=== PATIENT | female | born 1995 | race Two or more races ===

== ENCOUNTER 2022-09-06 13:04 | Outpatient (AMB) | payer OTHER, SELFPAY ==
[2022-09-06 13:06] VITALS: BP 118/60; PULSE 83; O2SAT 99; BMI 29.0
--- NOTE | 2022-09-06 13:06 | A.OFFVIS_ITS ---
Intake Vital Signs 09/06/22 13:06 Height 5 ft 6 in Weight 179 lb 8 oz BMI 29.0 BP 118/60 Blood Pressure Location Rt brachial Position Sitting Pulse 83 Pulse Source Pulse Oximeter Pulse Oximetry (%) 99 Oxygen Delivery Method Room Air Intake Visit Reasons: NPV-Headaches Intake Note: Pt presents as a NPV for headaches. Pt states she has been dealing with headaches for a long time and she used to take sumatriptan but at some point it stopped working. Pt also stated she has tried amitriptyline and some others that didnt work. Pt started seeing double vision and lights. Pt states her head is still hurthing everyday and sometimes its so bad she has to go to ER. 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 Pt has been having headaches since her teenage years. The headaches became everyday about 2 yrs ago around the time her sumatriptan became less effective. Then last year she began ahving new symptoms with her migraine- seeing spot and double vision (occurring with and without headache). Headache questionnaire: Age/time of onset? Adolescence Preceding causes? None Headache characteristics? Can be either right or left sided or bilateral. Throbbing hard pain Pain intensity? Mild-mod 5-6/10, severe 101/10 Prodrome symptoms? None Aura? Sees dots, worsening horizontal diplopia w/ with seeing the image as shaky- when the headache is more severe Associated symptoms? photophobia, phonophobia, nausea (also has GI s/s), external spinning, brain fog/forgetfulness, fatigue, Focal weakness, Parethesias, Autonomic s/s? numbness in the top of the head Postdrome? n/a Triggers? Light or sound exposure. Positional, valsalva, exertional, sexual activity triggers? If she bends over a lot- the headache will worsen. Menstrual triggers? None Time of day? Towards the evening the headaches worsen. Duration? Constant Frequency? Constant How does headache impact your life? 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 She has a supportive family. Current acute medication use/interventions: Nothing Previous acute medication use: Sumatriptan 100mg- stopped working. Current preventative medication use: None Previous preventative medication use: Amitriptyline- took for 6-7 months w/o effect. Non-pharmacological interventions: Heat to her neck- stopped helping. Ice packs, resting in a dark room helps some. 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 She was tx'd w/ Prednisone, Doxycycline, Acyclovir. Other history of headache disorder? None History of musculoskeletal disorders or injury? No injuries, but has been doing PT for neck and shoulder stiffness/tightness. History of concussion/head injury? None History of mood disorder? Anxiety- could be better controlled, especially when she does not feel well. She had post- depression- after her 3 yo's delivery. History of sleep disorder? Does not sleep well- difficulty staying asleep. She believes that she snores. Has been having some difficulty swallowing- recent neck CT showed enlarged tonsils- per PCP referral- a referral was made to ENT- but pt was unaware of this. History of respiratory disease? Asthma History of CV disease? None History of coagulopathy? None History of endocrine or metabolic disease? Hypothyroidism. Was told she is pre- diabetic. History of seizure? None Other? Has h/o KARISSA- had iron infusions. Has some RLS when falling asleep. GI? Has celiac dz- dx'd at age 11, but was not avoiding gluten until a few months ago when she underwent f/u EGD- which confirmed celiac dz. Prone to loose stools. Family planning? None- on mini-pill Family history of migraine or other headache disorder? Her sister [facility] Medical History (Updated 09/06/22 @ 14:35 by ISIDORO Juan) Asthma Celiac disease Enlarged tonsils GERD (gastroesophageal reflux disease) Heart murmur History of depression HLD (hyperlipidemia) Hypothyroidism KARISSA (iron deficiency anemia) Surgical History H/O eye surgery Family History (Updated 09/06/22 @ 13:26 by Janina Bernardo CMA) Maternal Grandmother Diabetes Hypertension Paternal Grandfather Hypertension Father Rheumatoid arthritis Diabetes Fibromyalgia Migraines Anxiety Lupus Mother Fibromyalgia Migraines Hypertension Hypercholesteremia Social History (Updated 09/06/22 @ 13:15 by Janina Bernardo CMA) Alcohol intake: never Patient Tobacco Use Status: Never used Tobacco Review of Systems Const Details: See scanned ROS form. Reports headache(s) ENT Reports headache(s) Neuro Reports headache(s) Physical Exam Vital Signs: Last Vital Signs Pulse 83 09/06/22 13:06 BP 118/60 09/06/22 13:06 Pulse Ox 99 09/06/22 13:06 Oxygen Delivery Method Room Air 09/06/22 13:06 BMI result Body Mass Index 29.0 Const Orientation/consciousness: patient oriented x3 HEENT Other: Mild palpable diffuse scalp and jose TMJ region tenderness. Mallampati stage III. Head: Yes normocephalic Eyes Pupils: Equal, round and reactive pupils present EOM: EOMs intact bilaterally Resp Effort & Inspection: normal respiratory effort and able to speak in complete sentences Back/Spine/Pelvis Other: Bilateral posterior cervical tightness- mild. Cervical ROM: full Neuro Other: Photophobia General: patient oriented x3 Cranial nerves: Yes CN's II-XII intact bilaterally (w/ exception of very mild left lower facial assymetry), Yes Equal, round and reactive pupils present and Yes Nystagmus not present Cognition (Neuro): normal cognition Gait exam (Neuro): Normal gait present Motor exam (neuro): 5/5 motor strength present throughout Deep tendon reflexes (DTR's): Right triceps reflex intensity grade: 2+, Left triceps reflex intensity grade: 2+, Rt Biceps (C5, C6): 2+, Left biceps reflex intensity grade: 2+, Right brachioradialis reflex intensity grade: 2+, Left brachioradialis reflex intensity grade: 2+, Right patellar reflex intensity grade: 2+ and Left patellar reflex intensity grade: 2+ Coordination: [id number] test normal, tandem gait normal and Romberg test negative Pupils: Normal pupillary reactivity/response: bilateral Psych Appearance: grossly normal Mental Status: mental status grossly normal Speech and movement: Normal speech and movement present Affect: normal affect Attitude: cooperative Thought process: Normal thought process present Assessment & Plan Assessment & Plan (1) Chronic migraine without aura: Code(s): G43.709 - Chronic migraine without aura, not intractable, without status migrainosus (2) Diplopia: Code(s): H53.2 - Diplopia (3) Snoring: Code(s): R06.83 - Snoring (4) Sleep difficulties: Code(s): G47.9 - Sleep disorder, unspecified (5) Excessive daytime sleepiness: Code(s): G47.19 - Other hypersomnia (6) Restless leg syndrome: Code(s): G25.81 - Restless legs syndrome Plan Will request brain MRI report and notes from [facility]. Pt advised to undergo HST to assess for sleep apnea. ENT consult as ordered by Dr Solares. Pt has an appt w/ her eye doctor to eval diplopia. Monitor RLS clinically for now. Continue PT For overall headache management: Discussed importance of good self-care, including but not limited to maintaining a healthy diet, adequate fluid intake, adequate sleep, and engaging in regular physical activity. For headache triggers: Track headaches, especially after any treatment regimen changes. Migraine [employer] is one of many headache tracking apps. Light sensitivity tips: Patient may try blue light filtering glasses, green glasses, green light therapy.. Avoid wearing sunglasses inside. For acute headache treatment: Discussed importance of taking acute medications at the first sign of headache, however stressed importance of avoiding acute medication overuse (especially with combined headache medications). Trial Rizatriptan 10mg tab, 1/2 - 1 tab (5-10mg) at onset of headache, may repeat in 2 hours. Max of 2 tabs (200mg) per 24 hours. May adjunct with OTC Tylenol 650mg q 4 hours, Ibuprofen (liquigel) 600mg q 6 hours, or Naproxen (liquigel) 440mg q 12 hrs prn. Reviewed potential adverse effects of triptans, including but not limited to nausea, fatigue, chest tightness/tingling (usually passes within a few minutes), medication overuse headaches. Previous acute migraine medication trials: Sumatriptan- lost efficacy. Acute migraine medication contraindications: none at this time For headache prevention medication: Discussed that preventative medications should be taken routinely as prescribed for best effect, it may take several weeks for full effect to take effect. Start Riboflavin 400mg qam Start Magnesium 400mg qhs Retry Amitriptyline 12.5mg qhs, then 25mg qhs. Previous migraine prevention medication trials: Amitriptyline 10mg- ineffective after 6 months. Migraine prevention medication contraindications: BBs d/t asthma dx. Information also given on non-pharmacological interventions, such as migraien cooling caps and Cefaly or Nerivio neuromodulation devices. Pt to follow-up in 3 months or sooner prn. Orders: Orders RT home sleep study Today G47.19 - Other hypersomnia, G47.9 - Sleep disorder, unspecified, J35.1 - Hypertrophy of tonsils, R06.83 - Snoring Medications: New rizatriptan max 2 tabs per day or 4 tabs per week 5 - 10 mg (0.5 - 1 x 10 mg) PO Q2H PRN 12 tabs 3RF migraine headache 21 days magnesium oxide may hold for loose stools 400 mg PO BEDTIME 30 tabs 6RF 30 days riboflavin (vitamin B2) 400 mg PO DAILY 30 tabs 6RF 30 days amitriptyline 1/2 tab qhs x's 1 week, then 1 tab qhs orally bedtime; 30 tabs 3RF 30 days Coding Level of Care Code New Pt Level 4 (76554) Diagnoses Chronic migraine without aura G43.709 Diplopia H53.2 Snoring R06.83 Sleep difficulties G47.9 Excessive daytime sleepiness G47.19 Restless leg syndrome G25.81
== END 2022-09-06 14:16 | disposition home or self-care (01) ==
PROVIDERS: Visit Provider Nurse Practitioner Family
DX: G43.709 Chronic migraine without aura, not intractable, without status migrainosus (principal); H53.2 Diplopia; R06.83 Snoring; G47.9 Sleep disorder, unspecified; G47.19 Other hypersomnia; G25.81 Restless legs syndrome
CPT/HCPCS: 99204

== ENCOUNTER → 2022-09-06 13:04 | Outpatient (BNVA) | payer OTHER, SELFPAY | PROVIDERS: Visit Provider Nurse Practitioner Family | DX: G43.709 Chronic migraine without aura, not intractable, without status migrainosus (principal); H53.2 Diplopia; R06.83 Snoring; G47.19 Other hypersomnia; G25.81 Restless legs syndrome | CPT/HCPCS: 99202 ==

== ENCOUNTER → 2022-10-12 13:56 | Outpatient (REF) | payer OTHER, SELFPAY | LOC: HO.SL 13:56 | PROVIDERS: PCP Internal Medicine; Visit Provider Nurse Practitioner Family | DX: R06.83 Snoring (principal); G47.9 Sleep disorder, unspecified; G47.19 Other hypersomnia; J35.1 Hypertrophy of tonsils | CPT/HCPCS: 95806 ==

== ENCOUNTER → 2022-10-12 14:05 | Outpatient (BNV) | payer OTHER, SELFPAY | PROVIDERS: PCP Internal Medicine; Visit Provider Internal Medicine | DX: R06.83 Snoring (principal) | CPT/HCPCS: 95806 ==

== ENCOUNTER 2022-12-15 14:25 | Outpatient (AMB) | payer OTHER, SELFPAY ==
--- NOTE | 2022-12-15 14:25 | MHC.OFFVIS ---
Intake Vital Signs 12/15/22 14:26 Height 5 ft 6 in Weight 189 lb 8 oz BMI 30.6 BP 108/72 Blood Pressure Location Rt brachial Position Sitting Pulse 88 Pulse Source Pulse Oximeter Pulse Oximetry (%) 99 Oxygen Delivery Method Room Air Intake Visit Reasons: Headaches-LVM Intake Note: Patient presents for headaches. patient states Im still getting a lot of headaches. Allergies gluten [GLUTEN] Allergy (Unknown, Unverified 12/15/22 14:28) DIARRHEA lactose Allergy (Unknown, Verified 12/15/22 14:28) Unknown metoclopramide [From REGLAN] Allergy (Unknown, Unverified 12/15/22 14:28) UNKNOWN Medication List - Last Reconciled 12/16/22 by ISIDORO Juan amitriptyline 1/2 tab qhs x's 1 week, then 1 tab qhs orally bedtime; 30 days [ control pill PO] erenumab-aooe (Aimovig Autoinjector) 140 mg subcut ONCE 30 days gabapentin 100 mg PO DAILY levothyroxine 125 mcg PO DAILY magnesium oxide 400 mg PO BEDTIME 30 days riboflavin (vitamin B2) 400 mg PO DAILY 30 days rizatriptan 5 - 10 mg (0.5 - 1 x 10 mg) PO Q2H PRN 21 days ubrogepant (Ubrelvy) 100 mg PO ONCE PRN HPI HPI Comments History of Present Illness Details 27-yr-old female presents for f/u visit. Pt denies any significant interval medical changes. Pt continues to have migraine at least 4 times per week. Ubrelvy was ineffective. Thus, pt tried a Nurtec sample, which helped better. Amitriptyline has not been helping. We did put in an order for Aimovig, however pt did not start it yet- was nervous to do it herself. HST- AHI 0/hr, O2 joanne 93%. PFSH Medical History (Updated 09/06/22 @ 14:35 by ISIDORO Juan) Enlarged tonsils HLD (hyperlipidemia) Hypothyroidism History of depression KARISSA (iron deficiency anemia) Asthma Heart murmur GERD (gastroesophageal reflux disease) Celiac disease Surgical History H/O eye surgery Family History (Updated 09/06/22 @ 13:27 by Janina Bernardo CMA) Maternal Grandmother Diabetes Hypertension Paternal Grandfather Hypertension Father Rheumatoid arthritis Diabetes Fibromyalgia Migraines Anxiety Lupus Mother Fibromyalgia Migraines Hypertension Hypercholesteremia Social History (Updated 09/06/22 @ 13:15 by Janina Bernardo CMA) Alcohol intake: never Patient Tobacco Use Status: Never used Tobacco Review of Systems Const All systems reviewed & are unremarkable except as noted in HPI and below Physical Exam Vital Signs: Last Vital Signs Pulse 88 12/15/22 14:26 BP 108/72 12/15/22 14:26 Pulse Ox 99 12/15/22 14:26 Oxygen Delivery Method Room Air 12/15/22 14:26 BMI result Body Mass Index 30.6 Const General: cooperative and no acute distress Orientation/consciousness: patient oriented x3 HEENT Head: Yes normocephalic Resp Effort & Inspection: normal respiratory effort and able to speak in complete sentences Neuro General: patient oriented x3, gait normal and CN's II-XI intact bilaterally Cognition (Neuro): normal cognition Motor exam (neuro): 5/5 motor strength present throughout Psych Appearance: grossly normal Mental Status: mental status grossly normal Speech and movement: Normal speech and movement present Affect: normal affect Attitude: cooperative Thought process: Normal thought process present Thought content: Normal thought content present Insight: Good insight present (Psych) Judgement: Good judgement present (Psych) Assessment & Plan Assessment & Plan (1) Chronic migraine without aura: Code(s): G43.709 - Chronic migraine without aura, not intractable, without status migrainosus (2) Sleep difficulties: Code(s): G47.9 - Sleep disorder, unspecified (3) Restless leg syndrome: Code(s): G25.81 - Restless legs syndrome Plan For overall headache management: Continue to optimize good self-care, including but not limited to maintaining a healthy diet, adequate fluid intake, adequate sleep, and engaging in regular physical activity. Track headaches. Monitor RLS ? For acute headache treatment: Rizatriptan 10mg tab prn. Will initiate order for Nurtec ODT 75mg qd prn, as pt had good effect from sample use. Previous acute migraine medication trials: Sumatriptan- lost efficacy. Rizatriptan- not fully effective. Acute migraine medication contraindications: none at this time ? For headache prevention medication: Riboflavin 400mg qam Magnesium 400mg qhs Amitriptyline 25mg qhs Start Aimovig today- pt scheduled for injection training later today Previous migraine prevention medication trials: Amitriptyline 25mg- ineffective after 3 months. Migraine prevention medication contraindications: BBs d/t asthma dx. ? Addendum: When pt arrived for Aimovig injection training, pt shared that she was now having constiptaion requiring daily tx w/ Miralax. Thus, Aimovig was not administered. Aimovig 140mg/ml autoinjector sample (lot # [id number], exp date 02/20/23)- was wasted as the dose was allowed to come to room air and cannot be refrigerated. Thus, pt advised to start Emgality 240mg loading dose x's 1, then 120mg sc q month. ? Pt to follow-up in 3 months or sooner prn. Medications: New rimegepant (Nurtec ODT) MDD 1 tab per day 75 mg PO ONCE PRN 16 tabs 6RF migraine headache 30 days galcanezumab-gnlm (Emgality Pen) 120 mg subcut ONCE 1 mL 6RF 30 days Refilled rizatriptan max 2 tabs per day or 4 tabs per week 5 - 10 mg (0.5 - 1 x 10 mg) PO Q2H PRN 12 tabs 3RF migraine headache 21 days Discontinued ubrogepant (Ubrelvy) Discontinued Reason: Doctor's Order 100 mg PO ONCE PRN 10 tabs 0RF Migraine erenumab-aooe (Aimovig Autoinjector) Discontinued Reason: Doctor's Order 140 mg subcut ONCE 30 days 1 mL 6RF Coding Level of Care Code Est Pt Level 4 (42477) Diagnoses Chronic migraine without aura G43.709 Sleep difficulties G47.9 Restless leg syndrome G25.81
[2022-12-15 14:26] VITALS: BP 108/72; PULSE 88; O2SAT 99; BMI 30.6
== END 2022-12-15 14:56 | disposition home or self-care (01) ==
PROVIDERS: PCP Internal Medicine; Visit Provider Nurse Practitioner Family
DX: G43.709 Chronic migraine without aura, not intractable, without status migrainosus (principal); G47.9 Sleep disorder, unspecified; G25.81 Restless legs syndrome
CPT/HCPCS: 99214

== ENCOUNTER → 2022-12-15 14:25 | Outpatient (BNVA) | payer OTHER, SELFPAY | PROVIDERS: PCP Internal Medicine; Visit Provider Nurse Practitioner Family | DX: G43.709 Chronic migraine without aura, not intractable, without status migrainosus (principal); G47.9 Sleep disorder, unspecified; G25.81 Restless legs syndrome | CPT/HCPCS: 99212 ==

== ENCOUNTER → 2023-01-04 11:31 | Outpatient (BNVA) | payer OTHER, SELFPAY | PROVIDERS: PCP Internal Medicine; Visit Provider Nurse Practitioner Family ==

== ENCOUNTER 2023-02-01 08:38 | Outpatient (AMB) | payer OTHER, SELFPAY ==
[2023-02-01 08:40] VITALS: BP 110/84; BMI 30.8
--- NOTE | 2023-02-01 08:40 | MHC.OFFVIS ---
Intake Vital Signs 02/01/23 08:40 Height 5 ft 6 in Weight 191 lb BMI 30.8 BP 110/84 Blood Pressure Location Rt brachial Position Sitting Intake Visit Reasons: follow up migraine-Confirmed Intake Note: Patient presents for migraines. Allergies galcanezumab-gnlm [From Emgality Pen] Allergy (Severe, Verified 02/01/23 08:41) Anaphylaxis gluten [GLUTEN] Allergy (Unknown, Unverified 02/01/23 08:41) DIARRHEA lactose Allergy (Unknown, Verified 02/01/23 08:41) Unknown metoclopramide [From REGLAN] Allergy (Unknown, Unverified 02/01/23 08:41) UNKNOWN Medication List - Last Reconciled 02/01/23 by ISIDORO Juan amitriptyline 1/2 tab qhs x's 1 week, then 1 tab qhs orally bedtime; 30 days [ control pill PO] gabapentin 100 mg PO DAILY levothyroxine 125 mcg PO DAILY magnesium oxide 400 mg PO BEDTIME 30 days riboflavin (vitamin B2) 400 mg PO DAILY 30 days rimegepant (Nurtec ODT) 75 mg PO ONCE PRN 30 days HPI HPI Comments History of Present Illness Details 27-yr-old female presents for f/u visit. Pt did have the Emgality loading dose injection, however within 15 minutes she developed throat irritation, throat closure, difficulty breathing. She went to [facility] and was treated for anaphylaxis. She was discharged home w/ an epi-pen, but has not needed to use it. She is continuing to have almost daily migraine. She is hesitant to try another CGRP MaB injection at this time. She also reports worsening burning/numbers/tingling/pins & needles neck pain, upper back, and shoulder pain. The BUE, left worse than right, numbness and tingling radiates from her neck through her fingers. This is triggered by laying on her back. Laying on her left side, triggers LUE numbness/tingling. When this pain is worse- her jaw and eyes seem more swollen; has more difficulty using her hands. She did see rheumatology- [facility]- but work-up was normal and they advised her to discuss this w/ us. [facility] Medical History (Updated 02/01/23 @ 09:16 by ISIDORO Juan) Enlarged tonsils HLD (hyperlipidemia) Hypothyroidism History of depression KARISSA (iron deficiency anemia) Asthma Heart murmur GERD (gastroesophageal reflux disease) Celiac disease Surgical History H/O eye surgery Family History Maternal Grandmother Diabetes Hypertension Paternal Grandfather Hypertension Father Rheumatoid arthritis Diabetes Fibromyalgia Migraines Anxiety Lupus Mother Fibromyalgia Migraines Hypertension Hypercholesteremia Social History Alcohol intake: never Patient Tobacco Use Status: Never used Tobacco Review of Systems Const All systems reviewed & are unremarkable except as noted in HPI and below Physical Exam Vital Signs: Last Vital Signs BP 110/84 02/01/23 08:40 BMI result Body Mass Index 30.8 Const General: cooperative and no acute distress Orientation/consciousness: patient oriented x3 HEENT Head: Yes normocephalic Resp Effort & Inspection: normal respiratory effort and able to speak in complete sentences Neuro Other: Mild foreward head posture Bilateral posterior cervical tightness Spurling test- elicits midline posterior cervical pain LUE- positive medial compression test; negative Tinnel and Phalen RUE- negative Tinnel, Phalen, medial compression test BUE mild decreased hand grasp Otherwise MS 5/5 General: patient oriented x3, gait normal and CN's II-XI intact bilaterally Cognition (Neuro): normal cognition Motor exam (neuro): 5/5 motor strength present throughout Psych Appearance: grossly normal Mental Status: mental status grossly normal Speech and movement: Normal speech and movement present Affect: normal affect Attitude: cooperative Thought process: Normal thought process present Thought content: Normal thought content present Insight: Good insight present (Psych) Judgement: Good judgement present (Psych) Assessment & Plan Assessment & Plan (1) Chronic migraine without aura: Code(s): G43.709 - Chronic migraine without aura, not intractable, without status migrainosus (2) Cervicalgia: Code(s): M54.2 - Cervicalgia (3) Paresthesia of upper and lower extremities of both sides: Comment: BUE (worse on left) neck to fingertips- numbness, tingling, exacerbated by laying down or laying on left side Code(s): R20.2 - Paresthesia of skin Plan For overall headache management: Continue to optimize good self-care, including but not limited to maintaining a healthy diet, adequate fluid intake, adequate sleep, and engaging in regular physical activity. Track headaches. Monitor RLS ? For acute headache treatment: Rizatriptan 10mg tab prn. Nurtec ODT 75mg qd prn, as pt had good effect from sample use. Previous acute migraine medication trials: Sumatriptan- lost efficacy. Rizatriptan- not fully effective. Acute migraine medication contraindications: none at this time ? For headache prevention medication: Riboflavin 400mg qam Magnesium 400mg qhs Amitriptyline 25mg qhs Emgality has been added to allergy list Start Qulipta 30mg qhs- monitor for worsening constiptaion. Continue Miralax. Previous migraine prevention medication trials: Amitriptyline 25mg- ineffective after 3 months. Emgality- anaphylaxis. Aimovog d/t constipation Migraine prevention medication contraindications: BBs d/t asthma dx. ? For cervicalgia and BUE numbness/paresthesias: Will request labs from the [facility] XR c-spine 4 views w/ flex/ext BUE EMG/NCS. ? Pt to follow-up in 3 months or sooner prn. Orders: Orders XR cervical spine 4V Today M54.2 - Cervicalgia, R20.2 - Paresthesia of skin NE electromyogram (EMG) Today M54.2 - Cervicalgia, R20.2 - Paresthesia of skin XR cervical spine w flex/ext Today M54.2 - Cervicalgia, R20.2 - Paresthesia of skin Medications: New atogepant (Qulipta) 30 mg PO DAILY 30 days 30 tabs 6RF Coding Level of Care Code Est Pt Level 4 (77255) Diagnoses Chronic migraine without aura G43.709 Cervicalgia M54.2 Paresthesia of upper and lower extremities of both sides R20.2
== END 2023-02-01 09:22 | disposition home or self-care (01) ==
PROVIDERS: PCP Internal Medicine; Visit Provider Nurse Practitioner Family
DX: G43.709 Chronic migraine without aura, not intractable, without status migrainosus (principal); M54.2 Cervicalgia; R20.2 Paresthesia of skin
CPT/HCPCS: 99214

== ENCOUNTER → 2023-02-01 08:38 | Outpatient (BNVA) | payer OTHER, SELFPAY | PROVIDERS: PCP Internal Medicine; Visit Provider Nurse Practitioner Family | DX: G43.709 Chronic migraine without aura, not intractable, without status migrainosus (principal); M54.2 Cervicalgia; R20.2 Paresthesia of skin | CPT/HCPCS: 99212 ==

== ENCOUNTER 2023-02-22 09:48 | Outpatient (REF) | payer OTHER, SELFPAY | END 2023-02-22 09:49 | disposition home or self-care (01) | LOC: HO.XRAY 09:48 | PROVIDERS: PCP Internal Medicine; Visit Provider Nurse Practitioner Family | DX: M54.2 Cervicalgia (principal); R20.2 Paresthesia of skin | CPT/HCPCS: 72052 ==

== ENCOUNTER 2023-04-22 08:58 | Outpatient (REF) | payer OTHER, SELFPAY ==
--- NOTE | ~2023-04-22 | MR_ITS ---
EXAMINATION: MR BRAIN WITHOUT AND WITH CONTRAST CLINICAL INFORMATION: Headache. Assess for intracranial hypertension. COMPARISON: There are no prior studies available for comparison. TECHNIQUE: Multiplanar, multisequence MRI of the brain was obtained before and after the intravenous administration of 9 mL Gadavist. FINDINGS: No diffusion abnormalities are identified to suggest an acute or subacute infarct. No mass effect or midline shift is seen. The ventricles and sulci normal in size. Brain parenchymal signal is unremarkable. No extra-axial fluid collections are seen. The brainstem appears normal. On postcontrast imaging, there is no abnormal parenchymal or leptomeningeal enhancement. No pathologic magnetic susceptibility artifact is identified on the gradient refocused acquisition. The cerebellar tonsils have normal contour and position, and the craniocervical junction appears normal. Marrow signal and midline structures are normal. The major intracranial flow-voids at the level of the [place] of [place] are preserved. The dural venous sinus flow-voids are maintained. The mastoid air cells and paranasal sinuses are well-aerated. MR/MR head/brain wo/w con IMPRESSION: There are no acute bleeds or infarcts. There are no masses or areas of abnormal enhancement.
--- NOTE | 2023-04-22 09:00 | EMG_ITS ---
Chief complaint: History of headache and neck pain. Complain of numbness in her hands. Seems to be worse on 5th digits. Reason for referral: Evaluate for ulnar neuropathy versus Carpal Tunnel Syndrome Referred by: Allison Weaver NP Procedure done: Bilateral upper extremities NCS/EMG Precautions and/or limitations: None The limb temperature was monitored continuously and remained between 32-36 degrees C during the performance of the NCS. Nerve Conduction Studies Anti Sensory Summary Table ?Stim Site NR Onset (ms) Norm Onset (ms) Peak (ms) Norm Peak (ms) O-P Amp (?V) Norm O-P Amp Site1 Site2 Delta-0 (ms) Dist (cm) Kenneth (m/s) Norm Kenneth (m/s) Left Median Anti Sensory (2nd Digit) Wrist ? 2.4 3.2 <3.6 73.6 >10 Wrist 2nd Digit 2.4 14.0 58 Right Median Anti Sensory (2nd Digit) Wrist ? 2.1 3.2 <3.6 63.9 >10 Wrist 2nd Digit 2.1 14.0 67 Right Radial Anti Sensory (Thumb) Forearm ? 1.4 1.9 <3.1 60.8 Forearm Thumb 1.4 0.0 Left Ulnar Anti Sensory (5th Digit) Wrist ? 2.6 3.2 <3.7 65.6 >15.0 Wrist 5th Digit 2.6 14.0 54 Right Ulnar Anti Sensory (5th Digit) Wrist ? 2.4 3.0 <3.7 67.7 >15.0 Wrist 5th Digit 2.4 14.0 58 Motor Summary Table ?Stim Site NR Onset (ms) Norm Onset (ms) O-P Amp (mV) Norm O-P Amp iAmp (mV) Amp (1st) (%) Site1 Site2 Delta-0 (ms) Dist (cm) Kenneth (m/s) Norm Kenneth (m/s) Left Median Motor (Abd Poll Brev) Wrist ? 3.4 <3.9 8.5 >4.5 10.9 100.0 Elbow Wrist 3.6 22.0 61 >45 Elbow ? 7.0 7.6 10.3 89.4 Right Median Motor (Abd Poll Brev) Wrist ? 3.2 <3.9 12.6 >4.5 14.5 100.0 Elbow Wrist 3.6 21.5 60 >45 Elbow ? 6.8 12.3 14.3 97.6 Left Ulnar Motor (Abd Dig Minimi) Wrist ? 2.9 <3.0 9.3 >5 11.8 100.0 B Elbow Wrist 2.9 19.0 66 >45 B Elbow ? 5.8 9.9 13.0 106.5 A Elbow B Elbow 1.4 10.0 71 >45 A Elbow ? 7.2 9.8 12.9 105.4 Right Ulnar Motor (Abd Dig Minimi) Wrist ? 3.0 <3.0 10.1 >5 11.9 100.0 B Elbow Wrist 2.9 18.0 62 >45 B Elbow ? 5.9 10.1 11.8 100.0 A Elbow B Elbow 1.3 10.0 77 >45 A Elbow ? 7.2 10.1 11.8 100.0 EMG ?Side Muscle Nerve Root Ins Act Fibs Psw Amp Dur Poly Recrt Int Pat Comment Right 1stDorInt Ulnar C8-T1 Nml Nml Nml Nml Nml 0 Nml Complete Right FlexCarRad Median C6-7 Nml Nml Nml Nml Nml 0 Nml Complete Right Biceps Musculocut C5-6 Nml Nml Nml Nml Nml 0 Nml Complete Right Triceps Radial C6-7-8 Nml Nml Nml Nml Nml 0 Nml Complete Right Deltoid Axillary C5-6 Nml Nml Nml Nml Nml 0 Nml Complete Left 1stDorInt Ulnar C8-T1 Nml Nml Nml Nml Nml 0 Nml Complete Left FlexCarRad Median C6-7 Nml Nml Nml Nml Nml 0 Nml Complete Left Biceps Musculocut C5-6 Nml Nml Nml Nml Nml 0 Nml Complete Left Triceps Radial C6-7-8 Nml Nml Nml Nml Nml 0 Nml Complete Left Deltoid Axillary C5-6 Nml Nml Nml Nml Nml 0 Nml Complete Paraspinal EMG ?Side Muscle Nerve Root Ins Act Fibs Psw Comment Right Cervical Upper Rami Nml Nml Nml Right Cervical Mid Rami Nml Nml Nml Right Cervical Lower Rami Nml Nml Nml Left Cervical Upper Rami Nml Nml Nml Left Cervical Mid Rami Nml Nml Nml Left Cervical Lower Rami Nml Nml Nml FINDINGS: All motor and sensory nerves tested showed normal latencies, amplitudes and conduction velocities. Concentric needle EMG was performed in selected muscles of the bilateral upper extremities and cervical paraspinals. Study did not reveal signs of electric abnormalities as shown in the table below. IMPRESSION: 1. This is a normal study. 2. There is no electrodiagnostic evidence for median neuropathy, ulnar neuropathy, brachial plexopathy, or cervical radiculopathy. Thank you for your kind referral. Lelia Poole MD, MULUGETA Board Certified, [place] [employer] and [employer] (ABPMR) Board Certified, [place] [employer] Electro[employer] (ABEM) CODIN [id number] x 2 MTDD
[2023-04-22] MEDS: gadobutroL 10 ML VIAL IVPUSH (11:30)
== END 2023-04-22 08:59 | disposition home or self-care (01) ==
LOC: HO.NEURO 08:58
PROVIDERS: PCP Internal Medicine; Visit Provider Nurse Practitioner Family
DX: M54.2 Cervicalgia (principal); R20.2 Paresthesia of skin; R51.0 Headache with orthostatic component, not elsewhere classified; H91.90 Unspecified hearing loss, unspecified ear; H93.A9 Pulsatile tinnitus, unspecified ear; H53.8 Other visual disturbances; H53.2 Diplopia
CPT/HCPCS: 70553; 95886; 95911

== ENCOUNTER → 2023-04-22 09:00 | Outpatient (BNV) | payer OTHER, SELFPAY | PROVIDERS: PCP Internal Medicine; Visit Provider Physical Medicine & Rehabilitation | DX: M79.641 Pain in right hand (principal); M79.642 Pain in left hand; R20.0 Anesthesia of skin | CPT/HCPCS: 95886; 95911 ==

== ENCOUNTER 2023-05-05 09:27 | Outpatient (AMB) | payer OTHER, SELFPAY ==
[2023-05-05 09:31] VITALS: BP 118/70; PULSE 88; O2SAT 100; BMI 32.6
--- NOTE | 2023-05-05 09:31 | MHC.OFFVIS ---
Intake Vital Signs 05/05/23 09:31 Height 5 ft 6 in Weight 202 lb 2 oz BMI 32.6 BP 118/70 Blood Pressure Location Rt brachial Position Sitting Pulse 88 Pulse Source Pulse Oximeter Pulse Oximetry (%) 100 Oxygen Delivery Method Room Air Intake Visit Reasons: 3 mo f/u - Migraine-Conf Intake Note: Patient presents for 3 month follow up migraines.Patient still getting migraines but not as much as beforee. Allergies galcanezumab-gnlm [From Emgality Pen] Allergy (Severe, Verified 05/05/23 09:41) Anaphylaxis gluten [GLUTEN] Allergy (Unknown, Unverified 05/05/23 09:41) DIARRHEA lactose Allergy (Unknown, Verified 05/05/23 09:41) Unknown metoclopramide [From REGLAN] Allergy (Unknown, Unverified 05/05/23 09:41) UNKNOWN Medication List - Last Reconciled 05/05/23 by ISIDORO Juan alprazolam 0.25 mg orally 1 tab 30 minutes prior to MRI, june repeat x's 1; 1 day amitriptyline 1/2 tab qhs x's 1 week, then 1 tab qhs orally bedtime; 30 days atogepant (Qulipta) 30 mg PO DAILY 30 days [ control pill PO] fwpcmnwuji-jxhmtullclzko-tfaz 50-325-40 mg 1 - 2 tabs PO Q4H PRN 7 days gabapentin 100 mg PO DAILY levothyroxine 125 mcg PO DAILY magnesium oxide 400 mg PO BEDTIME 30 days riboflavin (vitamin B2) 400 mg PO DAILY 30 days rimegepant (Nurtec ODT) 75 mg PO ONCE PRN 30 days HPI HPI Comments History of Present Illness Details 28-yr-old female presents for f/u visit. Pt had called the office 04/18/23, with reports that starting qulipta had helped some, but the headaches were no longer bilateral however now was a more severe unilateral CARRERA- throbbing, feels temporal pulse and around the ears, and hearing felt muffled- worse when the HAs were worse but persisting between the HAs, some watery eyes. She also had some vision vision changes, intermittent diplopia, 20-30lb wt gain in the last few months. CARRERA was worse when laying down and bending over. Had had ears checked- and was told it was clear. Denied runny nose. And pt was advised to undergo urgent brain MRI, LP, eye exam. 04/22/23- brain MRI was normal. Eye exam, Mar 2023- no indications of optic nerve dysfunction. Vertical diplopia- is seeing Dr Youssef- will be fitted for prisms. 04/22/23, [facility] EMG/NCS- normal. Pt reports she was also recently diagnosed w/ bilateral TMJ dysfunction. She has R > L jaw pain and tightness, this started about a year ago but just recently worsened. It can hurt to chew. Her jaw can become stuck. Chewing tougher food can make her jaw more painful even into the next day. She has not yet tried a mouth guard yet- her dentist offered her one but it was $600. Her PCP recently gave her Baclofen 20mg bid and Prednisone 40mg qd x's 5 days- this helped 2% . She has been having a daily migraine in the last 2 weeks, prior to this she was having a migraine every 2-3 days. She is taking the Qulipta 30mg qhs- she is noticing increased constipation. She stopped amitriptyline 25mg qhs a month ago d/t causing am tiredness. The Nurtec helps but the next day she still has a headache. She stopped Rizatriptan- was not helpful and did not tolerate. She feels the migraine and the TMJ pain is preventing her from sleeping, which is exacerbating her headache and jaw pain. Her restless leg symptoms have increased lately, more so when laying down. Compliant w/ iron and vit C. She has never tried restless leg creams or weighted blanket- not sure she likes heavy things on her. [facility] Medical History (Updated 05/05/23 @ 10:33 by ISIDORO Juan) Enlarged tonsils HLD (hyperlipidemia) Hypothyroidism History of depression KARISSA (iron deficiency anemia) Asthma Heart murmur GERD (gastroesophageal reflux disease) Celiac disease Surgical History H/O eye surgery Family History Maternal Grandmother Diabetes Hypertension Paternal Grandfather Hypertension Father Rheumatoid arthritis Diabetes Fibromyalgia Migraines Anxiety Lupus Mother Fibromyalgia Migraines Hypertension Hypercholesteremia Social History Alcohol intake: never Patient Tobacco Use Status: Never used Tobacco Physical Exam Vital Signs: Last Vital Signs Pulse 88 05/05/23 09:31 BP 118/70 05/05/23 09:31 Pulse Ox 100 05/05/23 09:31 Oxygen Delivery Method Room Air 05/05/23 09:31 BMI result Body Mass Index 32.6 Const General: cooperative and no acute distress Orientation/consciousness: patient oriented x3 HEENT Other: Bilateral temporal mandibular joint crepitus, tightness, tenderness. Limited oral opening. Lower front teeth wearing. Resp Effort & Inspection: normal respiratory effort and able to speak in complete sentences Neuro General: patient oriented x3 Cranial nerves: Yes CN's II-XII intact bilaterally Cognition (Neuro): normal cognition Psych Appearance: grossly normal Mental Status: mental status grossly normal Speech and movement: Normal speech and movement present Affect: normal affect Attitude: cooperative Assessment & Plan Assessment & Plan (1) Chronic migraine without aura: Code(s): G43.709 - Chronic migraine without aura, not intractable, without status migrainosus (2) TMJ (temporomandibular joint disorder): Code(s): M26.609 - Unspecified temporomandibular joint disorder, unspecified side (3) Restless leg syndrome: Code(s): G25.81 - Restless legs syndrome (4) Bruxism: Code(s): F45.8 - Other somatoform disorders (5) Pulsatile tinnitus: Code(s): H93.A9 - Pulsatile tinnitus, unspecified ear (6) Blurry vision: Code(s): H53.8 - Other visual disturbances Plan For new positional CARRERA w/ tinnitus: Reviewed brain MRI w/wo- normal Reviewed recent eye exam report- no evidence of optic neuritis or pappilledema. LP w/ routine CSF studies as scheduled. Consider retrial of Topiramate if elevated OP. For bruxism and TMJ dysfunction: Continue Baclofen 20mg bid- ordered by PCP. Try an OTC mouthguard. PT eval & tx. For overall headache management: Track headaches. For acute headache treatment: Trial Zolmitriptan 5mg prn. Nurtec ODT 75mg qd prn. May take w/ Naproxen 500mg bid prn. Previous acute migraine medication trials: Sumatriptan- lost efficacy. Rizatriptan- not fully effective. Acute migraine medication contraindications: none at this time ? For chronic migraine headache prevention medication: Riboflavin 400mg qam Magnesium 400mg qhs Stop Amitriptyline 25mg qhs- not tolerated. Start Botox 155 units IM q 12 weeks- will initiate prior auth. In the meantime, trial Nortriptyline 10-30mg qhs- in hopes this is better tolerated than amitriptyline. Once pt starts Botox, stop Qulipta 30mg qhs- as dose cannot be increased as it is already worsening constipation. Continue Miralax. Previous migraine prevention medication trials: Amitriptyline 25mg- ineffective after 3 months and caused am grogginess. Emgality- anaphylaxis. Aimovog d/t constipation. Migraine prevention medication contraindications: BBs d/t asthma dx. ? For cervicalgia and BUE numbness/paresthesias: Will request labs from the [facility] XR c-spine 4 views w/ flex/ext- Mild spondylosis in the lower cervical spine. BUE EMG/NCS- normal Monitor. For RLS: Try OTC RLS creams. ? Pt to follow-up in 3-4 months or sooner prn. Orders: Orders PT Evaluation and Treatment Today F45.8 - Other somatoform disorders, M26.609 - Unspecified temporomandibular joint disorder, unspecified side Medications: New naproxen (Naprosyn) 500 mg PO BID 30 days PRN 60 tabs 6RF pain zolmitriptan (Zomig) take 1 tab at onset of headache; if no relief, may repeat 1 tab after at least 2 hrs; max = 2 tabs/24 hrs orally PRN; 30 days 12 tabs 3RF migraine headache nortriptyline 10 - 30 mg (1 - 3 x 10 mg) PO BEDTIME 30 days 90 caps 2RF onabotulinumtoxinA (Botox) inject 155 units IM across forehead, scalp, and neck 200 units IM ONCE 12 weeks 1 ea 3RF G43.709 - Chronic migraine without aura, not intractable, without status migrainosus Coding Level of Care Code Est Pt Level 4 (27253) Diagnoses Chronic migraine without aura G43.709 TMJ (temporomandibular joint disorder) M26.609 Restless leg syndrome G25.81 Bruxism F45.8 Pulsatile tinnitus H93.A9 Blurry vision H53.8
== END 2023-05-05 10:37 | disposition home or self-care (01) ==
PROVIDERS: PCP Internal Medicine; Visit Provider Nurse Practitioner Family
DX: G43.709 Chronic migraine without aura, not intractable, without status migrainosus (principal); M26.609 Unspecified temporomandibular joint disorder, unspecified side; G25.81 Restless legs syndrome; F45.8 Other somatoform disorders; H93.A9 Pulsatile tinnitus, unspecified ear; H53.8 Other visual disturbances
CPT/HCPCS: 99214

== ENCOUNTER → 2023-05-05 09:27 | Outpatient (BNVA) | payer OTHER, SELFPAY | PROVIDERS: PCP Internal Medicine; Visit Provider Nurse Practitioner Family | DX: G43.709 Chronic migraine without aura, not intractable, without status migrainosus (principal); M26.609 Unspecified temporomandibular joint disorder, unspecified side; G25.81 Restless legs syndrome; H93.A9 Pulsatile tinnitus, unspecified ear; H53.8 Other visual disturbances; Z79.899 Other long term (current) drug therapy | CPT/HCPCS: 99212 ==

== ENCOUNTER 2023-07-06 08:53 | Outpatient (AMB) | payer OTHER, SELFPAY ==
--- NOTE | 2023-07-06 08:58 | A.OFFVIS_ITS ---
Vital Signs 07/06/23 08:59 Height 5 ft 6 in Weight 200 lb BMI 32.3 BP 118/74 Blood Pressure Location Rt brachial Position Sitting Pulse 74 Pulse Source Pulse Oximeter Pulse Oximetry (%) 99 Oxygen Delivery Method Room Air Intake Visit Reasons: 4 mo f/u Headaches-CONF Intake Note: Patient presents for 4 month follow up headaches.Patient still getting headaches daily. Allergies galcanezumab-gnlm [From Emgality Pen] Allergy (Severe, Verified 07/06/23 09:01) Anaphylaxis gluten [GLUTEN] Allergy (Unknown, Unverified 07/06/23 09:01) DIARRHEA lactose Allergy (Unknown, Verified 07/06/23 09:01) Unknown metoclopramide [From REGLAN] Allergy (Unknown, Unverified 07/06/23 09:01) UNKNOWN Medication List - Last Reconciled 07/06/23 by ISIDORO Juan alprazolam 0.25 mg orally 1 tab 30 minutes prior to MRI, may repeat x's 1; 1 day amitriptyline 1/2 tab qhs x's 1 week, then 1 tab qhs orally bedtime; 30 days atogepant (Qulipta) 30 mg PO DAILY 30 days [ control pill PO] hlpoluyqwv-fqhfeosekrxhe-yvsq 50-325-40 mg 1 - 2 tabs PO Q4H PRN 7 days gabapentin 100 mg PO DAILY lactulose 20 grams (30 mL) PO DAILY PRN 30 days levothyroxine 125 mcg PO DAILY magnesium oxide 400 mg PO BEDTIME 30 days naproxen (Naprosyn) 500 mg PO BID PRN 30 days nortriptyline 10 - 30 mg (1 - 3 x 10 mg) PO BEDTIME 30 days onabotulinumtoxinA (Botox) 200 units IM ONCE 12 weeks riboflavin (vitamin B2) 400 mg PO DAILY 30 days rimegepant (Nurtec ODT) 75 mg PO ONCE PRN 30 days zolmitriptan (Zomig) take 1 tab at onset of headache; if no relief, may repeat 1 tab after at least 2 hrs; max = 2 tabs/24 hrs orally PRN; 30 days HPI Comments Details: 28-yr-old female presents for f/u visit. Pt's LP order was cancelled as pt was . Pt is no longer . Pt continue sto have a daily migraine headache. No longer having any positional component to her headaches. We restarted her on Qulipta as we were waiting for the botox PA. Started the qulipta 30mg qd about a week ago- the headaches are less intense but still occurring daily. She is more constipated even w/ taking miralax and sennna qd. Nurtec helps, but cannot take daily. She notes her neck has been very tight and this seems to be r/t right ear pain and tinnitus. The more active she is, the the next day she will have increased pain and stiffness. She is taking baclofen 20mg bid and was just given meloxicam. Has not started to use a mouth guard. Has started to take the Gabapentin 600mg bid more regularly- was She has had her eval and will be starting PT for bruxism/TMJ dysfunction and dry needling. Baseline headache characteristics: Aura: Sees dots, worsening horizontal diplopia w/ with seeing the image as shaky- when the headache is more severe Mild-mod 5-6/10, severe 10/10, Throbbing hard pain- Can be either right or left sided or bilateral a/w photophobia, phonophobia, nausea (also has GI s/s), external spinning, brain fog/forgetfulness, fatigue, numbness in the top of the head [facility] Medical History (Updated 07/06/23 @ 10:12 by ISIDORO Juan) Enlarged tonsils HLD (hyperlipidemia) Hypothyroidism History of depression KARISSA (iron deficiency anemia) Asthma Heart murmur GERD (gastroesophageal reflux disease) Celiac disease Surgical History H/O eye surgery Family History Maternal Grandmother Diabetes Hypertension Paternal Grandfather Hypertension Father Rheumatoid arthritis Diabetes Fibromyalgia Migraines Anxiety Lupus Mother Fibromyalgia Migraines Hypertension Hypercholesteremia Social History Alcohol intake: never Patient Tobacco Use Status: Never used Tobacco Physical Exam Vital Signs: Last Vital Signs Pulse 74 07/06/23 08:59 BP 118/74 07/06/23 08:59 Pulse Ox 99 07/06/23 08:59 Oxygen Delivery Method Room Air 07/06/23 08:59 BMI result Body Mass Index 32.3 Const General: cooperative and no acute distress Orientation/consciousness: patient oriented x3 Resp Effort & Inspection: normal respiratory effort and able to speak in complete sentences Neuro Other: Bilateral jaw tightness, more so on right bilateral posterior cervical tightness. General: patient oriented x3 Cranial nerves: Yes CN's II-XII intact bilaterally Cognition (Neuro): normal cognition Psych Appearance: grossly normal Mental Status: mental status grossly normal Speech and movement: Normal speech and movement present Affect: normal affect Attitude: cooperative Assessment & Plan Assessment & Plan (1) Chronic migraine without aura: Code(s): G43.709 - Chronic migraine without aura, not intractable, without status migrainosus Category: Medical (2) Migraine with aura: Code(s): G43.109 - Migraine with aura, not intractable, without status migrainosus Category: Medical (3) Bruxism: Code(s): F45.8 - Other somatoform disorders Category: Medical (4) TMJ (temporomandibular joint disorder): Code(s): M26.609 - Unspecified temporomandibular joint disorder, unspecified side Category: Medical Plan ? For bruxism and TMJ dysfunction: Continue Baclofen 20mg bid- ordered by PCP. Continue Gabapentin 600mg bid Try Meloxicam- by PCP Again try an OTC mouthguard. Continue PT- dry needling ? For overall headache management: Track headaches. ? For acute headache treatment: Zolmitriptan 5mg prn. Nurtec ODT 75mg qd prn. May take w/ Naproxen 500mg bid prn. Previous acute migraine medication trials: Sumatriptan- lost efficacy. Rizatriptan- not fully effective. Acute migraine medication contraindications: none at this time ? For chronic migraine headache prevention medication: Riboflavin 400mg qam Magnesium 400mg qhs Will re-order Botox 155 units IM q 12 weeks- will initiate prior auth. Once botox started, stop Qulipta 30mg qd- as this is not fully effective and is causing constipation. Will send order for prn Lactulose. Continue Miralax and senna qd. Continue Nortriptyline 10-30mg qhs- in hopes this is better tolerated than amitriptyline. Once pt starts Botox, stop Qulipta 30mg qhs- as dose cannot be increased as it is already worsening constipation. Continue Miralax. Previous migraine prevention medication trials: Amitriptyline 25mg- ineffective after 3 months and caused am grogginess. Emgality- anaphylaxis.. Migraine prevention medication contraindications: BBs d/t asthma dx. Aimovog d/t constipation ? For cervicalgia and BUE numbness/paresthesias: Will request labs from the [facility] XR c-spine 4 views w/ flex/ext- Mild spondylosis in the lower cervical spine. BUE EMG/NCS- normal Monitor. ? For RLS: Try OTC RLS creams. ? Pt to follow-up in 6 months or sooner prn. Medications: New lactulose 20 grams (30 mL) PO DAILY 30 days PRN 1,200 mL 1RF constipation Coding Level of Care Code Est Pt Level 4 (17834) Diagnoses Chronic migraine without aura G43.709 Migraine with aura G43.109 Bruxism F45.8 TMJ (temporomandibular joint disorder) M26.609
[2023-07-06 08:59] VITALS: BP 118/74; PULSE 74; O2SAT 99; BMI 32.3
== END 2023-07-06 10:05 | disposition home or self-care (01) ==
PROVIDERS: PCP Internal Medicine; Visit Provider Nurse Practitioner Family
DX: G43.709 Chronic migraine without aura, not intractable, without status migrainosus (principal); G43.109 Migraine with aura, not intractable, without status migrainosus; F45.8 Other somatoform disorders; M26.609 Unspecified temporomandibular joint disorder, unspecified side
CPT/HCPCS: 99214

== ENCOUNTER → 2023-07-06 08:53 | Outpatient (BNVA) | payer OTHER, SELFPAY | PROVIDERS: PCP Internal Medicine; Visit Provider Nurse Practitioner Family | DX: G43.709 Chronic migraine without aura, not intractable, without status migrainosus (principal); G43.109 Migraine with aura, not intractable, without status migrainosus; F45.8 Other somatoform disorders; M26.601 Right temporomandibular joint disorder, unspecified | CPT/HCPCS: 99212 ==

== ENCOUNTER 2023-07-27 10:53 | Outpatient (AMB) | payer OTHER, SELFPAY ==
--- NOTE | 2023-07-27 11:19 | A.OFFVIS_ITS ---
Vital Signs 07/27/23 11:20 Height 5 ft 6 in Weight 200 lb BMI 32.3 BP 122/60 Blood Pressure Location Rt brachial Position Sitting Respiration 16 Pulse 83 Pulse Source Pulse Oximeter Pulse Oximetry (%) 98 Oxygen Delivery Method Room Air Intake Visit Reasons: Botox- Confirmed Intake Note: Pt presents to the office for Botox injections. Noise Abatement Engineer Required: No Allergies galcanezumab-gnlm [From Emgality Pen] Allergy (Severe, Verified 07/27/23 11:19) Anaphylaxis gluten [GLUTEN] Allergy (Unknown, Unverified 07/27/23 11:19) DIARRHEA lactose Allergy (Unknown, Verified 07/27/23 11:19) Unknown metoclopramide [From REGLAN] Allergy (Unknown, Unverified 07/27/23 11:19) UNKNOWN Medication List - Last Reconciled 07/27/23 by Mckenna Garcia MD alprazolam 0.25 mg orally 1 tab 30 minutes prior to MRI, may repeat x's 1; 1 day amitriptyline 1/2 tab qhs x's 1 week, then 1 tab qhs orally bedtime; 30 days atogepant (Qulipta) 30 mg PO DAILY 30 days [ control pill PO] vjowifldmu-logwvvumsfksl-sywb 50-325-40 mg 1 - 2 tabs PO Q4H PRN 7 days gabapentin 100 mg PO DAILY lactulose 20 grams (30 mL) PO DAILY PRN 30 days levothyroxine 125 mcg PO DAILY magnesium oxide 400 mg PO BEDTIME 30 days metoprolol tartrate 25 mg PO DAILY naproxen (Naprosyn) 500 mg PO BID PRN 30 days nortriptyline 10 - 30 mg (1 - 3 x 10 mg) PO BEDTIME 30 days onabotulinumtoxinA (Botox) 200 units IM ONCE 12 weeks riboflavin (vitamin B2) 400 mg PO DAILY 30 days rimegepant (Nurtec ODT) 75 mg PO ONCE PRN 30 days zolmitriptan (Zomig) take 1 tab at onset of headache; if no relief, may repeat 1 tab after at least 2 hrs; max = 2 tabs/24 hrs orally PRN; 30 days HPI Comments Details: ? 28y/o female comes for treatment of migraines with botox. ??? Most frequent reported adverse reactions following injection of botox for chronic migraine include neck pain (9%), headache(5%), eyelid ptosis(4%), m igraine(4%), muscular weakness(4%), musculuskeletal stiffness(4%), bronchitis(3%), injection site pain (3%), musculoskeletal pain(3%), myalgia(3%), facial paresis(2%), HTN(2%) and muscle spasms(2%) were discussed in detail. ??? Botulinum toxin typeA 200units Lot no [id number] expiration July 2025 was diluted with 4 cc of normal saline . ??? Muscles injected- ??? Frontalis 4 sites ??? Procerus 1 site xxx ??? Territory Sales Manager Medical- 2 sites ??? Temporalis- 8 sites ??? Occipitalis- 6 sites ??? Cervical paraspinals- 4 sites ??? Trapezius- 6 sites- 10 units each ??? 5 units each in 31 site ??? Total use- 185units ??? Discarded-15units [facility] Medical History Enlarged tonsils HLD (hyperlipidemia) Hypothyroidism History of depression KARISSA (iron deficiency anemia) Asthma Heart murmur GERD (gastroesophageal reflux disease) Celiac disease Surgical History H/O eye surgery Family History Maternal Grandmother Diabetes Hypertension Paternal Grandfather Hypertension Father Rheumatoid arthritis Diabetes Fibromyalgia Migraines Anxiety Lupus Mother Fibromyalgia Migraines Hypertension Hypercholesteremia Social History Alcohol intake: never Patient Tobacco Use Status: Never used Tobacco Physical Exam Vital Signs: Last Vital Signs Pulse 83 07/27/23 11:20 Resp 16 07/27/23 11:20 BP 122/60 07/27/23 11:20 Pulse Ox 98 07/27/23 11:20 Oxygen Delivery Method Room Air 07/27/23 11:20 BMI result Body Mass Index 32.3 Const General: cooperative and no acute distress Orientation/consciousness: patient oriented x3 Resp Effort & Inspection: normal respiratory effort and able to speak in complete sentences Neuro Other: Bilateral jaw tightness, more so on right bilateral posterior cervical tightness. General: patient oriented x3 Cranial nerves: Yes CN's II-XII intact bilaterally Cognition (Neuro): normal cognition Psych Appearance: grossly normal Mental Status: mental status grossly normal Speech and movement: Normal speech and movement present Affect: normal affect Attitude: cooperative Office Procedures Botulinum toxin Injection 28281 - Migraine Procedure code (CPT) selection complete Office Meds onabotulinumtoxinA 200 unit solution for injection Performing Provider: Mckenna Garcia MD Performing Location: [facility] [place] [facility] Administered by: Mckenna Garcia MD on 07/27/23 12:59 Dose Route Admin Location Dispensed Lot Number Expiration Date [facility] Saw Offbearer 185 unit subcut 200 units [id number] 07/22/25 8457-9395-21 ALLERGAN/BOTOX Comments: see hpi Assessment & Plan Assessment & Plan (1) Chronic migraine without aura: Code(s): G43.709 - Chronic migraine without aura, not intractable, without status migrainosus Category: Medical (2) Migraine with aura: Code(s): G43.109 - Migraine with aura, not intractable, without status migrainosus Category: Medical (3) Bruxism: Code(s): F45.8 - Other somatoform disorders Category: Medical (4) TMJ (temporomandibular joint disorder): Code(s): M26.609 - Unspecified temporomandibular joint disorder, unspecified side Category: Medical Plan Patient tolerated the procedure well she will call with any side effects Orders: Orders AMB Botulinum toxin Injection Today G43.709 - Chronic migraine without aura, not intractable, without status migrainosus Medications: New onabotulinumtoxinA 200 units subcut ONCE 1 ea 0RF migraine G43.709 - Chronic migraine without aura, not intractable, without status migrainosus Coding Level of Care Code Est Pt Level 1 (98115) Diagnoses Chronic migraine without aura G43.709 Migraine with aura G43.109 Bruxism F45.8 TMJ (temporomandibular joint disorder) M26.609 CPT Codes Botox Injection - Botox 3: 48539 - Migraine ([id number])
[2023-07-27 11:20] VITALS: BP 122/60; PULSE 83; RESP 16; O2SAT 98; BMI 32.3
== END 2023-07-27 11:44 | disposition home or self-care (01) ==
PROVIDERS: PCP Internal Medicine; Visit Provider Psychiatry & Neurology Neurology
DX: G43.E09 Chronic migraine with aura, not intractable, without status migrainosus (principal)
CPT/HCPCS: 64615

== ENCOUNTER → 2023-07-27 10:53 | Outpatient (BNVA) | payer OTHER, SELFPAY | PROVIDERS: PCP Internal Medicine; Visit Provider Psychiatry & Neurology Neurology | DX: G43.E09 Chronic migraine with aura, not intractable, without status migrainosus (principal); F45.8 Other somatoform disorders; M26.609 Unspecified temporomandibular joint disorder, unspecified side | CPT/HCPCS: 64615; 99211; J0585 ==

== ENCOUNTER 2023-09-12 10:28 | Outpatient (AMB) | payer OTHER, SELFPAY ==
[2023-09-12 10:36] VITALS: BP 114/78; BMI 32.3
--- NOTE | 2023-09-12 10:36 | MHC.OFFVIS ---
Vital Signs 09/12/23 10:36 Height 5 ft 6 in Weight 200 lb BMI 32.3 BP 114/78 Blood Pressure Location Rt brachial Position Sitting Intake Visit Reasons: follow up Migraine-LVM Intake Note: Patient presents for follow up migraines.Patient has been getting migraine here and there, this week has been very strong. Allergies galcanezumab-gnlm [From Emgality Pen] Allergy (Severe, Verified 09/12/23 10:39) Anaphylaxis gluten [GLUTEN] Allergy (Unknown, Unverified 09/12/23 10:39) DIARRHEA lactose Allergy (Unknown, Verified 09/12/23 10:39) Unknown metoclopramide [From REGLAN] Allergy (Unknown, Unverified 09/12/23 10:39) UNKNOWN HPI Comments Details: 28-yr-old female presents for f/u visit. Pt denies any significant interval medical changes. Pt reports she had been increasing her physical activity, stretching, exercises with PT and at home. This is causing her to have increased body pains and thus is not as sleeping as well. She thinks this has increased her headaches in the past week. She has started Botox- for chronic migraine and TMJ dysfunction/bruxism. She states was overall tolerated well, just could not move her corrogater muscle. She feels Botox was helpful- was having less migraines. Also was having less jaw pain- was able to eat steak for the 1st time in a long time. She tried to hold the Qulipta after starting the Botox, however the migraine headaches increased so she resumed the Qulipta. She is tolerating the Nortriptyline 10mg better than the Amitriptyline. Using Nurtec or Zolmitriptan prn- which helps. Has not been using Naproxen as her PCP has given her meloxicam for inflammation. She states her towel rolling machine operator advised her to increase her salt intake- as she has s/s suggestive of POTs. Baseline headache characteristics: Aura: Sees dots, worsening horizontal diplopia w/ with seeing the image as shaky- when the headache is more severe Mild-mod 5-6/10, severe 10/10, Throbbing hard pain- Can be either right or left sided or bilateral a/w photophobia, phonophobia, nausea (also has GI s/s), external spinning, brain fog/forgetfulness, fatigue, numbness in the top of the head PFSH Medical History Enlarged tonsils HLD (hyperlipidemia) Hypothyroidism History of depression KARISSA (iron deficiency anemia) Asthma Heart murmur GERD (gastroesophageal reflux disease) Celiac disease Surgical History H/O eye surgery Family History Maternal Grandmother Diabetes Hypertension Paternal Grandfather Hypertension Father Rheumatoid arthritis Diabetes Fibromyalgia Migraines Anxiety Lupus Mother Fibromyalgia Migraines Hypertension Hypercholesteremia Social History Alcohol intake: never Patient Tobacco Use Status: Never used Tobacco Physical Exam Vital Signs: Last Vital Signs BP 114/78 09/12/23 10:36 BMI result Body Mass Index 32.3 Const General: cooperative and no acute distress Orientation/consciousness: patient oriented x3 Resp Effort & Inspection: normal respiratory effort and able to speak in complete sentences Neuro General: patient oriented x3 Cranial nerves: Yes CN's II-XII intact bilaterally Cognition (Neuro): normal cognition Psych Appearance: grossly normal Mental Status: mental status grossly normal Speech and movement: Normal speech and movement present Affect: normal affect Attitude: cooperative Assessment & Plan Assessment & Plan (1) Chronic migraine without aura: Code(s): G43.709 - Chronic migraine without aura, not intractable, without status migrainosus Category: Medical (2) TMJ (temporomandibular joint disorder): Code(s): M26.609 - Unspecified temporomandibular joint disorder, unspecified side Category: Medical (3) Bruxism: Code(s): F45.8 - Other somatoform disorders Category: Medical (4) Migraine with aura: Code(s): G43.109 - Migraine with aura, not intractable, without status migrainosus Category: Medical Plan For bruxism and TMJ dysfunction: Continue Baclofen 20mg bid- ordered by PCP. Continue Gabapentin 600mg bid Continue Meloxicam prn- by PCP Again try an OTC mouth guard. Continue PT exercises. Continue exercise- add stretching, warm up, cool down. For POTs s/s- Concur w/ increasing fluids and salt. Discussed nutrition tips to improve CHO intake as pt has gluten allergy.- fruits/vegetables/gluten-free grains. ? For overall headache management: Track headaches. ? For acute headache treatment: Zolmitriptan 5mg prn. Nurtec ODT 75mg qd prn. Hold Naproxen 500mg bid prn while on Meloxicam. Previous acute migraine medication trials: Sumatriptan- lost efficacy. Rizatriptan- not fully effective. Acute migraine medication contraindications: none at this time ? For chronic migraine headache prevention medication: Riboflavin 400mg qam Magnesium 400mg qhs Continue Botox 155 units IM q 12 weeks, as pt is already starting to see some clinical effect from use. Continue Qulipta 30mg qd- monitor constipation. Consider re-trying to wean off again after pt has next Botox tx. But dose cannot be increased further as it is already worsening constipation. Continue prn Lactulose. Continue Miralax and senna qd. Increase Nortriptyline from 10 to 20-30mg qhs- in hopes this improves sleep. Previous migraine prevention medication trials: Amitriptyline 25mg- ineffective after 3 months and caused am grogginess. Emgality- anaphylaxis. Migraine prevention medication contraindications: BBs d/t asthma dx. Aimovig d/t constipation ? For cervicalgia and BUE numbness/paresthesias: XR c-spine 4 views w/ flex/ext- Mild spondylosis in the lower cervical spine. BUE EMG/NCS- normal Monitor. ? For RLS: OTC RLS creams. Pt advised to update us if no improvement in the next 3-4 weeks. Pt to follow-up in 6 months or sooner prn. Coding Level of Care Code Est Pt Level 4 (73786) Diagnoses Chronic migraine without aura G43.709 TMJ (temporomandibular joint disorder) M26.609 Bruxism F45.8 Migraine with aura G43.109
== END 2023-09-12 11:23 | disposition home or self-care (01) ==
PROVIDERS: PCP Internal Medicine; Referring Provider Internal Medicine; Visit Provider Nurse Practitioner Family
DX: G43.709 Chronic migraine without aura, not intractable, without status migrainosus (principal); M26.609 Unspecified temporomandibular joint disorder, unspecified side; F45.8 Other somatoform disorders; G43.109 Migraine with aura, not intractable, without status migrainosus
CPT/HCPCS: 99214

== ENCOUNTER → 2023-09-12 10:28 | Outpatient (BNVA) | payer OTHER, SELFPAY | PROVIDERS: PCP Internal Medicine; Visit Provider Nurse Practitioner Family | DX: G43.709 Chronic migraine without aura, not intractable, without status migrainosus (principal); G43.109 Migraine with aura, not intractable, without status migrainosus; M26.609 Unspecified temporomandibular joint disorder, unspecified side; F45.8 Other somatoform disorders | CPT/HCPCS: 99212 ==

== ENCOUNTER 2023-11-23 09:58 | Outpatient (AMB) | payer OTHER, SELFPAY ==
--- NOTE | 2023-11-23 10:03 | MHC.OFFVIS ---
Vital Signs 11/23/23 10:05 Height 5 ft 6 in Weight 201 lb BMI 32.4 BP 122/68 Blood Pressure Location Rt brachial Position Sitting Respiration 16 Pulse 81 Pulse Source Pulse Oximeter Pulse Oximetry (%) 99 Oxygen Delivery Method Room Air Intake Visit Reasons: Botox Intake Note: Pt presents to the office for Botox injections for migraines. Lifestyle Coordinator Required: No Allergies galcanezumab-gnlm [From Emgality Pen] Allergy (Severe, Verified 11/23/23 10:04) Anaphylaxis gluten [GLUTEN] Allergy (Unknown, Verified 11/23/23 10:04) DIARRHEA lactose Allergy (Unknown, Verified 11/23/23 10:04) Unknown metoclopramide [From REGLAN] Allergy (Unknown, Verified 11/23/23 10:04) UNKNOWN Medication List - Last Reconciled 11/23/23 by Mckenna Garcia MD alprazolam 0.25 mg orally 1 tab 30 minutes prior to MRI, may repeat x's 1; 1 day amitriptyline 1/2 tab qhs x's 1 week, then 1 tab qhs orally bedtime; 30 days atogepant (Qulipta) 30 mg PO DAILY 30 days [ control pill PO] qtylptryvs-zrviolxgtwnpu-mdop 50-325-40 mg 1 - 2 tabs PO Q4H PRN 7 days gabapentin 100 mg PO DAILY lactulose 20 grams (30 mL) PO DAILY PRN 90 days levothyroxine 125 mcg PO DAILY magnesium oxide 400 mg PO BEDTIME 30 days naproxen (Naprosyn) 500 mg PO BID PRN 30 days nortriptyline 10 - 30 mg (1 - 3 x 10 mg) PO BEDTIME 30 days onabotulinumtoxinA (Botox) 200 units IM ONCE 12 weeks riboflavin (vitamin B2) 400 mg PO DAILY 30 days rimegepant (Nurtec ODT) 75 mg PO ONCE PRN 30 days zolmitriptan (Zomig) take 1 tab at onset of headache; if no relief, may repeat 1 tab after at least 2 hrs; max = 2 tabs/24 hrs orally PRN; 30 days HPI Comments Details: ? 28y/o female comes for treatment of migraines with botox. ??? Most frequent reported adverse reactions following injection of botox for chronic migraine include neck pain (9%), headache(5%), eyelid ptosis(4%), migraine(4%), muscular weakness(4%), musculuskeletal stiffness(4%), bronchitis(3%), injection site pain (3%), musculoskeletal pain(3%), myalgia(3%), facial paresis(2%), HTN(2%) and muscle spasms(2%) were discussed in detail. ??? Botulinum toxin typeA 200units Lot no [id number] expiration Jan 2026 was diluted with 4 cc of normal saline . ??? Muscles injected- ??? Frontalis 4 sites ??? Procerus 1 site xxx ??? Plumbing Contractor- 2 sites ??? Temporalis- 8 sites ??? Occipitalis- 6 sites ??? Cervical paraspinals- 4 sites ??? Trapezius- 6 sites- 10 units each ??? 5 units each in 31 site ??? Total use- 185units ??? Discarded-15units [facility] Medical History Enlarged tonsils HLD (hyperlipidemia) Hypothyroidism History of depression KARISSA (iron deficiency anemia) Asthma Heart murmur GERD (gastroesophageal reflux disease) Celiac disease Surgical History H/O eye surgery Family History Maternal Grandmother Diabetes Hypertension Paternal Grandfather Hypertension Father Rheumatoid arthritis Diabetes Fibromyalgia Migraines Anxiety Lupus Mother Fibromyalgia Migraines Hypertension Hypercholesteremia Social History Alcohol intake: never Patient Tobacco Use Status: Never used Tobacco Physical Exam Vital Signs: Last Vital Signs Pulse 81 11/23/23 10:05 Resp 16 11/23/23 10:05 BP 122/68 11/23/23 10:05 Pulse Ox 99 11/23/23 10:05 Oxygen Delivery Method Room Air 11/23/23 10:05 BMI result Body Mass Index 32.4 Const General: cooperative and no acute distress Orientation/consciousness: patient oriented x3 Resp Effort & Inspection: normal respiratory effort and able to speak in complete sentences Neuro Other: Bilateral jaw tightness, more so on right bilateral posterior cervical tightness. General: patient oriented x3 Cranial nerves: Yes CN's II-XII intact bilaterally Cognition (Neuro): normal cognition Psych Appearance: grossly normal Mental Status: mental status grossly normal Speech and movement: Normal speech and movement present Affect: normal affect Attitude: cooperative Office Procedures Botulinum toxin Injection 71044 - Migraine Procedure code (CPT) selection complete Office Meds onabotulinumtoxinA 200 unit solution for injection Performing Provider: Mckenna Garcia MD Performing Location: [facility] [place] [facility] Administered by: Mckenna Garcia MD on 11/23/23 10:29 Dose Route Admin Location Dispensed Lot Number Expiration Date [facility] Prick [employer]itcher 185 unit subcut 200 units [id number] 01/21/26 8010-9718-34 ALLERGAN/BOTOX Comments: see HPI Assessment & Plan Assessment & Plan (1) Chronic migraine without aura: Code(s): G43.709 - Chronic migraine without aura, not intractable, without status migrainosus Category: Medical Qualifiers: Intractability: intractable (2) Bruxism: Code(s): F45.8 - Other somatoform disorders Category: Medical (3) TMJ (temporomandibular joint disorder): Code(s): M26.609 - Unspecified temporomandibular joint disorder, unspecified side Category: Medical Plan Patient tolerated the procedure well she will call with any side effects Orders: Orders AMB Botulinum toxin Injection Today G43.709 - Chronic migraine without aura, not intractable, without status migrainosus Medications: New onabotulinumtoxinA 200 units subcut ONCE 1 ea 0RF Migraines G43.709 - Chronic migraine without aura, not intractable, without status migrainosus Coding Level of Care Code Est Pt Level 1 (69365) Diagnoses Chronic migraine without aura G43.709 Intractability: intractable Bruxism F45.8 TMJ (temporomandibular joint disorder) M26.609 CPT Codes Botox Injection - Botox 3: 60984 - Migraine ([id number])
[2023-11-23 10:05] VITALS: BP 122/68; PULSE 81; RESP 16; O2SAT 99; BMI 32.4
== END 2023-11-23 10:24 | disposition home or self-care (01) ==
PROVIDERS: PCP Internal Medicine; Visit Provider Psychiatry & Neurology Neurology
DX: G43.709 Chronic migraine without aura, not intractable, without status migrainosus (principal)
CPT/HCPCS: 64615

== ENCOUNTER → 2023-11-23 09:58 | Outpatient (BNVA) | payer OTHER, SELFPAY | PROVIDERS: PCP Internal Medicine; Visit Provider Psychiatry & Neurology Neurology | DX: G43.709 Chronic migraine without aura, not intractable, without status migrainosus (principal); M26.609 Unspecified temporomandibular joint disorder, unspecified side; F45.8 Other somatoform disorders | CPT/HCPCS: 64615; 99211; J0585 ==

== ENCOUNTER 2023-12-27 12:42 | Outpatient (AMB) | payer OTHER, SELFPAY ==
--- NOTE | 2023-12-27 12:47 | A.OFFVIS_ITS ---
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 Accompanied by: Self / Same As Patient Allergies [id number] [From Emgality Pen] Allergy (Severe, Verified 12/27/23 12:55) Anaphylaxis gluten [GLUTEN] Allergy (Unknown, Verified 12/27/23 12:55) DIARRHEA lactose Allergy (Unknown, Verified 12/27/23 12:55) Unknown metoclopramide [From REGLAN] Allergy (Unknown, Verified 12/27/23 12:55) UNKNOWN Medication List - Last Reconciled 12/27/23 by ISIDORO Juan atogepant (Qulipta) 30 mg PO DAILY 30 days gabapentin 600 mg PO BID lactulose 20 grams (30 mL) PO DAILY PRN 90 days levothyroxine 100 mcg PO DAILY magnesium oxide 400 mg PO BEDTIME 30 days nortriptyline 10 - 30 mg (1 - 3 x 10 mg) PO BEDTIME 30 days onabotulinumtoxinA (Botox) 200 units IM ONCE 12 weeks riboflavin (vitamin B2) 400 mg PO DAILY 30 days rimegepant (Nurtec ODT) 75 mg PO ONCE PRN 30 days zolmitriptan (Zomig) take 1 tab at onset of headache; if no relief, may repeat 1 tab after at least 2 hrs; max = 2 tabs/24 hrs orally PRN; 30 days HPI Comments Details: 28-yr-old female presents for urgent f/u visit for new right sided headache. Pt reports on Dec 21, she developed a abrupt onset of a constant right temporal, just anterior to the ear and druze thumping pain, which is aw/ some photophobia, soem phonophobia, right neck tightness. The pain has gradually worsened. Overall this does not feel like a typical migraine. However, she had this headache type once before, and it responded to prednisone. Avoiding NSAIDs in general d/t gastritis. Currently on omeprazole 20mg qd. Today, her right upper eyelid seems a bit swollen. Denies inner ear pain, fever. Tried Nurtec but this did not help. Ice and migraine ice cap helps some. She things this may have been triggered by doing yard work and raking on Dec 17 and . Baseline migraine headache characteristics: Aura: Sees dots, worsening horizontal diplopia w/ with seeing the image as shaky- when the headache is more severe Mild-mod 5-6/10, severe 10/10, Throbbing hard pain- Can be either right or left sided or bilateral a/w photophobia, phonophobia, nausea (also has GI s/s), external spinning, brain fog/forgetfulness, fatigue, numbness in the top of the head [facility] Medical History Enlarged tonsils HLD (hyperlipidemia) Hypothyroidism History of depression KARISSA (iron deficiency anemia) Asthma Heart murmur GERD (gastroesophageal reflux disease) Celiac disease Surgical History H/O eye surgery Family History Maternal Grandmother Diabetes Hypertension Paternal Grandfather Hypertension Father Rheumatoid arthritis Diabetes Fibromyalgia Migraines Anxiety Lupus Mother Fibromyalgia Migraines Hypertension Hypercholesteremia Social History Alcohol intake: never Patient Tobacco Use Status: Never used Tobacco Physical Exam Vital Signs: Last Vital Signs Pulse 90 12/27/23 12:52 BP 130/80 12/27/23 12:52 Pulse Ox 98 12/27/23 12:52 Oxygen Delivery Method Room Air 12/27/23 12:52 BMI result Body Mass Index 31.1 Const General: cooperative and no acute distress Orientation/consciousness: patient oriented x3 HEENT Ears: external ears normal, TM normal on the right, TM normal on the left and no periauricular adenopathy Eyes Pupils: Equal, round and reactive pupils present Resp Effort & Inspection: normal respiratory effort and able to speak in complete sentences Neuro Other: Mild diffuse tenderness across right temporal region and with right ear pull back Mild lower facial asymmetry- baseline Bilateral jaw tightness, more so on right bilateral posterior cervical tightness, more so on left Bilateral upper thoracic paraspinal tightness, more so on right General: patient oriented x3 and deep tendon reflexes 2+ bilaterally Cranial nerves: Yes Facial sensation intact/muscles of mastication intact, Yes Equal, round and reactive pupils present, Yes Bilaterally intact EOM present, Yes Normal facial strength present, Yes Symmetric palate elevation present, Yes Ability to bilaterally rotate head present and Yes Ability to bilaterally el evate shoulders present Cognition (Neuro): normal cognition Motor exam (neuro): 5/5 motor strength present throughout Psych Appearance: grossly normal Mental Status: mental status grossly normal Speech and movement: Normal speech and movement present Affect: normal affect Attitude: cooperative Assessment & Plan Assessment & Plan (1) Right-sided headache: Code(s): R51.9 - Headache, unspecified Category: Medical (2) TMJ (temporomandibular joint disorder): Code(s): M26.609 - Unspecified temporomandibular joint disorder, unspecified side Category: Medical (3) Chronic migraine without aura: Code(s): G43.709 - Chronic migraine without aura, not intractable, without status migrainosus Category: Medical Qualifiers: Intractability: intractable (4) Bruxism: Code(s): F45.8 - Other somatoform disorders Category: Medical (5) Migraine with aura: Code(s): G43.109 - Migraine with aura, not intractable, without status migrainosus Category: Medical Plan For new onset right sided headache, likely secondary to right upper thoracic/cervical spasm: Start Prednisone taper. Take w/ food. Continue PPI as ordered. PT eval & tx. For bruxism and TMJ dysfunction: Continue Baclofen 20mg bid prn. Continue Gabapentin 600mg bid OTC mouth guard. Continue PT exercises. Continue exercise- add stretching, warm up, cool down. For POTs s/s- Increased fluids and salt. Continue gluten free diet d/t gluten allergy.- fruits/vegetables/gluten-free grains. ? For overall headache management: Track headaches. ? For acute headache treatment: Zolmitriptan 5mg prn. Nurtec ODT 75mg qd prn. Hold Naproxen 500mg bid prn- h/o gastritis. Previous acute migraine medication trials: Sumatriptan- lost efficacy. Rizatriptan- not fully effective. Acute migraine medication contraindications: none at this time ? For chronic migraine headache prevention medication: Riboflavin 400mg qam Magnesium 400mg qhs Continue Botox 155 units IM q 12 weeks, as pt is already starting to see some clinical effect from use. Continue Qulipta 30mg qd- monitor constipation. Consider re-trying to wean off again after pt has next Botox tx. But dose cannot be increased further as it is already worsening constipation. Continue prn Lactulose. Continue Miralax and senna qd. Continue Nortriptyline from 10 to 20-30mg qhs- in hopes this improves sleep. Previous migraine prevention medication trials: Amitriptyline 25mg- ineffective after 3 months and caused am grogginess. Emgality- anaphylaxis. Migraine prevention medication contraindications: BBs d/t asthma dx. Aimovig d/t constipation ? For RLS: OTC RLS creams. Pt advised to update us if no improvement in the next 2-3 weeks. Pt to follow-up in 2-3 months or sooner prn. Orders: Orders PT Evaluation and Treatment Today M26.609 - Unspecified temporomandibular joint disorder, unspecified side, M54.2 - Cervicalgia, R51.9 - Headache, unspecified Medications: New prednisone 6 tabs x's 2 days, 5 tabs x's 2 days, 4 tabs x's 2 days, 3 tabs x's 2 days, 2 tabs x's 2 days, 1 tab x's 1 days, then stop. orally daily; 21 days 42 tabs 0RF Coding Level of Care Code Est Pt Level 4 (29678) Diagnoses Right-sided headache R51.9 TMJ (temporomandibular joint disorder) M26.609 Chronic migraine without aura G43.709 Intractability: intractable Bruxism F45.8 Migraine with aura G43.109
[2023-12-27 12:52] VITALS: BP 130/80; PULSE 90; O2SAT 98; BMI 31.1
== END 2023-12-27 13:50 | disposition home or self-care (01) ==
LOC: HO.HSMS 12:43
PROVIDERS: PCP Internal Medicine; Visit Provider Nurse Practitioner Family
DX: R51.9 Headache, unspecified (principal); M26.609 Unspecified temporomandibular joint disorder, unspecified side; G43.709 Chronic migraine without aura, not intractable, without status migrainosus; F45.8 Other somatoform disorders; G43.109 Migraine with aura, not intractable, without status migrainosus
CPT/HCPCS: 99214

== ENCOUNTER → 2023-12-27 12:42 | Outpatient (BNVA) | payer OTHER, SELFPAY | PROVIDERS: PCP Internal Medicine; Visit Provider Nurse Practitioner Family | DX: G43.709 Chronic migraine without aura, not intractable, without status migrainosus (principal); F45.8 Other somatoform disorders; M26.601 Right temporomandibular joint disorder, unspecified | CPT/HCPCS: 99212 ==

== ENCOUNTER 2024-01-04 09:06 | Emergency (ER) | payer OTHER, SELFPAY ==
[2024-01-04 09:21] VITALS: BP 123/76; PULSE 72; RESP 18; TEMP 36.6; O2SAT 98; BMI 31.0
[2024-01-04 09:45] LABS: MANUAL DIFF FLAG NO
[2024-01-04 09:46] LABS: Basophils Percent Auto 0.1 % (0-2); Hematocrit 43.4 % (37.0-47.0); Hemoglobin 14.5 g/dl (12.0-16.0); Imm Gran Abs Auto 0.03 X10*3/uL (0.00-0.03); Imm Gran Pct Auto 0.4 % (0.0-0.4); Lymphocytes Absolute Auto 0.7 X10*3/uL (1.2-4.9); Lymphocytes Percent Auto 8.8 % (20-40); Mean Corpuscular HGB Conc 33.4 g/dl (31.0-35.0); Mean Corpuscular Hemoglobin 29.3 pg (27.0-33.0); Mean Corpuscular Volume 87.7 fL (80.0-98.0); Mean Platelet Volume 9.4 fL (9.4-12.3); Monocytes Absolute Auto 0.2 X10*3/uL (0.1-1.2); Monocytes Percent Auto 2.3 % (2-11); Neutrophils Absolute Auto 7.2 x10*3/uL (2.0-8.3); Neutrophils Percent Auto 88.4 % (45-73); Platelet Count 289 X10*3/uL (160-400); Red Blood Count 4.95 X10*6/uL (4.20-5.50); White Blood Count 8.1 X10*3/uL (4.8-10.8)
[2024-01-04 10:05] LABS: Anion Gap 13 (12-20); Blood Urea Nitrogen 9 mg/dL (9-16); Calcium 9.9 mg/dL (8.4-10.2); Carbon Dioxide 24 mmol/L (22-29); Chloride 106 mmol/L (96-108); Creatinine Clr Calc Pharmacy 121.5; Estimated Glomerular Filt Rate > 60; Glucose Random 113 mg/dL (60-115); Potassium 4.1 mmol/L (3.3-5.1); Sodium 139 mmol/L (135-145)
[2024-01-04 10:06] LABS: HCG Quantitative < 2 mIU/mL
== END 2024-01-04 15:29 | disposition left against medical advice (07) ==
PROVIDERS: Emergency Provider Student in an Organized Health Care Education/Training Program; PCP Internal Medicine
DX: R20.0 Anesthesia of skin (principal); Z79.899 Other long term (current) drug therapy
CPT/HCPCS: 36415; 80048; 83735; 84702; 85025; 99281

== ENCOUNTER 2024-01-12 11:34 | Outpatient (AMB) | payer OTHER, SELFPAY ==
--- NOTE | 2024-01-12 11:49 | MHC.OFFVIS ---
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 Accompanied by: Family/Other Allergies [id number] [From Emgality Pen] Allergy (Severe, Verified 01/12/24 11:52) Anaphylaxis gluten [GLUTEN] Allergy (Unknown, Verified 01/12/24 11:52) DIARRHEA lactose Allergy (Unknown, Verified 01/12/24 11:52) Unknown metoclopramide [From REGLAN] Allergy (Unknown, Verified 01/12/24 11:52) UNKNOWN ibuprofen Adverse Reaction (Verified 01/12/24 11:52) Stomach Upset Medication List - Last Reconciled 01/12/24 by ISIDORO Juan atogepant (Qulipta) 30 mg PO DAILY 30 days gabapentin 600 mg PO BID lactulose 20 grams (30 mL) PO DAILY PRN 90 days levothyroxine 100 mcg PO DAILY magnesium oxide 400 mg PO BEDTIME 30 days nortriptyline 10 - 30 mg (1 - 3 x 10 mg) PO BEDTIME 30 days onabotulinumtoxinA (Botox) 200 units IM ONCE 12 weeks prednisone 6 tabs x's 2 days, 5 tabs x's 2 days, 4 tabs x's 2 days, 3 tabs x's 2 days, 2 tabs x's 2 days, 1 tab x's 1 days, then stop. orally daily; 21 days riboflavin (vitamin B2) 400 mg PO DAILY 30 days rimegepant (Nurtec ODT) 75 mg PO ONCE PRN 30 days zolmitriptan (Zomig) take 1 tab at onset of headache; if no relief, may repeat 1 tab after at least 2 hrs; max = 2 tabs/24 hrs orally PRN; 30 days HPI Comments Details: 28-yr-old female presents for urgent f/u visit for ER f/u of worsening headache. Since the last visit, pt started prednisone taper. When she was on the prednisone, she did have some decrease in the right sided pressure headache. However, as she weaned down from 40mg qd to 30mg qd, the headache increased again. She had also seen urgent care, and was tx's w/ [facility] for ? right OM. Last 10mg dose of taper was 4 days ago on 01/08/24. That same day, she woke woke up w/ worsening right sided blurry vision- vision coming and going, and worsening right sided head pressure and pain. Also a right anterior ear pulsation, hears her heart beat. The pain and pressure is way worse when laying down . This feels different than her usual migraine. Thus, she presented to [facility] ER, where work-up raised suspicion for intracranial hypertension. Pt was tx'd w/ IV Fluids, Toradol, prochlorperazine w/ diphenhydramine, Magnesium and dexamethasone- w/ partial improvement of headache s/s. 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 Head CT- empty sella. CT head venogram- narrowing of the left transverse sinus. LP in left lateral decub position showed: OP 22 cmH2O CSF Cell Count Color ? ? ?COLORLESS ? CSF Cell Count Appearance CLEAR ? CSF Cell Count WBC ?1 per Cubic Millimeter ? CSF Cell Count RBC ?0 per Cubic Millimeter ? CSF Cells, Lymph ?Pending ?(Preliminary)? Total Protein, CSF ?29 mg/dL ? Glucose, CSF ?63 mg/dL She had eye exam this am- [facility]. Was told no evidence of pappilledema today. Is being scheduled for visual field testing next week and also for neuro-ophthalmology consult. Today, she continues to have the atypical right sided pressure, headcahe, pulsatile tinnitus, and blurry vision, which is worse when laying down. Last f/u visit HPI from 12/27/23: Pt reports on Dec 21, she developed a abrupt onset of a constant right temporal, just anterior to the ear and advent thumping pain, which is aw/ some photophobia, soem phonophobia, right neck tightness. The pain has gradually worsened. Overall this does not feel like a typical migraine. However, she had this headache type once before, and it responded to prednisone. Avoiding NSAIDs in general d/t gastritis. Currently on omeprazole 20mg qd. Today, her right upper eyelid seems a bit swollen. Denies inner ear pain, fever. Tried Nurtec but this did not help. Ice and migraine ice cap helps some. She things this may have been triggered by doing yard work and raking on Dec 17 and . Baseline migraine headache characteristics: Aura: Sees dots, worsening horizontal diplopia w/ with seeing the image as shaky- when the headache is more severe Mild-mod 5-6/10, severe 10/10, Throbbing hard pain- Can be either right or left sided or bilateral a/w photophobia, phonophobia, nausea (also has GI s/s), external spinning, brain fog/forgetfulness, fatigue, numbness in the top of the head [facility] Medical History Enlarged tonsils HLD (hyperlipidemia) Hypothyroidism History of depression KARISSA (iron deficiency anemia) Asthma Heart murmur GERD (gastroesophageal reflux disease) Celiac disease Surgical History H/O eye surgery Family History Maternal Grandmother Diabetes Hypertension Paternal Grandfather Hypertension Father Rheumatoid arthritis Diabetes Fibromyalgia Migraines Anxiety Lupus Mother Fibromyalgia Migraines Hypertension Hypercholesteremia Social History Alcohol intake: never Patient Tobacco Use Status: Never used Tobacco Physical Exam Vital Signs: Last Vital Signs Pulse 97 01/12/24 11:52 Pulse Ox 98 01/12/24 11:52 Oxygen Delivery Method Room Air 01/12/24 11:52 BMI result Body Mass Index 31.6 Const General: cooperative and no acute distress Orientation/consciousness: patient oriented x3 HEENT Ears: external ears normal Eyes Pupils: Equal, round and reactive pupils present Resp Effort & Inspection: normal respiratory effort and able to speak in complete sentences Neuro Other: Mild lower facial asymmetry- baseline Bilateral jaw tightness, more so on right bilateral posterior cervical tightness, more so on left Bilateral upper thoracic paraspinal tightness, more so on right General: patient oriented x3 and deep tendon reflexes 2+ bilaterally Cranial nerves: Yes Facial sensation intact/muscles of mastication intact, Yes Equal, round and reactive pupils present, Yes Bilaterally intact EOM present, Yes Normal facial strength present, Yes Symmetric palate elevation present, Yes Ability to bilaterally rotate head present and Yes Ability to bilaterally elevate shoulders present Cognition (Neuro): normal cognition Motor exam (neuro): 5/5 motor strength present throughout Psych Appearance: grossly normal Mental Status: mental status grossly normal Speech and movement: Normal speech and movement present Affect: normal affect Attitude: cooperative Assessment & Plan Assessment & Plan (1) Positional headache: Code(s): R51.0 - Headache with orthostatic component, not elsewhere classified Category: Medical (2) New onset headache: Code(s): R51.9 - Headache, unspecified Category: Medical (3) Elevated intracranial pressure: Code(s): G93.2 - Benign intracranial hypertension Category: Medical (4) Right-sided headache: Code(s): R51.9 - Headache, unspecified Category: Medical (5) Vision changes: Code(s): H53.9 - Unspecified visual disturbance Category: Medical (6) TMJ (temporomandibular joint disorder): Code(s): M26.609 - Unspecified temporomandibular joint disorder, unspecified side Category: Medical (7) Chronic migraine without aura: Code(s): G43.709 - Chronic migraine without aura, not intractable, without status migrainosus Category: Medical Qualifiers: Intractability: intractable (8) Migraine with aura: Code(s): G43.109 - Migraine with aura, not intractable, without status migrainosus Category: Medical Plan For new onset right sided positional headache: Reviewed [facility] ER reports and work-up: Head CT and CTV- showed empty sella and narrowing of the left transverse sinus. Reviewed previous brain MRI report- indications of empty sella. LP- slightly elevated OP at 22 cmH2O w/ normal CSF studies- no indications of inflammation/infection/bleed. Eye exam today- no pappilledema per pt. Formal report pending. F/u eye exam next week as scheduled. Discussed that work-up does not clearly support a dx of IIH, however it is possible that work-up results may have been affected by recent Prednisone taper. Thus, will order Urgent Brain MRI w/wo and Brain MRV to furtehr assess for intracranial signs of IIH. Also, will trial pt on Acetazolamide initiated at 125mg po qid dosing in hopes this will improve tolerance. Pt advised to monitor/track positional head pressure, headache, pulsatile tinnitus, and vision quality. Reviewed recent CBC/CMP- wnl Recheck CBC/CMP in 1 month. PT eval & tx- as ordered. For bruxism and TMJ dysfunction: Continue Baclofen 20mg bid prn. Continue Gabapentin 600mg bid OTC mouth guard. Continue PT exercises. Continue exercise- add stretching, warm up, cool down. For POTs s/s- Increased fluids and salt. Continue gluten free diet d/t gluten allergy- fruits/vegetables/gluten-free grains. ? For overall headache management: Track headaches. ? For acute headache treatment: Zolmitriptan 5mg prn. Nurtec ODT 75mg qd prn. Hold Naproxen 500mg bid prn- h/o gastritis. Previous acute migraine medication trials: Sumatriptan- lost efficacy. Rizatriptan- not fully effective. Acute migraine medication contraindications: none at this time ? For chronic migraine headache prevention medication: Riboflavin 400mg qam Magnesium 400mg qhs Continue Botox 155 units IM q 12 weeks, as pt is already starting to see some clinical effect from use. Continue Qulipta 30mg qd- monitor constipation. Consider re-trying to wean off again after pt has next Botox tx. But dose cannot be increased further as it is already worsening constipation. Continue prn Lactulose. Continue Miralax and senna qd. Continue Nortriptyline from 10 to 20-30mg qhs- in hopes this improves sleep. Previous migraine prevention medication trials: Amitriptyline 25mg- ineffective after 3 months and caused am grogginess. Emgality- anaphylaxis. Migraine prevention medication contraindications: BBs d/t asthma dx. Aimovig d/t constipation ? For RLS: OTC RLS creams. Will follow-up upon review of above and patient to follow-up in clinic in 3 months or sooner prn. Orders: Orders MR head/brain wo/w con Today G93.2 - Benign intracranial hypertension, R51.9 - Headache, unspecified MR venography head wo/w con Today G93.2 - Benign intracranial hypertension, R51.9 - Headache, unspecified Complete Blood Count Auto Diff Today G93.2 - Benign intracranial hypertension Comprehensive Met. Panel Today G93.2 - Benign intracranial hypertension Medications: New acetazolamide 125 mg PO QID 30 days 120 tabs 1RF Coding Level of Care Code Est Pt Level 4 (68839) Complex EM visit Add On G2211 Diagnoses Positional headache R51.0 New onset headache R51.9 Elevated intracranial pressure G93.2 Right-sided headache R51.9 Vision changes H53.9 TMJ (temporomandibular joint disorder) M26.609 Chronic migraine without aura G43.709 Intractability: intractable Migraine with aura G43.109
[2024-01-12 11:52] VITALS: PULSE 97; O2SAT 98; BMI 31.6
== END 2024-01-12 12:27 | disposition home or self-care (01) ==
PROVIDERS: PCP Internal Medicine; Visit Provider Nurse Practitioner Family
DX: R51.0 Headache with orthostatic component, not elsewhere classified (principal); R51.9 Headache, unspecified; G93.2 Benign intracranial hypertension; H53.9 Unspecified visual disturbance; M26.609 Unspecified temporomandibular joint disorder, unspecified side; G43.709 Chronic migraine without aura, not intractable, without status migrainosus; G43.109 Migraine with aura, not intractable, without status migrainosus
CPT/HCPCS: 99214; G2211

== ENCOUNTER → 2024-01-12 11:34 | Outpatient (BNVA) | payer OTHER, SELFPAY | PROVIDERS: PCP Internal Medicine; Visit Provider Nurse Practitioner Family | DX: R51.0 Headache with orthostatic component, not elsewhere classified (principal); R51.9 Headache, unspecified; G93.2 Benign intracranial hypertension; H53.9 Unspecified visual disturbance; M26.609 Unspecified temporomandibular joint disorder, unspecified side; G43.709 Chronic migraine without aura, not intractable, without status migrainosus; G43.109 Migraine with aura, not intractable, without status migrainosus | CPT/HCPCS: 99212 ==

== ENCOUNTER 2024-01-15 15:16 | Outpatient (REF) | payer OTHER, SELFPAY ==
--- NOTE | ~2024-01-15 | MR_ITS ---
EXAMINATION: MR BRAIN WITHOUT AND WITH CONTRAST MR VENOGRAM HEAD WITH AND WITHOUT CONTRAST CLINICAL INFORMATION: Headache COMPARISON: MRI brain on 04/22/2023 TECHNIQUE: Multiplanar, multisequence MRI of the brain was obtained before and after the intravenous administration of 10 mL Gadavist. FINDINGS: BRAIN: No abnormal intracranial enhancement. No acute intracranial hemorrhage or infarct. No edema, midline shift or hydrocephalus. No acute extra-axial fluid collections. The osseous structures are unremarkable. The pituitary gland, pineal gland and remaining midline structures are unremarkable. No orbital pathology. The paranasal sinuses and mastoid air cells are clear. VENOGRAM: Hypoplastic left transverse sinus, left sagittal sinus, left exiting internal jugular vein, normal variant. Otherwise, the major intracranial venous structures are patent. No significant stenosis. No filling defect. MR/MR head/brain wo/w con IMPRESSION: Normal MRI brain and MRV head. Electronically signed by: Vu Salvador MD 01/16/2024 07:10 PM RONAN
--- NOTE | ~2024-01-15 | MR_ITS ---
EXAMINATION: MR BRAIN WITHOUT AND WITH CONTRAST MR VENOGRAM HEAD WITH AND WITHOUT CONTRAST CLINICAL INFORMATION: Headache COMPARISON: MRI brain on 04/22/2023 TECHNIQUE: Multiplanar, multisequence MRI of the brain was obtained before and after the intravenous administration of 10 mL Gadavist. FINDINGS: BRAIN: No abnormal intracranial enhancement. No acute intracranial hemorrhage or infarct. No edema, midline shift or hydrocephalus. No acute extra-axial fluid collections. The osseous structures are unremarkable. The pituitary gland, pineal gland and remaining midline structures are unremarkable. No orbital pathology. The paranasal sinuses and mastoid air cells are clear. VENOGRAM: Hypoplastic left transverse sinus, left sagittal sinus, left exiting internal jugular vein, normal variant. Otherwise, the major intracranial venous structures are patent. No significant stenosis. No filling defect. MR/MR venography head wo/w con IMPRESSION: Normal MRI brain and MRV head. Electronically signed by: Vu Salvador MD 01/16/2024 07:10 PM [facility]ONAN
[2024-01-15] MEDS: gadobutroL 10 ML VIAL IVPUSH (15:49)
== END 2024-01-15 15:17 | disposition home or self-care (01) ==
LOC: HO.MRI 15:16
PROVIDERS: PCP Physician Assistant; Visit Provider Nurse Practitioner Family
DX: R51.9 Headache, unspecified (principal); G93.2 Benign intracranial hypertension
CPT/HCPCS: 70546; 70553; A9585

== ENCOUNTER 2024-02-09 09:50 | Outpatient (REF) | payer OTHER, SELFPAY ==
--- OUTSIDE RECORDS SUMMARY | 2024-02-09 09:54 | XMS_ITS | Continuity of Care Document ---
Author Organization [facility] Address [address] [place] [id number]- Care Team Providers Care Printer Floor Covering Assistant Name Role Phone Sujatha GAMINO, Sarai D Primary Care Physician [phone] Encounter [facility] [place] Date(s): 10/11/23 - 01/12/[address] [address] Attending Physician: Not on Staff, Attending MD Encounter Type: Pre-OutPatient One Time Allergies, Adverse Reactions, Alerts Substance Criticality Severity Reaction Reaction Severity Status metoclopramide Eruption Activ e Reglan Active Lactose Active Glutens Active Immunizations Given and Recorded Vaccine Date Status Refusal Reason tetanus/diphtheria/pertussis, acel(Tdap) 09/13/19 Given tetanus/diphtheria/pertussis, acel(Tdap) 08/29/13 Given influenza virus vaccine, inactivated 11/12/14 Give n influenza virus vaccine, inactivated 11/29/13 Give n influenza virus vaccine, inactivated 11/18/10 Give n influenza virus vaccine, inactivated 03/02/10 Give n influenza virus vaccine, inactivated 1 02/29/08 Gi sabas influenza virus vaccine, inactivated 2 01/19/07 Gi sabas influenza virus vaccine, inactivated 01/26/06 Give n Meningococcal Conjugate Vaccine 10/04/11 Given Meningococcal Conjugate Vaccine 08/31/06 Given influ virus vac, H1N1, inactive(oldterm) 3 12/13/08 Given Varicella Virus Vaccine 02/29/08 Given Varicella Virus Vaccine 4 11/01/06 Given Human Papillomavirus Vaccine 04/17/07 Given Human Papillomavirus Vaccine 01/19/07 Given Human Papillomavirus Vaccine 11/01/06 Given Human Papillomavirus Vaccine 5 08/31/06 Given Tet/Diphth/Acel, Pertussis (oldterm) 11/01/06 Give n tetanus-diphtheria toxoids (Td) 11/23/05 Given Measles/Mumps/Rubella Virus Vaccine 6 06/06/98 Giv en Measles/Mumps/Rubella Virus Vaccine 7 07/12/95 Giv en Poliovirus Vaccine, Inactivated 8 06/06/98 Given Poliovirus Vaccine, Inactivated 9 94 Given Poliovirus Vaccine, Inactivated 10 94 Given Poliovirus Vaccine, Inactivated 11 94 Given diphtheria/tetanus/pertussis, acel(DTaP) 12 06/06/98 Given diphtheria/tetanus/pertussis, acel(DTaP) 13 10/11/95 Given diphtheria/tetanus/pertussis, acel(DTaP) 14 94 Given diphtheria/tetanus/pertussis, acel(DTaP) 15 94 Given diphtheria/tetanus/pertussis, acel(DTaP) 16 94 Given Haemophilus B Conj Vaccine (oldterm) 17 10/11/95 G iven Haemophilus B Conj Vaccine (oldterm) 18 94 G iven Haemophilus B Conj Vaccine (oldterm) 19 94 G iven Haemophilus B Conj Vaccine (oldterm) 20 94 G iven Hepatitis B Vaccine (old term) 21 01/04/95 Given Hepatitis B Vaccine (old term) 22 94 Given Hepatitis B Vaccine (old term) 23 94 Given 1Admin Note: SANOFI 2Admin Note: SANOFI 3Admin Note: Sanofi Pasteur/ vis given 4Admin Note: EVELYN 5Admin Note: VIS 10/26/05 6Admin Note: MMR 7Admin Note: MMR 8Admin Note: IPV 9Admin Note: IPV 10Admin Note: IPV 11Admin Note: IPV 12Admin Note: DTAP 13Admin Note: DTAP 14Admin Note: DTAP 15Admin Note: DTAP 16Admin Note: DTAP 17Admin Note: HIB 18Admin Note: HIB 19Admin Note: HIB 20Admin Note: HIB 21Admin Note: HEP B 22Admin Note: HEP B 23Admin Note: HEP B Medications acetaminophen 325 mg oral tablet 650 mg, 2, tablet, By Mouth, Every 6 hours, PRN, # 50 tablet, Refills 1, Tot. Refills 1, Maintenance, Pain , Mild, 10/11/23 11:35:00 AM EDT, [id number] Partial fill upon patient request if the prescription is for a schedule II opioid drug., 168, cm, 10/11/23 11:28:00 EDT, Height, 89, kg, 09/27/23 0:40:00 EDT, Dry Weight Start Date: 10/11/23 Status: Ordered Quantity: 50.0 Unit: tablet Repeat number: 2 albuterol CFC free 90 mcg/inh inhalation aerosol 2, puffs, Inhalation, Every 4 hours, PRN, # 1 each, Refills 2, Tot. Refills 2, Maintenance, 08/05/1911:44:12 PM EDT, Route to Pharmacy Electronically, [id number], [facility]/pharmacy #[id number] Start Date: 08/04/18 Status: Ordered Quantity: 1.0 Unit: each Repeat number: 3 EpiPen 2-Jose 0.3 mg injectable kit = 0.3 mg, Intramuscular, Once, PRN Anaphylactic Reaction, # 2 each, 0 Refills, Soft Stop, 01/04/23 1:49:00 PM EST, [facility]/pharmacy #[id number], Partial fill upon patient request if the prescription is for a schedule II opioid drug., 168, cm, 01/04/23 12:53:00 EST, Height, 86, kg, 01/04/23 12:53:00 EST, Dry Weight Start Date: 01/04/23 Status: Ordered Quantity: 2.0 Unit: each Repeat number: 1 Gabapentin By Mouth, 0 Refills, Maintenance, 06/02/22 10:23:00 AM EDT, Partial fill upon patient request if theprescription is for a schedule II opioid drug. Start Date: 06/02/22 Status: Ordered Repeat number: 1 ibuprofen 600 mg oral tablet 600 mg, 1, tablet, By Mouth, Every 6 hours, PRN, # 40 tablet, Refills 1, Tot. Refills 1, Maintenance, Pain , Mild, 10/11/23 11:35:00 AM EDT, Route to Pharmacy Electronically, [facility]/pharmacy #[id number], Partial fill upon patient request if the prescription is for a schedule II opioid drug., 168, cm, 10/11/23 11:28:00 EDT, Height, 89, kg, 09/27/23 0:40:00 EDT, Dry Weight Start Date: 10/11/23 Status: Ordered Quantity: 40.0 Unit: tablet Repeat number: 2 Iron Chews = 15 mg, By Mouth, Daily, 0 Refills, Maintenance, 05/13/23 12:19:00 PM EDT, Partial fill upon patient request if the prescription is for a schedule II opioid drug. Start Date: 05/13/23 Status: Ordered Repeat number: 1 levothyroxine 0.025 mg oral tablet 1 tablet = 25 mcg, By Mouth, Daily, 0 Refills, Maintenance, 06/02/22 10:23:00 AM EDT, Partial fill upon patient request if the prescription is for a schedule II opioid drug. Start Date: 06/02/22 Status: Ordered Repeat number: 1 Liletta 52 mg intrauterine device 1 each = 52 mg, Once, Placed 10/11/[address] Granados, 0 Refills, Maintenance, 10/11/23 1:14:00 PM EDT, Partial fill upon patient request if the prescription is for a schedule II opioid drug. Start Date: 10/11/23 Status: Ordered Repeat number: 1 magnesium glycinate = 400 mg, By Mouth, 0 Refills, Maintenance, 11/01/23 9:12:00 AM EDT, Partial fill upon patient request if the prescription is for a schedule II opioid drug. Start Date: 11/01/23 Status: Ordered Repeat number: 1 Nurtec ODT 75 mg oral tablet, disintegrating 1 tablet = 75 mg, By Mouth, Every 24 hours, PRN as needed for migraine headache, not to exceed 75 mg in 24 hours, # 8 tablet, 5 Refills, Maintenance, 05/13/23 12:18:00 PM EDT, DIS Tablet, Partial fillupon patient request if the prescription is for a schedule II opioid drug. Start Date: 05/13/23 Status: Ordered Quantity: 8.0 Unit: tablet Repeat number: 1 Qulipta 30 mg oral tablet 1 tablet = 30 mg, By Mouth, Daily, # 30 tablet, 0 Refills, Maintenance, 05/13/23 12:18:00 PM EDT, Tablet, Partial fill upon patient request if the prescription is for a schedule II opioid drug. Start Date: 05/13/23 Status: Ordered Quantity: 30.0 Unit: tablet Repeat number: 1 Toprol XL 25 mg oral tablet, extended release 25 mg, 1, tablet, By Mouth, Daily, # 30 tablet, Refills 5, Tot. Refills 5, Maintenance, 07/13/23 10:35:00 AM EDT, Route to Pharmacy Electronically, [facility]/pharmacy #[id number], Partial fill upon patient request if the prescription is for a schedule II opioid drug., 168, cm, 07/11/23 9:00:00 EDT, Height, 88.9, kg, 06/02/23 9:52:00 EDT, Dry Weight Start Date: 07/13/23 Status: Ordered Quantity: 30.0 Unit: tablet Repeat number: 6 Vitamin D3 1000 intl units oral capsule 1 capsule = 25 mcg, By Mouth, Daily, # 75 capsule, 0 Refills, Maintenance, 05/13/23 12:19:00 PM EDT,Capsule, Partial fill upon patient request if the prescription is for a schedule II opioid drug. Start Date: 05/13/23 Status: Ordered Quantity: 75.0 Unit: capsule Repeat number: 1 Problem List Condition Confirmation Course Effective Dates Status H ealth Status Informant Anemia Confirmed Active Asthma Confirmed Active Celiac disease -- Biopsy confirmed 2011 Confirmed Active Chronic pain syndrome Confirmed Active HSIL (high grade squamous intraepithelial lesion) on Pap smear of cervix Confirmed Active Lactose intolerance Confirmed Active Migraine with aura Confirmed Active Obese class I Confirmed Active Somatization Disorder Confirmed Active Thyroid dysfunction 1 Confirmed 2015 Active 1Per [facility] endocrine note documentation, patient has a remote history of thyroid dysfunction Social History Social History Type Response Smoking Status Never (less than 100 in lifetime) entered on: 05/08/18 Sex Sex Representation Female (finding) Patient Care team information Care Team Personnel Name: Danial Mckeon MD Position: [facility] Physician -Physician Practices Member Role: Lifetime Consulting Physician Name: Sujatha GAMINO, Sarai Coello Position: Reference Physician Member Role: PCP Address: [address], [address] [place] [address]- Telecom: Name: Abigail Kline NP Position: [facility] Associate Professional Member Role: Primary Care Nurse Address: [address] [place] [address] [address] [place] [address]- Telecom: Name: Rachael Schwarz Position: [facility] Outreach Member Role: Lifetime Consulting Physician Care Team Related Persons Name: ZECHARIAH BELTRAN Name: JURGEN BELTRAN Name: YESSENIA NIX Name: JENNY NIX Name: DEWAYNE NIX Name: VICENTE BERRY Insurance Providers Guarantor name: JYOTI BELTRAN Health Plan Information #: 1 Payer: [employer] Member Number: [id number] Policy Number: NA Group Number: NA Health Plan Information #: 2 Payer: [place] Member Number: NA Policy Number: NA Group Number: NA
--- OUTSIDE RECORDS SUMMARY | 2024-02-09 09:54 | XMS_ITS | Continuity of Care Document ---
Author Organization [facility] Address [address] [place] [address]- Care Team Providers Care Teacher Asst Name Role Phone Sujatha GAMINO, Sarai D Primary Care Physician [place] [facility] [place]11[place]23 - 01/28/[address] [address] Attending Physician: Not on Staff, Attending MD Encounter Type: Pre-OutPatient One Time Allergies, Adverse Reactions, Alerts Substance Criticality Severity Reaction Reaction Severity Status metoclopramide Eruption Activ e Reglan Active Glutens Active Lactose Active Immunizations Given and Recorded Vaccine Date [...] 11:35:00 AM EDT, [id number] fill upon patient [...] 08/05/1911:44:12 PM EDT, Route to Pharmacy Electronically, [id number], [facility]/pharmacy #[id number] Start Date: 08/04/18 Status: Ordered Quantity: 1.0 Unit: each Repeat number: 3 EpiPen 2-Jose 0.3 mg injectable kit = 0.3 mg, Intramuscular, Once, PRN Anaphylactic Reaction, # 2 each, 0 Refills, Soft Stop, 01/04/23 1:49:00 PM EST, [facility]/pharmacy #[id number], Partial fill upon patient request if [...] 11:35:00 AM EDT, Route to Pharmacy Electronically, [facility]/pharmacy #[id number], Partial fill upon patient request if the [...] 10:35:00 AM EDT, Route to Pharmacy Electronically, [facility]/pharmacy #[id number], Partial fill upon patient request if the [...] Team Personnel Name: Danial Mckeon MD Position: [facility] Physician -Physician Practices Member Role: Lifetime Consulting Physician Name: Sujatha GAMINO, Sarai Coello Position: Reference Physician Member Role: PCP Address: [address], [address] [place] [address]- Telecom: Name: Abigail Kline NP Position: [facility] Associate Professional Member Role: Primary Care Nurse Address: [address] [place] [address] [address] [place] [address]- Telecom: Name: Rachael Schwarz Position: [facility] Outreach Member Role: Lifetime Consulting Physician Care Team Related Persons Name: ZECHARIAH BELTRAN Name: JURGEN BELTRAN Name: YESSENIA NIX Name: JENNY NIX Name: DEWAYNE NIX Name: VICENTE BERRY Insurance Providers Guarantor name: DELORISREGINALD RUBY Health Plan Information #: 1 Payer: [employer] Member Number: [id number] Policy Number: NA Group Number: NA Health Plan Information #: 2 Payer: [employer] Member Number: [id number] Policy Number: NA Group Number: NA Health Plan Information #: 3 Payer: [place] Member Number: NA Policy Number: NA Group Number: NA
--- OUTSIDE RECORDS SUMMARY | 2024-02-09 09:54 | XMS_ITS | Data Portability ---
Author Organization DAMIAN Nelson s, [address] Address [address] [place] [address] Care Team Providers Care Private Pilot Name Role Phone [facility] GI Primary Care Pr ovider Assessment No assessment recorded. Plan of Treatment Reminders Order Date Submit Date Provider Last Modified By Organization Details Last Modified Time Details Appointments None recorded. Lab urinalysis , dipstick 2022 023 [facility] [address], [address] [place], [address], 13:16:55 test, urine 2022 023 [facility] [address] [place], [place] [address], [address] [place] [address], [address], 13:16:55 culture, urine 2022 023 [facility], [address] [place] [address], [place], [address], 18:06:14 Referral None recorded. Procedures None recorded. Surgeries None recorded. Imaging None recorded. Medication Orders Macrobid 100 mg capsule 2022 023 [id number], [address] [place], [address], 13:17:00 Patient TargetsNo targets recorded. Patient Instructions Encounter Date Encounter Id Patient Instructions Last Modified By Organization Details Last Modified Time 04/25/2022 [id number] We recommend you get a repeat urinalysis in 2 weeks to ensure that any abnormalities have resolved. If urine abnormalities persist, you will likely need further testing or treatment. We will contact you within 3 to 5 days with the results of your lab test. If you have not heard back from us within that time frame, please feel free to contact our office regarding your results. Go to the Emergency Department immediately if your symptoms worsen or if you develop new symptoms that concern you. Drink plenty of fluids You should follow-up with your PCP in 4-5 days, or at any time if your condition does not improve or worsens. Any acute change should prompt a visit to the nearest Emergency Department. [email or web address] Not available 04/25/2022 13:16:54 Reason for Referral None Reported. Results Created Date Observation Date Name Description Value Unit Range Abnormal Flag Note LastModifiedBy Organization Detail LastModifiedTime 04/26/1904/28/2022 URINE CULTU RE, ROUTI NE urine culture, routine FINAL REPORT abnormal Not Available [facility] ([facility]) [address] [place], [address], 04/28/2022 16:06:54 04/26/19 23 04/28/2022 URINE CULTU RE, ROUTI NE result 1 ESCHER ICHIA COLI abnormal 50,00 0-100 ,000 colon y formi ng units per mL Not Available [facility] ([facility]) [address] [place], [address], 04/28/2022 16:06:54 04/26/19 23 04/28/2022 URINE CULTU RE, ROUTI NE antimicrobia l susceptibili ty COMMEN T S = Susce ptibl e; I = Inter media te; R = Resis tant P = Posit jag; N = Negat jag MICS are expre ssed in micro grams per mL Antib iotic RSLT# 1 RSLT# 2 RSLT# 3 RSLT# 4 Amoxi cilli n/Cla vulan ic Acid I Ampic illin R Cefaz kurtis R Cefep jersey S Ceftr iaxon e S Cefur oxime S Cipro floxa harley S Ertap enem S Genta micin S Imipe nem S Levof loxac in S Merop enem S Nitro furan toin S Piper acill in/Ta zobac chen S Tetra cycli ne S Tobra mycin S Trime thopr im/Dunn lfa S Not Available [facility] ([facility]) [address] [facility], [place], [address], 04/28/2022 16:06:54 04/26/19 23 04/25/2022 urina lysis , dipst ick Unknown Analyte Normal = light yellow Not Available [facility] [address] [place], [address], 04/25/2022 12:26:46 04/26/19 23 04/25/2022 urina lysis , dipst ick Unknown Analyte Yellow Not Available [facility] [address] [place], [address], 04/25/2022 12:26:46 04/26/19 23 04/25/2022 urina lysis , dipst ick Unknown Analyte Normal = clear Not Available [facility] [address] [place], [address], 04/25/2022 12:26:46 04/26/19 23 04/25/2022 urina lysis , dipst ick Unknown Analyte Turbid Not Available [address] [facility] [address] [place], [address], 04/25/2022 12:26:46 04/26/19 23 04/25/2022 urina lysis , dipst ick Unknown Analyte Normal = negati ve Not Available [facility] [address] [place], [address], 04/25/2022 12:26:46 04/26/19 23 04/25/2022 urina lysis , dipst ick Unknown Analyte Negati ve Not Available [address] [facility] [address] [place], [address], 04/25/2022 12:26:46 04/26/19 23 04/25/2022 urina lysis , dipst ick Unknown Analyte Normal = Negati ve Not Available [facility] [address] [place], [address], 04/25/2022 12:26:46 04/26/19 23 04/25/2022 urina lysis , dipst ick Unknown Analyte Negati ve Not Available [facility] [address] [place], [address], 04/25/2022 12:26:46 04/26/1904/25/2022 urina lysis , dipst ick Unknown Analyte Normal = Negati ve Not Available [facility] [address] [address] [place], [address], 04/25/2022 12:26:46 04/26/19 23 04/25/2022 urina lysis , dipst ick Unknown Analyte Negati ve Not Available [facility] [address] [place], [address], 04/25/2022 12:26:46 04/26/19 23 04/25/2022 urina lysis , dipst ick Unknown Analyte Normal = 1.010, 1.015, 1.020 Not Available [facility] [address] [place], [address], 04/25/2022 12:26:46 04/26/19 23 04/25/2022 urina lysis , dipst ick Unknown Analyte 1.030 Not Available [facility] [address] [place], [address], 04/25/2022 12:26:46 04/26/19 23 04/25/2022 urina lysis , dipst ick Unknown Analyte Normal = Negati ve Not Available [address] [place], [address], 04/25/2022 12:26:46 04/26/1904/25/2022 urina lysis , dipst ick Unknown Analyte Large Not Available [address] [place] [address] [address] [place], [address], 04/25/2022 12:26:46 04/26/19 23 04/25/2022 urina lysis , dipst ick Unknown Analyte Normal = 6.5, 7.0, 7.5, 8.0 Not Available [facility] [address] [place], [address], 04/25/2022 12:26:46 04/26/1904/25/2022 urina lysis , dipst ick Unknown Analyte 5.5 Not Available [address] [place] [address] [address] [place], [address], 04/25/2022 12:26:46 04/26/1904/25/2022 urina lysis , dipst ick Unknown Analyte Normal = Negati ve Not Available [facility] [address] [place], [address], 04/25/2022 12:26:46 04/26/19 23 04/25/2022 urina lysis , dipst ick Unknown Analyte 30 mg/dL Not Available [address] [address] [place], [address], 04/25/2022 12:26:46 04/26/1904/25/2022 urina lysis , dipst ick Unknown Analyte Normal = 0.2, 1.0 Not Available [facility] [address] [place], [address], 04/25/2022 12:26:46 04/26/19 23 04/25/2022 urina lysis , dipst ick Unknown Analyte 0.2 E.U./d L Not Available [facility] [address] [place], [address], 04/25/2022 12:26:46 04/26/19 23 04/25/2022 urina lysis , dipst ick Unknown Analyte Normal = Negati ve Not Available [facility] [address] [place], [address], 04/25/2022 12:26:46 04/26/19 23 04/25/2022 urina lysis , dipst ick Unknown Analyte Positi ve Not Available [facility] [address] [place], [address], 04/25/2022 12:26:46 04/26/19 23 04/25/2022 urina lysis , dipst ick Unknown Analyte Normal = Negati ve Not Available [facility] [address] [place], [address], 04/25/2022 12:26:46 04/26/19 23 04/25/2022 urina lysis , dipst ick Unknown Analyte Small Not Available [address] [place] [address] [address] [place], [address], 04/25/2022 12:26:46 04/26/19 23 04/25/2022 pregn tori test, urine Unknown Analyte Normal = Negati ve Not Available [facility] [address] [place], [address], 04/25/2022 12:26:47 04/26/19 23 04/25/2022 pregn tori test, urine Unknown Analyte negati ve Not Available [facility] [address] [place], [address], 04/25/2022 12:26:47 Result Notes None recorded. Problems Name Problem SNOMED Code Status Onset Date Resolution Date Notes Provider Name and Address Organization Details Recorded Time Disorder of thyroid gland 77922179 Active FAB GARNERSANCHEZ Jelani castaneda, [place] - [facility] 12:30:35 Asthma 236682956 Active FAB Palomares null, PA - [facility] 12:30:42 Celiac disease 442756616 Active FAB EMERYSUZANNE Jelani null, PA - [facility] 12:30:52 Problem Notes None recorded. Medical Equipment None Reported. Allergies Allergen ID Allergen Name Allergen Category Reaction Reaction Severity Criticality Documentation Date Start Date Code Code System Note Provider Name and Address Organization Details Recorded Time 514300 Reglan medicatio n rash Not available Not available 04/25/2022 9230 RxNorm FAB castaneda PA - [facility] 12:29:31 Medications Name Sig Start Date Stop Date Status Note LastModified by Organization Details LastModified Time Macrobid 100 mg capsule Take 1 capsule every 12 hours by oral route with meals for 7 days. 2022 active Not Available Not Available Not Avai lable levothyroxine active Not Available Not Available Not Available NuvaRing active Not Available Not Avai lable Not Available Vitals Date Recorded Body height Body mass index (BMI) Body weight Respiratory rate Oxygen saturation Oxygen saturation in Arterial blood by Pulse oximetry Heart rate Body temperature Systolic blood pressure Diastolic blood pressure Provider Name and Address Organization Details Last Updated DateTime 3 167.64 cm 27 kg/m2 56806.9 3 g 17 /min 97 % 97 % 72 /min 97.2 [degF] 100 mm[Hg] 62 mm[Hg] FAB Rosario [facility] 12:34:41 Social History Question Answer Notes LastModified by Organizat ion Details LastModified Time Tobacco Smoking Status Never Smoker FAB castaneda [place] - [facility] 04/25/2022 12:32:39 What Is Your Level Of Alcohol Consumption? None Information not available 04/25/2022 Have You Had Direct Contact, Or Contact During Intimacy, With Monkeypox Rash, Scabs, Or Body Fluids From A Person With Monkeypox? No Information not available 04/25/2022 Do You Use Any Illicit Or Recreational Drugs? No Information not available 04/25/2022 Have You Recently Traveled Abroad? No Information not available 04/25/2022 Do You Or Have You Ever Used Any Other Forms Of Tobacco Or Nicotine? No Information not available 04/25/2022 Sex: Unknown Functional Status None recorded. Mental Status None recorded. Family History Relationship Description Onset Age of this Age Resolved Age Notes LastModified by Organization Details LastModified Time Mother Fibromyalgia Not a vailable 04/25/2022 12:32:20 Father Fibromyalgia Not a vailable 04/25/2022 12:32:20 Father Diabetes mellitus Not available 06/2022 12:32:30 Medical History No medical history recorded. Gynecological HistoryNo gynecological history recorded. Obstetrics History GPAL:G 0 P 0 0 0 0 Immunizations Vaccine Type Date Status Note Provider Nam e and Address Organization Details Recorded Time Influenza, split virus, quadrivalent, PF 11/26/2017 completed DAMIAN Guerrero - [facility] 04/25/2022 12:29:17 Past Encounters Encounter ID Performer Location Encounter Start Date Encounter Closed Date Diagnosis/Indication Diagnosis SNOMED-CT Code Diagnosis ICD10 [place] [id number] [place] [address] [address] [place] [address] 04/25/2022 10:55:44 04/25/2022 13:18:52 Acute urinary tract infection 652659102 N39.0 Health Concerns Section Related Observation LastModified by Organization Detai ls LastModified Time None Recorded Concern Status LastModified by Organization Details LastModified Time None Recorded Advance Directives Directive None Recorded Payers Encounter Date Sequence Insurance Name Policy Number Policy Hess Covered Member ID Hess Member ID Guarantor Name 04/25/2022 1 [facility] (HMO) LEON Blevins [id number] Miguel Angel Blevins Notes Date Note Type Note Provider Name and Address Organization Details Recorded Time 3 text/html Urinary Complaint FemaleReported bypatient.source of patient informationInformation obtained from patient; Patient arrived at Urgent Care ambulatory UTI Symptoms:no blood in the urine; no pain during urination; no vaginal discharge; no urgency; no pain in the flank; no fever/chills; no incontinence; no recurrent UTI; no known exposure to STDNotes:frequency and urgency x 1 day. denies any fever or fever with chills, denies any History of renal stone or bladder issues. frequency and urgency x 1 day. denies any fever or fever with chills, denies any History of renal stone or bladder issues. Randal Miranda NP [address] [place], [address], [place] - [facility] 04/25/2022 13:17:27 OBGyn Episode No OBEpisode recorded.
[2024-02-09 10:03] LABS: MANUAL DIFF FLAG NO
[2024-02-09 11:18] LABS: Basophils Percent Auto 0.4 % (0-2); Eosinophils Percent Auto 0.8 % (0-4); Hematocrit 41.5 % (37.0-47.0); Hemoglobin 14.3 g/dl (12.0-16.0); Imm Gran Abs Auto 0.01 X10*3/uL (0.00-0.03); Imm Gran Pct Auto 0.2 % (0.0-0.4); Lymphocytes Absolute Auto 1.3 X10*3/uL (1.2-4.9); Lymphocytes Percent Auto 25.8 % (20-40); Mean Corpuscular HGB Conc 34.5 g/dl (31.0-35.0); Mean Corpuscular Hemoglobin 30.2 pg (27.0-33.0); Mean Corpuscular Volume 87.7 fL (80.0-98.0); Monocytes Absolute Auto 0.3 X10*3/uL (0.1-1.2); Monocytes Percent Auto 5.7 % (2-11); Neutrophils Absolute Auto 3.3 x10*3/uL (2.0-8.3); Neutrophils Percent Auto 67.1 % (45-73); Platelet Count 268 X10*3/uL (160-400); Red Blood Count 4.73 X10*6/uL (4.20-5.50); Red Cell Distribution Width 13.2 % (11.0-16.0); White Blood Count 4.9 X10*3/uL (4.8-10.8)
[2024-02-09 12:19] LABS: Alanine Aminotransferase 22 U/L (0-31); Albumin Level 4.5 g/dL (3.5-5.0); Alkaline Phosphatase 77 U/L (39-117); Anion Gap 8 (12-20); Aspartate Amino Transferase 18 U/L (5-31); Bilirubin Total 0.4 mg/dL (0.0-1.0); Blood Urea Nitrogen 11 mg/dL (9-16); Calcium 9.4 mg/dL (8.4-10.2); Carbon Dioxide 23 mmol/L (22-29); Chloride 115 mmol/L (96-108); Estimated Glomerular Filt Rate > 60; Glucose Random 91 mg/dL (60-115); Potassium 4.3 mmol/L (3.3-5.1); Sodium 142 mmol/L (135-145); Total Protein 7.4 g/dL (6.5-8.0)
== END 2024-02-09 09:51 | disposition home or self-care (01) ==
LOC: HO.LAB 09:50
PROVIDERS: PCP Internal Medicine; Visit Provider Nurse Practitioner Family
DX: G93.2 Benign intracranial hypertension (principal)
CPT/HCPCS: 36415; 80053; 85025

== ENCOUNTER 2024-03-15 10:57 | Outpatient (AMB) | payer OTHER, SELFPAY ==
[2024-03-15 11:17] VITALS: BMI 31.6
--- NOTE | 2024-03-15 11:17 | MHC.OFFVIS ---
Vital Signs 03/15/24 11:17 Height 5 ft 6 in Weight 196 lb BMI 31.6 Intake Visit Reasons: Botox Intake Note: patient here for botox Allergies galcanezumab-gnlm [From Emgality Pen] Allergy (Severe, Verified 03/15/24 11:18) Anaphylaxis gluten [GLUTEN] Allergy (Unknown, Verified 03/15/24 11:18) DIARRHEA lactose Allergy (Unknown, Verified 03/15/24 11:18) Unknown metoclopramide [From REGLAN] Allergy (Unknown, Verified 03/15/24 11:18) UNKNOWN ibuprofen Adverse Reaction (Verified 03/15/24 11:18) Stomach Upset Medication List - Last Reconciled 03/15/24 by Mckenna Garcia MD acetazolamide 125 mg PO QID 30 days atogepant (Qulipta) 30 mg PO DAILY 30 days gabapentin 600 mg PO BID lactulose 20 grams (30 mL) PO DAILY PRN 90 days levothyroxine 100 mcg PO DAILY magnesium oxide 400 mg PO BEDTIME 30 days nortriptyline 10 - 30 mg (1 - 3 x 10 mg) PO BEDTIME 30 days onabotulinumtoxinA (Botox) 200 units IM ONCE 12 weeks prednisone 6 tabs x's 2 days, 5 tabs x's 2 days, 4 tabs x's 2 days, 3 tabs x's 2 days, 2 tabs x's 2 days, 1 tab x's 1 days, then stop. orally daily; 21 days riboflavin (vitamin B2) 400 mg PO DAILY 30 days rimegepant (Nurtec ODT) 75 mg PO ONCE PRN 30 days zolmitriptan (Zomig) take 1 tab at onset of headache; if no relief, may repeat 1 tab after at least 2 hrs; max = 2 tabs/24 hrs orally PRN; 30 days HPI Comments Details: ? 28y/o female comes for treatment of migraines with botox. ??? Most frequent reported adverse reactions following injection of botox for chronic migraine include neck pain (9%), headache(5%), eyelid ptosis(4%), migraine(4%), muscular weakness(4%), musculuskeletal stiffness(4%), bronchitis(3%), injection site pain (3%), musculoskeletal pain(3%), myalgia(3%), facial paresis(2%), HTN(2%) and muscle spasms(2%) were discussed in detail. ??? Botulinum toxin typeA 200units Lot no [id number] expiration April 2026 was diluted with 4 cc of normal saline . ??? Muscles injected- ??? Frontalis 4 sites ??? Procerus 1 site xxx ??? Ornamental Plasterer Helper- 2 sites ??? Temporalis- 8 sites ??? Occipitalis- 6 sites ??? Cervical paraspinals- 4 sites ??? Trapezius- 6 sites- 10 units each ??? 5 units each in 31 site ??? Total use- 185units ??? Discarded-15units [facility] Medical History Enlarged tonsils HLD (hyperlipidemia) Hypothyroidism History of depression KARISSA (iron deficiency anemia) Asthma Heart murmur GERD (gastroesophageal reflux disease) Celiac disease Surgical History H/O eye surgery Family History Maternal Grandmother Diabetes Hypertension Paternal Grandfather Hypertension Father Rheumatoid arthritis Diabetes Fibromyalgia Migraines Anxiety Lupus Mother Fibromyalgia Migraines Hypertension Hypercholesteremia Social History Alcohol intake: never Patient Tobacco Use Status: Never used Tobacco Physical Exam Const General: cooperative and no acute distress Orientation/consciousness: patient oriented x3 Resp Effort & Inspection: normal respiratory effort and able to speak in complete sentences Neuro Other: Bilateral jaw tightness, more so on right bilateral posterior cervical tightness. General: patient oriented x3 Cranial nerves: Yes CN's II-XII intact bilaterally Cognition (Neuro): normal cognition Psych Appearance: grossly normal Mental Status: mental status grossly normal Speech and movement: Normal speech and movement present Affect: normal affect Attitude: cooperative Office Procedures Botulinum toxin Injection 67653 - Migraine Procedure code (CPT) selection complete Office Meds onabotulinumtoxinA 200 unit solution for injection Performing Provider: Mckenna Garcia MD Performing Location: [facility] Administered by: Mckenna Garcia MD on 03/15/24 11:42 Dose Route Admin Location Dispensed Lot Number Expiration Date NDC Avionics Technician 185 unit subcut 200 units [id number] 04/21/26 7855-4225-92 ALLERGAN/BOTOX Comments: see hpi Assessment & Plan Assessment & Plan (1) Chronic migraine without aura: Code(s): G43.709 - Chronic migraine without aura, not intractable, without status migrainosus Category: Medical Qualifiers: Intractability: intractable Status migrainosus presence: without status migrainosus Qualified Code(s): G43.719 - Chronic migraine without aura, intractable, without status migrainosus (2) Bruxism: Code(s): F45.8 - Other somatoform disorders Category: Medical (3) TMJ (temporomandibular joint disorder): Code(s): M26.609 - Unspecified temporomandibular joint disorder, unspecified side Category: Medical Plan Patient tolerated the procedure well she will call with any side effects Orders: Orders AMB Botulinum toxin Injection Today G43.719 - Chronic migraine without aura, intractable, without status migrainosus Medications: New onabotulinumtoxinA 200 units subcut ONCE 1 ea 0RF migraine G43.719 - Chronic migraine without aura, intractable, without status migrainosus Coding Level of Care Code Est Pt Level 1 (27679) Diagnoses Intractable chronic migraine without aura and without status migrainosus G43.719 Intractability: intractable Status migrainosus presence: without status migrainosus Bruxism F45.8 TMJ (temporomandibular joint disorder) M26.609 CPT Codes Botox Injection - Botox 3: 98991 - Migraine ([id number])
== END 2024-03-15 11:46 | disposition home or self-care (01) ==
PROVIDERS: PCP Internal Medicine; Visit Provider Psychiatry & Neurology Neurology
DX: G43.719 Chronic migraine without aura, intractable, without status migrainosus (principal)
CPT/HCPCS: 64615

== ENCOUNTER → 2024-03-15 10:57 | Outpatient (BNVA) | payer OTHER, SELFPAY | PROVIDERS: PCP Internal Medicine; Visit Provider Psychiatry & Neurology Neurology | DX: G43.719 Chronic migraine without aura, intractable, without status migrainosus (principal); M26.609 Unspecified temporomandibular joint disorder, unspecified side; F45.8 Other somatoform disorders | CPT/HCPCS: 64615; 99211; J0585 ==

== ENCOUNTER → 2024-03-29 11:19 | Outpatient (BNVA) | payer OTHER, SELFPAY | PROVIDERS: PCP Internal Medicine; Visit Provider Nurse Practitioner Family | DX: G43.E19 Chronic migraine with aura, intractable, without status migrainosus (principal); G25.81 Restless legs syndrome; G93.2 Benign intracranial hypertension; R51.0 Headache with orthostatic component, not elsewhere classified; H53.9 Unspecified visual disturbance; M26.609 Unspecified temporomandibular joint disorder, unspecified side | CPT/HCPCS: 99212 ==

== ENCOUNTER 2024-04-16 10:53 | Outpatient (REF) | payer OTHER, SELFPAY ==
[2024-04-16 11:16] LABS: MANUAL DIFF FLAG NO
[2024-04-16 11:34] LABS: Basophils Percent Auto 0.4 % (0-2); Eosinophils Absolute Auto 0.1 X10*3/uL (0.0-0.4); Eosinophils Percent Auto 1.7 % (0-4); Hematocrit 42.6 % (37.0-47.0); Hemoglobin 14.4 g/dl (12.0-16.0); Imm Gran Abs Auto 0.01 X10*3/uL (0.00-0.03); Imm Gran Pct Auto 0.2 % (0.0-0.4); Lymphocytes Absolute Auto 1.3 X10*3/uL (1.2-4.9); Lymphocytes Percent Auto 26.3 % (20-40); Mean Corpuscular HGB Conc 33.8 g/dl (31.0-35.0); Mean Corpuscular Hemoglobin 30.2 pg (27.0-33.0); Mean Corpuscular Volume 89.3 fL (80.0-98.0); Mean Platelet Volume 9.3 fL (9.4-12.3); Monocytes Absolute Auto 0.3 X10*3/uL (0.1-1.2); Monocytes Percent Auto 5.4 % (2-11); Neutrophils Absolute Auto 3.2 x10*3/uL (2.0-8.3); Platelet Count 283 X10*3/uL (160-400); Red Blood Count 4.77 X10*6/uL (4.20-5.50); Red Cell Distribution Width 12.1 % (11.0-16.0); White Blood Count 4.8 X10*3/uL (4.8-10.8)
--- OUTSIDE RECORDS SUMMARY | 2024-04-16 12:28 | XMS_ITS | Encounter Summary ---
Author Organization [facility] Address [address] [place] [address] Care Team Providers Care Pharmacy Innovation Assistant Name Role Phone Sarai Solares MD Primary Care Provider [phone] Harjeet Dumont MD Unavailable [phone] Sarah Kwok PA-C Primary Care Provider + Reason for Visit * Reason Comments E-prescribe Rx Request Encounter Details Date Type Department Care Team Description 01/11/2021 Refill Internal Medicine - [address], [address] [place], [place] [address] Sarai Solares MD [address] [place] [address] E-prescribe Rx Request Social History Tobacco Use Types Packs/Day Years Used Date Smoking Tobacco: Never Smokeless Tobacco: Never Alcohol Use Standard Drinks/Week Comments No 0 (1 standard drink = 0.6 oz pur e alcohol) Sex Assigned at Date Recorded Not on file Job Start Date Occupation Industry Not on file Not on file Not on file documented as of this encounter Miscellaneous Notes * Telephone Encounter - Maxine Billings - 01/19/2021 9:35 AM EST BP Readings from Last 3 Encounters: 12/11/20 134/62 10/28/20 114/62 05/20/20 128/62 * Telephone Encounter - Jessica Lawrence - 01/14/2021 3:29 PM EST Milly 10/02/20 Left message to schedule f/u documented in this encounter Plan of Treatment Not on file documented as of this encounter Visit Diagnoses Not on filedocumented in this encounter Care Teams Pharmacy Innovation Assistant Relationship Specialty Start Date End Date Sarai Solares MD PCP - General Internal Medicine 01/04/20 10/20/22 Sarah Kwok PA-C [address] [place] [address] PCP - General Internal Medicine 10/21/22 Harjeet Dumont MD [address] [place] [address] Specialist Cardiovascular Disease 01/27/22 documented as of this encounter
--- OUTSIDE RECORDS SUMMARY | 2024-04-16 12:28 | XMS_ITS | Clinical Summary ---
Author Organization [facility] Address [address] [place] [address] Care Team Providers Care Terrazzo Finisher Name Role Phone Harjeet Dumont MD Unavailable [phone] Sarah Kwok PA-C Primary Care Provider + Allergies Active Allergy Reactions Severity Noted Date Comments Duloxetine Hcl 09/29/2022 Fatigue Galcanezumab-Gnlm OTHER 01/12/2023 Gluten 04/13/2013 Lactose 04/13/2013 Reglan 04/13/2013 Medications Medication Sig Dispensed Refills Start Date End Date Status gabapentin (NEURONTIN) 300 MG capsule TAKE 1 CAPSULE BY MOUTH TWICE A DAY 0 10/12/2022 Active Magnesium Oxide -Mg Supplement 400 (240 Mg) MG Tab TAKE 1 TABLET BY MOUTH EVERY DAY AT BEDTIME HOLD FOR LOOSE STOOL 0 09/06/2022 Active acetaminophen (TYLENOL) 500 MG tabletIndications :Cervico-occipita l neuralgia Take 2 Tablets by mouth every 6 hours as needed for Pain. 180 Tablet 1 01/12/2023 Active polyethylene glycol (MiraLax) 17 g packet Take 1 Packet by mouth daily. 14 Each 5 01/12/2023 Active Qulipta 30 MG Tab Take 1 Tablet by mouth daily. 0 03/03/2023 Active ascorbic acid (VITAMIN C) 500 MG tablet TAKE 1 TABLET BY MOUTH EVERY DAY 90 Tablet 3 06/13/2023 Active Cholecalciferol (Vitamin D) 50 MCG (1999 UT) CapIndications:Vi tamin D deficiency Take 1 Capsule by mouth daily. 90 Capsule 3 07/02/2023 Active levothyroxine 100 MCG tablet TAKE 1 TABLET BY MOUTH EVERY DAY 90 Tablet 1 09/15/2023 Active metoprolol (Toprol XL) 25 MG 24 hr tablet Take 1 Tablet by mouth daily. 0 07/13/2023 Active ondansetron (Zofran) 8 MG tablet One tab by mouth 3 times as prn for nausea 30 Tablet 1 10/25/2023 Active omeprazole (PRILOSEC) 20 MG capsule Take 1 Capsule by mouth daily for 360 days. 90 Capsule 1 10/25/2023 10/19/2024 Active albuterol (PROVENTIL) (2.5 MG/3ML) 0.083% nebulizer solution Take 1 Vial by nebulization every 4 hours as needed for Wheezing. 375 mL 0 11/03/2023 Active ALBUTEROL SULFATE (Ventolin HFA) 108 (90 Base) MCG/ACT Aero Soln Inhale 2 Puffs into the lungs every 4 hours as needed for Cough or Wheezing. 8.5 g 3 11/03/2023 Active Active Problems Problem Noted Date Bacterial infection due to H. pylori ASHLEY positive 07/05/2022 Celiac disease 06/15/2022 Constipation 06/15/2022 Murmur 03/18/2022 SOB (shortness of breath) 03/18/2022 Chest pain 03/18/2022 Hypothyroidism 02/26/2022 Overview: Due to LARRY to treat graves in 2021 TSH deficiency 05/20/2021 Vitamin D deficiency 05/20/2021 Prediabetes 05/19/2021 Iron deficiency anemia 05/19/2021 Chronic migraine without aura without st atus migrainosus, not intractable 05/20/2020 Supervision of normal first Overview: office: [place] Delivery site: [facility] Blood Type: O+ Quad screen: negative GBS: Date: TDap: Childbirth plans: Desires epidural Natural childbirth. Labor support identified: Planning bottlefeeding because she's going back to school shortly after baby's PP BCM: Male; Circ: no Baby's Name: Beckgillian ARRIAGA's name: Debbie Erickson Resolved Problems Problem Noted Date Resolved Date Hyperthyroidism 09/08/2021 02/26/2022 Family History Medical History Relation Name Comments Rheumatoid Arthritis Father Diabetes Maternal Grandmother Hypertension Maternal Grandmother Diabetes Paternal Grandmother Relation Name Status Comments Father Maternal Grandmother Paternal Grandmother Social History Tobacco Use Types Packs/Day Years Used Date Smoking Tobacco: Never Smokeless Tobacco: Never Tobacco Cessation:Counseling Given: Not Answered Alcohol Use Standard Drinks/Week Comments No 0 (1 standard drink = 0.6 oz pur e alcohol) Sex Assigned at Date Recorded Not on file Job Start Date Occupation Industry Not on file Not on file Not on file Last Filed Vital Signs Vital Sign Reading Time Taken Comments Blood Pressure 100/60 10/25/2023 11:02 AM EDT Pulse 81 10/25/2023 11:02 AM EDT Temperature 36.4 ??C (97.6 ??F) 10/04/2023 10:16 AM E DT Respiratory Rate 12 01/22/2022 4:13 PM EST Oxygen Saturation 98% 10/25/2023 11:02 AM EDT Inhaled Oxygen Concentration - - Weight 89.8 kg (198 lb) 10/25/2023 11:02 AM EDT Height 167.6 cm (5' 6 ) 10/25/2023 11:02 AM EDT Body Mass Index 31.96 10/25/2023 11:02 AM EDT Plan of Treatment Health Maintenance Due Date Last Done Comments Covid-19 Vaccine (#1) 1994 CERVICAL CANCER SCREENING 2015 INFLUENZA (#1) 2023 BMI CHECK/ADVISE 02/22/2024 10/04/2023, 08/2023, 04/28/2023, Additional history exists DEPRESSION SCREENING/FOLLOWUP 02/22/2024, 03/15/2023, 05/30/2022, Additional history exists SOCIAL NEEDS SCREENING 02/22/2024 09/27/2023 CHOLESTEROL SCREENING 10/23/2027 10/22/2022 BASELINE HEALTH EXAM 18-39 10/03/2028 10/04/2023 DTAP/TDAP/TD (3 - Td or Tdap) 09/12/2029 09/13/2019, 08/29/2013 PNEUMOCOCCAL VACCINE FOR HIG H RISK PATIENTS (#1) 2059 Care Teams Terrazzo Finisher Relationship Specialty Start Date End Date Sarah Kwok PA-C [address] [facility] [address] [place] [address] PCP - General Internal Medicine 10/21/22 Harjeet Dumont MD [address] [place] [address] Specialist Cardiovascular Disease 01/27/22
--- OUTSIDE RECORDS SUMMARY | 2024-04-16 12:28 | XMS_ITS | Clinical Summary ---
Author Organization [facility] Address [address] [id number] Care Team Providers Care Engineer [employer] Pumping [employer] Name Role Phone Sarai Solares MD Primary Care Provider [phone] Allergies Active Allergy Reactions Criticality Noted Date Comments Metoclopramide Rash Low 09/28/2021 Medications Medication Sig Dispensed Refills Start Date End Date Status levothyroxine (SYNTHROID) tablet 125 mcg Take 1 tablet (125 mcg total) by mouth every morning on an empty stomach. 0 Active gabapentin (NEURONTIN) 100 MG capsule Take 1 capsule (100 mg total) by mouth 2 (two) times a day. 0 Active amitriptyline (ELAVIL) tablet 25 mg Take by mouth every night at bedtime. 0 Active MAGNESIUM CITRATE PO Take by mouth. 0 Active Riboflavin (VITAMIN B2 PO) Take by mouth. 0 Active Incassia 0.35 MG tablet Take 1 tablet (0.35 mg total) by mouth daily. 0 08/25/2022 Active rimegepant (NURTEC ODT) 75 MG TBDP ODT Take 1 tablet (75 mg total) by mouth daily. 0 Active Active Problems Problem Noted Date Diagnosed Date Iron deficiency anemia due to chronic blood loss 09/28/2021 Family History Medical History Relation Name Comments Cancer Mother cervical Cancer Paternal Aunt thyroid Relation Name Status Comments Mother Paternal Aunt Social History Tobacco Use Types Packs/Day Years Used Date Smoking Tobacco: Never Smokeless Tobacco: Never Alcohol Use Standard Drinks/Week Comments Never 0 (1 standard drink = 0.6 oz pur e alcohol) Sex and Gender Information Value Date Recorded Sex Assigned at Female 10/02/2021 11:13 AM EDT Gender Identity Not on file Sexual Orientation Not on file Job Start Date Occupation Industry Not on file Not on file Not on file Last Filed Vital Signs Vital Sign Reading Time Taken Comments Blood Pressure 121/64 01/28/2023 10:06 AM EST Pulse 69 01/28/2023 10:06 AM EST Temperature 36.6 ??C (97.8 ??F) 01/28/2023 10:[address] Respiratory Rate 18 11/03/2021 9:14 AM EDT Oxygen Saturation 100% 01/28/2023 10:06 AM EST Inhaled Oxygen Concentration - - Weight 86.7 kg (191 lb 3.2 oz) 01/28/2023 10:06 AM EST Height 170.2 cm (5' 7 ) 01/28/2023 10:06 AM EST Body Mass Index 29.95 01/28/2023 10:06 AM EST Plan of Treatment Health Maintenance Due Date Last Done Comments Hepatitis C Screening 1994 COVID-19 Vaccine (#1) 1994 Depression Screening 2006 BMI Counseling 2012 Preventative Health Evaluation 2012 Cervical Cancer Screening (Pap Smear) 2015 Influenza Vaccine (#1) 2023 8, 11/12/2014, 11/29/2013, Additional history exists DTap / Tdap / Td (4 - Td or Tdap) 09/12/2029 09/13/2019, 08/29/2013, 11/23/2005 Hepatitis B Vaccines Completed 01/04/1995, 1994, 1994 Pneumococcal Vaccine Aged Out No long er eligible based on patient's age to complete this topic RSV Ped < 20 months Aged Out No longe r eligible based on patient's age to complete this topic Care Teams Engineer Gas Pumping Station Relationship Specialty Start Date End Date Sarai Solares MD [address] [place] [id number] PCP - General Internal Medicine 06/22/22
--- OUTSIDE RECORDS SUMMARY | 2024-04-16 12:28 | XMS_ITS | Encounter Summary ---
Author Organization [facility] Address [address] [place] [address] Care Team Providers Care Equity Manager Name Role Phone Sarai Solares MD Primary Care Provider [phone] Harjeet Dumont MD Unavailable [phone] Sarah Kwok PA-C Primary Care Provider + Reason for Visit * Reason Comments E-prescribe Rx Request Encounter Details Date Type Department Care Team Description 10/20/2021 Refill Internal Medicine - [address], [address] [place] [address] Sarah Kwok PA-C [address] [place] [phone] E-prescribe Rx Request Social History Tobacco Use Types Packs/Day Years Used Date Smoking Tobacco: Never Smokeless Tobacco: Never Alcohol Use Standard Drinks/Week Comments No 0 (1 standard drink = 0.6 oz pur e alcohol) Sex Assigned at Date Recorded Not on file Job Start Date Occupation Industry Not on file Not on file Not on file COVID-19 Exposure Response Date Recorded In the last 10 days, have yo u been in contact with someone who was confirmed or suspected to have Coronavirus/COVID-19? No / Unsure 10/12/2021 12:08 PM EDT documented as of this encounter Miscellaneous Notes * Telephone Encounter - Mariam Cerda - 10/21/2021 3:22 PM EDT Last ordered: 3 weeks ago by Sarah Kwok PA-C Last refill: 09/24/2021 * Telephone Encounter - Mariah harrison Dion - 10/21/2021 3:08 PM EDT Milly 08/31/2021 Nov documented in this encounter Plan of Treatment Not on file documented as of this encounter Visit Diagnoses Diagnosis Migraine without status migrainosus, not intractable, unspecified migraine type documented in this encounter Care Teams Equity Manager Relationship Specialty Start Date End Date Sarai Solares MD PCP - General Internal Medicine 01/04/20 10/20/22 Sarah Kwok PA-C [address] [place] [address] PCP - General Internal Medicine 10/21/22 Harjeet Dumont MD [address] [place] [address] Specialist Cardiovascular Disease 01/27/22 documented as of this encounter
--- OUTSIDE RECORDS SUMMARY | 2024-04-16 12:28 | XMS_ITS | Encounter Summary ---
Author Organization [facility] Address [address] [place] [address] Care Team Providers Care Corporate Meeting Planner Name Role Phone Sarai Solares MD Primary Care Provider [phone] Harjeet Dumont MD Unavailable [phone] Sarah Kwok PA-C Primary Care Provider + Encounter Details Date Type Department Care Team Description 01/22/2022 [facility] Medical Records [address] [place], [place] [id number] [place] [address] Social History Tobacco Use Types Packs/Day Years [...] suspected to have Coronavirus/COVID-19? No / Unsure 01/25/2022 3:00 PM EST documented as of this encounter Plan of Treatment Not on file documented as of this encounter Visit Diagnoses Not on filedocumented in this encounter Care Teams Corporate Meeting Planner Relationship Specialty Start Date End Date Sarai Solares MD PCP - General Internal Medicine 01/04/20 10/20/22 Sarah Kwok PA-C [address] [place], [place] [id number] PCP - General Internal Medicine 10/21/22 Harjeet Dumont MD [address] [place] [address] Specialist Cardiovascular Disease 01/27/22 documented as of this encounter
--- OUTSIDE RECORDS SUMMARY | 2024-04-16 12:28 | XMS_ITS | Encounter Summary ---
Author Organization [facility] Address [address] [place] [address] Care Team Providers Care Technology Sales Representative Name Role Phone Sarai Solares MD Primary Care Provider [phone] Harjeet Dumont MD Unavailable [phone] Sarah Kwok PA-C Primary Care Provider + Encounter Details Date Type Department Care Team Description 11/19/2021 Orders Only Endocrinology - [place] [address] [place] [address] Sarah Bah PA-C [address] [facility] [place] [id number] Thyrotoxicosis without thyroid storm, unspecified thyrotoxicosis type Social History Tobacco Use Types Packs/Day Years [...] suspected to have Coronavirus/COVID-19? No / Unsure 11/12/2021 10:11 AM EDT documented as of this encounter Plan of Treatment Not on file documented as of this encounter Procedures Procedure Name Priority Date/Time Associated Diagnosis Comments NUCLEAR THERAPY, HYPERTHYROIDISM Routine 11/18/2021 Thyrotoxicosis without thyroid storm, unspecified thyrotoxicosis type documented in this encounter Results * NUCLEAR THERAPY, HYPERTHYROIDISM (11/18/2021) Sarah Bah PA-C RADIOLOGY documented in this encounter Visit Diagnoses Diagnosis Thyrotoxicosis without thyroid storm, unspecified thyrotoxicosis type documented in this encounter Care Teams Technology Sales Representative Relationship Specialty Start Date End Date Sarai Solares MD PCP - General Internal Medicine 01/04/20 10/20/22 Sarah Kwok PA-C [address] [place] [address] PCP - General Internal Medicine 10/21/22 Harjeet Dumont MD [address] [place] [address] Specialist Cardiovascular Disease 01/27/22 documented as of this encounter
--- OUTSIDE RECORDS SUMMARY | 2024-04-16 12:28 | XMS_ITS | Encounter Summary ---
Author Organization [facility] Address [address] [place] [address] Care Team Providers Care Men'S Swim Coach Name Role Phone Sarai Solares MD Primary Care Provider [phone] Harjeet Dumont MD Unavailable [phone] Sarah Kwok PA-C Primary Care Provider + Encounter Details Date Type Department Care Team Description 06/28/2022 Orders Only Medical Records [address] [place] [address] Abstract, Provider Social History Tobacco Use Types Packs/Day Years [...] suspected to have Coronavirus/COVID-19? No / Unsure 06/17/2022 1:18 PM EDT documented as of this encounter Progress Notes * Michael Moonye MD - 07/18/2022 12:47 PM EDT Dear Gen, The biopsies of your duodenum are consistent with celiac disease. Please follow up in order to discuss these findings with the referring physician at [facility] gastroenterology clinic. I would like to personally thank you for allowing us to take care of you. Please don't hesitate to call us for any questions or concerns. Regards, Piedad Nasir Muslu, MD Board Certified Gastroenterology and Internal Medicine Transplant Hepatology [facility] documented in this encounter Plan of Treatment Not on file documented as of this encounter Procedures Procedure Name Priority Date/Time Associated Diagnosis Comments OUTSIDE PATHOLOGY Routine 06/23/2022 documented in this encounter Results * OUTSIDE PATHOLOGY (06/23/2022) Provider Abstract OUTSIDE LAB documented in this encounter Visit Diagnoses Not on filedocumented in this encounter Care Teams Men'S Swim Coach Relationship Specialty Start Date End Date Sarai Solares MD PCP - General Internal Medicine 01/04/20 10/20/22 Sarah Kwok PA-C [address] [place] [address] PCP - General Internal Medicine 10/21/22 Harjeet Dumont MD [address] [place] [address] Specialist Cardiovascular Disease 01/27/22 documented as of this encounter
--- OUTSIDE RECORDS SUMMARY | 2024-04-16 12:28 | XMS_ITS | Encounter Summary ---
Author Organization [facility] Address [address] [place] [address] Care Team Providers Care Associate Director Of Biostatistics Name Role Phone Sarai Solares MD Primary Care Provider [phone] Harjeet Dumont MD Unavailable [phone] Sarah Kwok PA-C Primary Care Provider + Reason for Visit * Reason Onset Date Comments Heartbeat Irregular 11/25/2021 Encounter Details Date Type Department Care Team Description 11/25/2021 Telephone Endocrinology - [place] [address] [place] [address] Sarah Bah PA-C [address] [place] [address] Heartbeat Irregular Social History Tobacco Use Types Packs/Day Years [...] AM EDT documented as of this encounter Miscellaneous Notes * Telephone Encounter - Scarlett Allen M.A. - 11/25/2021 11:19 AM EDT Spoke to patient. Explained what you said and she said that she will go in now. * Telephone Encounter - Sarah Bah PA-C - 11/25/2021 11:12 AM EDT Please tell her I do not recommend that she wait. If she is having palpitations this could be a sign of heart disease and she could put her life at risk. She could be having a rhythm disorder and sudden can occur. * Telephone Encounter - Scarlett Allen M.A. - 11/25/2021 11:08 AM EDT Spoke to patient. She is going to wait to see if if keeps occurring. If it does she will go into the ER to be evaluated. * Telephone Encounter - Sarah Bah PA-C - 11/25/2021 10:59 AM EDT It is possible that it is due to radioactive iodine but if she is having current palpitations she needs to go to the ER for evaluation they need to check her heart. * Telephone Encounter - Yue Lovell - 11/25/2021 9:37 AM EDT Caller requesting call back from provider: Is the caller the patient? YES If caller is not the patient, what is the callers name? N/A Callers relationship to patient? N/A If person calling is not the patient themselves, is there a verbal release in FYI or permanent comments for this person: NO Reason for call back: Patient is calling she states she recently received radioactive iodine treatment and is having really bad palpitations. Not sure if it was due to the treatment or her thyroid. Would like a provider call back to further discuss Caller offered to speak with the nurse for assistance: YES Response: Patient offered to speak with nurse for assistance and patient agreed. Message forwarded to nurse. documented in this encounter Plan of Treatment Not on file documented as of this encounter Visit Diagnoses Not on filedocumented in this encounter Care Teams Associate Director Of Biostatistics Relationship Specialty Start Date End Date Sarai Solares MD PCP - General Internal Medicine 01/04/20 10/20/22 Sarah Kwok PA-C [address] [place] [address] PCP - General Internal Medicine 10/21/22 Harjeet Dumont MD [address] [place] [address] Specialist Cardiovascular Disease 01/27/22 documented as of this encounter
--- OUTSIDE RECORDS SUMMARY | 2024-04-16 12:28 | XMS_ITS | Encounter Summary ---
Author Organization [facility] Address [address] [place] [address] Care Team Providers Care Frame Runner Name Role Phone Shahrzad Rodriguez MD Primary Care Provider [facility] Cheryl Hopkins MD Primary Care Provider Unavailable Sarai Solares MD Primary Care Provider [phone] Harjeet Dumont MD Unavailable [phone] Sarah Kwok PA-C Primary Care Provider + Encounter Details Date Type Department Care Team Description 08/27/2013 Release of Information Medical Records [address] [place] [id number] Abstract, Provider Social History Tobacco Use Types Packs/Day Years Used Date Smoking Tobacco: Never Alcohol Use Standard Drinks/Week Comments No 0 (1 standard drink = 0.6 oz pur e alcohol) Sex Assigned at Date Recorded Not on file Job Start Date Occupation Industry Not on file Not on file Not on file documented as of this encounter Plan of Treatment Not on file documented as of this encounter Visit Diagnoses Not on filedocumented in this encounter Care Teams Frame Runner Relationship Specialty Start Date End Date Shahrzad Rodriguez MD PCP - General Pediatrics 03/20/13 0 Cheryl Hopkins MD PCP - General Internal Medicine 11/21/19 Sarai Solares MD PCP - General Internal Medicine 01/04/20 10/20/22 Sarah Kwok PA-C [address] [address] PCP - General Internal Medicine 10/21/22 Harjeet Dumont MD [address] [facility] [address] [place] [address] Specialist Cardiovascular Disease 01/27/22 documented as of this encounter
--- OUTSIDE RECORDS SUMMARY | 2024-04-16 12:28 | XMS_ITS | Data Portability ---
Author Organization DAMIAN Nelson s, [address] Address [address] [place] [address] Care Team Providers Care Remelt Furnace Expediter Name Role Phone [facility] Primary Care Pr ovider Assessment No assessment recorded. Plan of Treatment Reminders Order Date Submit Date Provider Last Modified By Organization Details Last Modified Time Details Appointments None recorded. Lab urinalysis , dipstick 2022 023 [facility] [address], [address] [place], [address], 13:16:55 test, urine 2022 023 [facility] [address] [place], [place] [address], [address] [place] [address], [address], 13:16:55 culture, urine 2022 023 [facility], [address] [place] [address], [place], [address], 18:06:14 Referral None recorded. Procedures None recorded. Surgeries None recorded. Imaging None recorded. Medication Orders Macrobid 100 mg capsule 2022 023 [id number], [address] [place], [address], 13:17:00 Patient TargetsNo targets recorded. Patient Instructions Encounter Date Encounter Id Patient Instructions Last Modified By Organization Details Last Modified Time 04/25/2022 [id number] We recommend you get a repeat urinalysis [...] routine FINAL REPORT abnormal Not Available [facility] ([facility]) [address] [place], [address], 04/28/2022 16:06:54 04/26/19 23 04/28/2022 URINE CULTU RE, ROUTI NE result 1 ESCHER ICHIA COLI abnormal 50,00 0-100 ,000 colon y formi ng units per mL Not Available [facility] ([facility]) [address] [place], [address], 04/28/2022 16:06:54 04/26/19 23 04/28/2022 URINE CULTU [...] thopr im/Dunn lfa S Not Available [facility] ([facility]) [address] [facility], [place], [address], 04/28/2022 16:06:54 04/26/19 23 04/25/2022 urina lysis , dipst ick Unknown Analyte Normal = light yellow Not Available [facility] [address] [place], [address], 04/25/2022 12:26:46 04/26/19 23 04/25/2022 urina lysis , dipst ick Unknown Analyte Yellow Not Available [facility] [address] [place], [address], 04/25/2022 12:26:46 04/26/19 23 04/25/2022 urina lysis , dipst ick Unknown Analyte Normal = clear Not Available [facility] [address] [place], [address], 04/25/2022 12:26:46 04/26/19 23 04/25/2022 urina lysis , dipst ick Unknown Analyte Turbid Not Available [address]99 [facility] [address] [place], [address], 04/25/2022 12:26:46 04/26/19 23 04/25/2022 urina lysis , dipst ick Unknown Analyte Normal = negati ve Not Available [facility] [address] [place], [address], 04/25/2022 12:26:46 04/26/19 23 04/25/2022 urina lysis , dipst ick Unknown Analyte Negati ve Not Available [address] [place], [address], 04/25/2022 12:26:46 04/26/19 23 04/25/2022 urina lysis , dipst ick Unknown Analyte Normal = Negati ve Not Available [address] [address] [place], [address], 04/25/2022 12:26:46 04/26/19 23 04/25/2022 urina lysis , dipst ick Unknown Analyte Negati ve Not Available [address] [place], [address], 04/25/2022 12:26:46 04/26/1904/25/2022 urina lysis , dipst ick Unknown Analyte Normal = Negati ve Not Available [facility] [address] [place], [address], 04/25/2022 12:26:46 04/26/19 23 04/25/2022 urina lysis , dipst ick Unknown Analyte Negati ve Not Available [facility] [address] [place], [address], 04/25/2022 12:26:46 04/26/19 23 04/25/2022 urina lysis , dipst ick Unknown Analyte Normal = 1.010, 1.015, 1.020 Not Available [address] [place], [address], 04/25/2022 12:26:46 04/26/19 23 04/25/2022 urina lysis , dipst ick Unknown Analyte 1.030 Not Available [facility] [address] [place], [address], 04/25/2022 12:26:46 04/26/19 23 04/25/2022 urina lysis , dipst ick Unknown Analyte Normal = Negati ve Not Available [address] [place], [address], 04/25/2022 12:26:46 04/26/1904/25/2022 urina lysis , dipst ick Unknown Analyte Large Not Available [id number] [place] [address] [address] [place], [address], 04/25/2022 12:26:46 04/26/19 23 04/25/2022 urina lysis , dipst ick Unknown Analyte Normal = 6.5, 7.0, 7.5, 8.0 Not Available [facility] [place], [address], 04/25/2022 12:26:46 04/26/1904/25/2022 urina lysis , dipst ick Unknown Analyte 5.5 Not Available [address] [place] [address] [address] [place], [address], 04/25/2022 12:26:46 04/26/1904/25/2022 urina lysis , dipst ick Unknown Analyte Normal = Negati ve Not Available [facility] [address] [place], [address], 04/25/2022 12:26:46 04/26/19 23 04/25/2022 urina lysis , dipst ick Unknown Analyte 30 mg/dL Not Available [address] [place], [address], 04/25/2022 12:26:46 04/26/1904/25/2022 urina lysis , dipst ick Unknown Analyte Normal = 0.2, 1.0 Not Available [facility] [address] [place], [address], 04/25/2022 12:26:46 04/26/19 23 04/25/2022 urina lysis , dipst ick Unknown Analyte 0.2 E.U./d L Not Available [address] [place], [address], 04/25/2022 12:26:46 04/26/19 23 04/25/2022 urina lysis , dipst ick Unknown Analyte Normal = Negati ve Not Available [facility] [address] [place], [address], 04/25/2022 12:26:46 04/26/19 23 04/25/2022 urina lysis , dipst ick Unknown Analyte Positi ve Not Available [facility] [address] [place], [address], 04/25/2022 12:26:46 04/26/19 23 04/25/2022 urina lysis , dipst ick Unknown Analyte Normal = Negati ve Not Available [facility] [address] [place], [address], 04/25/2022 12:26:46 04/26/19 23 04/25/2022 urina lysis , dipst ick Unknown Analyte Small Not Available [address] [place] [address] [address] [place], [address], 04/25/2022 12:26:46 04/26/19 23 04/25/2022 pregn tori test, urine Unknown Analyte Normal = Negati ve Not Available [facility] [address] [place], [address], 04/25/2022 12:26:47 04/26/19 23 04/25/2022 pregn tori test, urine Unknown Analyte negati ve Not Available [facility] [address] [place], [address], 04/25/2022 12:26:47 Result Notes None recorded. Problems Name Problem SNOMED Code Status Onset Date Resolution Date Notes Provider Name and Address Organization Details Recorded Time Disorder of thyroid gland 06289270 Active [facility]AB LUISA Jelani null, [place] - [facility] 12:30:35 Asthma 421455969 Active FAB GARNERSANCHEZ Jelani null, PA - [facility] 12:30:42 Celiac disease 176990075 Active FAB LUISA Jelani null, PA - [facility] 12:30:52 Problem Notes None recorded. Medical Equipment None Reported. Allergies Allergen ID Allergen Name Allergen Category Reaction Reaction Severity Criticality Documentation Date Start Date Code Code System Note Provider Name and Address Organization Details Recorded Time 143479 Reglan medicatio n rash Not available Not available 04/25/2022 9230 RxNorm FAB castaneda, PA - [facility] 12:29:31 Medications Name [...] mass index (BMI) Body weight Respiratory rate Pain severity - 0-10 verbal numeric rating [Score] - Reported Oxygen saturation Oxygen saturation in Arterial blood by Pulse oximetry Heart rate Body temperature Systolic blood pressure Diastolic blood pressure Provider Name and Address Organization Details Last Updated DateTime 3 167.64 cm 27 kg/m2 41762.9 3 g 17 /min 10 97 % 97 % 72 /min 97.2 [degF] 100 mm[Hg] 62 mm[Hg] FAB NIEVES RA PA - [facility] 12:34:41 Social History Question Answer Notes LastModified by Organizat ion Details LastModified Time Tobacco Smoking Status Never Smoker FAB castaneda, [place] - [facility] 04/25/2022 12:32:39 What [...] virus, quadrivalent, PF 11/26/2017 completed [facility] 04/25/2022 12:29:17 Past Encounters Encounter ID Performer Location Encounter Start Date Encounter Closed Date Diagnosis/Indication Diagnosis SNOMED-CT Code Diagnosis ICD10 Code Diagnosis [place] [id number] [place] [address] [place] [address] 04/25/2022 10:55:44 04/25/2022 13:18:52 Acute urinary tract infection 618939668 N39.0 Health Concerns Section Related Observation LastModified by Organization Detai ls LastModified Time None Recorded Concern Status LastModified by Organization Details LastModified Time None Recorded Advance Directives Directive None Recorded Payers Encounter Date Sequence Insurance Name Policy Number Policy Hess Covered Member ID Hess Member ID Guarantor Name 04/25/2022 1 [facility] ([facility] LEON Blevins [id number] Miguel Angel Blevins Notes Date Note Type [...] Miranda NP [address] [place], [address], [place] - [facility] 04/25/2022 13:17:27 OBGyn Episode No OBEpisode recorded.
--- OUTSIDE RECORDS SUMMARY | 2024-04-16 12:28 | XMS_ITS | Encounter Summary ---
Author Organization [employer] [facility] Address [address] [place] [address] Care Team Providers Care Napping Machine Operator Name Role Phone Sarai Solares MD Primary Care Provider [phone] Harjeet Dumont MD Unavailable [phone] Sarah Kwok PA-C Primary Care Provider + Encounter Details Date Type Department Care Team Description 04/27/2022 SCAN Medical Records [address] [place] [address] Abstract, Provider Social History Tobacco Use Types [...] suspected to have Coronavirus/COVID-19? No / Unsure 04/22/2022 11:00 AM EST documented as of this encounter Plan of Treatment Not on file documented as of this encounter Procedures Procedure Name Priority Date/Time Associated Diagnosis Comments OUTSIDE LAB Routine 04/27/2022 OUTSIDE LAB Routine 04/27/2022 documented in this encounter Results * OUTSIDE LAB (04/27/2022) Provider Default LAB * OUTSIDE LAB (04/27/2022) Provider Default LAB documented in this encounter Visit Diagnoses Not on filedocumented in this encounter Care Teams Napping Machine Operator Relationship Specialty Start Date End Date Sarai Solares MD PCP - General Internal Medicine 01/04/20 10/20/22 Sarah Kwok PA-C 300 [facility] [address] [place] [address] PCP - General Internal Medicine 10/21/22 Harjeet Dumont MD [address] [facility] [address] [place] [address] Specialist Cardiovascular Disease 01/27/22 documented as of this encounter
--- OUTSIDE RECORDS SUMMARY | 2024-04-16 12:28 | XMS_ITS | Encounter Summary ---
Author Organization [facility] Address [address] [place] [address] Care Team Providers Care Oil Refinery Operator Name Role Phone Sarai Solares MD Primary Care Provider [phone] Harjeet Dumont MD Unavailable [phone] Sarah Kwok PA-C Primary Care Provider + Encounter Details Date Type Department Care Team Description 06/23/2022 Hospital Medical Records [address] [place] [address] Solitario Mooney MD [address] [place] [address] Social History Tobacco Use Types Packs/Day Years [...] Recorded In the last 10 days, have liliane u been in contact with someone who was confirmed or suspected to have Coronavirus/COVID-19? No / Unsure 06/17/2022 1:18 PM EDT documented as of this encounter Plan of Treatment Not on file documented as of this encounter Visit Diagnoses Not on filedocumented in this encounter Care Teams Oil Refinery Operator Relationship Specialty Start Date End Date Sarai Solares MD PCP - General Internal Medicine 01/04/20 10/20/22 Sarah Kwok PA-C [address] [address] PCP - General Internal Medicine 10/21/22 Harjeet Dumont MD [address] [address] Specialist Cardiovascular Disease 01/27/22 documented as of this encounter
--- OUTSIDE RECORDS SUMMARY | 2024-04-16 12:28 | XMS_ITS | Encounter Summary ---
Author Organization [facility] Address [address] [place] [address] Care Team Providers Care School Occupational Therapist Name Role Phone Sarai Solares MD Primary Care Provider +[phone] Harjeet Dumont MD Unavailable [phone] Sarah Kwok PA-C Primary Care Provider + Encounter Details Date Type Department Care Team Description 03/18/2022 Release of Information Medical Records [address] [place] [address] [facility] Social History Tobacco Use Types Packs/Day Years [...] suspected to have Coronavirus/COVID-19? No / Unsure 03/18/2022 1:12 PM EST documented as of this encounter Plan of Treatment Not on file documented as of this encounter Visit Diagnoses Not on filedocumented in this encounter Care Teams School Occupational Therapist Relationship Specialty Start Date End Date Sarai Solares MD PCP - General Internal Medicine 01/04/20 10/20/22 Sarah Kwok PA-C [address] [place], [place] [address] PCP - General Internal Medicine 10/21/22 Harjeet Dumont MD [address] [place] [address] Specialist Cardiovascular Disease 01/27/22 documented as of this encounter
--- OUTSIDE RECORDS SUMMARY | 2024-04-16 12:28 | XMS_ITS | Encounter Summary ---
Author Organization [facility] Address [address] [place] [address] Care Team Providers Care Cargo Vessel Stewardess Name Role Phone Sarai Solares MD Primary Care Provider [phone] Harjeet Dumont MD Unavailable [phone] Sarah Kwok PA-C Primary Care Provider + Encounter Details Date Type Department Care Team Description 09/06/2022 Wire Technician Report Medical Records [address] [place] [address] Allison Weaver Social History Tobacco Use Types Packs/Day Years [...] on filedocumented in this encounter Care Teams Cargo Vessel Stewardess Relationship Specialty Start Date End Date Sarai Solares MD PCP - General Internal Medicine 01/04/20 10/20/22 Sarah Kwok PA-C [address] [address] PCP - General Internal Medicine 10/21/22 Harjeet Dumont MD [address] [address] Specialist Cardiovascular Disease 01/27/22 documented as of this encounter
--- OUTSIDE RECORDS SUMMARY | 2024-04-16 12:28 | XMS_ITS | Encounter Summary ---
Author Organization [facility] Address [address] [place] [address] Care Team Providers Care Black Off Worker Name Role Phone Sarai Solares MD Primary Care Provider [phone] Harjeet Dumont MD Unavailable [phone] Sarah Kwok PA-C Primary Care Provider + Encounter Details Date Type Department Care Team Description 11/12/2021 Orders Only Endocrinology - [address] [address] Sarah Bah PA-C [address] [place] [address] Social History Tobacco Use Types Packs/Day Years [...] on filedocumented in this encounter Care Teams Black Off Worker Relationship Specialty Start Date End Date Sarai Solares MD PCP - General Internal Medicine 01/04/20 10/20/22 Sarah Kwok PA-C 300 [facility] [address] [place] [address] PCP - General Internal Medicine 10/21/22 Harjeet Dumont MD 300 [facility] [address] [place] [address] Specialist Cardiovascular Disease 01/27/22 documented as of this encounter
--- OUTSIDE RECORDS SUMMARY | 2024-04-16 12:28 | XMS_ITS | Encounter Summary ---
Author Organization [facility] Address [address] [place] [address] Care Team Providers Care Technical Assistance Consultant Name Role Phone Sarai Solares MD Primary Care Provider [phone] Harjeet Dumont MD Unavailable [phone] Sarah Kwok PA-C Primary Care Provider + Encounter Details Date Type Department Care Team Description 03/18/2022 SCAN Medical Records [address] [place] [address] [facility] Social History Tobacco Use Types [...] on filedocumented in this encounter Care Teams Technical Assistance Consultant Relationship Specialty Start Date End Date Sarai Solares MD PCP - General Internal Medicine 01/04/20 10/20/22 Sarah Kwok PA-C [address] [place], [place] [address] PCP - General Internal Medicine 10/21/22 Harjeet Dumont MD [address] [place] [address] Specialist Cardiovascular Disease 01/27/22 documented as of this encounter
--- OUTSIDE RECORDS SUMMARY | 2024-04-16 12:28 | XMS_ITS | Encounter Summary ---
Author Organization [facility] Address [address] [place] [address] Care Team Providers Care Pecan Grower Name Role Phone Sarai Solares MD Primary Care Provider [phone] Harjeet Dumont MD Unavailable [phone] Sarah Kwok PA-C Primary Care Provider + Reason for Visit * Reason Comments E-prescribe Rx Request Encounter Details Date Type Department Care Team Description 03/26/2021 Refill Internal Medicine - [address], [address] [place] [address] Sarai Solares MD [address] [place] [address] E-prescribe Rx Request Social History Tobacco [...] Exposure Response Date Recorded In the last month, have you been in contact with someone who was confirmed or suspected to have Coronavirus / COVID-19? No / Unsure 03/26/2021 9:31 AM EST documented as of this encounter Plan of Treatment Not on file documented as of this encounter Visit Diagnoses Not on filedocumented in this encounter Care Teams Pecan Grower Relationship Specialty Start Date End Date Sarai Solares MD PCP - General Internal Medicine 01/04/20 10/20/22 Sarah Kwok PA-C 300 [facility] [address] [place] [address] PCP - General Internal Medicine 10/21/22 Harjeet Dumotn MD 300 [facility] [address] [place] [address] Specialist Cardiovascular Disease 01/27/22 documented as of this encounter
--- OUTSIDE RECORDS SUMMARY | 2024-04-16 12:28 | XMS_ITS | Encounter Summary ---
Author Organization [facility] Address [address] [place] [address] Care Team Providers Care Tea Room Manager Name Role Phone Sarai Solares MD Primary Care Provider [phone] Harjeet Dumont MD Unavailable [phone] Sarah Kwok PA-C Primary Care Provider + Encounter Details Date Type Department Care Team Description 10/04/2022 Orders Only Medical Records [address] [place] [address] Abstract, Provider Social History Tobacco Use Types [...] Name Priority Date/Time Associated Diagnosis Comments OUTSIDE PLAIN FILM Routine 09/25/2022 documented in this encounter Results * OUTSIDE PLAIN FILM (09/25/2022) Provider Abstract RADIOLOGY documented in this encounter Visit Diagnoses Not on filedocumented in this encounter Care Teams Tea Room Manager Relationship Specialty Start Date End Date Sarai Solares MD PCP - General Internal Medicine 01/04/20 10/20/22 Sarah Kwok PA-C [address] [place], [place] [address] PCP - General Internal Medicine 10/21/22 Harjeet Dumont MD [address] [place] [address] Specialist Cardiovascular Disease 01/27/22 documented as of this encounter
--- OUTSIDE RECORDS SUMMARY | 2024-04-16 12:28 | XMS_ITS | Encounter Summary ---
Author Organization [facility] Address [address] [place] [address] Care Team Providers Care Cardiac Specialist Name Role Phone Sarai Solares MD Primary Care Provider [phone] Harjeet Dumont MD Unavailable [phone] Sarah Kwok PA-C Primary Care Provider + Encounter Details Date Type Department Care Team Description 07/07/2022 [facility] Medical Records [address] [place], [place] [id number] [place] [address] Social History Tobacco Use Types Packs/Day Years [...] suspected to have Coronavirus/COVID-19? No / Unsure 07/05/2022 11:32 AM EDT documented as of this encounter Plan of Treatment Not on file documented as of this encounter Visit Diagnoses Not on filedocumented in this encounter Care Teams Cardiac Specialist Relationship Specialty Start Date End Date Sarai Solares MD PCP - General Internal Medicine 01/04/20 10/20/22 Sarah Kwok PA-C [address] [place], [place] [address] PCP - General Internal Medicine 10/21/22 Harjeet Dumont MD [address] [place] [address] Specialist Cardiovascular Disease 01/27/22 documented as of this encounter
--- OUTSIDE RECORDS SUMMARY | 2024-04-16 12:28 | XMS_ITS | Encounter Summary ---
Author Organization [facility] Address [address] [place] [address] Care Team Providers Care Tail Edger Name Role Phone Sarai Solares MD Primary Care Provider [phone] Harjeet Dumont MD Unavailable [phone] Sarah Kwok PA-C Primary Care Provider + Encounter Details Date Type Department Care Team Description 06/08/2021 Telephone Adult Medicine [address] [address] Jalen Ordonez PA-C [address] [place] [address] Social History Tobacco Use Types Packs/Day Years [...] suspected to have Coronavirus/COVID-19? No / Unsure 05/18/2021 10:12 AM EDT documented as of this encounter Plan of Treatment Not on file documented as of this encounter Visit Diagnoses Not on filedocumented in this encounter Care Teams Tail Edger Relationship Specialty Start Date End Date Sarai Solares MD PCP - General Internal Medicine 01/04/20 10/20/22 Sarah Kwok PA-C 300 [facility] [address] [place] [address] PCP - General Internal Medicine 10/21/22 Harjeet Dumont MD 300 [facility] [address] [place] [address] Specialist Cardiovascular Disease 01/27/22 documented as of this encounter
--- OUTSIDE RECORDS SUMMARY | 2024-04-16 12:28 | XMS_ITS | Encounter Summary ---
Author Organization [facility] Address [address] [place] [address] Care Team Providers Care Diesel Engine Ii Pipe Fitter Name Role Phone Sarai Solares MD Primary Care Provider [phone] Harjeet Dumont MD Unavailable [phone] Sarah Kwok PA-C Primary Care Provider + Encounter Details Date Type Department Care Team Description 09/20/2022 Orders Only Medical Records [address] [place] [address] Abstract, Provider Social History Tobacco Use Types [...] Name Priority Date/Time Associated Diagnosis Comments OUTSIDE VASCULAR STUDY Routine 09/20/2022 OUTSIDE PLAIN FILM Routine 09/20/2022 documented in this encounter Results * OUTSIDE PLAIN FILM (09/20/2022) Provider Abstract RADIOLOGY * OUTSIDE VASCULAR STUDY (09/20/2022) Provider Abstract CARDIOLOGY documented in this encounter Visit Diagnoses Not on filedocumented in this encounter Care Teams Diesel Engine Ii Pipe Fitter Relationship Specialty Start Date End Date Sarai Solares MD PCP - General Internal Medicine 01/04/20 10/20/22 Sarah Kwok PA-C 300 [facility] [address] [place] [address] PCP - General Internal Medicine 10/21/22 Harjeet Dumont MD 300 [facility] [address] [place] [address] Specialist Cardiovascular Disease 01/27/22 documented as of this encounter
--- OUTSIDE RECORDS SUMMARY | 2024-04-16 12:29 | XMS_ITS | Encounter Summary ---
Author Organization [facility] Address [address] [place] [address] Care Team Providers Care Metallography Teacher Name Role Phone Harjeet Dumont MD Unavailable [phone] Sarah Kwok PA-C Primary Care Provider + Encounter Details Date Type Department Care Team Description 02/07/2023 Orders Only Medical Records [address] [place] [address] Adilene Rosas PA-C Social History Tobacco Use Types Packs/Day Years [...] Name Priority Date/Time Associated Diagnosis Comments OUTSIDE ULTRASOUND Routine 02/06/[address] Routine 02/06/2023 documented in this encounter Results * OUTSIDE CT (02/06/2023) [facility] RADIOLOGY * OUTSIDE ULTRASOUND (02/06/2023) Adilene Rosas PA-C RADIOLOGY documented in this encounter Visit Diagnoses Not on filedocumented in this encounter Care Teams Metallography Teacher Relationship Specialty Start Date End Date Sarah Kwok PA-C [address] [place], [place] [address] PCP - General Internal Medicine 10/21/22 Harjeet Dumont MD [address] [place] [address] Specialist Cardiovascular Disease 01/27/22 documented as of this encounter
--- OUTSIDE RECORDS SUMMARY | 2024-04-16 12:29 | XMS_ITS | Encounter Summary ---
Author Organization [facility] Address [address] [place] [address] Care Team Providers Care Time Clock Mechanic Name Role Phone Harjeet Dumont MD Unavailable [phone] Sarah Kwok PA-C Primary Care Provider + Encounter Details Date Type Department Care Team Description 02/01/2023 Pharmacy Associate Report Medical Records [address] [place] [address] Allison Weaver Social History Tobacco Use Types [...] on filedocumented in this encounter Care Teams Time Clock Mechanic Relationship Specialty Start Date End Date Sarah Kwok PA-C [address] [address] PCP - General Internal Medicine 10/21/22 Harjeet Dumont MD [address] [address] Specialist Cardiovascular Disease 01/27/22 documented as of this encounter
--- OUTSIDE RECORDS SUMMARY | 2024-04-16 12:29 | XMS_ITS | Encounter Summary ---
Author Organization [facility] Address [address] [place] [address] Care Team Providers Care Wood Carving Machine Operator Name Role Phone Harjeet Dumont MD Unavailable [phone] Sarah Kwok PA-C Primary Care Provider + Encounter Details Date Type Department Care Team Description 03/30/2023 Pt. Non Urgent Medical Question Internal Medicine - [address], [address] [place] [address] Sarah Kwok PA-C [address] [place] [phone] Social History Tobacco Use Types Packs/Day Years [...] encounter Miscellaneous Notes * Telephone Encounter - Indy Simon MA - 04/01/2023 11:57 AM ESTFrom: Miguel Angel Blevins To: Sal Kwok Sent: 03/30/2023 8:39 AM EST Subject: Itchy hands, feet???s and body Goodmorning last time in our visit I had mentioned my hands and feet???s have been itchy . They arestill extremely itchy but I am also feeling itchy all over now . documented in this encounter Plan of Treatment Not on file documented as of this encounter Visit Diagnoses Not on filedocumented in this encounter Care Teams Wood Carving Machine Operator Relationship Specialty Start Date End Date Sarah Kwok PA-C [address] [address] PCP - General Internal Medicine 10/21/22 Harjeet Dumont MD 300 [facility] 154 [place] [address] Specialist Cardiovascular Disease 01/27/22 documented as of this encounter
--- OUTSIDE RECORDS SUMMARY | 2024-04-16 12:29 | XMS_ITS | Encounter Summary ---
Author Organization [facility] Address [address] [place] [address] Care Team Providers Care Revising Clerk Name Role Phone Harjeet Dumont MD Unavailable [phone] Sarah Kwok PA-C Primary Care Provider + Encounter Details Date Type Department Care Team Description 10/25/2023 Refill Gastroenterology - [place] 175 [facility] 200 [place] [phone] Minnie Raman DScPAS Social History Tobacco Use Types Packs/Day Years [...] encounter Miscellaneous Notes * Telephone Encounter - Rachael Schwarz C.M.A. - 10/25/2023 3:04 PM EDT 90 day supply per insurance documented in this encounter Plan of Treatment Not on file documented as of this encounter Visit Diagnoses Not on filedocumented in this encounter Care Teams Revising Clerk Relationship Specialty Start Date End Date Sarah Kwok PA-C [address] [place] [address] PCP - General Internal Medicine 10/21/22 Harjeet Dumont MD 300 [place] [address] Specialist Cardiovascular Disease 01/27/22 documented as of this encounter
--- OUTSIDE RECORDS SUMMARY | 2024-04-16 12:29 | XMS_ITS | Encounter Summary ---
Author Organization [facility] Address [address] [place] [address] Care Team Providers Care Manufacturing Production Manager Name Role Phone Harjeet Dumont MD Unavailable [phone] Sarah Kwok PA-C Primary Care Provider + Encounter Details Date Type Department Care Team Description 06/14/2023 Transformation Coach Report Medical Records [address] [place] [address] Deniseer Zulay Joseph Social History Tobacco Use Types Packs/Day Years [...] on filedocumented in this encounter Care Teams Manufacturing Production Manager Relationship Specialty Start Date End Date Sarah Kwok PA-C [address] [address] PCP - General Internal Medicine 10/21/22 Harjeet Dumont MD [address] [address] Specialist Cardiovascular Disease 01/27/22 documented as of this encounter
--- OUTSIDE RECORDS SUMMARY | 2024-04-16 12:29 | XMS_ITS | Encounter Summary ---
Author Organization [facility] Address [address] [place] [address] Care Team Providers Care Reinforcing Steel Placer Name Role Phone Harjeet Dumont MD Unavailable [phone] Sarah Kwok PA-C Primary Care Provider + Reason for Visit * Reason Comments E-prescribe Rx Request Encounter Details Date Type Department Care Team Description 07/13/2023 Refill Internal Medicine - [address], [address] [place] [address] Sarah Kwok PA-C [address] [place] [phone] E-prescribe Rx Request Social History Tobacco [...] * Telephone Encounter - Mariam Cerda - 07/14/2023 8:58 AM EDT Pended to pcp * Telephone Encounter - Gini Valencia - 07/13/2023 10:40 AM EDT Milly 06/28/23 Nov 10/04/23 documented in this encounter Plan of Treatment Not on file documented as of this encounter Visit Diagnoses Diagnosis 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
--- OUTSIDE RECORDS SUMMARY | 2024-04-16 12:29 | XMS_ITS | Encounter Summary ---
Author Organization [facility] Address [address] [place] [address] Care Team Providers Care Web Graphic Designer Name Role Phone Sarai Solares MD Primary Care Provider [phone] Harjeet Dumont MD Unavailable [phone] Sarah Kwok PA-C Primary Care Provider + Encounter Details Date Type Department Care Team Description 06/27/2020 Telephone Adult Medicine B - [place] [address] [place] [address] Mildred Rojas PA-C [id number] [place] [address] Social History Tobacco Use Types Packs/Day Years [...] have Coronavirus / COVID-19? No / Unsure 06/18/2020 12:53 PM EDT documented as of this encounter Plan of Treatment Not on file documented as of this encounter Visit Diagnoses Not on filedocumented in this encounter Care Teams Web Graphic Designer Relationship Specialty Start Date End Date Sarai Solares MD PCP - General Internal Medicine 01/04/20 10/20/22 Sarah Kwok PA-C [address] [address] PCP - General Internal Medicine 10/21/22 Harjeet Dumont MD [address] [address] Specialist Cardiovascular Disease 01/27/22 documented as of this encounter
--- OUTSIDE RECORDS SUMMARY | 2024-04-16 12:29 | XMS_ITS | Encounter Summary ---
Author Organization [facility] Address [address] [place] [address] Care Team Providers Care Senior Procurement Specialist Name Role Phone Sarai Solares MD Primary Care Provider [phone] Harjeet Dumont MD Unavailable [phone] Sarah Kwok PA-C Primary Care Provider + Encounter Details Date Type Department Care Team Description 06/27/2020 Telephone Adult Medicine B - [place] 305 [place] [address] Mildred Rojas PA-C 100 [facility] [address] [place] [address] Social History Tobacco Use Types Packs/Day Years [...] encounter Miscellaneous Notes * Telephone Encounter - Julisa Salazar M.A. - 06/27/2020 9:41 AM EDT Spoke with referrals dept. They stated they're about 2 weeks behind so patient should receive call within 2-3 weeks. States patient's insurance does not require referral for endo so if she doesn't want to wait she can call around and schedule her own appt. And to call referrals so they can fax overinfo. Relayed this message to patient, verbally understands. * Telephone Encounter - Mildred Rojas PA-C - 06/27/2020 9:21 AM EDT Please contact referrals and figure out where the pt's urgent endocrinology referral is at? Pt des has not been contacted by anyone since they told her that they would need to find her an appt externally from us because our endo dept is booking out in August. documented in this encounter Plan of Treatment Not on file documented as of this encounter Visit Diagnoses Not on filedocumented in this encounter Care Teams Senior Procurement Specialist Relationship Specialty Start Date End Date Sarai Solares MD PCP - General Internal Medicine 01/04/20 10/20/22 Sarah Kwok PA-C [address] [place] [address] PCP - General Internal Medicine 10/21/22 Harjeet Dumont MD [address] [place] [address] Specialist Cardiovascular Disease 01/27/22 documented as of this encounter
--- OUTSIDE RECORDS SUMMARY | 2024-04-16 12:29 | XMS_ITS | Encounter Summary ---
Author Organization [facility] Address [address] [place] [address] Care Team Providers Care Cardiac Nurse Specialist Name Role Phone Sarai Solraes MD Primary Care Provider [phone] Harjeet Dumont MD Unavailable [phone] Sarah Kwok PA-C Primary Care Provider + Reason for Visit * Reason Onset Date Comments Provider Call Back 02/11/2022 Encounter Details Date Type Department Care Team Description 02/11/2022 Telephone Internal Medicine - [address], [address] [place] [address] Sarai Solares MD [address] [place] [phone] Provider Call Back Social History Tobacco Use Types Packs/Day Years [...] suspected to have Coronavirus/COVID-19? No / Unsure 02/04/2022 9:55 AM EST documented as of this encounter Miscellaneous Notes * Telephone Encounter - Latanya Mead - 02/11/2022 3:59 PM EST Called to inform patient however number listed stated unable to take calls at this moment. Unable to leave message to notify patient called [phone] * Telephone Encounter - Sarah Kwok PA-C - 02/11/2022 3:37 PM EST Albuterol sent. Thank you. * Telephone Encounter - Tereza Ayala - 02/11/2022 3:29 PM EST Pt has use the albuterol inhaler before but has not in a while. If the inhaler could be sent she would like that * Telephone Encounter - Sarah Kwok PA-C - 02/11/2022 3:11 PM EST Has she tried using an albuterol inhaler? * Telephone Encounter - Kit Bustamante - 02/11/2022 1:53 PM EST Patient tested positive for Covid this morning. They'd like to know if the provider can send them nebulizer solution, as long with her inhaler or prescribe her something for her cough. documented in this encounter Plan of Treatment Not on file documented as of this encounter Visit Diagnoses Not on filedocumented in this encounter Care Teams Cardiac Nurse Specialist Relationship Specialty Start Date End Date Sarai Solares MD PCP - General Internal Medicine 01/04/20 10/20/22 Sarah Kwok PA-C [address] [address] PCP - General Internal Medicine 10/21/22 Harjeet Dumont MD [address] [address] Specialist Cardiovascular Disease 01/27/22 documented as of this encounter
--- OUTSIDE RECORDS SUMMARY | 2024-04-16 12:29 | XMS_ITS | Encounter Summary ---
Author Organization [facility] Address [address] [place] [address] Care Team Providers Care Manager Credit Name Role Phone Harjeet Dumont MD Unavailable [phone] Sarah Kwok PA-C Primary Care Provider + Encounter Details Date Type Department Care Team Description 03/07/2023 Orders Only Medical Records [address] [place], [place] [id number] [place] [address] Social History Tobacco Use Types Packs/Day Years [...] Associated Diagnosis Comments OUTSIDE PLAIN FILM Routine 03/05/2023 documented in this encounter Results * OUTSIDE PLAIN FILM (03/05/2023) [facility] RADIOLOGY documented in this encounter Visit Diagnoses Not on filedocumented in this encounter Care Teams Manager Credit Relationship Specialty Start Date End Date Sarah Kwok PA-C 300 [facility] 154 [place] [address] PCP - General Internal Medicine 10/21/22 Harjeet Dumont MD [address] [facility] [address] [place], [place] [id number] Specialist Cardiovascular Disease 01/27/22 documented as of this encounter
--- OUTSIDE RECORDS SUMMARY | 2024-04-16 12:29 | XMS_ITS | Encounter Summary ---
Author Organization [facility] Address [address] [place] [address] Care Team Providers Care Certified Master Safecracker Name Role Phone Harjeet Dumont MD Unavailable [phone] Sarah Kwok PA-C Primary Care Provider + Encounter Details Date Type Department Care Team Description 01/19/2023 Trommel Tender Report Medical Records [address] [place] [address] Malcom Leon PA-C Social History Tobacco Use Types Packs/Day [...] on filedocumented in this encounter Care Teams Certified Master Safecracker Relationship Specialty Start Date End Date Sarah Kwok PA-C [address] [id number] PCP - General Internal Medicine 10/21/22 Harjeet Dumont MD [address] [address] Specialist Cardiovascular Disease 01/27/22 documented as of this encounter
--- OUTSIDE RECORDS SUMMARY | 2024-04-16 12:29 | XMS_ITS | Encounter Summary ---
Author Organization [facility] Address [address] [place] [address] Care Team Providers Care Flatbed Press Operator Name Role Phone Harjeet Dumont MD Unavailable [phone] Sarah Kwok PA-C Primary Care Provider + Encounter Details Date Type Department Care Team Description 01/28/2023 Washcoat Wiper Report Medical Records [address] [place] [address] Christine Castellon MD Social History Tobacco Use Types Packs/Day Years [...] on filedocumented in this encounter Care Teams Flatbed Press Operator Relationship Specialty Start Date End Date Sarah Kwok PA-C [address] [address] PCP - General Internal Medicine 10/21/22 Harjeet Dumont MD [address] [address] Specialist Cardiovascular Disease 01/27/22 documented as of this encounter
--- OUTSIDE RECORDS SUMMARY | 2024-04-16 12:29 | XMS_ITS | Encounter Summary ---
Author Organization [facility] Address [address] [place] [address] Care Team Providers Care Application Coordinator Name Role Phone Sarai Solares MD Primary Care Provider [phone] Harjeet Dumont MD Unavailable [phone] Sarah Kwok PA-C Primary Care Provider + Reason for Visit * Reason Onset Date Comments Work note 02/04/2022 Encounter Details Date Type Department Care Team Description 02/04/2022 Telephone Endocrinology - [place] [address] [place] [address] Sarah Bah PA-C [address] [place] [address] Work note Social History Tobacco Use Types Packs/Day Years [...] Telephone Encounter - Scarlett Allen M.A. - 02/08/2022 1:49 PM EST Note given to patient. FMLA paperwork received and placed in Providers inbox. * Telephone Encounter - Sarah Bah PA-C - 02/08/2022 8:39 AM EST Okay for patient to drop off paperwork and I will fill out. We will create letter for her * Telephone Encounter - Yue Lovell - 02/04/2022 11:29 AM EST Patient is calling states she is still not feeling better and unable to go back to work just yet. She needs for provider to write her an updated out of work note. She also mentioned that she does notqualify for FMLA threw her employer but she does qualify for it from the state. She has the paperwork for Sarah Bah to fill out and will drop it off either today or Tuesday the latest. Please review. documented in this encounter Plan of Treatment Not on file documented as of this encounter Visit Diagnoses Not on filedocumented in this encounter Care Teams Application Coordinator Relationship Specialty Start Date End Date Sarai Solares MD PCP - General Internal Medicine 01/04/20 10/20/22 Sarah Kwok PA-C [address] [address] PCP - General Internal Medicine 10/21/22 Harjeet Dumont MD [address] [address] Specialist Cardiovascular Disease 01/27/22 documented as of this encounter
--- OUTSIDE RECORDS SUMMARY | 2024-04-16 12:29 | XMS_ITS | Encounter Summary ---
Author Organization [facility] Address [address] [place] [address] Care Team Providers Care Temporary Administrative Assistant Name Role Phone Sarai Solares MD Primary Care Provider [phone] Harjeet Dumont MD Unavailable [phone] Sarah Kwok PA-C Primary Care Provider + Encounter Details Date Type Department Care Team Description 04/17/2022 Hospital Medical Records [address] [place], [place] [phone] [place] [address] Social History Tobacco Use Types Packs/Day Years [...] suspected to have Coronavirus/COVID-19? No / Unsure 04/06/2022 3:54 PM EST documented as of this encounter Plan of Treatment Not on file documented as of this encounter Procedures Procedure Name Priority Date/Time Associated Diagnosis Comments OUTSIDE EKG Routine 04/17/2022 documented in this encounter Results * OUTSIDE EKG (04/17/2022) Provider Default CARDIOLOGY documented in this encounter Visit Diagnoses Not on filedocumented in this encounter Care Teams Temporary Administrative Assistant Relationship Specialty Start Date End Date Sarai Solares MD PCP - General Internal Medicine 01/04/20 10/20/22 Sarah Kwok PA-C 300 [facility] 154 [place] [address] PCP - General Internal Medicine 10/21/22 Harjeet Dumont MD [address] [address] Specialist Cardiovascular Disease 01/27/22 documented as of this encounter
--- OUTSIDE RECORDS SUMMARY | 2024-04-16 12:29 | XMS_ITS | Encounter Summary ---
Author Organization [facility] Address [address] [place] [address] Care Team Providers Care Bottle Caser Name Role Phone Sarai Solares MD Primary Care Provider [phone] Harjeet Dumont MD Unavailable [phone] Sarah Kwok PA-C Primary Care Provider + Reason for Visit * Reason Onset Date Comments REFERRAL 07/04/2020 Encounter Details Date Type Department Care Team Description 07/04/2020 Telephone Internal Medicine - [address], [address] [place], [place] [phone] Sarai Solares MD [address] [place] [phone] REFERRAL Social History Tobacco Use Types Packs/Day Years [...] encounter Miscellaneous Notes * Telephone Encounter - Hilda Seay M.A. - 07/04/2020 9:41 AM EDT PLs advise * Telephone Encounter - Judi Horn - 07/04/2020 9:28 AM EDT Patient states she was referred to endocrinology, states the location she was referred to is completely booked and could not make an appointment. Is asking if she [facility] which [facility] a sooner appointment. documented in this encounter Plan of Treatment Not on file documented as of this encounter Visit Diagnoses Not on filedocumented in this encounter Care Teams Bottle Caser Relationship Specialty Start Date End Date Sarai Solares MD PCP - General Internal Medicine 01/04/20 10/20/22 Sarah Kwok PA-C [address] [address] PCP - General Internal Medicine 10/21/22 Harjeet Dumont MD [address] [place] [address] Specialist Cardiovascular Disease 01/27/22 documented as of this encounter
--- OUTSIDE RECORDS SUMMARY | 2024-04-16 12:29 | XMS_ITS | Encounter Summary ---
Author Organization [facility] Address [address] [place] [address] Care Team Providers Care Carbon Dioxide Operator Name Role Phone Sarai Solares MD Primary Care Provider [phone] Harjeet Dumont MD Unavailable [phone] Sarah Kwok PA-C Primary Care Provider + Encounter Details Date Type Department Care Team Description 10/29/2020 Telephone Internal Medicine - [address], [address] [place] [address] Sarai Solares MD [address] [place] [phone] Social History Tobacco Use Types Packs/Day [...] have Coronavirus / COVID-19? 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
--- OUTSIDE RECORDS SUMMARY | 2024-04-16 12:29 | XMS_ITS | Encounter Summary ---
Author Organization [facility] Address [address] [place] [address] Care Team Providers Care Cad Specialist Name Role Phone Harjeet Dumont MD Unavailable [phone] Sarah Kwok PA-C Primary Care Provider + Encounter Details Date Type Department Care Team Description 04/29/2023 Orders Only Medical Records [address] [place] [address] Jayna Joseph Np Social History Tobacco Use Types Packs/Day Years [...] Date/Time Associated Diagnosis Comments OUTSIDE LAB Routine 04/01/2023 documented in this encounter Results * OUTSIDE LAB (04/01/2023) Bundle Packer Jayna ROBLES documented in this encounter Visit Diagnoses Not on filedocumented in this encounter Care Teams Cad Specialist Relationship Specialty Start Date End Date Sarah Kwok PA-C [address] [address] PCP - General Internal Medicine 10/21/22 Harjeet Dumont MD [address] [id number] Specialist Cardiovascular Disease 01/27/22 documented as of this encounter
--- OUTSIDE RECORDS SUMMARY | 2024-04-16 12:29 | XMS_ITS | Encounter Summary ---
Author Organization [facility] Address [address] [place] [address] Care Team Providers Care Road Cutter Name Role Phone Harjeet Dumont MD Unavailable [phone] Sarah Kwok PA-C Primary Care Provider + Encounter Details Date Type Department Care Team Description 05/13/2023 Information Clerk Brokerage Report Medical Records [address] [place] [address] Ronak Holly MD Social History Tobacco Use Types Packs/Day [...] on filedocumented in this encounter Care Teams Road Cutter Relationship Specialty Start Date End Date Sarah Kwok PA-C [address] [address] PCP - General Internal Medicine 10/21/22 Harjeet Dumnot MD [address] [address] Specialist Cardiovascular Disease 01/27/22 documented as of this encounter
--- OUTSIDE RECORDS SUMMARY | 2024-04-16 12:29 | XMS_ITS | Encounter Summary ---
Author Organization [facility] Address [address] [place] [address] Care Team Providers Care Licensing And Registration Director Name Role Phone Harjeet Dumont MD Unavailable [phone] Sarah Kwok PA-C Primary Care Provider + Encounter Details Date Type Department Care Team Description 04/20/2023 Hvac Installer Report Medical Records [address] [place] [address] Abstract, Provider Social History Tobacco Use Types [...] on filedocumented in this encounter Care Teams Licensing And Registration Director Relationship Specialty Start Date End Date Sarah Kwok PA-C [address] [address] PCP - General Internal Medicine 10/21/22 Harjeet Dumont MD [address] [address] Specialist Cardiovascular Disease 01/27/22 documented as of this encounter
--- OUTSIDE RECORDS SUMMARY | 2024-04-16 12:29 | XMS_ITS | Continuity of Care Document ---
Author Organization [facility] ter Address [address] [place] [address]- Care Team Providers Care Accounting Specialist Name Role Phone Sujatha GAMINO, Sarai D Primary Care Physician [place] [facility] [place]): [place] - 04/11/[address] [address]- Discharge Disposition: A-D/C Home Attending Physician: Dioni Kim DO Admitting Physician: Dioni Kim DO Referring Physician: Not on Staff, Referring MD Encounter Type: Disch ES Allergies, Adverse Reactions, Alerts Substance Criticality Severity [...] 11:35:00 AM EDT, Route to Pharmacy Electronically, [facility]/pharmacy #[id number], Partial fill upon patient [...] 08/05/1911:44:12 PM EDT, Route to Pharmacy Electronically, [id number], [facility]/pharmacy #[id number] Start Date: 08/04/18 Status: Ordered Quantity: 1.0 Unit: each Repeat number: 3 Carafate 1 gm oral tablet 1 Gm, 1, tablet, By Mouth, 2 times a day, # 60 tablet, Refills 0, Tot. Refills 0, Maintenance, 04/11/24 10:06:00 AM EST, Route to Pharmacy Electronically, [facility]/pharmacy #[id number], Partial fill upon patientrequest if the prescription is for a schedule II opioid drug., 168, cm, 04/11/24 8:39:00 EST, Height, 89.5, kg, 04/11/24 8:39:00 EST, Dry Weight Start Date: 04/11/24 Status: Ordered Quantity: 60.0 Unit: tablet Repeat number: 1 EpiPen 2-Jose 0.3 mg injectable kit = 0.3 mg, Intramuscular, Once, PRN Anaphylactic Reaction, # 2 each, 0 Refills, Soft Stop, 01/04/23 1:49:00 PM EST, [facility]/pharmacy #[id number], Partial fill upon patient [...] 11:35:00 AM EDT, Route to Pharmacy Electronically, [facility]/pharmacy #[id number], Partial fill upon patient [...] Quantity: 8.0 Unit: tablet Repeat number: 1 ondansetron 4 mg oral tablet, disintegrating 1 tablet = 4 mg, By Mouth, Every 8 hours, PRN as needed for nausea/vomiting, for 3 days, # 9 tablet, 0 Refills, Acute 04/14/24 10:06:00 AM EST, 04/11/24 10:06:00 AM EST, DIS Tablet, [facility]/pharmacy #[id number],Partial fill upon patient request if the prescription is for a schedule II opioid drug., 168, cm, 04/11/24 8:39:00 EST, Height, 89.5, kg, 04/11/24 8:39:00 EST, Dry Weight Start Date: 04/11/24 Stop Date: 04/14/24 Status: Ordered Quantity: 9.0 Unit: tablet Repeat number: 1 Qulipta 30 [...] 10:35:00 AM EDT, Route to Pharmacy Electronically, [facility]/pharmacy #[id number], Partial fill upon patient request if the [...] has a remote history of thyroid dysfunction Results Radiology Reports * Exam Date Time Procedure Performing Provider Status 04/11/24 8:37 AM US RUQ Janina Cooley; Auth (V erified) Notes: (US RUQ) Reason For Exam: Abdominal Pain;Other: RESULT: US RUQ US RUQ Reason: Abdominal Pain; Clinical Question(s): Cholecystitis. COMPARISON: 09/04/2019. FINDINGS: Liver: Normal in size and echotexture. No focal lesion. Smooth hepatic contour. Main portal vein patent with normal hepatopetal direction of flow. Gallbladder: No gallstones. Normal wall thickness. No pericholecystic fluid. Negative Christian sign. Biliary Tree: No intrahepatic or extrahepatic bile duct dilation is identified. Common duct measures: 0.4 cm. Pancreas: Obscured by overlying bowel gas. Right kidney: 12.2 cm in length. Normal parenchymal echotexture and thickness. No hydronephrosis, stone or mass. IMPRESSION: No sonographic evidence of cholelithiasis or acute cholecystitis. WSN: [id number] Ordering Physician: Moris Gr Dictated By: Israel Anne MD Dictated Date/Time: 04/11/24 9:23 am Reviewed By: Israel Anne MD Signed By: Israel Anne MD Signed Date/Time: 04/11/24 9:23 am Transcribed By: ANA Transcribed Date/Time: 04/11/24 8:50 am Vital Signs Most recent to oldest [Reference Range]: 1 2 3 Height 168 cm (04/11/24 8:36 AM) 168 cm (04/11/24 6:41 AM) 168 cm (04/11/24 4:52 AM) Weight 89.5 kg (04/11/24 8:36 AM) 89.5 kg (04/11/24 6:41 AM) 89.5 kg (04/11/24 4:52 AM) Oxygen Saturation [94-100 %] 100 % (04/11/24 8:36 AM) 99 % (04/11/24 6:41 AM) 100 % (04/11/24 4:52 AM) Pulse Rate [55-90 bpm] 100 bpm *H* (04/11/24 8:36 AM) 86 bpm (04/11/24 6:41 AM) 101 bpm *H* (04/11/24 4:52 AM) Body Mass Index [18.5-24.99 kg/m2] 31.71 kg/m2 *>HHI* (04/11/24 8:36 AM) 31.71 kg/m2 *>HHI* (04/11/24 6:41 AM) 31.71 kg/m2 *>HHI* (04/10/24 7:15 PM) Blood Pressure [90-138/55-84 mm Hg] 130/84mm Hg (04/11/24 8:36 AM) 127/84mm Hg (04/11/24 6:41 AM) 146/82mm Hg *H* (04/11/24 4:52 AM) Respiratory Rate [16-30 br/min] 12 br/min *L* (04/11/24 8:36 AM) 19 br/min (04/11/24 6:41 AM) 16 br/min (04/11/24 4:52 AM) Temperature [96.8-100.4 DegF] 97.8 DegF (04/11/24 4:52 AM) 98.6 DegF (04/10/24 9:05 PM) 97.8 DegF (04/10/24 7:15 PM) Mode of Delivery (Oxygen) Room air (04/11/24 8:36 AM) Room air (04/11/24 6:41 AM) Room air (04/11/24 4:52 AM) Blood pressure sites Arm, left (04/11/24 8:36 AM) Arm, left (04/11/24 6:41 AM) Arm, right (04/11/24 4:52 AM) Temperature Route Oral (04/11/24 4:52 AM) Oral (04/10/24 9:05 PM) Oral (04/10/24 7:15 PM) Dry Weight 89.5 kg (04/11/24 8:36 AM) 89.5 kg (04/11/24 6:41 AM) 89.5 kg (04/11/24 4:52 AM) Weight Obtained Via Standing scale (04/10/24 7:15 PM) Dry Weight Obtained Via Standing scale (04/10/24 7:15 PM) Social History Social History Type Response Smoking Status Never (less than 100 in lifetime) entered on: 05/08/18 Sex Sex Representation Female (finding) EKG study * Event Display: ECG 12-Lead Authored Date: Please click on pdf link to open report * Event Display: ECG 12-Lead Authored Date: Ventricular Rate: 107 BPM Atrial Rate: 107 BPM P-R Interval: 132 ms QRS Duration: 82 ms Q-T Interval: 318 ms QTC Calculation(Bazett): 424 ms P Mccoll: 64 degrees R Mccoll: 77 degrees T Mccoll: 35 degrees Sinus tachycardia Otherwise normal ECG When compared with ECG of 13-May-2023 12:21, No significant change was found Confirmed by ADALGISA PLASCENCIA MD ([id number]) on 04/11/2024 10:30:25 AM Scheller: ADALGISA PLASCENCIA MD Note * Moris Gr NP: PERFORM, SIGN, VERIFY Event Display: Patient Education Handout Authored Date: Patient Care team information Care Team Personnel Name: Danial Mckeon MD Position: [facility] Physician -Physician Practices Member Role: Lifetime Consulting Physician Name: Sujatha GAMINO, Sarai Coello Position: Reference Physician Member Role: PCP Address: [address], [address] [place] [address]- Telecom: Name: Abigail Kline NP Position: [facility] Associate Professional Member Role: Primary Care Nurse Address: [address] [place] [address] [address] [place] [address]- Telecom: Name: Rachael Schwarz Position: [facility] Outreach Member Role: Lifetime Consulting Physician Care Team Related Persons Name: ZECHARIAH BELTRAN Name: JURGEN BELTRAN Name: YESSENIA NIX Name: JENNY NIX Name: DEWAYNE NIX Name: VICENTE BERRY Insurance Providers Guarantor name: JYOTI BELTRAN Health Plan Information #: 2 Payer: [employer] Member Number: [id number] Policy Number: NA Group Number: NA Health Plan Information #: 1 Payer: [facility] Member Number: [id number] Policy Number: NA Group Number: NA
--- OUTSIDE RECORDS SUMMARY | 2024-04-16 12:29 | XMS_ITS | Encounter Summary ---
Author Organization [facility] Address [address] [place] [address] Care Team Providers Care Pin Drafting Machine Tender Name Role Phone Harjeet Dumont MD Unavailable [phone] Sarah Kwok PA-C Primary Care Provider + Reason for Visit * Reason Comments E-prescribe Rx Request Encounter Details Date Type Department Care Team Description 06/12/2023 Refill Internal Medicine - [address], [address] [place] [address] Sarai Solares MD [address] [place] [phone] E-prescribe Rx Request Social History Tobacco [...] encounter Miscellaneous Notes * Telephone Encounter - Yuliana Bloom M.A. - 06/13/2023 3:44 PM EDT CHAS 04/28/23 NOV 06/28/23 Lab Results Component Value Date NA 140 10/22/2022 K 4.2 10/22/2022 CO2 25 10/22/2022 CL 109 10/22/2022 BUN 10 10/22/2022 CREAT 0.69 10/22/2022 GLU 91 10/22/2022 CA 8.5 10/22/2022 GFR 121 10/22/2022 * Telephone Encounter - Niurka Urban - 06/13/2023 1:08 PM EDT CHAS 04/28/23 NOV 06/28/23 documented in this encounter Plan of Treatment Not on file documented as of this encounter Visit Diagnoses Not on filedocumented in this encounter Care Teams Pin Drafting Machine Tender Relationship Specialty Start Date End Date Sarah Kwok PA-C [address] [place] [address] PCP - General Internal Medicine 10/21/22 Harjeet Dumont MD [address] [place] [address] Specialist Cardiovascular Disease 01/27/22 documented as of this encounter
--- OUTSIDE RECORDS SUMMARY | 2024-04-16 12:29 | XMS_ITS | Encounter Summary ---
Author Organization [facility] Address [address] [place] [address] Care Team Providers Care Guard Immigration Name Role Phone Harjeet Dumont MD Unavailable [phone] Sarah Kwok PA-C Primary Care Provider + Reason for Visit * Reason Onset Date Comments medication problems 10/25/2023 Encounter Details Date Type Department Care Team Description 10/25/2023 Telephone Gastroenterology - [place] [address] [facility] [address] [place] [address] Minnie Raman DScPAS medication problems Social History Tobacco Use Types Packs/Day Years [...] encounter Miscellaneous Notes * Telephone Encounter - Jessica Lawrence - 10/25/2023 1:32 PM EDT Fax rec'vd from [facility], insurance requires 90 day supply for Omeprazole to be covered. documented in this encounter Plan of Treatment Not on file documented as of this encounter Visit Diagnoses Not on filedocumented in this encounter Care Teams Guard Immigration Relationship Specialty Start Date End Date Sarah Kwok PA-C [address] [place], [place] [id number] PCP - General Internal Medicine 10/21/22 Harjeet Dumont MD [address] [address] Specialist Cardiovascular Disease 01/27/22 documented as of this encounter
--- OUTSIDE RECORDS SUMMARY | 2024-04-16 12:30 | XMS_ITS | Clinical Summary ---
Author Organization [facility] Address [address] [place] [address] Care Team Providers Care Umbrella Mender Name Role Phone Sarah Kwok Primary Care Provider + Allergies Active Allergy Reactions Criticality Noted Date Comments Duloxetine Hcl 09/29/2022 Fatigue Galcanezumab-Gnlm Other 01/12/2023 Gluten Unknown Low 04/13/2013 Lactose 04/13/2013 Metoclopramide Hcl 04/13/2013 Medications albuterol HFA (Ventolin HFA) 90 mcg/actuation inhaler INHALE 2 PUFFS INTO THE LUNGS EVERY 4 HOURS NEEDED FOR COUGH,WHEEZING OR SHORTNESS OF BREATH. 03/25/19 23 Active cholecalcifero l (VITAMIN D-3) 50 mcg (2,000 unit) capsule Take 1 capsule (2,000 Units total) by mouth 1 (one) time each day. 07/02/19 24 Active ascorbic acid (VITAMIN C) 500 mg tablet Take 1 tablet (500 mg total) by mouth 1 (one) time each day. 06/13/19 24 Active acetaminophen (TYLENOL) 500 mg tablet Take 2 tablets (1,000 mg total) by mouth every 6 (six) hours if needed for moderate pain or mild pain. 01/13/20 23 Active atogepant (Qulipta) 30 mg tablet Take 1 tablet by mouth 1 (one) time each day. 03/03/19 24 Active polyethylene glycol (MIRALAX) 17 gram packet Take 17 g by mouth 1 (one) time each day. 01/13/20 23 Active magnesium oxide (MAG-OX) 400 mg (241.3 elemental magnesium) tablet TAKE 1 TABLET BY MOUTH EVERY DAY AT BEDTIME HOLD FOR LOOSE STOOL 09/07/19 23 Active omeprazole (PriLOSEC) [address] capsule Take 1 capsule (20 mg total) by mouth 1 (one) time each day. for 360 days Do not crush or chew. Active metoprolol succinate (TOPROL-XL) 25 mg 24 hr tablet Take 1 tablet (25 mg total) by mouth 1 (one) time each day. Do not crush or chew. Active ondansetron (ZOFRAN) 8 mg tablet Take 1 tablet (8 mg total) by mouth 3 (three) times a day if needed for nausea or vomiting. Active gabapentin (NEURONTIN) 300 mg capsule Take 2 capsules (600 mg total) by mouth 2 (two) times a day. 01/05/20 24 Active baclofen (LIORESAL) 20 mg tablet Take 1 tablet (20 mg total) by mouth 2 (two) times a day if needed for muscle spasms. 90 tablet 3 02/17/20 24 Active albuterol 2.5 mg /3 mL (0.083 %) nebulizer solution TAKE 1 VIAL BY NEBULIZATION EVERY 4 HOURS NEEDED FOR WHEEZING. 375 mL 02/25/19 25 Active levothyroxine (SYNTHROID, LEVOTHROID) 100 mcg tablet TAKE 1 TABLET BY MOUTH EVERY DAY 90 tablet 1 03/21/19 25 Active levothyroxine (SYNTHROID, LEVOTHROID) 100 mcg tablet Take 1 tablet (100 mcg total) by mouth 1 (one) time each day. 09/15/19 24 025 Discontinued Active Problems Problem Noted Date Diagnosed Date Supervision of normal first 11/24/2023 Overview (11/24/2023): office: [place] Delivery site: [facility] Blood Type: O+ Quad screen: negative GBS: Date: TDap: Childbirth plans: Desires epidural Natural childbirth. Labor support identified: Planning bottlefeeding because she's going back to school shortly after baby's PP BCM: Male; Circ: no Baby's Name: Beck FLOWERSJami's name: Debbie Dre ASHLEY positive 07/05/2022 Bacterial infection due to H. pylori 07/05/2022 Celiac disease 06/15/2022 Constipation 06/15/2022 Chest pain 03/18/2022 Murmur 03/18/2022 SOB (shortness of breath) 03/18/2022 Hypothyroidism 02/26/2022 Overview (11/23/2023): Due to LARRY to treat graves in 2021 TSH deficiency 05/20/2021 Vitamin D deficiency 05/20/2021 Iron deficiency anemia 05/19/2021 Prediabetes 05/19/2021 Chronic migraine without aur a without status migrainosus, not intractable 05/20/2020 Palpitations PVC's (premature ventricular contractions) Cervico-occipital neuralgia of right side Frequent headaches Immunizations Name Administration Dates Next Due Influenza Quadrivalent, 0.5m l, preservative free (Fluarix; FluLaval; Fluzone) ages 6mo and older (Afluria) 3yo and older 11/26/2017 Surgical History Surgery Date Site/Laterality Comments EYE SURGERY 2010 PROCEDURE: HISTORICAL EYE SURGERY Medical History Medical History Date Comments Celiac disease 04/19/13 DX:Celiac diseas e Asthma 04/19/13 DX:Asthma; COMME NT: well controlled Hypothyroidism Palpitations PVC's (premature ventricular contractions) Iron deficiency anemia Cervico-occipital neuralgia of right side Frequent headaches Family History Medical History Relation Name Comments Rheum arthritis Father Diabetes Maternal Grandmother Hypertension Maternal Grandmother Diabetes Paternal Grandmother Relation Name Status Comments Father Maternal Grandmother Paternal Grandmother Social History Tobacco Use Types Packs/Day Years Used Date Smoking Tobacco: Never Smokeless Tobacco: Never Alcohol Use Standard Drinks/Week Comments No 0 (1 standard drink = 0.6 oz pur e alcohol) Comments No Sex and Gender Information Value Date Recorded Sex Assigned at Not on file Legal Sex Female 10:17 AM EDT Gender Identity Not on file Sexual Orientation Not on file Occupation Industry Job Start Date Job End Date unemployed Not on file Not on file Not on file Obstetrics History Comments 3 children. Last Filed Vital Signs Vital Sign Reading Time Taken Comments Blood Pressure 118/78 01/05/2024 8:54 AM EST Pulse 92 01/05/2024 8:54 AM EST Temperature 35.9 ??C (96.6 ??F) 01/05/2024 8:54 AM ES T Respiratory Rate - - Oxygen Saturation 98% 01/05/2024 8:54 AM EST Inhaled Oxygen Concentration - - Weight 86.5 kg (190 lb 12.8 oz) 01/05/2024 8:54 AM EST Height 167.6 cm (5' 6 ) 01/05/2024 8:54 AM EST Body Mass Index 30.8 01/05/2024 8:54 AM EST Plan of Treatment Upcoming Encounters Date Type Department Care Team (Late st Contact Info) Description 05/14/2024 9:10 AM EDT Office Visit Gastroenterology - [place] [address] [place] [phone] Minnie Raman PA [address] [place] [address] Health Maintenance Due Date Last Done Comments Pneumococcal Vaccine: Pediatrics (0 to 5 Years) and At-Risk Patients (6 to 64 Years) (1 of 2 - PCV) 2013 Cervical Cancer Screening: Pap Smear 2015 Hepatitis C Screening 05/19/2021 COVID-19 Vaccine ( season) 2023 Influenza Vaccine (#1) 2023 8, 11/12/2014, 11/29/2013, Additional history exists Depression Screening 03/15/2024 03/15/2023 Social Influencers of Health Screening 09/26/2024 09/27/2023 Cholesterol Screening (Lipid Panel) 10/23/2027 10/22/2022 DTaP,Tdap,and Td Vaccines (9 - Td or Tdap) 09/12/2029 09/13/2019, 08/29/2013, 11/23/2005, Additional history exists Hepatitis B Vaccines Completed 01/04/1995, 1994, 1994 HIB Vaccines Completed 10/11/1995, 04/1994, 1994, Additional history exists IPV Vaccines Completed 06/06/1998, 04/1994, 1994, Additional history exists MMR Vaccines Completed 06/06/1998, 07/12/1995 HPV Vaccines Completed 04/17/2007, 12/23, 11/01/2006, Additional history exists Varicella Vaccines Completed 02/29/2008, 11/01/2006 Meningococcal ACWY Vaccine Completed 10/04/2011, HIV Screening Completed 04/13/2013 Hepatitis A Vaccines Aged Out No long er eligible based on patient's age to complete this topic Meningococcal B Vacine Aged Out No lo nger eligible based on patient's age to complete this topic RSV Immunization Patients Under 20 months Aged Out No longer eligible based on patient's age to complete this topic Procedures Procedure Name Priority Date/Time Associated Diagnosis Comments EXTERNAL CLINICAL LAB 02/10/2024 DEPRESSION SCREENING Routine 03/15/2023 LIPID PANEL Routine 10/22/2022 HIV SCREENING Routine 04/13/2013 from Last 3 Months or Most Recently Relevant to Health Maintenance Results * External clinical lab (02/10/2024) Provider Shivam Onbase LAB BLOOD ORDERABLES Fin al Result * Depression Screening (03/15/2023) Pathologist [facility] Depression Screening Abstracted Historical Provider HEALTH MAINTENANCE Final Result * Lipid panel (10/22/2022) Pathologist [facility] LDL/HDL Ratio 3 0 - 4 Triglycerides 77 0 - 150 mg/dL Cholesterol 183 0 - 200 mg/dL HDL 72 >=40 mg/dL LDL Cholesterol 96 0 - 100 mg/dL Blood Venous blood specimen / Unknown Historical Provider LAB BLOOD ORDERABLES Ambreen l Result * HIV Screening (04/13/2013) Pathologist [facility] HIV Screening Abstracted Historical Provider HEALTH MAINTENANCE Final Result from Last 3 Months or Most Recently Relevant to Health Maintenance Insurance [employer] Care Teams Umbrella Mender Relationship Specialty Start Date End Date Sarah Kwok PA [address] [facility] [address] [place] [address] PCP - General Primary Care 01/30/24
[2024-04-16 12:44] LABS: Alanine Aminotransferase 25 U/L (0-31); Albumin Level 4.7 g/dL (3.5-5.0); Alkaline Phosphatase 97 U/L (39-117); Anion Gap 12 (12-20); Aspartate Amino Transferase 18 U/L (5-31); Bilirubin Total 0.3 mg/dL (0.0-1.0); Blood Urea Nitrogen 7 mg/dL (9-16); Calcium 9.7 mg/dL (8.4-10.2); Carbon Dioxide 21 mmol/L (22-29); Chloride 113 mmol/L (96-108); Estimated Glomerular Filt Rate > 60; Glucose Random 96 mg/dL (60-115); Potassium 4.1 mmol/L (3.3-5.1); Sodium 142 mmol/L (135-145)
== END 2024-04-16 10:54 | disposition home or self-care (01) ==
LOC: HO.LAB 10:53
PROVIDERS: PCP Physician Assistant; Visit Provider Nurse Practitioner Family
DX: R51.9 Headache, unspecified (principal); G43.719 Chronic migraine without aura, intractable, without status migrainosus; G25.81 Restless legs syndrome; H53.8 Other visual disturbances
CPT/HCPCS: 36415; 80053; 85025

== ENCOUNTER 2024-06-01 08:04 | Outpatient (AMB) | payer OTHER, SELFPAY ==
--- OUTSIDE RECORDS SUMMARY | 2024-06-01 08:08 | XMS_ITS | Encounter Summary ---
Author Organization [facility] Address [address] [place] [address] Care Team Providers Care Crossbar Frame Wirer Name Role Phone Sarai Solares MD Primary Care Provider [phone] Harjeet Dumont MD Unavailable [phone] Sarah Kwok PA-C Primary Care Provider + Reason for Visit * Reason Onset Date Comments Medication 06/17/2022 Encounter Details Date Type Department Care Team Description 06/17/2022 Refill Gastroenterology - [address] [phone] Solitario Mooney MD [address] [place] [id number] Medication Social History Tobacco Use Types Packs/Day Years [...] on filedocumented in this encounter Care Teams Crossbar Frame Wirer Relationship Specialty Start Date End Date Sarai Solares MD PCP - General Internal Medicine 01/04/20 10/20/22 Sarah Kwok PA-C [address] [facility] [address] [place] [address] PCP - General Internal Medicine 10/21/22 Harjeet Dumont MD [address] [facility] [address] [place] [address] Specialist Cardiovascular Disease 01/27/22 documented as of this encounter
--- OUTSIDE RECORDS SUMMARY | 2024-06-01 08:08 | XMS_ITS | Data Portability ---
Author Organization [place] - [facility], Allergy Address [address] [address] Care Team Providers Care Clay Digger Name Role Phone MYRIAMNICOLEA Primary Care Provider Assessment Encounter Date Assessment Date Assessment LastModified by Organization Details LastModified Time 05/30/2024 05/30/2024 Patient with history of migraines on Botox, Nurtec, and nortriptyline presents for evaluation of constant sharp right facial and ear pain since December. Patient also with daily episodic right-sided tinnitus and vertigo persisting for several minutes at a time. Neurologic and otologic exam unrevealing today. Audiometric testing demonstrates normal hearing bilaterally. 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 Today we discussed the pathophysiology of migraine and migraine associated phenomena such as dizziness, fluctuating hearing, and tinnitus. We discussed how the patient's balance disturbance symptoms are likely mediated by a central processing abnormality rather than an isolated inner ear abnormality. I gave the patient a significant amount of literature to review at home regarding how there are many environmental and dietary triggers that can lead to not only migraine headaches but balance disturbance symptoms as well. We spent a lot of time discussing the importance of following a migraine diet. We have offered the patient a copy of the Heal Your Headache book to read at home, which gives a koah-ez-mitu discussion on what causes migraine and how to make the necessary lifestyle and dietary changes to significantly reduce or eliminate migraine symptoms. I have also recommended the use of dietary supplements magnesium, vitamin D, and vitamin B2, which have been shown to help control migrainous phenomena. We discussed dosage and schedule for these supplements. We discussed she could also consider using feverfew herbal supplement, unless there are plans for in the near future as some studies have implicated feverfew in elevated risk of spontaneous miscarriage. Patient is following up with her neurologist in June, and we discussed that specialist will provide the primary care for this diagnosis and determine whether and what imaging would prove beneficial. All questions were answered. Case was discussed with Dr. Travis [email or web address] Not available 05/31/2024 15:33:02 Plan of Treatment Reminders Order Date Submit Date Provider Last Modified By Organization Details Last Modified Time Details Appointments None record ed. Lab None record ed. Referral None record ed. Procedures None record ed. Surgeries None record ed. Imaging None record ed. Medication Orders None record ed. Patient TargetsNo targets recorded. Patient InstructionsNo instructions recorded. Reason for Referral None Reported. Results Created Date Observation Date Name Description Value Unit Range Abnormal Flag Note LastModifiedBy Organization Detail LastModifiedTime 05/31/19 25 audio gram No observ ation record ed. BARCODE Not Available 2024 13:43:08 Result Notes None recorded. Problems Name Problem SNOMED Code Status Onset Date Resolution Date Notes Provider Name and Address Organization Details Recorded Time Tinnitus of right ear 9829359695764 Active 2023 Tinnit us, right ear; Note: Date Diagno sed: 024 4:00 PM (H93.1 1) Not Available [facility] 4 02:30:45 Atypical facial pain 07824795 Active 2024 LORETTA LOWERY PA-C [address] [place] [address],[place] [address], [place], [address] , [place] - [facility] 5 11:44:01 Migraine 66163269 Active 2024 LORETTA LOWERY PA-C [address] [place] [address],[place] [address], [place], [address] , [place] - [facility] [place] 5 11:44:09 Peripheral vertigo 82043068 Active 2024 LORETTA LOWERY PA-C [address] [place] [address],[place] [address], [place], [address] , [place] - [facility] 5 11:44:31 Problem Notes None recorded. Procedures Surgical History Date Name Laterality Status Provider Name and Address Organization Details Recorded Time 05/30/2024 Comp Audio with Tymps (80711 & 33773) completed ALEX LEBLANC, AUD [address] [facility],[place] [address], [place], [address], [place] - [facility] 05/30/2024 10:57:28 Imaging Results Imaging Date Name Status LastModified by Organiz ation Details LastModified Time 05/30/2024 audiogram completed BARCODE Information no t available 05/30/2024 13:43:08 Procedure Notes None recorded. Medical Equipment None Reported. Allergies Allergen ID Allergen Name Allergen Category Reaction Reaction Severity Criticality Documentation Date Start Date Code Code System Note Provider Name and Address Organization Details Recorded Time 701763 wheat gluten extract food other Not available Not available 09/23/2023 71721 81 RxNorm React ion: Unkno wn; Not Available [facility] 4 00:26:55 063388 Reglan medicatio n other Not available Not available 09/23/2023 9230 RxNorm React ion: Unkno wn; Not Available [facility] 4 00:26:58 Medications Name Sig Start Date Stop Date Status Note LastModified by Organization Details LastModified Time amoxicillin 500 mg capsule TAKE 1 CAPSULE BY MOUTH TWICE A DAY FOR 10 DAYS 05/30 completed Not Available Not Available Not Available fluconazole 100 mg tablet TAKE 1 TABLET BY MOUTH EVERY DAY FOR 7 DAYS active Not Available Not Available No t Available neomycin-po lymyxin-hyd rocort 3.5 mg/mL-10,00 0 unit/mL-1 % ear solution USE 2 DROPS IN EAR 3 TIMES PER DAY FOR 10 DAYS 05/30 completed Not Available Not Available Not Available nystatin 100,000 unit/mL oral suspension TAKE 5 ML BY MOUTH 4 TIMES PER DAY FOR 14 DAYS SWISH AND SWALLOW 05/30 completed Not Available Not Available Not Available acetaminoph en 325 mg tablet TAKE 2 TABLETS BY MOUTH EVERY 6 HOURS NEEDED FOR PAIN active Not Available Not Available No t Available prednisone 10 mg tablet PLEASE SEE ATTACHED FOR DETAILED DIRECTION S 05/30 completed Not Available Not Available Not Available gabapentin 600 mg tablet TAKE 1 TABLET BY MOUTH TWICE A DAY active Not Available Not Available No t Available albuterol sulfate 2.5 mg/3 mL (0.083 %) solution for nebulizatio n TAKE 1 VIAL BY NEBULIZAT ION EVERY 4 HOURS NEEDED FOR WHEEZING. active Not Available Not Available No t Available Vitamin C 500 mg tablet TAKE 1 TABLET BY MOUTH EVERY DAY active Not Available Not Available No t Available polyethylen e glycol 3350 17 gram oral powder packet TAKE 1 PACKET DAILY BY MOUTH active Not Available Not Available No t Available azithromyci n 250 mg tablet TAKE 2 TABLETS BY MOUTH DAILY FOR 5 DAYS 05/30 completed Not Available Not Available Not Available acetazolami de ER 500 mg capsule,ext ended release TAKE 1 CAPSULE BY MOUTH TWICE A DAY active Not Available Not Available No t Available acetazolami de 125 mg tablet TAKE 1 TABLET (125 MG) ORALLY 4 TIMES A DAY FOR 30 DAYS active Not Available Not Available No t Available sucralfate 100 mg/mL oral suspension TAKE 10 MLS BY MOUTH TWICE DAILY BEFORE MEALS, 1 HOUR BEFORE MEALS AND AT BEDTIME active Not Available Not Available No t Available ondansetron HCl 8 mg tablet TAKE 1 TABLET BY MOUTH 3 TIMES A DAY NEEDED FOR NAUSEA active Not Available Not Available No t Available meloxicam 15 mg tablet TAKE 1 TABLET BY MOUTH DAILY NEEDED FOR PAINFLORIDALMA E WITH FOOD active Not Available Not Available No t Available sucralfate 1 gram tablet TAKE 1 TABLET BY MOUTH TWICE A DAY active Not Available Not Available No t Available ondansetron HCl 4 mg tablet TAKE 1 TABLET BY MOUTH EVERY 8 HOURS NEEDED FOR NAUSEA active Not Available Not Available No t Available prednisone 20 mg tablet TAKE 1 TABLET BY MOUTH ONCE DAILY FOR 5 DAYS 05/30 completed Not Available Not Available Not Available rizatriptan 10 mg tablet PLEASE SEE ATTACHED FOR DETAILED DIRECTION S active Not Available Not Available No t Available zolmitripta n 5 mg tablet PLEASE SEE ATTACHED FOR DETAILED DIRECTION S 05/30 completed Not Available Not Available Not Available butalbital- acetaminoph en-caffeine 50 mg-325 mg-40 mg tablet 1-2 TABLETS BY MOUTH EVERY 4 HOURS NEEDED FOR HEADACHE, X7 DAYS, MAX 6 TABS A DAY/28 TABS PER WEEK active Not Available Not Available No t Available baclofen 20 mg tablet TAKE 1 TABLET (20 MG TOTAL) BY MOUTH 2 (TWO) TIMES A DAY IF NEEDED FOR MUSCLE SPASMS. active Not Available Not Available No t Available levothyroxi ne 100 mcg tablet TAKE 1 TABLET BY MOUTH EVERY DAY active Not Available Not Available No t Available ofloxacin 0.3 % ear drops INSTILL 5 DROPS INTO EAR(S) TWICE A DAY FOR 7 DAYS 05/30 completed Not Available Not Available Not Available amoxicillin 875 mg tablet TAKE 1 TABLET BY MOUTH TWICE A DAY FOR 7 DAYS 05/30 completed Not Available Not Available Not Available alprazolam 0.25 mg tablet TAKE 1 TABLET 30 MINS PRIOR TO MRI, MAY REPEAT ONCE active Not Available Not Available No t Available magnesium oxide 400 mg (241.3 mg magnesium) tablet TAKE ONE TABLET AT BEDTIME FOR 30 DAYS MAY HOLD FOR LOOSE STOOLS active Not Available Not Available No t Available phenazopyri dine 100 mg tablet TAKE 1 TABLET BY MOUTH 3 TIMES A DAY X 3 DAYS active Not Available Not Available No t Available nortriptyli ne 10 mg capsule TAKE 1 TO 3 CAPSULE BY MOUTH AT BEDTIME active Not Available Not Available No t Available neomycin-po lymyxin-dex ameth 3.5 mg/mL-10,00 0 unit/mL-0.1 % eye drops INSTILL 1 DROP INTO RIGHT EYE 4 TIMES A DAY 05/30 completed Not Available Not Available Not Available gabapentin 300 mg capsule TAKE 2 CAP IN AM, 1 CAP IN PM, AND 2 CAP AT BEDTIME active Not Available Not Available No t Available omeprazole 20 mg capsule,del ayed release TAKE 1 CAPSULE BY MOUTH DAILY active Not Available Not Available No t Available metoprolol succinate ER 25 mg tablet,exte nded release 24 hr TAKE 1 TABLET BY MOUTH EVERY DAY active Not Available Not Available No t Available hydroxychlo roquine 200 mg tablet TAKE 1 TABLET BY MOUTH TWICE A DAY active Not Available Not Available No t Available ibuprofen 600 mg tablet TAKE 1 TABLET BY MOUTH EVERY 6 HOURS NEEDED FOR PAIN active Not Available Not Available No t Available sumatriptan 20 mg/actuatio n nasal spray PLEASE SEE ATTACHED FOR DETAILED DIRECTION S 05/30 completed Not Available Not Available Not Available norethindro ne (contracept jag) 0.35 mg tablet TAKE 1 TABLET BY MOUTH EVERY DAY active Not Available Not Available No t Available ondansetron 4 mg disintegrat ing tablet TAKE 1 TABLET BY MOUTH EVERY 8 HOURS NEEDED FOR NAUSEA AND VOMITING FOR 3 DAYS active Not Available Not Available No t Available naproxen 500 mg tablet TAKE 1 TABLET BY MOUTH TWICE A DAY NEEDED FOR PAIN FOR 30 DAYS active Not Available Not Available No t Available amoxicillin 875 mg-melony fagan clavulanate 125 mg tablet TAKE 1 TABLET BY MOUTH TWICE A DAY FOR 7 DAYS 05/30 completed Not Available Not Available Not Available Ventolin HFA 90 mcg/actuati on aerosol inhaler INHALE 2 PUFFS INTO THE LUNGS EVERY 4 HOURS NEEDED FOR COUGH OR WHEEZING. active Not Available Not Available No t Available eletriptan 40 mg tablet PLEASE SEE ATTACHED FOR DETAILED DIRECTION S active Not Available Not Available No t Available nitrofurant oin monohydrate /macrocryst als 100 mg capsule TAKE 1 CAPSULE BY MOUTH TWICE A DAY FOR 7 DAYS 05/30 completed Not Available Not Available Not Available lactulose 10 gram/15 mL oral solution TAKE 30 ML ORALLY DAILY NEEDED FOR CONSTIPAT ION FOR 90 DAYS active Not Available Not Available No t Available cholecalcif ryder (vitamin D3) 50 mcg (2,000 unit) capsule TAKE 1 CAPSULE BY MOUTH EVERY DAY active Not Available Not Available No t Available Gavilax 17 gram/dose oral powder DISSOLVE 17 GRAMS INTO APPROPRIA TE LIQUID AND DRINK BY MOUTH DAILY FOR 3 DAYS active Not Available Not Available No t Available Meghan 30 mg tablet TAKE 1 TABLET BY MOUTH ONCE active Not Available Not Available No t Available riboflavin (vitamin B2) 400 mg tablet TAKE 1 TABLET ORALLY DAILY FOR 30 DAYS active Not Available Not Available No t Available Linzess 72 mcg capsule TAKE 1 CAPSULE (72 MCG TOTAL) BY MOUTH ONE TIME DAILY active Not Available Not Available No t Available Nurtec ODT 75 mg disintegrat ing tablet TAKE 1 TAB ORALLY ONCE NEEDED FOR MIGRAINE HEADACHE FOR 30 DAYS MAX DAILY DOSE 1 TAB PER DAY active Not Available Not Available No t Available Qulipta 30 mg tablet TAKE 1 TABLET ORALLY DAILY FOR 30 DAYS active Not Available Not Available No t Available Vitals Date Recorded Body height Body mass index (BMI) Body weight Provider Name and Address Organization Details Last Updated DateTime 05/30/2024 167.64 cm 31.3 kg/m2 20638.92 g Zahra Toussaint [place] - [facility] 05/30/2024 10:30:49 Social History None recorded. Functional Status None recorded. Mental Status None recorded. Family History Nothing Reported. Medical History No medical history recorded. Gynecological HistoryNo gynecological history recorded. Obstetrics History GPAL:G 0 P 0 0 0 0 Past Encounters Encounter ID Performer Location Encounter Start Date Encounter Closed Date Diagnosis/Indication Diagnosis SNOMED-CT Code Diagnosis ICD10 Code Diagnosis Note [id number] LORETTA LOWERY PA-C [facility] [address] [place] [address] 05/30/2024 10:24:57 05/30/2024 11:14:02 Tinnitus of right ear 6806069140 108 H93.11 Audiologic al evaluation results: Right ear: {{Normal* Normal through 2 kHz Mild M oderate Mo derately-s evere Gin re Profoun d}} {{hearing* hearing. sloping to a mild slopi ng to a moderate s loping to moderately severe slo ping to severe slo ping to profound f lat high frequency low frequency mid frequency cookie bite mclaughlin curve}} {{with* se nsorineura l hearing loss with condu ctive hearing loss with mixed hearing loss with}} {{excellen t* good fa ir poor no measurable }} word recognitio n. Left ear: {{Normal* Normal through 2 kHz Mild M oderate Mo derately-s evere Gin re Profoun d}} {{hearing* hearing. sloping to a mild slopi ng to a moderate s loping to moderately severe slo ping to severe slo ping to profound f lat high frequency low frequency mid frequency cookie bite mclaughlin curve}} {{with* se nsorineura l hearing loss with condu ctive hearing loss with mixed hearing loss with}} {{excellen t* good fa ir poor no measurable }} word recognitio n. Tympanomet ry: Right Ear:{{Type A* Type A with rounded peak Type A with double peak Type As Type As with rounded peak Type Ad Type C Type C, shallow & rounded peak Type B Type B with large volume Cou ld not maintain a hermetic seal}} Left Ear:{{Type A* Type A with rounded peak Type A with double peak Type As Type As with rounded peak Type Ad Type C Type C, shallow & rounded peak Type B Type B with large volume Cou ld not maintain a hermetic seal}} Atypical facial pain 713 53382 G50.1 Migraine 93365386 G43.90 9 Peripheral vertigo 56331 001 H81.399 Health Concerns Section Related Observation LastModified by Organization Vidal danielle LastModified Time None Recorded Concern Status LastModified by Organization Details LastModified Time None Recorded Advance Directives Directive None Recorded Payers Encounter Date Sequence Insurance Name Policy Number Policy Hess Covered Member ID Hess Member ID Guarantor Name 05/30/2024 1 [employer] - [employer] (MEDICAID REPLACEMENT - HMO) LEON Blevins [id number] Miguel Angel Blevins Notes Date Note Type Note Provider Name and Address Organization Details Recorded Time 05/30/2024 text/html 29 year old stuart ford presents for evaluation of the ears and hearing. Since December she has been having constant sharp pain in the right ear and muffled hearing. The ear pops a lot throughout the day, which improves the hearing a bit temporarily. Also has been having loud tinnitus in that ear. When the tinnitus comes on she feels vertigo and the hearing drops on that side for a few minutes. These episodes started in February and are now occurring several times per day. Episodes are not positional. She also has had persistent right sided temporal headache since December, never fully goes away. No photosensitivity nor phonophobia. Has been getting diagnosed with ear infections frequently. She is prescribed oral antibiotics but it does not provide much if any relief. Had one round of topical drops as well about 2 months ago, when the ear felt swollen shut. The drops resolved the swelling but not the sharp pain. Last round of oral antibiotics was in February. Back in December she had a small amount of fluid coming out of the ear but that resolved and has not recurred. She has no childhood history of recurrent otitis. Has never had an otologic surgery. She does not smoke. She eats a low sodium diet because of her acetazolamide medication and hypertension. Doesn't count milligrams but tries to avoid added salt. There is not too much sugar in the diet. She does not drink caffeine or alcohol. She drinks a few large glasses of water per day at irregular intervals. Today the ear hurts and there have been episodes of tinnitus with dizziness, though not present at time of evaluation. Does not believe she clenches the jaw or grinds the teeth. History of migraines, which she states feel very different from this constant headache and present in a different part of the head. Migraines are accompanied by nausea; this constant pain is not. Has been having migraines less than once a month since she started Botox injections for them about 6 months ago. Also takes nortriptyline nightly and Nurtec prn. History of sumatriptan nasal spray and oral zolmitriptan, which did not help, hence starting the Botox. None of her migraine medications relieve the unilateral right head pain. She has no persistent sore throat, voice change, dysphagia, nor hemoptysis. There is no associated syncope, confusion, slurred speech, vision change, loss of visual field, chest pain, heart palpitations, nor extremity or facial weakness or paralysis. Headaches are not worst of lifetime and do not have thunderclap onset. LORETTA LOWERY PA-C [address] [place] [address], [address], [place] - [facility] 05/31/2024 15:33:28 OBGyn Episode No OBEpisode recorded.
--- OUTSIDE RECORDS SUMMARY | 2024-06-01 08:08 | XMS_ITS | Encounter Summary ---
Author Organization [facility] Address [address] [place] [address] Care Team Providers Care Air Traffic Control Operator Name Role Phone Sarai Solares MD Primary Care Provider [phone] Harjeet Dumont MD Unavailable [phone] Sarah Kwok PA-C Primary Care Provider + Reason for Visit * Reason Onset Date Comments Provider Call Back 09/17/2021 Encounter Details Date Type Department Care Team Description 09/17/2021 Telephone Endocrinology - [place] [address] [place] [address] Dorian Bah PA-C [address] [place] [id number] Provider Call Back Social History Tobacco Use [...] suspected to have Coronavirus/COVID-19? No / Unsure 09/14/2021 5:06 PM EDT documented as of this encounter Miscellaneous Notes * Telephone Encounter - Dorian Bah PA-C - 09/18/2021 9:25 AM EDT Great. Thank you * Telephone Encounter - Scarlett Allen M.A. - 09/18/2021 9:11 AM EDT Spoke to Nuclear Med at [facility]. She has been rebooked to next week. * Telephone Encounter - Scarlett Allen M.A. - 09/17/2021 1:41 PM EDT Tried to call Nuclear Med. Looks like patient already had appointment scheduled. No answer. Will try again tomorrow. [phone] * Telephone Encounter - Dorian Bah PA-C - 09/17/2021 1:04 PM EDT Patient has not been re4ach for nuclear scan * Telephone Encounter - Scarlett Allen M.A. - 09/17/2021 11:34 AM EDT Spoke to patient. She wants to speak to you. She wants to know if there is other lab tests to be done or if she still has to stay away from certain food. * Telephone Encounter - Dorian Bah PA-C - 09/17/2021 10:06 AM EDT Letter was sent previously with results. Please let her know ultrasound normal * Telephone Encounter - Summer De Santiago - 09/17/2021 9:09 AM EDT Caller requesting call back from provider: Dorian or Nurse Is the caller the patient? YES If caller is not the patient, what is the callers name? N/A Callers relationship to patient? self If person calling is not the patient themselves, is there a verbal release in FYI or permanent comments for this person: N/A Reason for call back: Pt calling to get results from her ultrasound. Caller offered to speak with the nurse for assistance: YES Response: Patient offered to speak with nurse for assistance and patient agreed. Message forwarded to nurse. documented in this encounter Plan of Treatment Not on file documented as of this encounter Visit Diagnoses Not on filedocumented in this encounter Care Teams Air Traffic Control Operator Relationship Specialty Start Date End Date Sarai Solares MD PCP - General Internal Medicine 01/04/20 10/20/22 Sarah Kwok PA-C [address] [facility] [address] [place] [address] PCP - General Internal Medicine 10/21/22 Harjeet Dumont MD [address] [facility] [address] [place] [address] Specialist Cardiovascular Disease 01/27/22 documented as of this encounter
--- OUTSIDE RECORDS SUMMARY | 2024-06-01 08:08 | XMS_ITS | Clinical Summary ---
Author Organization [facility] Address [address] [place] [id number] Care Team Providers Care Welding Specialist Name Role Phone Sarai Solares MD Primary Care Provider [phone] Allergies Active Allergy Reactions Criticality Noted Date [...] age to complete this topic Care Teams Welding Specialist Relationship Specialty Start Date End Date Sarai Solares MD [address] [place] [phone] PCP - General Internal Medicine 06/22/22
--- OUTSIDE RECORDS SUMMARY | 2024-06-01 08:08 | XMS_ITS | Encounter Summary ---
Author Organization [facility] Address [address] [place] [address] Care Team Providers Care Pipe Threader Name Role Phone Shahrzad Rodriguez MD Primary Care Provider U Cheryl Hartman MD Primary Care Provider Unavailable Sarai Solares MD Primary Care Provider [phone] Harjeet Dumont MD Unavailable Sarah Kwok PA-C Primary Care Provider + Encounter Details Date Type Department Care Team Description 07/30/2013 Orders Only Medical Records [address] [place] [address] Giovanni Ndiaye MD Social History Tobacco Use Types Packs/Day [...] Date/Time Associated Diagnosis Comments OUTSIDE LAB Routine 07/28/2013 OUTSIDE LAB Routine 07/22/2013 OUTSIDE LAB Routine 07/17/2013 documented in this encounter Results * OUTSIDE LAB (07/28/2013) Rene Law MD LAB * OUTSIDE LAB (07/22/2013) Berry Estrada MD LAB * OUTSIDE LAB (07/17/2013) Giovanni Ndiaye MD LAB documented in this encounter Visit Diagnoses Not on filedocumented in this encounter Care Teams Pipe Threader Relationship Specialty Start Date End Date Shahrzad Rodriguez MD PCP - General Pediatrics 03/20/13 0 [place]Cheryl Gaffney MD PCP - General Internal Medicine 11/21/19 Sarai Solares MD PCP - General Internal Medicine 01/04/20 10/20/22 Sarah Kwok PA-C [address] [place] [address] PCP - General Internal Medicine 10/21/22 Harjeet Dumont MD [address] [place] [address] Specialist Cardiovascular Disease 01/27/22 documented as of this encounter
--- OUTSIDE RECORDS SUMMARY | 2024-06-01 08:08 | XMS_ITS | Encounter Summary ---
Author Organization [facility] Address [address] [place] [address] Care Team Providers Care Copper Plate Lithographer Name Role Phone Sarai Solares MD Primary Care Provider [phone] Harjeet Dumont MD Unavailable [phone] Sarah Kwok PA-C Primary Care Provider + Reason for Visit * Reason Comments E-prescribe Rx Request Encounter Details Date Type Department Care Team Description 10/20/2021 Refill Internal Medicine - [address], [address] [place] [address] Sarah Kwok PA-C [address] [place] [phone] E-prescribe Rx Request Social History Tobacco [...] type documented in this encounter Care Teams Copper Plate Lithographer Relationship Specialty Start Date End Date Sarai Solares MD PCP - General Internal Medicine 01/04/20 10/20/22 Sarah Kwok PA-C [address] [place] [address] PCP - General Internal Medicine 10/21/22 Harjeet Dumont MD [address] [place] [address] Specialist Cardiovascular Disease 01/27/22 documented as of this encounter
--- OUTSIDE RECORDS SUMMARY | 2024-06-01 08:08 | XMS_ITS | Encounter Summary ---
Author Organization [facility] Address [address] [place] [address] Care Team Providers Care Lighting Fixture Installer Name Role Phone Sarai Solares MD Primary Care Provider [phone] Harjeet Dumont MD Unavailable [phone] Sarah Kwok PA-C Primary Care Provider + Reason for Visit * Reason Onset Date Comments Heartbeat Irregular 11/25/2021 Encounter Details Date Type Department Care Team Description 11/25/2021 Telephone Endocrinology - [place] [address] [place] [address] Sarah Bah PA-C [address] [place] [address] Heartbeat Irregular Social History Tobacco Use Types [...] on filedocumented in this encounter Care Teams Lighting Fixture Installer Relationship Specialty Start Date End Date Sarai Solares MD PCP - General Internal Medicine 01/04/20 10/20/22 Sarah Kwok PA-C [address] [place] [address] PCP - General Internal Medicine 10/21/22 Harjeet Dumont MD [address] [place] [address] Specialist Cardiovascular Disease 01/27/22 documented as of this encounter
--- OUTSIDE RECORDS SUMMARY | 2024-06-01 08:08 | XMS_ITS | Encounter Summary ---
Author Organization [facility] Address [address] [place] [address] Care Team Providers Care Cardiology Consultant Name Role Phone Harjeet Dumont MD Unavailable [phone] Sarah Kwok PA-C Primary Care Provider + Encounter Details Date Type Department Care Team Description 11/16/2022 Repair Department Manager Report Medical Records [address] [place] [address] Ronak Holly MD Social History Tobacco Use [...] suspected to have Coronavirus/COVID-19? No / Unsure 10/21/2022 1:46 PM EDT documented as of this encounter Plan of Treatment Not on file documented as of this encounter Visit Diagnoses Not on filedocumented in this encounter Care Teams Cardiology Consultant Relationship Specialty Start Date End Date Sarah Kwok PA-C [address] [id number] PCP - General Internal Medicine 10/21/22 Harjeet Dumont MD [address] [id number] Specialist Cardiovascular Disease 01/27/22 documented as of this encounter
--- OUTSIDE RECORDS SUMMARY | 2024-06-01 08:08 | XMS_ITS | Encounter Summary ---
Author Organization [facility] Address [address] [place] [address] Care Team Providers Care Employment Law Specialist Name Role Phone Sarai Solares MD Primary Care Provider [phone] Harjeet Dumont MD Unavailable [phone] Sarah Kwok PA-C Primary Care Provider + Encounter Details Date Type Department Care Team Description 09/23/2021 Orders Only Endocrinology - [place] [address] [place] [address] Sarah Bah PA-C [address] [place], [place] [phone] Thyrotoxicosis without thyroid storm, unspecified thyrotoxicosis type [...] suspected to have Coronavirus/COVID-19? No / Unsure 09/24/2021 1:38 PM EDT documented as of this encounter Plan of Treatment Not on file documented as of this encounter Procedures Procedure Name Priority Date/Time Associated Diagnosis Comments NUCLEAR SCAN OF THYROID,SINGLE/MULTI UPTAKE W/BLOOD FLOW Routine 09/21/2021 Thyrotoxicosis without thyroid storm, unspecified thyrotoxicosis type documented in this encounter Results * NUCLEAR SCAN OF THYROID,SINGLE/MULTI UPTAKE W/BLOOD FLOW (09/21/2021) Sarah Bah PA-C NUCLEAR documented in this encounter Visit Diagnoses Diagnosis Thyrotoxicosis without thyroid storm, unspecified thyrotoxicosis type documented in this encounter Care Teams Employment Law Specialist Relationship Specialty Start Date End Date Sarai Solares MD PCP - General Internal Medicine 01/04/20 10/20/22 Sarah Kwok PA-C [address] [place] [address] PCP - General Internal Medicine 10/21/22 Harjeet Dumont MD [address] [place] [address] Specialist Cardiovascular Disease 01/27/22 documented as of this encounter
--- OUTSIDE RECORDS SUMMARY | 2024-06-01 08:08 | XMS_ITS | Encounter Summary ---
Author Organization [facility] Address [address] [place] [address] Care Team Providers Care Construction Driver Name Role Phone Sarai Solares MD Primary Care Provider [phone] Harjeet Dumont MD Unavailable [phone] Sarah Kwok PA-C Primary Care Provider + Reason for Visit * Reason Comments E-prescribe Rx Request Encounter Details Date Type Department Care Team Description 09/22/2021 Refill Internal Medicine - [address], [address] [place] [address] Sarah Kwok PA-C [address] [place] [phone] E-prescribe Rx Request Social History Tobacco [...] * Telephone Encounter - Jessica Lawrence - 09/22/2021 2:45 PM EDT CHAS NOV 10/06/21 documented in this encounter Plan of Treatment Not on file documented as of this encounter Visit Diagnoses Diagnosis Migraine without status migrainosus, not intractable, unspecified migraine type documented in this encounter Care Teams Construction Driver Relationship Specialty Start Date End Date Sarai Solares MD PCP - General Internal Medicine 01/04/20 10/20/22 Sarah Kwok PA-C [address] [address] PCP - General Internal Medicine 10/21/22 Harjeet Dumont MD 300 [facility] [address] [place] [address] Specialist Cardiovascular Disease 01/27/22 documented as of this encounter
--- OUTSIDE RECORDS SUMMARY | 2024-06-01 08:08 | XMS_ITS | Encounter Summary ---
Author Organization [facility] Address [address] [place] [address] Care Team Providers Care Reheater Helper Name Role Phone Shahrzad Rodriguez MD Primary Care Provider [facility] Cheryl Hopkins MD Primary Care Provider Unavailable Sarai Solares MD Primary Care Provider [phone] Harjeet Dumont MD Unavailable [phone] Sarah Kwok PA-C Primary Care Provider + Encounter Details Date Type Department Care Team Description 08/27/2013 Release of Information Medical Records [address] [place] [id number] Abstract, Provider Social History Tobacco Use Types [...] on filedocumented in this encounter Care Teams Reheater Helper Relationship Specialty Start Date End Date Shahrzad Rodriguez MD PCP - General Pediatrics 03/20/13 0 Cheryl Hopkins MD PCP - General Internal Medicine 11/21/19 Sarai Solares MD PCP - General Internal Medicine 01/04/20 10/20/22 Sarah Kwok PA-C [address] [address] PCP - General Internal Medicine 10/21/22 Harjeet Dumont MD 300 [facility] [address] [place] [address] Specialist Cardiovascular Disease 01/27/22 documented as of this encounter
--- OUTSIDE RECORDS SUMMARY | 2024-06-01 08:08 | XMS_ITS | Encounter Summary ---
Author Organization [facility] Address [address] [place] [address] Care Team Providers Care Steel Fitter Name Role Phone Sarai Solares MD Primary Care Provider [phone] Harjeet Dumont MD Unavailable [phone] Sarah Kwok PA-C Primary Care Provider + Encounter Details Date Type Department Care Team Description 11/12/2021 Orders Only Endocrinology - [address] [address] Sarah Bah PA-C [address] [place] [address] Social History Tobacco Use Types Packs/Day Years [...] on filedocumented in this encounter Care Teams Steel Fitter Relationship Specialty Start Date End Date Sarai Solares MD PCP - General Internal Medicine 01/04/20 10/20/22 Sarah Kwok PA-C 300 [facility] [address] [place] [address] PCP - General Internal Medicine 10/21/22 Harjeet Dumont MD 300 [facility] [address] [place] [address] Specialist Cardiovascular Disease 01/27/22 documented as of this encounter
--- OUTSIDE RECORDS SUMMARY | 2024-06-01 08:08 | XMS_ITS | Encounter Summary ---
Author Organization [facility] Address [address] [place] [address] Care Team Providers Care Printing Sales Representative Name Role Phone Sarai Solares MD Primary Care Provider [phone] Harjeet Dumont MD Unavailable [phone] Sarah Kwok PA-C Primary Care Provider + Encounter Details Date Type Department Care Team Description 11/19/2021 Orders Only Endocrinology - [place] [address] [place] [address] Sarah Bah PA-C [address] [facility] [place] [phone] Thyrotoxicosis without thyroid storm, unspecified thyrotoxicosis type [...] type documented in this encounter Care Teams Printing Sales Representative Relationship Specialty Start Date End Date Sarai Solares MD PCP - General Internal Medicine 01/04/20 10/20/22 Sarah Kwok PA-C [address] [place] [address] PCP - General Internal Medicine 10/21/22 Harjeet Dumont MD [address] [place] [address] Specialist Cardiovascular Disease 01/27/22 documented as of this encounter
--- OUTSIDE RECORDS SUMMARY | 2024-06-01 08:08 | XMS_ITS | Data Portability ---
Author Organization [facility] Address [address] [place] [address] Care Team Providers Care Embossing Machine Operator Helper Name Role Phone [facility] Primary Care Pr ovider Assessment No assessment recorded. Plan of Treatment Reminders Order Date Submit Date Provider Last Modified By Organization Details Last Modified Time Details Appointments None recorded. Lab urinalysis , dipstick 2022 023 [facility], [address] [place], [address], 13:16:55 test, urine 2022 023 [facility] [address] [place], [place] [address], [address] [place] [address], [address], 13:16:55 culture, urine 2022 023 [facility], [address] [place] [address], [place], [address], 18:06:14 Referral None recorded. Procedures None recorded. Surgeries None recorded. Imaging None recorded. Medication Orders Macrobid 100 mg capsule 2022 023 [id number], [address] [place], [address], 13:17:00 Patient TargetsNo targets recorded. Patient Instructions Encounter Date Encounter Id Patient Instructions Last Modified By Organization Details Last Modified Time 04/25/2022 [id number] We recommend you get a repeat urinalysis [...] routine FINAL REPORT abnormal Not Available [facility] ([facility]) [address] [place], [address], 04/28/2022 16:06:54 04/26/19 23 04/28/2022 URINE CULTU RE, ROUTI NE result 1 ESCHER ICHIA COLI abnormal 50,00 0-100 ,000 colon y formi ng units per mL Not Available [facility] ([facility]) [address] [place], [address], 04/28/2022 16:06:54 04/26/19 23 04/28/2022 URINE CULTU [...] thopr im/Dunn lfa S Not Available [facility] ([facility]) [address] [facility], [place], [address], 04/28/2022 16:06:54 04/26/19 23 04/25/2022 urina lysis , dipst ick Unknown Analyte Normal = light yellow Not Available [facility] [address] [place], [address], 04/25/2022 12:26:46 04/26/19 23 04/25/2022 urina lysis , dipst ick Unknown Analyte Yellow Not Available [facility] [address] [place], [address], 04/25/2022 12:26:46 04/26/19 23 04/25/2022 urina lysis , dipst ick Unknown Analyte Normal = clear Not Available [facility] [address] [address] [place], [address], 04/25/2022 12:26:46 04/26/19 23 04/25/2022 urina lysis , dipst ick Unknown Analyte Turbid Not Available [address] [facility] [address] [address] [place], [address], 04/25/2022 12:26:46 04/26/19 23 04/25/2022 urina lysis , dipst ick Unknown Analyte Normal = negati ve Not Available [facility] [address] [place], [address], 04/25/2022 12:26:46 04/26/19 23 04/25/2022 urina lysis , dipst ick Unknown Analyte Negati ve Not Available [address] [address] [place], [address], 04/25/2022 12:26:46 04/26/19 23 04/25/2022 urina lysis , dipst ick Unknown Analyte Normal = Negati ve Not Available [facility] [address] [place], [address], 04/25/2022 12:26:46 04/26/19 23 04/25/2022 urina lysis , dipst ick Unknown Analyte Negati ve Not Available [facility] [address] [place], [address], 04/25/2022 12:26:46 04/26/1904/25/2022 urina lysis , dipst ick Unknown Analyte Normal = Negati ve Not Available [facility] [address] [place], [address], 04/25/2022 12:26:46 04/26/19 23 04/25/2022 urina lysis , dipst ick Unknown Analyte Negati ve Not Available [facility] [address] [place], [address], 04/25/2022 12:26:46 04/26/19 23 04/25/2022 urina lysis , dipst ick Unknown Analyte Normal = 1.010, 1.015, 1.020 Not Available [facility] [address] [place], [address], 04/25/2022 12:26:46 04/26/19 23 04/25/2022 urina lysis , dipst ick Unknown Analyte 1.030 Not Available [facility] [address] [place], [address], 04/25/2022 12:26:46 04/26/19 23 04/25/2022 urina lysis , dipst ick Unknown Analyte Normal = Negati ve Not Available [facility] [address] [place], [address], 04/25/2022 12:26:46 04/26/1904/25/2022 urina lysis , dipst ick Unknown Analyte Large Not Available [address] [place] [address] [address] [place], [address], 04/25/2022 12:26:46 04/26/19 23 04/25/2022 urina lysis , dipst ick Unknown Analyte Normal = 6.5, 7.0, 7.5, 8.0 Not Available [facility] [address] [place], [address], 04/25/2022 12:26:46 04/26/1904/25/2022 urina lysis , dipst ick Unknown Analyte 5.5 Not Available [address] [place] [address] [address] [place], [address], 04/25/2022 12:26:46 04/26/1904/25/2022 urina lysis , dipst ick Unknown Analyte Normal = Negati ve Not Available [facility] [address] [place], [address], 04/25/2022 12:26:46 04/26/19 23 04/25/2022 urina lysis , dipst ick Unknown Analyte 30 mg/dL Not Available [facility] [address] [place], [address], 04/25/2022 12:26:46 04/26/1904/25/2022 urina lysis , dipst ick Unknown Analyte Normal = 0.2, 1.0 Not Available [facility] [address] [place], [address], 04/25/2022 12:26:46 04/26/19 23 04/25/2022 urina lysis , dipst ick Unknown Analyte 0.2 E.U./d L Not Available [facility] [address] [place], [address], 04/25/2022 12:26:46 04/26/19 23 04/25/2022 urina lysis , dipst ick Unknown Analyte Normal = Negati ve Not Available [facility] [address] [place], [address], 04/25/2022 12:26:46 04/26/19 23 04/25/2022 urina lysis , dipst ick Unknown Analyte Positi ve Not Available [facility] [address] [place], [address], 04/25/2022 12:26:46 04/26/19 23 04/25/2022 urina lysis , dipst ick Unknown Analyte Normal = Negati ve Not Available [facility] [address] [address] [place], [address], 04/25/2022 12:26:46 04/26/19 23 04/25/2022 urina lysis , dipst ick Unknown Analyte Small Not Available [address] [place] [address] [address] [place], [address], 04/25/2022 12:26:46 04/26/19 23 04/25/2022 pregn tori test, urine Unknown Analyte Normal = Negati ve Not Available [facility] [address] [place], [address], 04/25/2022 12:26:47 04/26/19 23 04/25/2022 pregn tori test, urine Unknown Analyte negati ve Not Available [facility] [address] [place], [address], 04/25/2022 12:26:47 Result Notes None recorded. Problems Name Problem SNOMED Code Status Onset Date Resolution Date Notes Provider Name and Address Organization Details Recorded Time Disorder of thyroid gland 13309203 Active [facility] LUISA Jelani null, [place] - [facility] 12:30:35 Asthma 330956408 Active [facility]AB GARNERSANCHEZ Jelani null, PA - [facility] 12:30:42 Celiac disease 024287494 Active FAB LUISA Jelani null, PA - [facility] 12:30:52 Problem Notes None recorded. Medical Equipment None Reported. Allergies Allergen ID Allergen Name Allergen Category Reaction Reaction Severity Criticality Documentation Date Start Date Code Code System Note Provider Name and Address Organization Details Recorded Time 420202 Reglan medicatio n rash Not available Not [...] Updated DateTime 3 167.64 cm 27 kg/m2 90222.9 3 g 17 /min 10 97 % [...] SNOMED-CT Code Diagnosis ICD10 Code Diagnosis [place] [id number] [place] [address] [place] [address] 04/25/2022 10:55:44 04/25/2022 13:18:52 Acute urinary tract infection 807230875 N39.0 Health Concerns Section Related Observation LastModified by Organization Detai ls LastModified Time None Recorded Concern Status LastModified by Organization Details LastModified Time None Recorded Advance Directives Directive None Recorded Payers Encounter Date Sequence Insurance Name Policy Number Policy Hess Covered Member ID Hess Member ID Guarantor Name 04/25/2022 1 [facility] (O) LEON Blevins [id number] Miguel Angel Blevins Notes Date Note Type [...] Miranda NP [address] [place], [address], [place] - [facility] 04/25/2022 13:17:27 OBGyn Episode No OBEpisode recorded.
--- OUTSIDE RECORDS SUMMARY | 2024-06-01 08:09 | XMS_ITS | Encounter Summary ---
Author Organization [facility] Address [address] [place] [address] Care Team Providers Care Research Archaeologist Name Role Phone Harjeet Dumont MD Unavailable [phone] Sarah Kwok PA-C Primary Care Provider + Encounter Details Date Type Department Care Team Description 05/13/2023 Pearl Hand Report Medical Records [address] [place] [id number] Ronak Holly MD Social History Tobacco Use [...] on filedocumented in this encounter Care Teams Research Archaeologist Relationship Specialty Start Date End Date Sarah Kwok PA-C [address] [address] PCP - General Internal Medicine 10/21/22 Harjeet Dumont MD [address] [address] Specialist Cardiovascular Disease 01/27/22 documented as of this encounter
--- OUTSIDE RECORDS SUMMARY | 2024-06-01 08:09 | XMS_ITS | Encounter Summary ---
Author Organization [facility] Address [address] [place] [address] Care Team Providers Care Flight Engineer Inspector Name Role Phone Harjeet Dumont MD Unavailable [phone] Sarah Kwok PA-C Primary Care Provider + Reason for Visit * Reason Comments E-prescribe Rx Request Encounter Details Date Type Department Care Team Description 07/13/2023 Refill Internal Medicine - [address], [address] [place] [address] Sarah Kwok PA-C [address] [place] [phone] E-prescribe Rx Request Social History Tobacco [...] joint documented in this encounter Care Teams Flight Engineer Inspector Relationship Specialty Start Date End Date Sarah Kwok PA-C 300 [facility] [address] [place] [address] PCP - General Internal Medicine 10/21/22 Harjeet Dumont MD 300 [facility] [address] [place] [address] Specialist Cardiovascular Disease 01/27/22 documented as of this encounter
--- OUTSIDE RECORDS SUMMARY | 2024-06-01 08:09 | XMS_ITS | Encounter Summary ---
Author Organization [facility] Address [address] [place] [address] Care Team Providers Care Informal Waiter/Waitress Name Role Phone Sarai Solares MD Primary Care Provider [phone] Harjeet Dumont MD Unavailable [phone] Sarah Kwok PA-C Primary Care Provider + Reason for Visit * Reason Comments E-prescribe Rx Request Encounter Details Date Type Department Care Team Description 03/26/2021 Refill Internal Medicine - [address], [address] [place] [address] Sarai Solares MD [address] [place] [phone] E-prescribe Rx Request Social History Tobacco [...] on filedocumented in this encounter Care Teams Informal Waiter/Waitress Relationship Specialty Start Date End Date Sarai Solares MD PCP - General Internal Medicine 01/04/20 10/20/22 Sarah Kwok PA-C 300 [facility] [address] [place] [address] PCP - General Internal Medicine 10/21/22 Harjeet Dumont MD 300 [facility] [address] [place] [address] Specialist Cardiovascular Disease 01/27/22 documented as of this encounter
--- OUTSIDE RECORDS SUMMARY | 2024-06-01 08:09 | XMS_ITS | Encounter Summary ---
Author Organization [facility] Address [address] [place] [address] Care Team Providers Care Senior C Software Engineer Name Role Phone Sarai Solares MD Primary Care Provider [phone] Harjeet Dumont MD Unavailable [phone] Sarah Kwok PA-C Primary Care Provider + Encounter Details Date Type Department Care Team Description 06/08/2021 Telephone Adult Medicine [address] [address] Jalen Ordonez PA-C [address] [place] [address] Social History Tobacco Use Types Packs/Day Years [...] filedocumented in this encounter Care Teams Senior C Software Engineer Relationship Specialty Start Date End Date Sarai Solares MD PCP - General Internal Medicine 01/04/20 10/20/22 Sarah Kwok PA-C 300 [facility] [address] [place] [address] PCP - General Internal Medicine 10/21/22 Harjeet Dumont MD 300 [facility] [address] [place] [address] Specialist Cardiovascular Disease 01/27/22 documented as of this encounter
--- OUTSIDE RECORDS SUMMARY | 2024-06-01 08:09 | XMS_ITS | Encounter Summary ---
Author Organization [facility] Address [address] [place] [address] Care Team Providers Care Remote Ruby On Rails Developer Name Role Phone Sarai Solares MD Primary Care Provider [phone] Harjeet Dumont MD Unavailable [phone] Sarah Kwok PA-C Primary Care Provider + Reason for Visit * Reason Onset Date Comments Provider Call Back 02/11/2022 Encounter Details Date Type Department Care Team Description 02/11/2022 Telephone Internal Medicine - [address], [address] [place] [address] Sarai Solares MD [address] [place] [phone] Provider Call Back Social History Tobacco [...] to leave message to notify patient called [phone] * Telephone Encounter - Sarah Kwok PA-C [...] on filedocumented in this encounter Care Teams Remote Ruby On Rails Developer Relationship Specialty Start Date End Date Sarai Solares MD PCP - General Internal Medicine 01/04/20 10/20/22 Sarah Kwok PA-C [address] [address] PCP - General Internal Medicine 10/21/22 Harjeet Dumont MD [address] [address] Specialist Cardiovascular Disease 01/27/22 documented as of this encounter
--- OUTSIDE RECORDS SUMMARY | 2024-06-01 08:09 | XMS_ITS | Encounter Summary ---
Author Organization [facility] Address [address] [place] [address] Care Team Providers Care Call Center Rn Name Role Phone Harjeet Dumont MD Unavailable [phone] Sarah Kwok PA-C Primary Care Provider + Encounter Details Date Type Department Care Team Description 03/18/2023 Orders Only Medical Records [address] [place] [address] Allison Weaver Social History Tobacco Use Types [...] Associated Diagnosis Comments OUTSIDE PLAIN FILM Routine 02/22/2023 documented in this encounter Results * OUTSIDE PLAIN FILM (02/22/2023) Allison Weaver RADIOLOGY documented in this encounter Visit Diagnoses Not on filedocumented in this encounter Care Teams Call Center Rn Relationship Specialty Start Date End Date Sarah Kwok PA-C [address] [address] PCP - General Internal Medicine 10/21/22 Harjeet Dumont MD [address] [id number] Specialist Cardiovascular Disease 01/27/22 documented as of this encounter
--- OUTSIDE RECORDS SUMMARY | 2024-06-01 08:09 | XMS_ITS | Encounter Summary ---
Author Organization [facility] Address [address] [place] [address] Care Team Providers Care Family And Consumer Sciences Professor Name Role Phone Harjeet Dumont MD Unavailable [phone] Sarah Kwok PA-C Primary Care Provider + Encounter Details Date Type Department Care Team Description 03/30/2023 Pt. Non Urgent Medical Question Internal Medicine - [address], [address] [place] [address] Sarah Kwok PA-C [address] [place] [phone] Social History Tobacco Use Types Packs/Day [...] on filedocumented in this encounter Care Teams Family And Consumer Sciences Professor Relationship Specialty Start Date End Date Sarah Kwok PA-C [address] [address] PCP - General Internal Medicine 10/21/22 Harjeet Dumont MD 300 [facility] 154 [place] [address] Specialist Cardiovascular Disease 01/27/22 documented as of this encounter
--- OUTSIDE RECORDS SUMMARY | 2024-06-01 08:09 | XMS_ITS | Encounter Summary ---
Author Organization [facility] Address [address] [place] [address] Care Team Providers Care Mica Washer Gluer Name Role Phone Sarai Solares MD Primary Care Provider [phone] Harjeet Dumont MD Unavailable [phone] Sarah Kwok PA-C Primary Care Provider + Reason for Visit * Reason Onset Date Comments Call-returning From Provider 05/19/2021 Encounter Details Date Type Department Care Team Description 05/19/2021 Telephone Adult Medicine [address] [address] Jalen Ordonez PA-C [address] [place] [phone] Call-returning From Provider Social History Tobacco Use Types Packs/Day [...] encounter Miscellaneous Notes * Telephone Encounter - Yordy Ordonez M.A. - 05/19/2021 1:18 PM EDT Routing to Jalen Ordonez as per result note from 05/18 he attempted to contact pt * Telephone Encounter - Alyse De Luna - 05/19/2021 9:16 AM EDT Pt returning call from Jalen Ordonez documented in this encounter Plan of Treatment Not on file documented as of this encounter Visit Diagnoses Not on filedocumented in this encounter Care Teams Mica Washer Gluer Relationship Specialty Start Date End Date Sarai Solares MD PCP - General Internal Medicine 01/04/20 10/20/22 Sarah Kwok PA-C [address] [address] PCP - General Internal Medicine 10/21/22 Harjeet Dumont MD [address] [place] [address] Specialist Cardiovascular Disease 01/27/22 documented as of this encounter
--- OUTSIDE RECORDS SUMMARY | 2024-06-01 08:09 | XMS_ITS | Encounter Summary ---
Author Organization [facility] Address [address] [place] [address] Care Team Providers Care Eastern Philosophy Professor Name Role Phone Sarai Solares MD Primary Care Provider [phone] Harjeet Dumont MD Unavailable [phone] Sarah Kwok PA-C Primary Care Provider + Encounter Details Date Type Department Care Team Description 06/27/2020 Telephone Adult Medicine B - [place] [address] [place] [address] Mildred Rojas PA-C [id number] [place] [address] Social History Tobacco Use Types Packs/Day Years [...] on filedocumented in this encounter Care Teams Eastern Philosophy Professor Relationship Specialty Start Date End Date Sarai Solares MD PCP - General Internal Medicine 01/04/20 10/20/22 Sarah Kwok PA-C [address] [address] PCP - General Internal Medicine 10/21/22 Harjeet Dumont MD [address] [address] Specialist Cardiovascular Disease 01/27/22 documented as of this encounter
--- OUTSIDE RECORDS SUMMARY | 2024-06-01 08:09 | XMS_ITS | Encounter Summary ---
Author Organization [facility] Address [address] [place] [address] Care Team Providers Care Property Utilization Manager Name Role Phone Sarai Solares MD Primary Care Provider [phone] Harjeet Dumont MD Unavailable [phone] Sarah Kwok PA-C Primary Care Provider + Reason for Visit * Reason Comments E-prescribe Rx Request Encounter Details Date Type Department Care Team Description 03/25/2022 Refill Internal Medicine - [address], [address] [place] [address] Sarah Kwok PA-C [address] [place] [phone] E-prescribe Rx Request Social History Tobacco [...] PM EST documented as of this encounter Miscellaneous Notes * Telephone Encounter - Jessica Lawrence - 03/25/2022 9:48 AM EST Milly 02/04/22 Nov 03/30/22 documented in this encounter Plan of Treatment Not on file documented as of this encounter Visit Diagnoses Not on filedocumented in this encounter Care Teams Property Utilization Manager Relationship Specialty Start Date End Date Sarai Solares MD PCP - General Internal Medicine 01/04/20 10/20/22 Sarah Kwok PA-C [address] [address] PCP - General Internal Medicine 10/21/22 Harjeet Dumont MD [address] [address] Specialist Cardiovascular Disease 01/27/22 documented as of this encounter
--- OUTSIDE RECORDS SUMMARY | 2024-06-01 08:09 | XMS_ITS | Encounter Summary ---
Author Organization [facility] Address [address] [place] [address] Care Team Providers Care Diesel Engine Erector Name Role Phone Sarai Solares MD Primary Care Provider [phone] Harjeet Dumont MD Unavailable [phone] Sarah Kwok PA-C Primary Care Provider + Encounter Details Date Type Department Care Team Description 01/23/2022 Telephone Endocrinology - [address] [address] Sarah Bah PA-C [address] [place] [address] Social History Tobacco Use Types Packs/Day Years [...] in this encounter Care Teams Diesel Engine Erector Relationship Specialty Start Date End Date Sarai Solares MD PCP - General Internal Medicine 01/04/20 10/20/22 Sarah Kwok PA-C 300 [facility] 154 [place] [address] PCP - General Internal Medicine 10/21/22 Harjeet Dumont MD 300 [facility] 154 [place] [address] Specialist Cardiovascular Disease 01/27/22 documented as of this encounter
--- OUTSIDE RECORDS SUMMARY | 2024-06-01 08:09 | XMS_ITS | Encounter Summary ---
Author Organization [facility] Address [address] [place] [address] Care Team Providers Care Sheet Metal Apprentice Name Role Phone Sarai Solares MD Primary Care Provider [phone] Harjeet Dumont MD Unavailable [phone] Sarah Kwok PA-C Primary Care Provider + Reason for Visit * Reason Onset Date Comments LAB WORK 06/08/2021 Encounter Details Date Type Department Care Team Description 06/08/2021 Telephone Adult Medicine [address] [address] Jalen Ordonez PA-C [address] [place] [phone] LAB WORK Social History Tobacco Use Types Packs/Day Years [...] Miscellaneous Notes * Telephone Encounter - Scarlett Contreras M.A. - 06/09/2021 9:19 AM EDT Pt advised to repeat labwork. * Telephone Encounter - Lu Mccormack - 06/08/2021 3:10 PM EDT Patient returned Tatianna's call. * Telephone Encounter - Scarlett Contreras M.A. - 06/08/2021 2:59 PM EDT Message left for patient to return my call. Ext [phone] Re: Jalen Ordonez's message below: Jalen Ordonez PA-C 05/19/2021 ??8:28 AM EDT Called x 1. VM box full. ?? Please call patient and inform her she needs to return for iron studies today if possible, as her labs are suggestive of iron deficiency anemia. ?? I will try to reach her again this afternoon to discuss her results more indepth. ?? Thank you. documented in this encounter Plan of Treatment Not on file documented as of this encounter Visit Diagnoses Not on filedocumented in this encounter Care Teams Sheet Metal Apprentice Relationship Specialty Start Date End Date Sarai Solares MD PCP - General Internal Medicine 01/04/20 10/20/22 Sarah Kwok PA-C [address] [address] PCP - General Internal Medicine 10/21/22 Harjeet Dumont MD 300 [facility] 154 [place] [address] Specialist Cardiovascular Disease 01/27/22 documented as of this encounter
--- OUTSIDE RECORDS SUMMARY | 2024-06-01 08:09 | XMS_ITS | Encounter Summary ---
Author Organization [facility] Address [address] [place] [address] Care Team Providers Care Pit Furnace Operator Name Role Phone Sarai Solares MD Primary Care Provider [phone] Harjeet Dumont MD Unavailable [phone] Sarah Kwok PA-C Primary Care Provider + Encounter Details Date Type Department Care Team Description 10/29/2020 Telephone Internal Medicine - [address], [address] [place] [address] Sarai Solares MD [address] [place] [phone] Social History Tobacco Use Types Packs/Day [...] on filedocumented in this encounter Care Teams Pit Furnace Operator Relationship Specialty Start Date End Date Sarai Solares MD PCP - General Internal Medicine 01/04/20 10/20/22 Sarah Kwok PA-C [address] [address] PCP - General Internal Medicine 10/21/22 Harjeet Dumont MD [facility] [place] [address] Specialist Cardiovascular Disease 01/27/22 documented as of this encounter
--- OUTSIDE RECORDS SUMMARY | 2024-06-01 08:09 | XMS_ITS | Encounter Summary ---
Author Organization [facility] Address [address] [place] [address] Care Team Providers Care Exhibit Carpenter Name Role Phone Harjeet Dumont MD Unavailable [phone] Sarah Kwok PA-C Primary Care Provider + Encounter Details Date Type Department Care Team Description 10/25/2023 Refill Gastroenterology - [place] [address] [facility] 200 [place] [phone] Minnie Raman DScPAS Social History Tobacco Use [...] on filedocumented in this encounter Care Teams Exhibit Carpenter Relationship Specialty Start Date End Date Sarah Kwok PA-C [address] [place] [address] PCP - General Internal Medicine 10/21/22 Harjeet Dumont MD 300 [place] [address] Specialist Cardiovascular Disease 01/27/22 documented as of this encounter
--- OUTSIDE RECORDS SUMMARY | 2024-06-01 08:09 | XMS_ITS | Encounter Summary ---
Author Organization [facility] Address [address] [place] [address] Care Team Providers Care Surface Logging Systems Logger Name Role Phone Sarai Solares MD Primary Care Provider [phone] Harjeet Dumont MD Unavailable [phone] Sarah Kwok PA-C Primary Care Provider + Encounter Details Date Type Department Care Team Description 04/17/2022 Hospital Medical Records [address] [place], [place] [phone] [place] [address] Social History Tobacco Use Types Packs/Day Years [...] on filedocumented in this encounter Care Teams Surface Logging Systems Logger Relationship Specialty Start Date End Date Sarai Solares MD PCP - General Internal Medicine 01/04/20 10/20/22 Sarah Kwok PA-C 300 [facility] 154 [place] [address] PCP - General Internal Medicine 10/21/22 Harjeet Dumont MD [address] [address] Specialist Cardiovascular Disease 01/27/22 documented as of this encounter
--- OUTSIDE RECORDS SUMMARY | 2024-06-01 08:09 | XMS_ITS | Encounter Summary ---
Author Organization [facility] Address [address] [place] [address] Care Team Providers Care Renal Case Manager Name Role Phone Sarai Solares MD Primary Care Provider [phone] Harjeet Dumont MD Unavailable [phone] Sarah Kwok PA-C Primary Care Provider + Reason for Visit * Reason Onset Date Comments Faxed Refill 09/17/2020 Encounter Details Date Type Department Care Team Description 09/17/2020 Refill Adult Medicine - [place] [address] [place] [address] Sarai Solares MD [address] [place] [phone] Faxed Refill Social History Tobacco Use Types Packs/Day Years [...] encounter Miscellaneous Notes * Telephone Encounter - [place] - 09/17/2020 8:29 AM EDT Patient would like script to be: E-PRESCRIBED/FAXED TO PHARMACY WHEN WAS THE PATIENT'S LAST APPOINTMENT IN ADULT MEDICINE? 06/27/20 WHEN WAS THE LAST TIME THE PATIENT SAW THEIR PCP? Never Does patient have an upcoming appointment? No (THE MEDICATION REQUESTED IS ON THE MED LIST ABOVE) All of the medications requested were on the CURRENT MEDS list Did you check the Pharmacy information above?: YES Patient wants: 30 -day supply Is this a mail order prescription request ? NO If the refill is from a FAXED refill request what is the RX # listed on the fax? N/A Patients current insurance carrier is: Payor: [place] [employer] / Plan: InPlace / Product Type: MEDICAID RISK documented in this encounter Plan of Treatment Not on file documented as of this encounter Visit Diagnoses Not on filedocumented in this encounter Care Teams Renal Case Manager Relationship Specialty Start Date End Date Sarai Solares MD PCP - General Internal Medicine 01/04/20 10/20/22 Sarah Kwok PA-C [address] [address] PCP - General Internal Medicine 10/21/22 Harjeet Dumont MD [address] [address] Specialist Cardiovascular Disease 01/27/22 documented as of this encounter
--- OUTSIDE RECORDS SUMMARY | 2024-06-01 08:09 | XMS_ITS | Encounter Summary ---
Author Organization [facility] Address [address] [place] [address] Care Team Providers Care Automatic Vulcanizing Operator Name Role Phone Sarai Solares MD Primary Care Provider [phone] Harjeet Dumont MD Unavailable [phone] Sarah Kwok PA-C Primary Care Provider + Encounter Details Date Type Department Care Team Description 02/21/2022 Hospital Medical Records [address] [place] [address] [facility] Social History Tobacco Use Types Packs/Day Years [...] Date/Time Associated Diagnosis Comments OUTSIDE EKG Routine 02/21/2022 OUTSIDE LAB Routine 02/21/2022 OUTSIDE LAB Routine 02/21/2022 documented in this encounter Results * OUTSIDE LAB (02/21/2022) Provider Abstract LAB * OUTSIDE LAB (02/21/2022) Provider Abstract LAB * OUTSIDE EKG (02/21/2022) Provider Abstract CARDIOLOGY documented in this encounter Visit Diagnoses Not on filedocumented in this encounter Care Teams Automatic Vulcanizing Operator Relationship Specialty Start Date End Date Sarai Solares MD PCP - General Internal Medicine 01/04/20 10/20/22 Sarah Kwok PA-C [address] [facility] 154 [place] [address] PCP - General Internal Medicine 10/21/22 Harjeet Dumont MD [address] [facility] [address] [place] [address] Specialist Cardiovascular Disease 01/27/22 documented as of this encounter
--- OUTSIDE RECORDS SUMMARY | 2024-06-01 08:09 | XMS_ITS | Encounter Summary ---
Author Organization [facility] Address [address] [place] [address] Care Team Providers Care Landscape Crew Member Name Role Phone Sarai Solares MD Primary Care Provider [phone] Harjeet Dumont MD Unavailable [phone] Sarah Kwok PA-C Primary Care Provider + Encounter Details Date Type Department Care Team Description 04/27/2022 [facility] Medical Records [address] [place] [address] Abstract, Provider Social History Tobacco Use Types [...] on filedocumented in this encounter Care Teams Landscape Crew Member Relationship Specialty Start Date End Date Sarai Solares MD PCP - General Internal Medicine 01/04/20 10/20/22 Sarah Kwok PA-C 300 [facility] 154 [place] [address] PCP - General Internal Medicine 10/21/22 Harjeet Dumont MD 300 [facility] 154 [place] [address] Specialist Cardiovascular Disease 01/27/22 documented as of this encounter
--- OUTSIDE RECORDS SUMMARY | 2024-06-01 08:09 | XMS_ITS | Encounter Summary ---
Author Organization [facility] Address [address] [place] [address] Care Team Providers Care Director Strategy Name Role Phone Sarai Solares MD Primary Care Provider [phone] Harjeet Dumont MD Unavailable [phone] Sarah Kwok PA-C Primary Care Provider + Encounter Details Date Type Department Care Team Description 06/27/2020 Telephone Adult Medicine B - [place] 305 [place] [address] Mildred Rojas PA-C 100 [facility] [address] [place] [address] Social History Tobacco Use Types Packs/Day Years [...] on filedocumented in this encounter Care Teams Director Strategy Relationship Specialty Start Date End Date Sarai Solares MD PCP - General Internal Medicine 01/04/20 10/20/22 Sarah Kwok PA-C [address] [place] [address] PCP - General Internal Medicine 10/21/22 Harjeet Dumont MD [address] [place] [address] Specialist Cardiovascular Disease 01/27/22 documented as of this encounter
--- OUTSIDE RECORDS SUMMARY | 2024-06-01 08:09 | XMS_ITS | Encounter Summary ---
Author Organization [facility] Address [address] [place] [address] Care Team Providers Care Planogrammer Name Role Phone Sarai Solares MD Primary Care Provider [phone] Harjeet Dumont MD Unavailable [phone] Sarah Kwok PA-C Primary Care Provider + Reason for Visit * Reason Comments E-prescribe Rx Request Encounter Details Date Type Department Care Team Description 11/12/2020 Refill Internal Medicine - [address], [address] [place], [place] [id number] Sarai Solares MD [address] [place] [phone] E-prescribe Rx Request Social History Tobacco [...] have Coronavirus / COVID-19? No / Unsure 11/07/2020 8:57 AM EDT documented as of this encounter Miscellaneous Notes * Telephone Encounter - Maxine Holly A - 11/13/2020 11:53 AM EDT BP Readings from Last 3 Encounters: 09/07/21 114/62 05/20/20 128/62 08/06/13 100/60 * Telephone Encounter - Hannah Alicia - 11/13/2020 11:51 AM EDT Milly 10/02/20 documented in this encounter Plan of Treatment Not on file documented as of this encounter Visit Diagnoses Not on filedocumented in this encounter Care Teams Planogrammer Relationship Specialty Start Date End Date Sarai Solares MD PCP - General Internal Medicine 01/04/20 10/20/22 Sarah Kwok PA-C 300 [facility] 154 [place] [address] PCP - General Internal Medicine 10/21/22 Harjeet Dumont MD [address] [place] [address] Specialist Cardiovascular Disease 01/27/22 documented as of this encounter
--- OUTSIDE RECORDS SUMMARY | 2024-06-01 08:09 | XMS_ITS | Encounter Summary ---
Author Organization [facility] Address [address] [place] [address] Care Team Providers Care Weighmaster Name Role Phone Harjeet Dumont MD Unavailable [phone] Sarah Kwok PA-C Primary Care Provider + Reason for Visit * Reason Onset Date Comments REFERRAL 09/14/2023 Faxed Order 09/14/2023 Encounter Details Date Type Department Care Team Description 09/14/2023 Telephone Internal Medicine - [address], [address] [place] [address] Sarah Kwok PA-C [address] [place] [phone] REFERRAL; Faxed Order Social History Tobacco Use Types Packs/Day Years [...] encounter Miscellaneous Notes * Telephone Encounter - Kp Gordon M.A. - 09/14/2023 1:54 PM EDT Faxed * Telephone Encounter - [place] Alvarez - 09/14/2023 12:23 PM EDT Patient called stating the fax sent over for her referral to [facility] [address] [place] [address], [address], [place], [place] was never received. Please re-fax to [phone] documented in this encounter Plan of Treatment Not on file documented as of this encounter Visit Diagnoses Not on filedocumented in this encounter Care Teams Weighmaster Relationship Specialty Start Date End Date Sarah Kwok PA-C 300 [facility] 154 [place] [address] PCP - General Internal Medicine 10/21/22 Harjeet Dumont MD 300 [facility] 154 [place] [address] Specialist Cardiovascular Disease 01/27/22 documented as of this encounter
--- OUTSIDE RECORDS SUMMARY | 2024-06-01 08:09 | XMS_ITS | Encounter Summary ---
Author Organization [facility] Address [address] [place] [address] Care Team Providers Care Utility Tender Carding Name Role Phone Sarai Solares MD Primary Care Provider [phone] Harjeet Dumont MD Unavailable [phone] Sarah Kwok PA-C Primary Care Provider + Encounter Details Date Type Department Care Team Description 07/07/2022 [facility] Medical Records [address] [place], [place] [phone] [place] [address] Social History Tobacco Use Types Packs/Day Years [...] on filedocumented in this encounter Care Teams Utility Tender Carding Relationship Specialty Start Date End Date Sarai Solares MD PCP - General Internal Medicine 01/04/20 10/20/22 Sarah Kwok PA-C [address] [place], [place] [phone] PCP - General Internal Medicine 10/21/22 Harjeet Dumont MD 300 [place] [address] Specialist Cardiovascular Disease 01/27/22 documented as of this encounter
--- OUTSIDE RECORDS SUMMARY | 2024-06-01 08:09 | XMS_ITS | Encounter Summary ---
Author Organization [facility] Address [address] [place] [address] Care Team Providers Care Supervisor Receiving And Processing Name Role Phone Sarai Solares MD Primary Care Provider [phone] Harjeet Dumont MD Unavailable [phone] Sarah Kwok PA-C Primary Care Provider + Encounter Details Date Type Department Care Team Description 03/18/2022 [facility] Medical Records [address] [place] [address] [facility] Social History Tobacco Use Types [...] on filedocumented in this encounter Care Teams Supervisor Receiving And Processing Relationship Specialty Start Date End Date Sarai Solares MD PCP - General Internal Medicine 01/04/20 10/20/22 Sarah Kwok PA-C [address] [place], [place] [id number] PCP - General Internal Medicine 10/21/22 Harjeet Dumont MD 300 [place] [address] Specialist Cardiovascular Disease 01/27/22 documented as of this encounter
--- OUTSIDE RECORDS SUMMARY | 2024-06-01 08:10 | XMS_ITS | Encounter Summary ---
Author Organization [facility] Address [address] [place] [address] Care Team Providers Care Cotton Sampler Name Role Phone Harjeet Dumont MD Unavailable [phone] Sarah Kwok PA-C Primary Care Provider + Encounter Details Date Type Department Care Team Description 05/10/2023 Pt. Non Urgent Medical Question Internal Medicine - [address], [address] [place] [address] Sarah Kwok PA-C [address] [place] [phone] Social History Tobacco Use Types Packs/Day [...] on filedocumented in this encounter Care Teams Cotton Sampler Relationship Specialty Start Date End Date Sarah Kwok PA-C 300 [facility] 154 [place], [place] [phone] PCP - General Internal Medicine 10/21/22 Harjeet Dumont MD 300 [facility] [address] [place], [place] [address] Specialist Cardiovascular Disease 01/27/22 documented as of this encounter
--- OUTSIDE RECORDS SUMMARY | 2024-06-01 08:10 | XMS_ITS | Encounter Summary ---
Author Organization [facility] Address [address] [place] [address] Care Team Providers Care Allergist Name Role Phone Harjeet Dumont MD Unavailable [phone] Sarah Kowk PA-C Primary Care Provider + Encounter Details Date Type Department Care Team Description 01/19/2023 Multifocal Lens Assembler Report Medical Records [address] [place] [address] Malcom Leon PA-C Social History Tobacco Use [...] on filedocumented in this encounter Care Teams Allergist Relationship Specialty Start Date End Date Sarah Kwok PA-C [address] [id number] PCP - General Internal Medicine 10/21/22 Harjeet Dumont MD [address] [address] Specialist Cardiovascular Disease 01/27/22 documented as of this encounter
--- OUTSIDE RECORDS SUMMARY | 2024-06-01 08:10 | XMS_ITS | Clinical Summary ---
Author Organization Patient Business Ser [facility] Address [address] [place] [address] Care Team Providers Care Executive Wellness Programs Director Name Role Phone Sarah Kwok Primary Care [...] HOLD FOR LOOSE STOOL 09/07/19 23 Active metoprolol succinate (TOPROL-XL) 25 mg 24 [...] DAY 90 tablet 1 03/21/19 25 Active sucralfate (CARAFATE) 100 mg/mL suspension Take 10 mL (1 g total) by mouth 2 (two) times a day before meals. Take 1 hour before meals and at bedtime 600 mL 3 05/15/19 25 026 Active linaCLOtide (Linzess) 72 mcg capsule Take 1 capsule (72 mcg total) by mouth 1 (one) time each day. 30 each 2 05/15/19 25 025 Active omeprazole (PriLOSEC) [address] capsule TAKE 1 CAPSULE BY MOUTH DAILY 90 capsule 1 05/25/19 25 Active omeprazole (PriLOSEC) [address] capsule Take 1 capsule (20 mg total) by mouth 1 (one) time each day. for 360 days Do not crush or chew. 025 Discontinued Active Problems Problem Noted Date Diagnosed Date Supervision of normal first 11/24/2023 Overview (11/24/2023): office: [facility] Delivery site: [facility] Blood Type: O+ Quad screen: negative GBS: Date: TDap: Childbirth plans: Desires epidural Natural childbirth. Labor support identified: Planning bottlefeeding because she's going back to school shortly after baby's PP BCM: Male; Circ: no Baby's Name: Beck ARRIAGA's name: Debbie Erickson ASHLEY positive 07/05/2022 Bacterial infection due to [...] Cervico-occipital neuralgia of right side Frequent headaches Encounters Date Type Department Care Team Description 05/14/2024 9:10 AM EDT Office Visit Gastroenterology - [place] 175 Jaimee 175 [facility] [address] [place] [address] Minnie Raman PA Celiac disease (Primary Dx); Constipation, unspecified constipation type; Chronic superficial gastritis without bleeding from Last 3 Months Immunizations Name Administration Dates Next Due Influenza [...] Sign Reading Time Taken Comments Blood Pressure 102/60 05/14/2024 9:09 AM EDT Pulse 92 01/05/2024 8:54 AM EST Temperature 35.9 ??C (96.6 ??F) 01/05/2024 8:54 AM ES T Respiratory Rate - - Oxygen Saturation 98% 01/05/2024 8:54 AM EST Inhaled Oxygen Concentration - - Weight 86.8 kg (191 lb 6.4 oz) 05/14/2024 9:09 A M EDT Height 167.6 cm (5' 6 ) 05/14/2024 9:09 AM EDT Body Mass Index 30.89 05/14/2024 9:09 AM EDT Plan of Treatment Upcoming Encounters Date Type Department Care Team (Late st Contact Info) Description 06/05/2024 11:00 AM EDT Office Visit Internal Medicine [facility] [address] [phone] Sarah Kwok PA [address] [address] 08/29/2024 9:10 AM EDT Office Visit Gastroenterology [facility] 175 [facility] [address] [phone] Minnie Raman PA [address] [address] Health Maintenance Due Date Last Done Comments Pneumococcal Vaccine: Pediatrics (0 to 5 Years) and At-Risk Patients (6 to 64 Years) (1 of 2 - PCV) 2013 Cervical Cancer Screening: Pap Smear 2015 Hepatitis C Screening 05/19/2021 COVID-19 Vaccine ( season) 2023 Depression Screening 03/15/2024 03/15/2023 Social Influencers of Health Screening 09/26/2024 09/27/2023 Influenza Vaccine (Season Ended) 2024 11/26/2017, 11/12/2014, 11/29/2013, Additional history exists Cholesterol Screening (Lipid Panel) 10/23/2027 10/22/2022 DTaP,Tdap,and [...] age to complete this topic Meningococcal B Vaccine Aged Out No l onger eligible based on patient's age to complete this topic RSV Immunization Patients Under 20 months Aged Out No longer eligible based on patient's age to complete this topic Procedures Procedure Name Priority Date/Time Associated Diagnosis Comments DEPRESSION SCREENING Routine 03/15/2023 LIPID PANEL Routine 10/22/2022 HIV SCREENING Routine 04/13/2013 from Last 3 Months or Most Recently Relevant to Health Maintenance Results * Depression Screening (03/15/2023) Depression Screening Abstracted Historical Provider MD HEALTH MAINTENANCE Final Result * Lipid panel (10/22/2022) LDL/HDL Ratio 3 0 - 4 Triglycerides 77 0 - 150 mg/dL Cholesterol 183 0 - 200 mg/dL HDL 72 >=40 mg/dL LDL Cholesterol 96 0 - 100 mg/dL Blood Venous blood specimen / Unknown us Historical Provider MD LAB BLOOD ORDERABLES Ambreen l Result * Hm HIV Screening (04/13/2013) HIV Screening Abstracted us Historical Provider HEALTH MAINTENANCE Final Result from Last 3 Months or Most Recently Relevant to Health Maintenance Insurance [facility] Care Teams Executive Wellness Programs Director Relationship Specialty Start Date End Date Sarah Kwok PA [address] [address] PCP - General Primary Care 01/30/24
--- OUTSIDE RECORDS SUMMARY | 2024-06-01 08:10 | XMS_ITS | Encounter Summary ---
Author Organization [facility] Address [address] [place] [address] Care Team Providers Care Stave And Bolt Equalizer Name Role Phone Harjeet Dumont MD Unavailable [phone] Sarah Kwok PA-C Primary Care Provider + Encounter Details Date Type Department Care Team Description 01/17/2023 Tax Revenue Officer Report Medical Records [address] [place] [address] Ronak Holly MD Social History Tobacco Use [...] on filedocumented in this encounter Care Teams Stave And Bolt Equalizer Relationship Specialty Start Date End Date Sarah Kwok PA-C [address] [address] PCP - General Internal Medicine 10/21/22 Harjeet Dumont MD [address] [address] Specialist Cardiovascular Disease 01/27/22 documented as of this encounter
--- OUTSIDE RECORDS SUMMARY | 2024-06-01 08:10 | XMS_ITS | Encounter Summary ---
Author Organization [facility] Address [address] [place] [address] Care Team Providers Care Annealing Oven Operator Name Role Phone Harjeet Dumont MD Unavailable [phone] Sarah Kwok PA-C Primary Care Provider + Encounter Details Date Type Department Care Team Description 02/01/2023 Artificial Cherry Maker Report Medical Records [address] [place] [address] Allison Weaver Social History Tobacco Use Types [...] on filedocumented in this encounter Care Teams Annealing Oven Operator Relationship Specialty Start Date End Date Sarah Kwok PA-C [address] [address] PCP - General Internal Medicine 10/21/22 Harjeet Dumont MD [address] [address] Specialist Cardiovascular Disease 01/27/22 documented as of this encounter
--- OUTSIDE RECORDS SUMMARY | 2024-06-01 08:10 | XMS_ITS | Encounter Summary ---
Author Organization [facility] Address [address] [place] [address] Care Team Providers Care Telecom Specialist Name Role Phone Sarai Solares MD Primary Care Provider [phone] Harjeet Dumont MD Unavailable [phone] Sarah Kwok PA-C Primary Care Provider + Reason for Referral * Non CHARLES (Urgent) - Authorized/Booked Specialty Diagnoses / Procedures Referred By Contact Referred To Contact ORTHOPEDICS / Orthopedic Procedures REFERRAL TO ORTHOPEDICS (IN NETWORK) Sarah Bah PA-C [address] [place] [address] Sascha Polk PA-C [address] [place] [address] Referral ID Status Reason Start Date Expiration Date V isits Requested Visits Authorized [id number] Authorized/B ooked 02/01/2022 02/01/2023 1 1 Reason for Visit * Reason Onset Date Comments Provider Call Back 02/01/2022 Encounter Details Date Type Department Care Team Description 02/01/[address] [address] Sarah Bah PA-C [address] [place] [address] Provider Call Back Social History Tobacco Use [...] encounter Miscellaneous Notes * Telephone Encounter - Sarah Bah PA-C - 02/01/2022 12:43 PM EST Please see if you can schedule patient for an urgent evaluation with our orthopedic team in [place]. Having neck pain, shoulder and arm pain. No injury or trauma. I do not believe this is all related to her thyroid. She saw PCP, and was provided Cymbalta but nothing for pain. * Telephone Encounter - Sujatha Chavez - 02/01/2022 10:29 AM EST Caller requesting call back from provider: Is the caller the patient? YES If caller is not the patient, what is the callers name? N/A Callers relationship to patient? N/A If person calling is not the patient themselves, is there a verbal release in FYI or permanent comments for this person: N/A Reason for call back: Patient had appointment with PCP's office today. She is having excruciating neck pain, shoulder pain, and arm pain. This has been going on for about 3 days. She is also having extreme swelling in neck/shoulders as well. PCP thought this may be related to her thyroid, and told her to contact endo. She is requesting a call back. Caller offered to speak with the nurse for assistance: YES Response: Patient offered to speak with nurse for assistance and patient agreed. Message forwarded to nurse. documented in this encounter Plan of Treatment Not on file documented as of this encounter Visit Diagnoses Not on filedocumented in this encounter Care Teams Telecom Specialist Relationship Specialty Start Date End Date Sarai Solares MD PCP - General Internal Medicine 01/04/20 10/20/22 Sarah Kwok PA-C 300 [facility] [address] [place] [address] PCP - General Internal Medicine 10/21/22 Harjeet Dumont MD [address] [facility] [address] [place] [address] Specialist Cardiovascular Disease 01/27/22 documented as of this encounter
--- OUTSIDE RECORDS SUMMARY | 2024-06-01 08:10 | XMS_ITS | Continuity of Care Document ---
Author Organization [place] [facility], [facility] Address [address] [place] [address] Care Team Providers Care Prevocational/Rehabilitation Counselor Name Role Phone MYRIAM KEY Primary Care Provider Assessment Encounter Date Assessment [...] to read at home, which gives a zkrz-vs-hjnc discussion on what causes migraine and how [...] Details Recorded Time Tinnitus of right ear 8236264719210 Active 2023 Tinnit us, right ear; Note: Date Diagno sed: 024 4:00 PM (H93.1 1) Not Available [facility] 4 02:30:45 Atypical facial pain 31171879 Active 2024 LORETTA LOWERY PA-C 100 [facility],[place] [address], [place], [address] , [place] - [facility] 5 11:44:01 Migraine 56129587 Active 2024 LORETTA LOWERY PA-C [address] [place] [address],[facility] [address], [place], [address] , [place] - [facility] 5 11:44:09 Peripheral vertigo 88514348 Active 2024 LORETTA LOWERY PA-C 100 [facility] [address], [place], [address] , [place] - [facility] 5 11:44:31 Problem Notes None recorded. Procedures Surgical History Date Name Laterality Status Provider Name and Address Organization Details Recorded Time 05/30/2024 Comp Audio with Tymps (72947 & 24308) completed ALEX LEBLANC, AUD 100 [facility],[place] [address], [place], [address], [facility] - [facility] 05/30/2024 10:57:28 Imaging Results None recorded. Procedure Notes None recorded. Medical Equipment None Reported. Allergies Allergen ID Allergen Name Allergen Category Reaction Reaction Severity Criticality Documentation Date Start Date Code Code System Note Provider Name and Address Organization Details Recorded Time 820774 wheat gluten extract food other Not available Not available 09/23/2023 10853 81 RxNorm React ion: Unkno wn; Not Available [facility] 4 00:26:55 658729 Reglan medicatio n other Not available Not available 09/23/2023 9230 RxNorm React ion: Unkno wn; Not Available [facility] 4 00:26:58 Medications Name Sig Start Date [...] Not Available No t Available amoxicillin 875 mg-potassamyu m clavulanate 125 mg tablet TAKE 1 TABLET [...] Updated DateTime 05/30/2024 167.64 cm 31.3 kg/m2 45259.92 g Zahra Toussaint [facility] 05/30/2024 10:30:49 Social History None recorded. Functional Status None recorded. Mental Status None recorded. Family History Nothing Reported. Medical History No medical history recorded. Gynecological HistoryNo gynecological history recorded. Obstetrics History GPAL:G 0 P 0 0 0 0 Past Encounters Encounter ID Performer Location Encounter Start Date Encounter Closed Date Diagnosis/Indication Diagnosis SNOMED-CT Code Diagnosis ICD10 Code Diagnosis Note [id number] LORETTA LOWERY PA-C [facility] 100 [place] [address] 05/30/2024 10:24:57 05/30/2024 11:14:02 Tinnitus of right ear 2570951409 108 H93.11 Audiologic al evaluation results: Right [...] a hermetic seal}} Atypical facial pain 713 13316 G50.1 Migraine 60657090 G43.90 9 Peripheral vertigo 07150 001 H81.399 Health Concerns Section Related Observation LastModified by Organization Detai ls LastModified Time None Recorded Concern Status LastModified by Organization Details LastModified Time None Recorded Payers Encounter Date Sequence Insurance Name Policy Number Policy Hess Covered Member ID Hess Member ID Guarantor Name 05/30/2024 1 [facility] (MEDICAID REPLACEMENT - HMO) LEON Blevins [id number] Miguel Angel Blevins Notes Date Note Type [...] not have thunderclap onset. LORETTA LOWERY PA-C [address] [place] [address], [phone], [place] - [facility] 05/31/2024 15:33:28 OBGyn Episode No OBEpisode recorded.
--- OUTSIDE RECORDS SUMMARY | 2024-06-01 08:10 | XMS_ITS | Encounter Summary ---
Author Organization [facility] Address [address] [place] [address] Care Team Providers Care Health Policy Analyst Name Role Phone Sarai Solares MD Primary Care Provider [phone] Harjeet Dumont MD Unavailable [phone] Sarah Kwok PA-C Primary Care Provider + Reason for Visit * Reason Onset Date Comments Work note 02/04/2022 Encounter Details Date Type Department Care Team Description 02/04/2022 Telephone Endocrinology - [place] [address] [place] [address] Sarah Bah PA-C [address] [place] [address] Work note Social History Tobacco Use Types [...] on filedocumented in this encounter Care Teams Health Policy Analyst Relationship Specialty Start Date End Date Sarai Solares MD PCP - General Internal Medicine 01/04/20 10/20/22 aSrah Kwok PA-C [address] [address] PCP - General Internal Medicine 10/21/22 Harjeet Dumont MD [address] [address] Specialist Cardiovascular Disease 01/27/22 documented as of this encounter
--- OUTSIDE RECORDS SUMMARY | 2024-06-01 08:10 | XMS_ITS | Encounter Summary ---
Author Organization [facility] Address [address] [place] [address] Care Team Providers Care Staff Nurse Icu Resource Team Name Role Phone Harjeet Dumont MD Unavailable [phone] Sarah Kwok PA-C Primary Care Provider + Encounter Details Date Type Department Care Team Description 03/07/2023 Orders Only Medical Records [address] [place], [place] [address] [place] [address] Social History Tobacco Use Types Packs/Day Years [...] encounter Results * OUTSIDE PLAIN FILM (03/05/2023) [facility] RADIOLOGY documented in this encounter Visit Diagnoses Not on filedocumented in this encounter Care Teams Staff Nurse Icu Resource Team Relationship Specialty Start Date End Date Sarah Kwok PA-C 300 [facility] [address] [place] [address] PCP - General Internal Medicine 10/21/22 Harjeet Dumont MD [address] [facility] [address] [place], [place] [id number] Specialist Cardiovascular Disease 01/27/22 documented as of this encounter
--- OUTSIDE RECORDS SUMMARY | 2024-06-01 08:10 | XMS_ITS | Encounter Summary ---
Author Organization [facility] Address [address] [place] [address] Care Team Providers Care Community Arts Worker Name Role Phone Sarai Solares MD Primary Care Provider [phone] Harjeet Dumont MD Unavailable [phone] Sarah Kwok PA-C Primary Care Provider + Encounter Details Date Type Department Care Team Description 02/04/2022 Telephone Internal Medicine - [address], [address] [place] [address] Sarai Solares MD [address] [place] [phone] Social History Tobacco Use Types Packs/Day [...] In the last 10 days, have liliane shah been in contact with someone who was confirmed or suspected to have Coronavirus/COVID-19? No / Unsure 02/04/2022 9:55 AM EST documented as of this encounter Plan of Treatment Not on file documented as of this encounter Visit Diagnoses Not on filedocumented in this encounter Care Teams Community Arts Worker Relationship Specialty Start Date End Date Sarai Solares MD PCP - General Internal Medicine 01/04/20 10/20/22 Sarah Kwok PA-C 300 [facility] [address] [place] [address] PCP - General Internal Medicine 10/21/22 Harjeet Dumont MD 300 [facility] [address] [place] [address] Specialist Cardiovascular Disease 01/27/22 documented as of this encounter
--- OUTSIDE RECORDS SUMMARY | 2024-06-01 08:10 | XMS_ITS | Encounter Summary ---
Author Organization [facility] Address [address] [place] [address] Care Team Providers Care Guest Services Name Role Phone Harjeet Dumont MD Unavailable [phone] Sarah Kwok PA-C Primary Care Provider + Reason for Visit * Reason Comments E-prescribe Rx Request Encounter Details Date Type Department Care Team Description 06/12/2023 Refill Internal Medicine - [address], [address] [place] [address] Sarai Solares MD [address] [place] [phone] E-prescribe Rx Request Social History Tobacco [...] on filedocumented in this encounter Care Teams Guest Services Relationship Specialty Start Date End Date Sarah Kwok PA-C [address] [place] [address] PCP - General Internal Medicine 10/21/22 Harjeet Dumont MD [address] [place] [address] Specialist Cardiovascular Disease 01/27/22 documented as of this encounter
--- NOTE | 2024-06-01 10:49 | MHC.OFFVISWM ---
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 [facility] *SEE COMMENTS* Allergies galcanezumab-gnlm [From Emgality Pen] Allergy (Severe, Verified 06/01/24 10:50) Anaphylaxis gluten [GLUTEN] Allergy (Unknown, Verified 06/01/24 10:50) DIARRHEA lactose Allergy (Unknown, Verified 06/01/24 10:50) Unknown metoclopramide [From REGLAN] Allergy (Unknown, Verified 06/01/24 10:50) UNKNOWN ibuprofen Adverse Reaction (Verified 06/01/24 10:50) Stomach Upset Medication List - Last Reconciled 06/01/24 by Alejandro Capps MD acetazolamide ER 500 mg PO Q12H 30 days atogepant (Qulipta) 30 mg PO DAILY 30 days eletriptan take 1 tab at onset of headache; if no relief, may repeat 1 tab after at least 2 hrs; max = 2 tabs/24 hrs orally PRN; 30 days gabapentin 600 mg PO BID levothyroxine 100 mcg PO DAILY magnesium oxide 400 mg PO BEDTIME 30 days riboflavin (vitamin B2) 400 mg PO DAILY 30 days rimegepant (Nurtec ODT) 75 mg PO ONCE PRN 30 days sumatriptan 20 mg/actuation 20 mg intranasal Q2H PRN 30 days MDD 40mg HPI HPI TV GENERAL NEUROLOGIST [facility] *SEE COMMENTS*: Details: Start time: 10.31am, End time: 11.31am ?I spent 55 minutes speaking with the patient on the phone plus an additional 5 minutes reviewing and updating records for a total of 60 minutes HPI Comments Details: Previous weight loss efforts: exercise and self exercise Wakes up: 6am, Sleeps: 9pm Breakfast: skips Lunch: 12pm (fruits, ham and cheese roll, oatmeal) Dinner: 5pm (steak, chicken, vegetables, rice, pasta) Snacks: 9am (Kind protein bar), 7pm (ice cream, cup cake, cookie) Exercise: Has home treadmill and stationary bike Beverages: Coffee/tea: none, soda: none, juice: 1-2/wk, ETOH: none PFSH Medical History (Updated 06/01/24 @ 10:56 by Alejandro Capps MD) Connective tissue disorder Obesity Pseudotumor cerebri Enlarged tonsils HLD (hyperlipidemia) Hypothyroidism History of depression KARISSA (iron deficiency anemia) Asthma Heart murmur GERD (gastroesophageal reflux disease) Celiac disease Surgical History (Updated 05/09/24 @ 10:43 by Kaley Coombs CMA) Hx of colonoscopy Hx of bladder endoscopy H/O eye surgery Family History (Updated 05/09/24 @ 10:45 by Kaley Coombs CMA) Maternal Grandmother Diabetes Hypertension Paternal Grandfather Hypertension Father Rheumatoid arthritis Diabetes Fibromyalgia Migraines Anxiety Lupus Mother Fibromyalgia Migraines Hypertension Hypercholesteremia Son Thyroid condition Asthma Son Autism Daughter Arthritis Social History Alcohol intake: never Patient Tobacco Use Status: Never used Tobacco Physical Exam Vital Signs: BMI result Body Mass Index 31.3 Telehealth Telehealth Telehealth Platform: Telephone Location of provider rendering services: practice address Location of patient: address on file Patient Identification confirmed using: Name, : Yes Telehealth method: voice only Patient verbally consented to treatment: Yes Patient verbally consented to billing insurance company: Yes Patient informed of any privacy concerns related to visit: Yes Minutes spent on Phone/Video with Pt.: 60 Assessment & Plan Assessment & Plan (1) Obesity, Class I, BMI 30-34.9: Code(s): E66.811 - Obesity, class 1 Category: Medical Plan: 1. We discussed in detail the available therapeutic options: 1) our lifestyle intervention program that has an average weight loss of 10% in 3 months.? 2) Weight loss medications. 3) We also discussed about the lap sleeve gastrectomy. I emphasized the importance of close follow-up, adherence to instructions and good communication. The surgery does not replace the need to change your lifestlyle which is the cause of the obesity problem. The surgery provides the motivation to try again to change your lifestyle, it reduces the appetite and make the transition to a better lifestyle easier and doubles the amount of weight you would lose compared to doing the lifestyle change without the surgery. You will need to be on a liquid diet with protein shakes for 2 weeks before surgery to maximize weight loss and boost your nutritional status to recover better from surgery and also for the first two weeks after surgery to let the stomach heal before we introduce other foods. After the first 2 weeks we will introduce protein bars and soft foods like scrambled eggs, cottage cheese and yogurt and after the 6th week will introduce meat, fish and cooked vegetables in small amounts. Over time you should be able to eat everything in small amounts. Side effects like nausea, vomiting, heartburn or abdominal pain are not common in the practice unless you are not following in the practice. This operation requires lifetime commitment to following in our practice and communication with me. You will much less weight and experience side effects if you don?t communicate or not following in the practice. Complications are rare and in our practice is about 1/10 of the national average. The patient prefers to try the anti-obesity medications. She had an elevated blood pressure in my office of 140 / 68 and she has medically treated hypertension. I asked her to track her blood pressure daily in the morning the next few days and based on these reading we will decide which medication is most appropriate for her. ?2.? Please buy the body composition scale we discussed and send me weight measurements as soon as possible and then once a week. 3. The best choice would be to use the stationary bike or treadmill at home that can track calories. Goal is to exercise for 150 minutes per week. 4. Goal is to lose at least 1.5-2lbs per week 5. Goal to lose at least 10% of your weight, which is about 20lbs. Weight goal: 174lbs 6. Buy a blood pressure monitor and start measuring your blood pressure daily in the morning and let me know the readings 7.?We discussed the potential side-effects of the Phentermine such as irritability, dry mouth, difficulty sleeping, dizziness, numbness in feet and high blood pressure. I asked her to get a blood pressure monitor and measure the blood pressure daily in the morning and evening. She needs to send the blood pressure readings daily and to call the office for blood pressure over 140/80 and she understands that. 8. Please track the calories you consume daily and aim not to exceed the 1200 calories per day. Avoid high calorie drinks, fried, or high in fat foods as well as large amount of carbohydrates (sweets, potatoes, rice, or pasta). Please use the [employer] vandana or a similar vandana to track the calories you consume every day. Medications: New phentermine must administer 30 minutes before or 1-2 hours after breakfast 37.5 mg PO DAILY 30 caps 0RF E66.811 - Obesity, class 1, Z68.31 - Body mass index [BMI] 31.0-31.9, adult
[2024-06-01 11:02] VITALS: BMI 31.3
== END 2024-06-01 11:31 | disposition home or self-care (01) ==
LOC: HO.HBS 08:04
PROVIDERS: PCP Physician Assistant; Visit Provider Surgery
DX: E66.811 Obesity, class 1 (principal); Z68.31 Body mass index [BMI] 31.0-31.9, adult
CPT/HCPCS: 99205

== ENCOUNTER 2024-07-03 09:40 | Outpatient (AMB) | payer OTHER, SELFPAY ==
--- NOTE | 2024-07-03 09:44 | A.OFFVIS_ITS ---
Vital Signs 07/03/24 09:47 Height 5 ft 6 in Weight 194 lb BMI 31.3 Pulse 81 Pulse Source Pulse Oximeter Pulse Oximetry (%) 99 Oxygen Delivery Method Room Air Intake Visit Reasons: Botox-Conf Intake Note: Patient presents for botox injection Allergies galcanezumab-gnlm [From Emgality Pen] Allergy (Severe, Verified 07/03/24 09:47) Anaphylaxis gluten [GLUTEN] Allergy (Unknown, Verified 07/03/24 09:47) DIARRHEA lactose Allergy (Unknown, Verified 07/03/24 09:47) Unknown metoclopramide [From REGLAN] Allergy (Unknown, Verified 07/03/24 09:47) UNKNOWN ibuprofen Adverse Reaction (Verified 07/03/24 09:47) Stomach Upset HPI Comments Details: ? 29y/o female comes for treatment of migraines with botox. ??? Most frequent reported adverse reactions following injection of botox for chronic migraine include neck pain (9%), headache(5%), eyelid ptosis(4%), migraine(4%), muscular weakness(4%), musculuskeletal stiffness(4%), bronchitis(3%), injection site pain (3%), musculoskeletal pain(3%), myalgia(3%), facial paresis(2%), HTN(2%) and muscle spasms(2%) were discussed in detail. ??? Botulinum toxin typeA 200units Lot no [id number] expiration May 2026 was diluted with 4 cc of normal saline . ??? Muscles injected- ??? Frontalis 4 sites ??? Procerus 1 site xxx ??? Restrictive Preparation Operator- 2 sites ??? Temporalis- 8 sites ??? Occipitalis- 6 sites ??? Cervical paraspinals- 4 sites ??? Trapezius- 6 sites- 10 units each ??? 5 units each in 31 site ??? Total use- 185units ??? Discarded-15units [facility] Medical History Connective tissue disorder Obesity Pseudotumor cerebri Enlarged tonsils HLD (hyperlipidemia) Hypothyroidism History of depression KARISSA (iron deficiency anemia) Asthma Heart murmur GERD (gastroesophageal reflux disease) Celiac disease Surgical History Hx of colonoscopy Hx of bladder endoscopy H/O eye surgery Family History Maternal Grandmother Diabetes Hypertension Paternal Grandfather Hypertension Father Rheumatoid arthritis Diabetes Fibromyalgia Migraines Anxiety Lupus Mother Fibromyalgia Migraines Hypertension Hypercholesteremia Son Thyroid condition Asthma Son Autism Daughter Arthritis Social History Alcohol intake: never Patient Tobacco Use Status: Never used Tobacco Physical Exam Vital Signs: Last Vital Signs Pulse 81 07/03/24 09:47 Pulse Ox 99 07/03/24 09:47 Oxygen Delivery Method Room Air 07/03/24 09:47 BMI result Body Mass Index 31.3 Const General: cooperative and no acute distress Orientation/consciousness: patient oriented x3 Resp Effort & Inspection: normal respiratory effort and able to speak in complete sentences Neuro Other: Bilateral jaw tightness, more so on right bilateral posterior cervical tightness. General: patient oriented x3 Cranial nerves: Yes CN's II-XII intact bilaterally Cognition (Neuro): normal cognition Psych Appearance: grossly normal Mental Status: mental status grossly normal Speech and movement: Normal speech and movement present Affect: normal affect Attitude: cooperative Office Procedures Botulinum toxin Injection 51307 - Migraine Procedure code (CPT) selection complete Office Meds onabotulinumtoxinA 200 unit solution for injection Performing Provider: Mckenna Garcia MD Performing Location: [facility] Administered by: Mckenna Garcia MD on 07/03/24 10:09 Dose Route Admin Location Dispensed Lot Number Expiration Date [facility] Dental Laboratory Assistant 185 unit subcut 200 units [id number] ALLERGAN/BOTOX Comments: see HPI Assessment & Plan Assessment & Plan (1) Chronic migraine without aura: Code(s): G43.709 - Chronic migraine without aura, not intractable, without status migrainosus Category: Medical Qualifiers: Status migrainosus presence: without status migrainosus Intractability: intractable Qualified Code(s): G43.719 - Chronic migraine without aura, intractable, without status migrainosus (2) Bruxism: Code(s): F45.8 - Other somatoform disorders Category: Medical (3) TMJ (temporomandibular joint disorder): Code(s): M26.609 - Unspecified temporomandibular joint disorder, unspecified side Category: Medical Plan Patient tolerated the procedure well she will call with any side effects Orders: Orders AMB Botulinum toxin Injection Today G43.719 - Chronic migraine without aura, intractable, without status migrainosus Medications: New onabotulinumtoxinA 200 units subcut ONCE 1 ea 0RF Migraine G43.719 - Chronic migraine without aura, intractable, without status migrainosus Coding Level of Care Code Est Pt Level 1 (24538) Diagnoses Intractable chronic migraine without aura and without status migrainosus G43.719 Status migrainosus presence: without status migrainosus Intractability: intractable Bruxism F45.8 TMJ (temporomandibular joint disorder) M26.609 CPT Codes Botox Injection - Botox 3: 49512 - Migraine ([id number])
[2024-07-03 09:47] VITALS: PULSE 81; O2SAT 99; BMI 31.3
--- OUTSIDE RECORDS SUMMARY | 2024-07-03 10:22 | XMS_ITS | Data Portability ---
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 2024 LORETTA LOWERY PA-C [address] [place] [address],[place] [address], [place], [address] , [place] - [facility] 5 11:44:01 Migraine 82310936 Active 2024 LORETTA LOWERY PA-C [address] [place] [address],[place] [address], [place], [phone] , [place] - [facility] 5 11:44:09 Peripheral vertigo 02783277 Active 2024 LORETTA LOWERY PA-C [address] [place] [address],[place] [address], [place], [phone] , [place] - [facility] 5 11:44:31 Problem Notes None recorded. Procedures Surgical History Date Name Laterality Status Provider Name and Address Organization Details Recorded Time 05/30/2024 Comp Audio with Tymps - 52536 & 42055 completed ALEX LEBLANC, AUD [address] [facility], [place], [address], [place] - [facility] 05/30/2024 10:57:28 Imaging Results Imaging Date Name Status LastModified by Organiz ation Details LastModified Time 05/30/2024 audiogram completed BARCODE Information no t available 05/30/2024 13:43:08 Procedure Notes None recorded. Medical Equipment None Reported. Allergies Allergen ID Allergen Name Allergen Category Reaction Reaction Severity Criticality Documentation Date Start Date Code Code System Note Provider Name and Address Organization Details Recorded Time 567164 wheat gluten extract food other Not available Not available 09/23/2023 18355 81 RxNorm React ion: Unkno wn; Not Available [facility] 4 00:26:55 575059 Reglan medicatio n other Not available Not available 09/23/2023 9230 RxNorm React ion: Unkno wn; Not Available [facility] 4 00:26:58 Medications Name Sig Start Date [...] Available No t Available amoxicillin 875 mg-melony m clavulanate 125 mg tablet TAKE 1 [...] Updated DateTime 05/30/2024 167.64 cm 31.3 kg/m2 61960.92 g Zahra Toussaint [place] - [facility] 05/30/2024 10:30:49 Social History None recorded. Functional Status None recorded. Mental Status None recorded. Family History Nothing Reported. Medical History No medical history recorded. Gynecological HistoryNo gynecological history recorded. Obstetrics History GPAL:G 0 P 0 0 0 0 Past Encounters Encounter ID Performer Location Encounter Start Date Encounter Closed Date Diagnosis/Indication Diagnosis SNOMED-CT Code Diagnosis ICD10 Code Diagnosis Note [id number] LORETTA LOWERY PA-C [facility] [address] [place] [address] 05/30/2024 10:24:57 05/30/2024 11:14:02 Tinnitus of right ear 6523840149 108 H93.11 Audiologic al evaluation results: Right [...] a hermetic seal}} Atypical facial pain 713 97354 G50.1 Migraine 11528641 G43.90 9 Peripheral vertigo 97833 001 H81.399 Health Concerns Section Related Observation LastModified by Organization Vidal danielle LastModified Time None Recorded Concern Status LastModified by Organization Details LastModified Time None Recorded Advance Directives Directive None Recorded Payers Insurance Date Sequence Insurance Name Policy Number Policy Hess Covered Member ID Hess Member ID Guarantor Name 04/04/2024 1 [facility] (MEDICAID HMO) JOVI Wangarza [id number] Jennica Blevins 04/04/2024 1 [place] [facility] Franshesca Blevins [id number] Jennica Blevins 05/30/2024 2 [place] [facility] Franshesca Blevins [id number] Oscarnshesca Blevins 06/01/2024 1 [facility] - [facility] (MEDICAID REPLACEMENT - HMO) LEON Arteagaca Blevins [id number] Jennica Blevins 04/04/2024 2 [place] Oscarnshesca Blevins [id number] Prasadhesca Blevins Notes Date Note Type Note Provider [...] not have thunderclap onset. LORETTA LOWERY PA-C [address] [place] [address], [address], [place] - [facility] 05/31/2024 15:33:28 OBGyn Episode No OBEpisode recorded.
--- OUTSIDE RECORDS SUMMARY | 2024-07-03 10:22 | XMS_ITS | Clinical Summary ---
Author Organization [facility] Address [address] [id number] Care Team Providers Care Casting Agent Name Role Phone Sarai Solares MD Primary Care Provider [phone] Allergies Active Allergy Reactions Criticality Noted Date [...] age to complete this topic Care Teams Casting Agent Relationship Specialty Start Date End Date Sarai Solares MD [address] [place] [phone] PCP - General Internal Medicine 06/22/22
--- OUTSIDE RECORDS SUMMARY | 2024-07-03 10:22 | XMS_ITS | Data Portability ---
Author Organization DAMIAN Nelson s, [address] Address [address] [place] [address] Care Team Providers Care Medical Laboratory Manager Name Role Phone [facility] GI Primary Care Pr ovider Assessment No assessment recorded. Plan of Treatment Reminders Order Date Submit Date Provider Last Modified By Organization Details Last Modified Time Details Appointments None recorded. Lab urinalysis , dipstick 2022 023 [facility], [address] [place], [address], 13:16:55 test, urine 2022 023 [facility] [address] [place], [place] [address], [address] [place] [address], [address], 13:16:55 culture, urine 2022 023 [facility], [address] [place] [address], [place], [address], 18:06:14 Referral None recorded. Procedures None recorded. Surgeries None recorded. Imaging None recorded. Medication Orders Macrobid 100 mg capsule 2022 023 [id number], [address] [place], [address], 13:17:00 Patient TargetsNo targets recorded. Patient Instructions Encounter Date Encounter Id Patient Instructions Last Modified By Organization Details Last Modified Time 04/25/2022 [id number] We recommend you get a repeat urinalysis [...] routine FINAL REPORT abnormal Not Available [facility] ([facility]) [address] [place], [address], 04/28/2022 16:06:54 04/26/19 23 04/28/2022 URINE CULTU RE, ROUTI NE result 1 ESCHER ICHIA COLI abnormal 50,00 0-100 ,000 colon y formi ng units per mL Not Available [facility] ([facility]) [address] [place], [address], 04/28/2022 16:06:54 04/26/19 23 04/28/2022 URINE CULTU [...] furan toin S Piper acill in/Ta zobac cehn S Tetra cycli ne S Tobra mycin S Trime thopr im/Dunn lfa S Not Available [facility] ([facility]) [address] [facility], [place], [address], 04/28/2022 16:06:54 04/26/19 23 04/25/2022 urina lysis , dipst ick Unknown Analyte Normal = light yellow Not Available [facility] [address] [place], [address], 04/25/2022 12:26:46 04/26/19 23 04/25/2022 urina lysis , dipst ick Unknown Analyte Yellow Not Available [facility] [address] [place], [address], 04/25/2022 12:26:46 04/26/19 23 04/25/2022 urina lysis , dipst ick Unknown Analyte Normal = clear Not Available [facility] [address] [place], [address], 04/25/2022 12:26:46 04/26/19 23 04/25/2022 urina lysis , dipst ick Unknown Analyte Turbid Not Available [address] [facility] [address] [place], [address], 04/25/2022 12:26:46 04/26/19 23 04/25/2022 urina lysis , dipst ick Unknown Analyte Normal = negati ve Not Available [facility] [address] [place], [address], 04/25/2022 12:26:46 04/26/19 23 04/25/2022 urina lysis , dipst ick Unknown Analyte Negati ve Not Available [address] [place], [address], 04/25/2022 12:26:46 04/26/19 23 04/25/2022 urina lysis , dipst ick Unknown Analyte Normal = Negati ve Not Available [facility] [address] [place], [address], 04/25/2022 12:26:46 04/26/19 23 04/25/2022 urina lysis , dipst ick Unknown Analyte Negati ve Not Available [address] [address] [place], [address], 04/25/2022 12:26:46 04/26/1904/25/2022 urina lysis , dipst ick Unknown Analyte Normal = Negati ve Not Available [facility] [address] [place], [address], 04/25/2022 12:26:46 04/26/19 23 04/25/2022 urina lysis , dipst ick Unknown Analyte Negati ve Not Available [facility] [address] [place], [address], 04/25/2022 12:26:46 04/26/19 23 04/25/2022 urina lysis , dipst ick Unknown Analyte Normal = 1.010, 1.015, 1.020 Not Available [address] [place], [address], 04/25/2022 12:26:46 04/26/19 23 04/25/2022 urina lysis , dipst ick Unknown Analyte 1.030 Not Available [facility] [address] [place], [address], 04/25/2022 12:26:46 04/26/19 23 04/25/2022 urina lysis , dipst ick Unknown Analyte Normal = Negati ve Not Available [address] [place], [address], 04/25/2022 12:26:46 04/26/1904/25/2022 urina lysis , dipst ick Unknown Analyte Large Not Available [id number] [place] [id number] [address] [place], [address], 04/25/2022 12:26:46 04/26/19 23 04/25/2022 urina lysis , dipst ick Unknown Analyte Normal = 6.5, 7.0, 7.5, 8.0 Not Available [facility] [address] [place], [address], 04/25/2022 12:26:46 04/26/1904/25/2022 urina lysis , dipst ick Unknown Analyte 5.5 Not Available [id number] [place] [id number] [address] [place], [address], 04/25/2022 12:26:46 04/26/1904/25/2022 urina lysis , dipst ick Unknown Analyte Normal = Negati ve Not Available [facility] [address] [place], [address], 04/25/2022 12:26:46 04/26/19 23 04/25/2022 urina lysis , dipst ick Unknown Analyte 30 mg/dL Not Available [address] [place], [address], 04/25/2022 12:26:46 04/26/1904/25/2022 urina lysis , dipst ick Unknown Analyte Normal = 0.2, 1.0 Not Available [facility] [address] [place], [address], 04/25/2022 12:26:46 04/26/19 23 04/25/2022 urina lysis , dipst ick Unknown Analyte 0.2 E.U./d L Not Available [address] [address] [place], [address], 04/25/2022 12:26:46 04/26/19 23 04/25/2022 urina lysis , dipst ick Unknown Analyte Normal = Negati ve Not Available [facility] [address] [place], [address], 04/25/2022 12:26:46 04/26/19 23 04/25/2022 urina lysis , dipst ick Unknown Analyte Positi ve Not Available [facility] [address] [place], [address], 04/25/2022 12:26:46 04/26/19 23 04/25/2022 urina lysis , dipst ick Unknown Analyte Normal = Negati ve Not Available [facility] [address] [place], [address], 04/25/2022 12:26:46 04/26/19 23 04/25/2022 urina lysis , dipst ick Unknown Analyte Small Not Available [id number] [place] [id number] [address] [place], [address], 04/25/2022 12:26:46 04/26/19 23 04/25/2022 pregn tori test, urine Unknown Analyte Normal = Negati ve Not Available [facility] [address] [place], [address], 04/25/2022 12:26:47 04/26/19 23 04/25/2022 pregn tori test, urine Unknown Analyte negati ve Not Available [facility] [address] [place], [address], 04/25/2022 12:26:47 Result Notes None recorded. Problems Name Problem SNOMED Code Status Onset Date Resolution Date Notes Provider Name and Address Organization Details Recorded Time Disorder of thyroid gland 14354032 Active [facility]AB LUISA Jelani null, [place] - [facility] 12:30:35 Asthma 190327231 Active FAB GARNERSANCHEZ Jelani null, PA - [facility] 12:30:42 Celiac disease 078536038 Active FAB LUISA Jelani null, PA - [facility] 12:30:52 Problem Notes None recorded. Medical Equipment None Reported. Allergies Allergen ID Allergen Name Allergen Category Reaction Reaction Severity Criticality Documentation Date Start Date Code Code System Note Provider Name and Address Organization Details Recorded Time 774623 Reglan medicatio n rash Not available Not [...] Updated DateTime 3 167.64 cm 27 kg/m2 05935.9 3 g 17 /min 10 97 % 97 % 72 /min 97.2 [degF] 100 mm[Hg] 62 mm[Hg] FAB NIEVES RA PA - [facility] 12:34:41 Social History Question Answer Notes LastModified by Organizat ion Details LastModified Time Tobacco Smoking Status Never Smoker FAB castaneda, PA - [facility] 04/25/2022 12:32:39 Have You Had Direct Contact, Or Contact During Intimacy, With Monkeypox Rash, Scabs, Or Body Fluids From A Person With Monkeypox? No Information not available 04/25/2022 Have You Recently Traveled Abroad? No Information not available 04/25/2022 Sex: Unknown Functional Status Question Answer Note LastModified by Organizat ion Details LastModified Time Do you use any illicit or recreational drugs? No Information not available 04/25/2022 Do you or have you ever used any other forms of tobacco or nicotine? No Information not available 04/25/2022 What is your level of alcohol consumption? None Information not available 04/25/2022 Mental Status None recorded. Family History Relationship [...] quadrivalent, PF 11/26/2017 completed DAMIAN Guerrero - [facility] 04/25/2022 12:29:17 Past Encounters Encounter ID Performer Location Encounter Start Date Encounter Closed Date Diagnosis/Indication Diagnosis SNOMED-CT Code Diagnosis ICD10 Code Diagnosis [place] [id number] [place] [address] [address] [facility], [place] [address] 04/25/2022 10:55:44 04/25/2022 13:18:52 Acute urinary tract infection 756995210 N39.0 Health Concerns Section Related Observation LastModified by Organization Detai ls LastModified Time None Recorded Concern Status LastModified by Organization Details LastModified Time None Recorded Advance Directives Directive None Recorded Payers Insurance Date Sequence Insurance Name Policy Number Policy Hess Covered Member ID Hess Member ID Guarantor Name 06/24/2022 1 [facility] (O) LEON Blevins [id number] Miguel Angel Blevins Notes Date Note Type [...] Miranda NP [address] [place], [address], PA - [facility] 04/25/2022 13:17:27 OBGyn Episode No OBEpisode recorded.
--- OUTSIDE RECORDS SUMMARY | 2024-07-03 10:22 | XMS_ITS | Continuity of Care Document ---
Author Organization [facility] Address [address] [place] [address] Care Team Providers Care Manager Film Name Role Phone Sujatha GAMINO, Sarai D Primary Care Physician [phone] Encounter [facility] Date(s): 05/28/24 - 06/27/[address] [address] Encounter Type: Triage Allergies, Adverse Reactions, Alerts Substance Criticality Severity [...] 11:35:00 AM EDT, Route to Pharmacy Electronically, [facility]/pharmacy #[id number], Partial fill upon patient request if the prescription is for a schedule II opioid drug., 168, cm, 10/11/23 11:28:00 EDT, Height, 89, kg, 09/27/23 0:40:00 EDT, Dry Weight Start Date: 10/11/23 Status: Ordered Quantity: 50.0 Unit: tablet Repeat number: 2 AcetaZOLAMIDE Daily, Refills 0, Maintenance, 05/16/24 10:56:00 AM EDT, Partial fill upon patient request if the prescription is for a schedule II opioid drug. Start Date: 05/16/24 Status: Ordered Repeat number: 1 albuterol CFC free 90 mcg/inh inhalation aerosol 2, puffs, Inhalation, Every 4 hours, PRN, # 1 each, Refills 2, Tot. Refills 2, Maintenance, 08/05/1911:44:12 PM EDT, Route to Pharmacy Electronically, [id number], [facility]/pharmacy #[id number] Start Date: 08/04/18 Status: Ordered Quantity: 1.0 Unit: each Repeat number: 3 Carafate 1 gm oral tablet 1 Gm, 1, tablet, By Mouth, 2 times a day, # 60 tablet, Refills 0, Tot. Refills 0, Maintenance, 04/11/24 10:06:00 AM EST, Route to Pharmacy Electronically, [facility]/pharmacy #[id number], Partial fill upon patientrequest [...] Refills, Soft Stop, 01/04/23 1:49:00 PM EST, [facility]/pharmacy #[id number], Partial fill upon patient [...] 11:35:00 AM EDT, Route to Pharmacy Electronically, [facility]/pharmacy #[id number], Partial fill upon patient [...] 10:35:00 AM EDT, Route to Pharmacy Electronically, [facility]/pharmacy #[id number], Partial fill upon patient request if the [...] Disorder Confirmed Active Thyroid dysfunction 1 Confirmed 2014 Active 1Per [facility] endocrine note documentation, patient has a remote history of thyroid dysfunction Social History Social History Type Response Smoking Status Never (less than 100 in lifetime) entered on: 05/08/18 Sex Sex Representation Female (finding) Patient Care team information Care Team Personnel Name: Danial Mckeon MD Position: [facility] Physician -Physician Practices Member Role: Lifetime Consulting Physician Name: Sujatha GAMINO, Sarai Coello Position: Reference Physician Member Role: PCP Address: [address] [place] [address], [address] [place], [place] [address] Telecom: Name: Abigail Kline NP Position: [facility] Associate Professional Member Role: Primary Care Nurse Address: [address] [place] [address] [address] [place], [place] [address] Telecom: Name: Rachael Schwarz Position: [facility] Outreach Member Role: Lifetime Consulting Physician Care Team Related Persons Name: ZECHARIAH BELTRAN Name: JURGEN BELTRAN Name: YESSENIA NIX Name: JENNY NIX Name: DEWAYNE NIX Name: VICENTE BERRY Insurance Providers Guarantor name: JYOTI BELTRAN Health Plan Information #: 1 Payer: [employer] Member Number: NA Policy Number: NA Group Number: NA
--- OUTSIDE RECORDS SUMMARY | 2024-07-03 10:23 | XMS_ITS | Clinical Summary ---
Author Organization Patient Business Ser [facility] Address [address] [place] [address] Care Team Providers Care Experienced Truck Driver Name Role Phone Sarah wKok Primary Care Provider + Allergies Active Allergy [...] HOLD FOR LOOSE STOOL 09/07/19 23 Active ondansetron (ZOFRAN) 8 mg tablet Take [...] DAY 90 tablet 1 03/21/19 25 Active linaCLOtide (Linzess) 72 mcg capsule Take 1 capsule (72 mcg total) by mouth 1 (one) time each day. 30 each 2 05/15/19 25 2024 Active omeprazole (PriLOSEC) [address] capsule TAKE 1 CAPSULE BY MOUTH DAILY 90 capsule 1 05/25/19 25 Active sucralfate (CARAFATE) 100 mg/mL suspension TAKE 10 MLS BY MOUTH TWICE DAILY BEFORE MEALS, 1 HOUR BEFORE MEALS AND AT BEDTIME 2520 mL 1 06/06/19 25 Active acetaZOLAMIDE (DIAMOX) 500 mg 12 hr capsule Take 1 capsule (500 mg total) by mouth 2 (two) times a day. 05/21/19 25 Active metoprolol succinate (TOPROL-XL) 25 mg 24 hr tabletIndicati ons:Palpitatio ns,PVC's (premature ventricular contractions) Take 1 tablet (25 mg total) by mouth 1 (one) time each day. Do not crush or chew. 90 tablet 3 06/06/19 25 Active cetirizine (ZyrTEC) 10 mg tablet Take 1 tablet (10 mg total) by mouth 1 (one) time each day. 06/06/19 25 Active eletriptan (RELPAX) 40 mg tablet PLEASE SEE ATTACHED FOR DETAILED DIRECTIONS Active Nurtec 75 mg dispersible tablet TAKE 1 TAB ORALLY ONCE NEEDED FOR MIGRAINE HEADACHE FOR 30 DAYS MAX DAILY DOSE 1 TAB PER DAY 05/13/19 Active metoprolol succinate (TOPROL-XL) 25 mg 24 hr tablet Take 1 tablet (25 mg total) by mouth 1 (one) time each day. Do not crush or chew. 2024 Discontinued(R eorder) sucralfate (CARAFATE) 100 mg/mL suspension Take 10 mL (1 g total) by mouth 2 (two) times a day before meals. Take 1 hour before meals and at bedtime 600 mL 3 05/15/19 25 2024 Discontinued Active Problems Problem Noted Date Diagnosed Date Supervision of normal first 11/24/2023 Overview (11/24/2023): office: [place] Delivery site: [facility] Blood Type: O+ Quad screen: negative GBS: [...] Encounters Date Type Department Care Team Description 06/05/2024 11:00 AM EDT Office Visit Internal Medicine - [address] [place] [address] Saarh Kwok PA Pseudotumor cerebri (Primary Dx); Frequent headaches; Cervico-occipital neuralgia of right side; Hypothyroidism, unspecified type; Palpitations; PVC's (premature ventricular contractions) 05/14/2024 9:10 AM EDT Office Visit Gastroenterology [facility] [address] [facility] 175 [facility] [address] [place] [address] Minnie Raman PA Celiac disease [...] Sign Reading Time Taken Comments Blood Pressure 138/80 06/05/2024 10:55 AM EDT Pulse 85 06/05/2024 10:55 AM EDT Temperature 36.4 ??C (97.5 ??F) 06/05/2024 10:55 AM E DT Respiratory Rate - - Oxygen Saturation 98% 06/05/2024 10:55 AM EDT Inhaled Oxygen Concentration - - Weight 89.8 kg (198 lb) 06/05/2024 10:55 AM EDT Height 167.6 cm (5' 6 ) 06/05/2024 10:55 AM EDT Body Mass Index 31.96 06/05/2024 10:55 AM EDT Plan of Treatment Upcoming Encounters Date Type Department Care Team (Late st Contact Info) Description 08/29/2024 9:10 AM EDT Office Visit Gastroenterology - [place] [address] [phone] Minnie Raman PA [address] [address] 09/07/2024 10:45 AM EDT Office Visit Internal Medicine - [place] [address] [phone] Sarah Kwok PA [address] [address] Health Maintenance Due Date Last Done Comments COVID-19 Vaccine (#1) 1999 Pneumococcal Vaccine: Pediatrics (0 to 5 Years) and At-Risk Patients (6 to 64 Years) (1 of 2 - PCV) 2013 Cervical Cancer Screening: Pap Smear 2015 Hepatitis C Screening 05/19/2021 Depression Screening 03/15/2024 03/15/2023 Social Influencers of [...] Health Maintenance Results * Depression Screening (03/15/2023) Pathologist [facility] Depression Screening Abstracted Historical Provider HEALTH MAINTENANCE Final Result * Lipid panel (10/22/2022) Pathologist [facility] LDL/HDL Ratio 3 0 - 4 Triglycerides 77 0 - 150 mg/dL Cholesterol 183 0 - 200 mg/dL HDL 72 >=40 mg/dL LDL Cholesterol 96 0 - 100 mg/dL Blood Venous blood specimen / Unknown Historical Provider LAB BLOOD ORDERABLES Ambreen l Result * HIV Screening (04/13/2013) Pathologist [facility] HIV Screening Abstracted Historical Provider HEALTH MAINTENANCE Final Result from Last 3 Months or Most Recently Relevant to Health Maintenance Insurance [facility] Care Teams Experienced Truck Driver Relationship Specialty Start Date End Date Sarah Kwok PA [address] [address] PCP - General Primary Care 01/30/24
== END 2024-07-03 10:22 | disposition home or self-care (01) ==
LOC: HO.HSMS 09:40
PROVIDERS: PCP Internal Medicine; Visit Provider Psychiatry & Neurology Neurology
DX: G43.719 Chronic migraine without aura, intractable, without status migrainosus (principal)
CPT/HCPCS: 64615

== ENCOUNTER → 2024-07-03 09:40 | Outpatient (BNVA) | payer OTHER, SELFPAY | PROVIDERS: PCP Internal Medicine; Visit Provider Psychiatry & Neurology Neurology | DX: G43.719 Chronic migraine without aura, intractable, without status migrainosus (principal); M26.609 Unspecified temporomandibular joint disorder, unspecified side; F45.8 Other somatoform disorders | CPT/HCPCS: 64615; 99211; J0585 ==

== ENCOUNTER 2024-08-26 10:36 | Emergency (ER) | payer OTHER, SELFPAY ==
--- NOTE | ~2024-08-26 | XR_ITS ---
CLINICAL HISTORY: pain, injury 4 view right ankle Comparison: None provided Findings: Bones intact. No dislocations. No significant loss of joint space, osteophytes, or erosions. No ankle effusion. No radiopaque foreign body. IMPRESSION: 1. No acute findings. This document has been electronically signed by: Jesus Moralez MD on 08/26/2024 13:14:35
--- NOTE | ~2024-08-26 | XR_ITS ---
CLINICAL HISTORY: pain, injury 3 view, pelvis and right hip Comparison: None provided Findings: No acute fracture or dislocation. No significant arthritic change. The soft tissues are unremarkable. IMPRESSION: No acute findings. This document has been electronically signed by: Jesus Moralez MD on 08/26/2024 13:15:37
--- NOTE | ~2024-08-26 | XR_ITS ---
CLINICAL HISTORY: pain, injury 3 views lumbar spine Comparison: None provided Findings: Normal vertebral body alignment. No acute fractures or dislocation. No significant degenerative change. An IUD is noted. IMPRESSION: No acute findings. This document has been electronically signed by: Jesus Moralez MD on 08/26/2024 13:14:46
--- NOTE | ~2024-08-26 | XR_ITS ---
CLINICAL HISTORY: pain, injury 3 view right foot Comparison: None provided Findings: No fractures or dislocations. No significant arthritic change or erosions. No ankle effusion. No radiopaque foreign body. IMPRESSION: 1. No acute findings. This document has been electronically signed by: Jesus Moralez MD on 08/26/2024 13:14:20
--- NOTE | 2024-08-26 11:17 | ED_ITS ---
HPI - General Adult General Chief complaint: Extremity Injury, Lower Stated complaint: fall Time Seen by Provider: 08/26/24 11:17 Source: patient and other (patient's boyfriend) Mode of arrival: ambulatory Limitations: no limitations History of Present Illness ED Provider: Ale Conklin PA-C HPI narrative: Patient is a 29 year old female with past medical history of asthma, migraine with aura, and pseudotumor cerebri presenting to ER on 08/26 with chief complaint of fall 3 days ago with associated R lower back, R hip, R ankle pain. The pain in her right hip radiates to her front groin and down the back of her leg. She was going up the stairs carrying a load of laundry when she tripped and fell down 2 stairs, inverting her right ankle and striking her right hip and felt her right hip pop in and out of place. She denies head strike. She denies loss of consciousness, nausea, vomiting, seizures, fevers, or chills after her fall. She denies new onset bowel or bladder incontinence. She denies saddle anesthesia/paresthesias in her lumbar or pelvic region. She is not on blood thinning medications. She endorses some numbness and tingling in her left foot. Onset (ago): day(s) (3 days) Location: right (right lower back, hip, ankle) Relieving factors: none Exacerbating factors: other (Weight bearing) Associated symptoms: denies other symptoms Treatments prior to arrival: none Related Data Home Medications ?Medication ?Instructions ?Recorded ?Confirmed gabapentin 300 mg capsule 600 mg PO BID 12/27/2306/01 levothyroxine 100 mcg tablet 100 mcg PO DAILY 12/27/23 06/01/24 Previous Rx's ?Medication ?Instructions ?Recorded atogepant 30 mg tablet (Qulipta) 30 mg PO DAILY 30 day s #30 tabs 03/29/24 magnesium oxide 400 mg (241.3 mg 400 mg PO BEDTIME 30 days #30 tabs 03/29/24 magnesium) tablet riboflavin (vitamin B2) 400 mg 400 mg PO DAILY 30 days #30 tabs 03/29/24 tablet sumatriptan 20 mg/actuation nasal 20 mg intranasal Q2H PRN migraine 05/20/24 spray headache 30 days #6 ea eletriptan 40 mg tablet See Rx Instructions PO .COMP JARRETT 05/22/24 PRN migraine headache 30 days #12 tabs phentermine 37.5 mg capsule 37.5 mg PO DAILY #30 caps 06/01/24 rimegepant 75 mg disintegrating 75 mg PO ONCE PRN migr [place] 06/29/24 tablet (Nurtec ODT) headache 30 days #16 tabs acetazolamide 500 mg 500 mg PO Q12H 30 days #60 c aps 07/12/24 capsule,extended release Allergies Allergy/AdvReac Type Severity Reaction Status Date / Time [id number]-gnlm (From Allergy Severe Anaphylaxis Verified 08/26/24 11:26 Emgality Pen) gluten (GLUTEN) Allergy Unknown DIARRHEA Verified 08/26/24 11:26 lactose Allergy Unknown Unknown Verified 08/26/24 11:26 metoclopramide (From REGLAN) AdvReac Unknown Anxiety Verified 08/26/24 11:26 ibuprofen AdvReac Stomach Verified 08/26/24 11:26 Upset Review of Systems Constitutional: Constitutional: Reports no additional constitutional complaints, Denies chills, Denies fever(s) and Denies night sweats Eyes: Eyes: Reports no additional eye complaints, Denies blurry vision, Denies change in vision, Denies diplopia, Denies eye discharge, Denies loss of vision and Denies eye pain ENT: Denies dizziness Cardiovascular: Cardiovascular: Reports no additional cardiovascular complaints, Denies chest pain, Denies lightheadedness, Denies Loss of Consciousness and Denies dyspnea Respiratory: Respiratory: Reports no additional respiratory complaints and Denies dyspnea Gastrointestinal: Gastrointestinal: Reports no additional gastrointestinal complaints, Denies abdominal pain, Denies melena, Denies hematochezia, Denies change in bowel habits and Denies change in stool character Genitourinary: Genitourinary: Denies hematuria, Denies urinary frequency, Denies dysuria, Denies urinary incontinence, Denies urinary hesitancy and Denies urinary urgency Musculoskeletal: Musculoskeletal: Reports no additional musculoskeletal complaints, Reports as per HPI, Denies numbness and Denies tingling Comments: Right hip pain Right ankle pain Right sided low back pain Neurologic: Denies dizziness, Denies loss of vision, Denies numbness and Denies tingling Psychiatric: Psychiatric: Reports no additional psychiatric complaints Endocrine: Endocrine: Reports no additional endocrine complaints Hematologic/Lymphatic: Hematologic/Lymphatic: Reports no additional hematologic/lymphatic complaints Allergic/Immunologic: Allergic/Immunologic: Reports no additional allergic/immunologic complaints PMFSH Past Medical History Attestation statement: The following information was validated with the patient. (all information validated with the patient's boyfriend) Source: old records reviewed, nursing notes reviewed and other (patient's boyfriend provided additional history and confirmed the history provided by the patient. ) Medical History Connective tissue disorder Obesity Pseudotumor cerebri Enlarged tonsils HLD (hyperlipidemia) Hypothyroidism History of depression KARISSA (iron deficiency anemia) Asthma Heart murmur GERD (gastroesophageal reflux disease) Celiac disease Surgical History Hx of colonoscopy Hx of bladder endoscopy H/O eye surgery Family History Family History Maternal Grandmother Diabetes Hypertension Paternal Grandfather Hypertension Father Rheumatoid arthritis Diabetes Fibromyalgia Migraines Anxiety Lupus Mother Fibromyalgia Migraines Hypertension Hypercholesteremia Son Thyroid condition Asthma Son Autism Daughter Arthritis Social History Social History Alcohol intake: never Patient Tobacco Use Status: Never used Tobacco Smoked in Last 30 Days: No Use of substances other than those prescribed or required for medical reasons: No Advance Directives: No Advance Directives Information Provided: Yes Do you have a plan to hurt others: No Plan Physical Exam ED Vital Signs: Vital Signs - 24 hr 08/26/24 11:21 08/26/24 12:00 08/26/24 12:00 Temperature 98.5 F 98.0 F Pulse Rate 85 80 71 Respiratory Rate 19 16 16 Blood Pressure 115/71 121/76 113/77 Pulse Oximetry 98 98 98 Oxygen Delivery Method Room Air Room Air Room Air 08/26/24 13:05 08/26/24 13:05 Temperature 98.7 F 98.7 F Pulse Rate 78 78 Respiratory Rate 16 16 Blood Pressure 96/63 96/63 Pulse Oximetry 99 99 Oxygen Delivery Method Room Air Room Air BMI result Body Mass Index 30.8 Const General: cooperative, no acute distress, alert and awake Nutritional Appearance: well nourished Orientation/consciousness: patient oriented x3 HENMT Head: Yes normal to inspection and Yes atraumatic Ears: hearing grossly normal bilaterally and external ears normal General nose exam: Normal external nose present, no nasal discharge noted and no epistaxis Face and sinus: Yes normal facial exam, No abrasion and No laceration Mouth: Normal oral and palatal mucosa present, no drooling and no muffled voice Eyes General: appearance normal, both eyes and all related structures Periorbital: periorbital findings normal Eyelids: Yes eyelids normal Conjunctivae: conjunctivae normal Pupils: Equal, round and reactive pupils present EOM: EOMs intact bilaterally Neck Neck: Yes normal visual inspection, Yes full ROM and Yes no lymphadenopathy Resp Effort & Inspection: normal respiratory effort and able to speak in complete sentences Back/Spine/Pelvis Back: No mass, No erythema, No warmth and No ecchymosis Thoracic/Lumbar Spine: pain with thoraco-lumbar ROM and paraspinal muscle tenderness Neuro General: patient oriented x3, moves all extremities and CN's II-XI intact bilaterally Cranial nerves: Yes Equal, round and reactive pupils present Cognition (Neuro): normal cognition Extrem General: Yes normal to inspection, Yes full ROM and Yes capillary refill normal Psych Appearance: grossly normal Mental Status: mental status grossly normal Affect: normal affect Attitude: cooperative Thought process: Normal thought process present Thought content: Normal thought content present Insight: Good insight present (Psych) Medications Administered Discontinued Medications Generic Name Dose Route Start Last Admin Trade Name Freq PRN Reason Stop Dose Admin Oxycodone HCl 10 mg 08/26/24 11:33 08/26/24 12:00 Oxycodone Hcl Immed Release 5 Mg Tablet PO 08/26/24 11:34 10 mg ONCE ONE Administration Medical Decision Making Medical Decision Making [facility] Narrative: Patient is a 29 year old assigned female at with a history of asthma, migraine with aura, and pseudotumor cerebri presenting to the emergency department today with right sided ankle pain, hip pain, and back pain. Patient's physical exam was as noted in the physical exam portion of this note. Patient's right hip, ankle, foot, and lumbar x-rays showed no acute process. I explained my physical exam findings as well as all test results to the patient and the patient's boyfriend. I answered all questions asked by the patient and the patient's boyfriend. I stressed the importance of the patient taking her medication as directed (either prescribed or as the over the counter packaging recommends). I stressed the importance of the patient following up with her primary care provider. I stressed the importance of the patient returning to the emergency department immediately if her symptoms were to worsen or if she were to develop any dizziness, shortness of breath, difficulty breathing, chest pain, blurry vision, loss of vision, nausea, vomiting, abdominal pain, fever, chills, back pain, or any other complaints. Patient and the patient's boyfriend verbalized agreement and understanding with this treatment plan and discharge. Differential Diagnosis Differential Diagnoses: The differential diagnosis associated with the p resentation includes Ankle sprain Ankle strain Foot pain Foot sprain Foot fracture Ankle fracture Lumbar pain Lumbar fracture Admission/Observation Consideration of admission/observation: Escalation of care including admission/observation considered Patient would have been admitted to the hospital had her work up had any findings where hospital admission was appropriate and her clinical presentation warranted hospital admission. Independent Interpretation I performed an independent interpretation of an: Plain X-Ray Interpretation: My interpretation is in agreement with the radiologist's impression of these imaging studies. CLINICAL HISTORY: pain, injury 3 view, pelvis and right hip Comparison: None provided Findings: No acute fracture or dislocation. No significant arthritic change. The soft tissues are unremarkable. IMPRESSION: No acute findings. This document has been electronically signed by: Jesus Moralez MD on 08/26/2024 13:15:37 Dictated By: Jesus Moralez MD Signed By: Electronically signed by Jesus Moralez MD 08/26/24 1316 CLINICAL HISTORY: pain, injury 3 views lumbar spine Comparison: None provided Findings: Normal vertebral body alignment. No acute fractures or dislocation. No significant degenerative change. An IUD is noted. IMPRESSION: No acute findings. This document has been electronically signed by: Jesus Moralez MD on 08/26/2024 13:14:46 Dictated By: Jesus Moralez MD Signed By: Electronically signed by Jesus Moralez MD 08/26/241314 CLINICAL HISTORY: pain, injury 3 view right foot Comparison: None provided Findings: No fractures or dislocations. No significant arthritic change or erosions. No ankle effusion. No radiopaque foreign body. IMPRESSION: 1. No acute findings. This document has been electronically signed by: Jesus Moralez MD on 08/26/2024 13:14:20 Dictated By: Jesus Moralez MD Signed By: Electronically signed by Jesus Moralez MD 08/26/241314 CLINICAL HISTORY: pain, injury 4 view right ankle Comparison: None provided Findings: Bones intact. No dislocations. No significant loss of joint space, osteophytes, or erosions. No ankle effusion. No radiopaque foreign body. IMPRESSION: 1. No acute findings. This document has been electronically signed by: Jesus Moralez MD on 08/26/2024 13:14:35 Dictated By: Jesus Moralez MD Signed By: Electronically signed by Jesus Moralez MD 08/26/241314 Radiology Impression Discussion of test interpretation with radiology: I have reviewed the radiologist's reading. Independent Historian Clinical information obtained from an independent historian. History obtained from or confirmed by: Other (Patient's boyfriend provided additional history and confirmed the history provided by the patient. ) Discharge Plan Discharge Clinical Impression: Acute hip pain, Acute ankle pain, Lumbar back pain Patient Disposition: Home, Self-Care Instructions: Acute Low Back Pain (ED), Hip Pain (ED) Additional Instructions: Your imaging today was reassuring there is no fracture/break. Follow up with a primary care provider. Return to the emergency department immediately if your symptoms worsen or if you develop any numbness, tingling, dizziness, shortness of breath, difficulty breathing, chest pain, blurry vision, loss of vision, nausea, vomiting, abdominal pain, fever, chills, back pain, or any other complaints. If you do not have a primary care provider - call any of the below numbers to establish and follow up with a primary care provider. [facility] Primary Care ([place]) [phone] [place] [address], [address] [facility] Primary Care ([address] [place]) [phone] [place] [address], [address] [facility], [address] [facility] Primary Care ([address] [place]) [phone] [place] [address], [address] [facility], [address] [facility] Primary Care ([place]) [phone] [place] [address], [address] [facility], [address] [facility] Family Medicine [phone] [address] [facility], [address] Please see the information below about our Patient Portal. If you are not yet enrolled in the [facility] Patient Portal, you will receive an enrollment email invitation following your visit to any [facility] care setting. You may also self-enroll in the Patient Portal by visiting our website: [email or web address] The following information is required to access the Patient Portal: - Your [facility] Medical Record Number - Your personal home email address (must match what is in your electronic medical record, Registration staff can assist with this) - Name - Date of Capabilities of the Patient Portal: - Message some providers - View upcoming appointments - Access your health summary, medical history, and visit history - View current conditions and allergies - View procedure and lab results - View your medications, including guidelines, side effects, and precautions - Complete pre-appointment questionnaires requested by your provider - Ready summary reports of your office visits and procedures To access the Patient Portal Mobile [employer], follow these directions: - Search [employer] in the [employer] Store or [employer] Store - Download the [employer] - Search for [facility] - Enter your login/password Prescriptions: No Action sumatriptan 20 mg/actuation spray,non-aerosol 20 mg intranasal Q2H MDD 40mg PRN (Reason: migraine headache) 30 Days Qty: 6 3RF Rx Instructions: administer into one nostril as a single dose; if 2nd dose needed,administer into other nostril after at least 2 hrs, NTE 2 doses (40 mg) per episode eletriptan 40 mg tablet See Rx Instructions PO .COMPLEX PRN (Reason: migraine headache) 30 Days Qty: 12 3RF Rx Instructions: take 1 tab at onset of headache; if no relief, may repeat 1 tab after at least 2 hrs; max = 2 tabs/24 hrs orally PRN; Nurtec ODT 75 mg tablet,disintegrating 75 mg PO ONCE PRN (Reason: migraine headache) 30 Days Qty: 16 6RF Rx Instructions: MDD 1 tab per day. PA coverage End Date:06/14/2025 acetazolamide 500 mg capsule, extended release 500 mg PO Q12H 30 Days Qty: 60 1RF Qulipta 30 mg tablet 30 mg PO DAILY 30 Days Qty: 30 6RF magnesium oxide 400 mg (241.3 mg magnesium) tablet 400 mg PO BEDTIME 30 Days Qty: 30 11RF Rx Instructions: may hold for loose stools riboflavin (vitamin B2) 400 mg tablet 400 mg PO DAILY 30 Days Qty: 30 11RF phentermine 37.5 mg capsule 37.5 mg PO DAILY Qty: 30 0RF Rx Instructions: must administer 30 minutes before or 1-2 hours after breakfast gabapentin 300 mg capsule 600 mg PO BID levothyroxine 100 mcg tablet 100 mcg PO DAILY Stand Alone Forms: Work/School Release Interventions: ED Discharge Assessment Last Done: 08/26/24 13:05 Discharge Date/Time: 08/26/24 13:05 Print Language: [place] Citizen
[2024-08-26 11:21] VITALS: BP 115/71; PULSE 85; RESP 19; TEMP 36.9; O2SAT 98; BMI 30.8
[2024-08-26 12:00] VITALS: BP 113/77; BP 121/76; PULSE 71; PULSE 80; RESP 16; TEMP 36.7; O2SAT 98
[2024-08-26] MEDS: oxyCODONE HCl Immed Release 5 MG TABLET 10 MG PO (12:00)
[2024-08-26 13:05] VITALS: BP 96/63; PULSE 78; RESP 16; TEMP 37.1; O2SAT 99
== END 2024-08-26 13:05 | disposition home or self-care (01) ==
PROVIDERS: Emergency Provider Emergency Medicine
DX: M25.551 Pain in right hip (principal); M25.571 Pain in right ankle and joints of right foot; M54.50 Low back pain, unspecified; Z79.899 Other long term (current) drug therapy; M79.671 Pain in right foot
CPT/HCPCS: 72100; 73502; 73610; 73630; 99283; 99284

== ENCOUNTER → 2024-08-26 11:33 | Outpatient (BNV) | payer OTHER, SELFPAY | PROVIDERS: Emergency Provider Emergency Medicine; Visit Provider Radiology Diagnostic Radiology | DX: M54.50 Low back pain, unspecified (principal); M25.551 Pain in right hip; M25.571 Pain in right ankle and joints of right foot; M79.671 Pain in right foot | CPT/HCPCS: 72100; 73502; 73610; 73630 ==

== ENCOUNTER 2024-09-27 11:30 | Outpatient (AMB) | payer OTHER, SELFPAY ==
[2024-09-27 11:30] VITALS: BP 130/78; PULSE 84; O2SAT 99; BMI 31.3
--- NOTE | 2024-09-27 11:30 | A.OFFVIS_ITS ---
Vital Signs 09/27/24 11:30 Height 5 ft 6 in Weight 194 lb 2 oz BMI 31.3 BP 130/78 Blood Pressure Location Rt brachial Position Sitting Pulse 84 Pulse Source Pulse Oximeter Pulse Oximetry (%) 99 Oxygen Delivery Method Room Air Intake Visit Reasons: 6 mnts f/u Intake Note: Patient presents follow up Migraine. Scientific Laboratory Supervisor Required: No Accompanied by: ananda father Allergies [id number] (From Emgality Pen) Allergy (Severe, Verified 09/27/24 11:30) Anaphylaxis gluten (GLUTEN) Allergy (Unknown, Verified 09/27/24 11:30) DIARRHEA lactose Allergy (Unknown, Verified 09/27/24 11:30) Unknown metoclopramide (From REGLAN) Adverse Reaction (Unknown, Verified 09/27/24 11:30) Anxiety ibuprofen Adverse Reaction (Verified 09/27/24 11:30) Stomach Upset Medication List - Last Reviewed 09/27/24 by Annalee Hussein, JACK acetazolamide ER 500 mg PO Q12H 30 days atogepant (Qulipta) 30 mg PO DAILY 30 days baclofen 20 mg PO BID PRN celecoxib (Celebrex) 200 mg (2 x 100 mg) PO Q12H 30 days eletriptan take 1 tab at onset of headache; if no relief, may repeat 1 tab after at least 2 hrs; max = 2 tabs/24 hrs orally PRN; 30 days gabapentin 600 mg PO BID hydroxychloroquine 200 mg PO BID levothyroxine 100 mcg PO DAILY magnesium oxide 400 mg PO BEDTIME 30 days metoprolol succinate ER 25 mg PO DAILY riboflavin (vitamin B2) 400 mg PO DAILY 30 days rimegepant (Nurtec ODT) 75 mg PO ONCE PRN 30 days sumatriptan 20 mg/actuation 20 mg intranasal Q2H PRN 30 days MDD 40mg Do you need a note to return to daycare/school/sports/work: No HPI Comments Details: 29-yr-old female presents for f/u visit for migraine, positional pressure headache, bruxism. Pt is accompanied by her . Pt reports she [place]- fell trying to climb over a fence. Since she has been having right ankle, then right hip pain, and now left hip pain as well. She is having pain when laying, sitting, and especially when walking. The pain is sharp and tugging, like a muscle pulling in her sacrum with any movement. Continues to have intermittent right ankle swelling. She contacted her PCP, who referred her to a childbirth educator. She just recently started PT. She had an [facility] eval in early August- where right ankle, pelvis, hip/pelvis x-rays were unremarkable. She feels more stiff. She feels room spinning dizziness even when laying down and not turning her head. She has been having frequent diarhea, not like her gluten reactions. She is compliant w/ her Mag. She is on plaquenil and periodic prednisone for flare-ups of stiffness- per rheumatology. Unfortunately, the prednisone has not helped the headaches (maybe even worsened headaches) or the low back/right leg s/s. She states her migraine headaches are worse. She is compliant w/ Acetazolamide- states she is better tolerating this. She is compliant w/ She can still notice some pressure headaches when bending over. She has been compliant w/ her celiac diet- very rarely has had some cross-contamination- typically touching a gluten based food. 03/28/24, HPI: Since the last visit, she started on Acetazolamide 125 mg p.o. q.i.d, which she found beneficial. She had follow-up ophthalmology examined January, and was advised she could try to wean off the Acetazolamide, however she had worsening of the positional head pressure headache. She did resume the Acetazolamide, initially this caused hand and feet paresthesias, but began to subside some with continued use. She also was started on hydroxychloroquine 200 mg p.o. b.i.d for tx of a mixed connective tissue disorder. by [place] [facility]. So far, she feels that she is tolerating this okay. Though has noticed some nausea and increased headaches. She does have a p.r.n. nausea medication from GI. She is compliant with her celiac diet. She did not start PT, as she was worried it would exacerbate her overall headaches and body pain. She does have a a treadmill at home and 4 molars. She used to do yoga. Notes that by the time she gets her 3 children ready for school, and does her housework, she is just sore all over and needs to lay down for some time. She also notes that when head pressure headaches are worse, this affects her sleep, which aggravates her rLS s/s. Her bruxism s/s have been better- feels baclofen is helping this. Rarely needing to use prn lactulose. Migraine headache is better controlled with Botox, Qulipta and nortriptyline. She notes after her last Botox tx, she has been unable to lift her left eyebrow. Baseline migraine headache characteristics: Aura: Sees dots, worsening horizontal diplopia w/ with seeing the image as shaky- when the headache is more severe Mild-mod 5-6/10, severe 10/10, Throbbing hard pain- Can be either right or left sided or bilateral a/w photophobia, phonophobia, nausea (also has GI s/s), external spinning, brain fog/forgetfulness, fatigue, numbness in the top of the head 01/12/2024, Last HPI: Since the last visit, pt started prednisone taper. When she was on the prednisone, she did have some decrease in the right sided pressure headache. However, as she weaned down from 40mg qd to 30mg qd, the headache increased again. She had also seen urgent care, and was tx's w/ Amoc-Cl[facility]v for ? right OM. Last 10mg dose of taper was 4 days ago on 01/08/24. That same day, she woke woke up w/ worsening right sided blurry vision- vision coming and going, and worsening right sided head pressure and pain. Also a right anterior ear pul sation, hears her heart beat. The pain and pressure is way worse when laying down . This feels different than her usual migraine. Thus, she presented to [facility] ER, where work-up raised suspicion for intracranial hypertension. Pt was tx'd w/ IV Fluids, Toradol, prochlorperazine w/ diphenhydramine, Magnesium and dexamethasone- w/ partial improvement of headache s/s. Pt was discharged home to f/u w/ nutrition manager and neuro. Head CT- empty sella. CT head venogram- narrowing of the left transverse sinus. LP in left lateral decub position showed: OP 22 cmH2O CSF Cell Count Color ? ? ?COLORLESS ? CSF Cell Count Appearance CLEAR ? CSF Cell Count WBC ?1 per Cubic Millimeter ? CSF Cell Count RBC ?0 per Cubic Millimeter ? CSF Cells, Lymph ?Pending ?(Preliminary)? Total Protein, CSF ?29 mg/dL ? Glucose, CSF ?63 mg/dL She had eye exam this am- [facility]. Was told no evidence of pappilledema today. Is being scheduled for visual field testing next week and also for neuro- ophthalmology consult. Today, she continues to have the atypical right sided pressure, headcahe, pulsatile tinnitus, and blurry vision, which is worse when laying down. Last f/u visit HPI from 12/27/23: Pt reports on Dec 21, she developed a abrupt onset of a constant right temporal, just anterior to the ear and judaism thumping pain, which is aw/ some photophobia, soem phonophobia, right neck tightness. The pain has gradually worsened. Overall this does not feel like a typical migraine. However, she had this headache type once before, and it responded to prednisone. Avoiding NSAIDs in general d/t gastritis. Currently on omeprazole 20mg qd. Today, her right upper eyelid seems a bit swollen. Denies inner ear pain, fever. Tried Nurtec but this did not help. Ice and migraine ice cap helps some. She things this may have been triggered by doing yard work and raking on Dec 17 and . Baseline migraine headache characteristics: Aura: Sees dots, worsening horizontal diplopia w/ with seeing the image as nicolasa y- when the headache is more severe Mild-mod 5-6/10, severe 10/10, Throbbing hard pain- Can be either right or left sided or bilateral a/w photophobia, phonophobia, nausea (also has GI s/s), external spinning, brain fog/forgetfulness, fatigue, numbness in the top of the head [facility] Medical History Connective tissue disorder Obesity Pseudotumor cerebri Enlarged tonsils HLD (hyperlipidemia) Hypothyroidism History of depression KARISSA (iron deficiency anemia) Asthma Heart murmur GERD (gastroesophageal reflux disease) Celiac disease Surgical History Hx of colonoscopy Hx of bladder endoscopy H/O eye surgery Family History Maternal Grandmother Diabetes Hypertension Paternal Grandfather Hypertension Father Rheumatoid arthritis Diabetes Fibromyalgia Migraines Anxiety Lupus Mother Fibromyalgia Migraines Hypertension Hypercholesteremia Son Thyroid condition Asthma Son Autism Daughter Arthritis Social History Alcohol intake: never Patient Tobacco Use Status: Never used Tobacco Physical Exam Vital Signs: Last Vital Signs Pulse 84 09/27/24 11:30 BP 130/78 09/27/24 11:30 Pulse Ox 99 09/27/24 11:30 Oxygen Delivery Method Room Air 09/27/24 11:30 BMI result Body Mass Index 31.3 Const General: cooperative and no acute distress Orientation/consciousness: patient oriented x3 HEENT Ears: external ears normal Resp Effort & Inspection: normal respiratory effort and able to speak in complete sentences Neuro Other: Mild lower facial asymmetry- baseline Patient visibly uncomfortable, bracing lower back with arms, slow to stand, mild antalgic gait. General: patient oriented x3 Cognition (Neuro): normal cognition Motor exam (neuro): 5/5 motor strength present throughout Psych Appearance: grossly normal Mental Status: mental status grossly normal Speech and movement: Normal speech and movement present Affect: normal affect Attitude: cooperative Assessment & Plan Assessment & Plan (1) Chronic migraine without aura: Code(s): G43.709 - Chronic migraine without aura, not intractable, without status migrainosus Category: Medical Qualifiers: Intractability: intractable Status migrainosus presence: without status migrainosus Qualified Code(s): G43.719 - Chronic migraine without aura, i ntractable, without status migrainosus (2) Migraine with aura: Code(s): G43.109 - Migraine with aura, not intractable, without status migrainosus Category: Medical Qualifiers: Intractability: not intractable Status migrainosus presence: without status migrainosus Qualified Code(s): G43.109 - Migraine with aura, not intractable, without status migrainosus (3) Positional headache: Code(s): R51.0 - Headache with orthostatic component, not elsewhere classified Category: Medical (4) Elevated intracranial pressure: Code(s): G93.2 - Benign intracranial hypertension Category: Medical (5) TMJ (temporomandibular joint disorder): Code(s): M26.609 - Unspecified temporomandibular joint disorder, unspecified side Category: Medical (6) Restless leg syndrome: Code(s): G25.81 - Restless legs syndrome Category: Medical (7) Right hip pain: Code(s): M25.551 - Pain in right hip Category: Medical (8) Right ankle pain: Code(s): M25.571 - Pain in right ankle and joints of right foot Category: Medical Qualifiers: Chronicity: chronic Qualified Code(s): M25.571 - Pain in right ankle and joints of right foot; G89.29 - Other chronic pain Plan For worsening right ankle, right hip, sacrum and now left hip pain, as well as increased stiffness and muscle tightness, which is likely exacerbating sleeping difficulties and headache burden: Check labs We will request orthopedic consult Continue PT Trial Celebrex 200 mg today, and if tolerated may increase to 200 mg twice a day For right sided positional headache: Dec 2023 [facility] ER work-up: Head CT and CTV- showed empty sella and narrowing of the left transverse sinus. Brain MRI report- indications of empty sella. LP- slightly elevated OP at 22 cmH2O w/ normal CSF studies- no indications of inflammation/infection/bleed. January 2024- Eye exam reassuring w/o pappilledema. August 2024- eye exam without papilledema F/u eye exam as scheduled. This work-up does not clearly support a dx of IIH, however it is possible that work-up results may have been affected by her taking Prednisone prior to this workup. 01/15/2024 Brain MRI w/wo and Brain MRV- Normal MRI brain and MRV head. Continue Acetazolamide ER 500mg bid- was ER doses better tolerated than IR dose. Recheck CBC/CMP. For patient report of new diagnosis of mixed connective tissue disorder: We will request rheumatology notes and lab work from [place] [facility]. For bruxism and TMJ dysfunction: Continue Baclofen 20mg bid prn. Continue Gabapentin 600mg bid OTC mouth guard prn Continue PT exercises as able- add stretching, warm up, cool down. For POTs s/s- Continue increased fluids and salt. Continue gluten free diet d/t gluten allergy- fruits/vegetables/gluten-free grains. ? For overall headache management: Track headaches. ? For acute headache treatment: Continue Zolmitriptan 5mg prn. Continue Nurtec ODT 75mg qd prn. Previous acute migraine medication trials: Sumatriptan- lost efficacy. Rizatriptan- not fully effective. Naproxen-gastritis. Acute migraine medication contraindications: NSAIDs due to gastritis. ? For chronic migraine headache prevention medication: Continue Riboflavin 400mg qam Hold Magnesium 400mg qhs- until current diarrhea/GI symptoms subside Patient has stopped Nortriptyline 20-30mg qhs. Continue Botox 155 units IM q 12 weeks, as pt has had positive effect Continue Qulipta 30mg qd- monitor for recurrence of constipation. Continue prn Lactulose. Continue Miralax and senna qd. Previous migraine prevention medication trials: Amitriptyline 25mg- ineffective after 3 months and caused am grogginess. Emgality- anaphylaxis. Migraine prevention medication contraindications: BBs d/t asthma dx. Aimovig d/t constipation ? For RLS: OTC RLS creams. Will follow-up upon review of above and patient to follow-up in clinic in 6 months or sooner prn. Orders: Orders Complete Blood Count Auto Diff 09/27/24 G93.2 - Benign intracranial hypertension, M25.50 - Pain in unspecified joint, M62.838 - Other muscle spasm Comprehensive Met. Panel 09/27/24 G93.2 - Benign intracranial hypertension, M25.50 - Pain in unspecified joint, M62.838 - Other muscle spasm Erythrocyte Sedimentation Rate 09/27/24 G93.2 - Benign intracranial hypertension, M25.50 - Pain in unspecified joint, M62.838 - Other muscle spasm Magnesium 09/27/24 G93.2 - Benign intracranial hypertension, M25.50 - Pain in unspecified joint, M62.838 - Other muscle spasm C Reactive Protein 09/27/24 G93.2 - Benign intracranial hypertension, M25.50 - Pain in unspecified joint, M62.838 - Other muscle spasm TSH reflex Free T4 09/27/24 G93.2 - Benign intracranial hypertension, M25.50 - Pain in unspecified joint, M62.838 - Other muscle spasm Creatine Kinase Total 09/27/24 M35.9 - Systemic involvement of connective tissue, unspecified, M62.838 - Other muscle spasm Referrals Orthopedics Referral M25.551 - Pain in right hip, M25.571 - Pain in right ankle and joints of right foot Medications: New celecoxib (Celebrex) 200 mg (2 x 100 mg) PO Q12H 120 caps 0RF 30 days Discontinued phentermine must administer 30 minutes before or 1-2 hours after breakfast Discontinued Reason: Patient no longer taking 37.5 mg PO DAILY 30 caps 0RF E66.811 - Obesity, class 1, Z68.31 - Body mass index [BMI] 31.0-31.9, adult Coding Level of Care Code Est Pt Level 4 (64421) Diagnoses Intractable chronic migraine without aura and without status migrainosus G43.719 Intractability: intractable Status migrainosus presence: without status migrainosus Migraine with aura and without status migrainosus, not intractable G43.109 Intractability: not intractable Status migrainosus presence: without status migrainosus Positional headache R51.0 Elevated intracranial pressure G93.2 TMJ (temporomandibular joint disorder) M26.609 Restless leg syndrome G25.81 Right hip pain M25.551 Chronic pain of right ankle M25.571; G89.29 Chronicity: chronic
--- OUTSIDE RECORDS SUMMARY | 2024-09-27 12:11 | XMS_ITS | Encounter Summary ---
Author Organization [employer] [facility] Address [address] [place] [address] Care Team Providers Care Supervisor Net Making Name Role Phone Shahrzad Rodriguez MD Primary Care Provider U Cheryl Hartman MD Primary Care Provider Unavailable Sarai Solares MD Primary Care Provider [phone] Harjeet Dumont MD Unavailable Sarah Kwok PA-C Primary Care Provider + Encounter Details Date Type Department Care Team Description 07/30/2013 Orders Only Medical Records [address] [place] [id number] Giovanni Ndiaye MD Social History Tobacco Use [...] filedocumented in this encounter Care Teams Supervisor Net Making Relationship Specialty Start Date End Date Shahrzad Rodriguez MD PCP - General Pediatrics 03/20/13 0 [place]-Cheryl Gaffney MD PCP - General Internal Medicine 11/21/19 Sarai Solares MD PCP - General Internal Medicine 01/04/20 10/20/22 Sarah Kwok PA-C [address] [place] [address] PCP - General Internal Medicine 10/21/22 Harjeet Dumont MD [address] [place] [address] Specialist Cardiovascular Disease 01/27/22 documented as of this encounter
--- OUTSIDE RECORDS SUMMARY | 2024-09-27 12:11 | XMS_ITS ---
Author Name [facility] Organization Unknown Care Team Organization Name Specialty Phone Email Start Date End Da te [facility] 12/29/2021 10/10/19 24
--- OUTSIDE RECORDS SUMMARY | 2024-09-27 12:11 | XMS_ITS | Clinical Summary ---
Author Organization [facility] Address [address] [id number] Care Team Providers Care Installation & Maintenance Executive Name Role Phone Sarai Solares MD Primary Care Provider [phone] Allergies Active Allergy Reactions Criticality Noted Date [...] 69 01/28/2023 10:06 AM EST Temperature 36.6 C (97.8 F) 01/28/2023 10:06 AM EST Respiratory Rate 18 11/03/2021 9:14 AM EDT [...] Screening (Pap Smear) 2015 Influenza Vaccine (#1) 2024 8, 11/12/2014, 11/29/2013, Additional history exists DTap [...] age to complete this topic Care Teams Installation & Maintenance Executive Relationship Specialty Start Date End Date Chaganti, Sarai, MD [address] [id number] PCP - General Internal Medicine 06/22/22
== END 2024-09-27 12:28 | disposition home or self-care (01) ==
LOC: HO.HSMS 11:31
PROVIDERS: PCP Internal Medicine; Visit Provider Nurse Practitioner Family
DX: G43.719 Chronic migraine without aura, intractable, without status migrainosus (principal); G43.109 Migraine with aura, not intractable, without status migrainosus; R51.0 Headache with orthostatic component, not elsewhere classified; G93.2 Benign intracranial hypertension; M26.609 Unspecified temporomandibular joint disorder, unspecified side; G25.81 Restless legs syndrome; M25.551 Pain in right hip; M25.571 Pain in right ankle and joints of right foot; G89.29 Other chronic pain
CPT/HCPCS: 99214

== ENCOUNTER 2024-09-27 11:30 | Outpatient (REF) | payer OTHER, SELFPAY ==
[2024-09-27 13:11] LABS: MANUAL DIFF FLAG NO
[2024-09-27 13:37] LABS: Hematocrit 38.5 % (37.0-47.0); Hemoglobin 13.0 g/dl (12.0-16.0); Imm Gran Abs Auto 0.00 X10*3/uL (0.00-0.03); Imm Gran Pct Auto 0.0 % (0.0-0.4); Lymphocytes Absolute Auto 0.9 X10*3/uL (1.2-4.9); Mean Corpuscular HGB Conc 33.8 g/dl (31.0-35.0); Mean Corpuscular Hemoglobin 30.1 pg (27.0-33.0); Mean Corpuscular Volume 89.1 fL (80.0-98.0); NRBC Abs Auto 0.000 X10*3/uL (0.0-0.012); NRBC Pct Auto 0.0 /100WBC (0.0-0.2); Platelet Count 191 X10*3/uL (160-400); Red Blood Count 4.32 X10*6/uL (4.20-5.50); White Blood Count 3.3 X10*3/uL (4.8-10.8)
[2024-09-27 14:10] LABS: Alanine Aminotransferase 24 U/L (0-31); Albumin Level 4.8 g/dL (3.5-5.0); Alkaline Phosphatase 74 U/L (39-117); Anion Gap 8 (12-20); Aspartate Amino Transferase 23 U/L (5-31); Blood Urea Nitrogen 10 mg/dL (9-16); Calcium 9.4 mg/dL (8.4-10.2); Carbon Dioxide 25 mmol/L (22-29); Chloride 112 mmol/L (96-108); Estimated Glomerular Filt Rate > 60; Magnesium 2.2 mg/dL (1.6-2.6); Potassium 4.2 mmol/L (3.3-5.1); Sodium 141 mmol/L (135-145); Total Protein 7.2 g/dL (6.5-8.0)
== END 2024-09-27 11:31 | disposition home or self-care (01) ==
LOC: HO.LAB 11:30
PROVIDERS: PCP Internal Medicine; Visit Provider Nurse Practitioner Family
DX: G43.109 Migraine with aura, not intractable, without status migrainosus (principal); M26.609 Unspecified temporomandibular joint disorder, unspecified side; G93.2 Benign intracranial hypertension; G89.29 Other chronic pain; M25.551 Pain in right hip; M25.552 Pain in left hip; M25.571 Pain in right ankle and joints of right foot; G25.81 Restless legs syndrome; M62.838 Other muscle spasm
CPT/HCPCS: 36415; 80053; 82550; 83735; 84443; 85025; 85652; 86140; 99212

== ENCOUNTER 2024-10-30 13:37 | Outpatient (AMB) | payer OTHER, SELFPAY ==
--- OUTSIDE RECORDS SUMMARY | 2024-10-26 10:00 | XMS_ITS | Encounter Summary ---
Author Organization [employer] Address [address] [place] [address] Care Team Providers Care Health Communications Specialist Name Role Phone Sarah Kwok Primary Care Provider + Reason for Visit * Consultation (Routine) - Authorized Specialty Diagnoses / Procedures Referred By Xander munguia Referred To Contact Physical Therapy Diagnoses Acute pain of right knee Acute right ankle pain Right hip pain Chris Mccallum PA [address] [place] [address] Phone: tel: fax: Referral ID Status Reason Start Date Expiration Date Visits Requested Visits Authorized [id number] Authorized Consult and Treat 08/03/2024 08/03/2025 21 21 Encounter Details Date Type Department Care Team (Late st Contact Info) Description 10/26/2024 10:[address] [facility] [address] [phone] Анна Ricardo PT Right hip pain (Primary Dx); Acute right ankle pain Social History Tobacco Use Types Packs/Day Years Used Date Smoking Tobacco: Never Smokeless Tobacco: Never Alcohol Use Standard Drinks/Week Comments No 0 (1 standard drink = 0.6 oz pur e alcohol) Housing Instability Answer Date Recorde d Are you worried that in the next 2 months you may not have stable housing? No 07/05/2024 Food Access & Nutrition Answer Date Rec orded Do you have access to a vari ety of food including fruits and vegetables? Yes 07/05/2024 Access to Healthcare Answer Date Record ed Within the last 3 months, ho w many times did you visit the emergency department for your medical care? 1 07/05/2024 Health Literacy Answer Date Recorded How often do you need to hav e someone help you when you read instructions, pamphlets, or other written material from your doctor or pharmacy? Sometimes 07/05/2024 Caregiver: How often do you need to have someone help you when you read instructions, pamphlets, or other written material from your doctor or pharmacy? Not on file 07/05/2024 Financial Risk Answer Date Recorded How hard is it for you to pa y for the very basics like food, housing, medical care, and air conditioning / heating? Not very hard 07/05/2024 Transportation Answer Date Recorded Has the lack of transportati on kept you from meetings, work, or from getting things needed for daily living? Yes Has the lack of transportati on kept you from medical appointments or from getting medications? Yes 07/05/2024 Social Isolation Answer Date Recorded How often do you feel lonely or isolated from those around you? Sometimes 07/05/2024 Food Risk Answer Date Recorded Within the past 12 months we worried whether our food would run out before we got money to buy more. Never true 07/05/2024 Within the past 12 months th e food we bought just didn't last and we didn't have money to get more. Never true 07/05/2024 Dependent Care Answer Date Recorded Do you need help finding or paying for care for your loved ones. For example, child attendant or elderly care for an older adult? Patient declined 07/05/2024 Education Answer Date Recorded Do you think completing more education or training, like finishing a GED, going to college, or learning a trade, would be helpful for you? Patient declined 07/05/2024 Employment and Income Answer Date Recor ded During the last four weeks, have you been actively looking for work? Patient declined 07/05/2024 Living Situation Answer Date Recorded What is your living situation? 0 07/05/2024 Comments No Sex and Gender Information Value Date Recorded Sex Assigned at Not on file Legal Sex Female 10:17 AM EDT Gender Identity Not on file Sexual Orientation Not on file Occupation Industry Job Start Date Job End Date unemployed Not on file Not on file Not on file documented as of this encounter Progress Notes * Анна Ricardo PT - 10/26/2024 10:00 AM EDT [facility] - Outpatient PHYSICAL THERAPY DAILY TREATMENT NOTE - OP Date: 10/26/2024 Visit Number: 3 Patient Name: Miguel Angel Blevins : 1995 Age: 29 y.o. Gender: female Diagnosis: ICD-10-CM ICD-9-CM 1. Right hip pain M25.551 719.45 2. Acute right ankle pain M25.571 719.47 338.19 Date of Onset/Surgery: 03/22/2024 Referring Provider: Chris Mccallum PA Insurance: Payor: [employer] PLAN / Plan: WELLSENSE MEDICAID / Product Type: *No Product type* / Patient Identified by: Анна Ricardo PT Language: Speaks and understands Fijian as preferred language with no jailor required Medications: Current Outpatient Medications on File Prior to Visit Medication Sig Dispense Refill acetaminophen (TYLENOL) 500 mg tablet Take 2 tablets (1,000 mg total) by mouth every 6 (six) hours if needed for moderate pain or mild pain. acetaZOLAMIDE (DIAMOX) 500 mg 12 hr capsule Take 1 capsule (500 mg total) by mouth 2 (two) times a day. albuterol 2.5 mg /3 mL (0.083 %) nebulizer solution TAKE 1 VIAL BY NEBULIZATION EVERY 4 HOURS NEEDED FOR WHEEZING. 375 mL 0 albuterol HFA (Ventolin HFA) 90 mcg/actuation inhaler INHALE 2 PUFFS INTO THE LUNGS EVERY 4 HOURS NEEDED FOR COUGH,WHEEZING OR SHORTNESS OF BREATH. ascorbic acid (VITAMIN C) 500 mg tablet Take 1 tablet (500 mg total) by mouth 1 (one) time each day. atogepant (Qulipta) 30 mg tablet Take 1 tablet by mouth 1 (one) time each day. baclofen (LIORESAL) 20 mg tablet Take 1 tablet (20 mg total) by mouth 2 (two) times a day if neededfor muscle spasms. 90 tablet 3 cetirizine (ZyrTEC) 10 mg tablet Take 1 tablet (10 mg total) by mouth 1 (one) time each day. cholecalciferol (VITAMIN D-3) 50 mcg (2,000 unit) capsule Take 1 capsule (2,000 Units total) by mouth 1 (one) time each day. eletriptan (RELPAX) 40 mg tablet PLEASE SEE ATTACHED FOR DETAILED DIRECTIONS gabapentin (NEURONTIN) 300 mg capsule Take 2 capsules (600 mg total) by mouth 2 (two) times a day. hydroxychloroquine (PLAQUENIL) 200 mg tablet Take 1 tablet (200 mg total) by mouth 2 (two) times a day. levothyroxine (SYNTHROID, LEVOTHROID) 100 mcg tablet TAKE 1 TABLET BY MOUTH EVERY DAY 90 tablet 1 magnesium oxide (MAG-OX) 400 mg (241.3 elemental magnesium) tablet TAKE 1 TABLET BY MOUTH EVERY DAYAT BEDTIME HOLD FOR LOOSE STOOL metoprolol succinate (TOPROL-XL) 25 mg 24 hr tablet Take 1 tablet (25 mg total) by mouth 1 (one) time each day. Do not crush or chew. 90 tablet 3 Nurtec 75 mg dispersible tablet TAKE 1 TAB ORALLY ONCE NEEDED FOR MIGRAINE HEADACHE FOR 30 DAYS MAX DAILY DOSE 1 TAB PER DAY omeprazole (PriLOSEC) [address] capsule TAKE 1 CAPSULE BY MOUTH DAILY 90 capsule 1 ondansetron (ZOFRAN) 8 mg tablet Take 1 tablet (8 mg total) by mouth 3 (three) times a day if needed for nausea or vomiting. 20 tablet 1 polyethylene glycol (MIRALAX) 17 gram packet Take 17 g by mouth 1 (one) time each day. sucralfate (CARAFATE) 100 mg/mL suspension TAKE 10 MLS BY MOUTH TWICE DAILY BEFORE MEALS, 1 HOUR BEFORE MEALS AND AT BEDTIME 2520 mL 1 No current facility-administered medications on file prior to visit. Allergies: is allergic to duloxetine hcl, galcanezumab-gnlm, lactose, metoclopramide hcl, and gluten. Precautions: Being treated for systemic disorder (possible lupus or other connective tissue disorder?)- seen by a equipment installer and she is trying a medication for this; unable to lay on side or prone due to other issues Fall risk: No SUBJECTIVE Subjective Report: Pain in R posterior hip/low back region is still bad. Does not feel any improvements with this. The piriformis stretch is painful to do. Her ankle is also about the same. Chart Reviewed: Yes Pain: moderate pain levels TREATMENT INTERVENTION: Hooklying TrA contract x 5, 5 sec hold Hooklying hip adduction ball x 10, 5 sec hold Hooklying MET (R hip ext and left hip flex isometric) against cane Moist heat to low back while performing long sitting ankle theraband exercises PF, eversion, DF x 10 (therapist holding band) Home exercise program: R SI joint pain: hooklying TrA contract, hip adduction ballm try MET R ankle: Seated ankle theraband exercises PF, eversion, DF 1-2 x 10 ASSESSMENT/Response to Treatment Good no change in symptoms so far. Adjusting home exercise program to tolerable exercises. Some difficulty with positioning of exercises due to pain and other medical issues (cannot lay prone or on side). Patient Education: Education provided: continue home exercise program Education Provided To: Patient utilizing Demonstration and Printed Material mode(s) of education Response to Education: Verbal Understanding and Demonstrated Skills PLAN POC Development/Review: No Change in the Plan of Care; Participants: Patient Interventions Time Entry: Modalities: Therapeutic procedures: Therapeutic Exercise Time Entry: 28 Total Treatment Time: 28 Documentation completed by Анна Ricardo PT documented in this encounter Plan of Treatment Upcoming Encounters Date Type Department Care Team (Late st Contact Info) Description 11/21/2024 9:30 AM EDT Office Visit Internal Medicine - [place] [address] [phone] Kemal London NP [address] [address] 11/29/2024 1:20 PM EDT Office Visit Gastroenterology - [place] [address] [phone] Minnie Raman PA [address] [address] 12/13/2024 11:00 AM EDT Office Visit Internal Medicine - [place] [address] [phone] Sarah Kwok PA 175 [facility] [address] [place] [address] 04/04/2025 9:30 AM EST Office Visit Bariatric Surgery - [place] 175 [facility] [address] [place] [phone] Cheryl Holland PA [address] [place] [phone] documented as of this encounter Visit Diagnoses Diagnosis Right hip pain- Primary Pain in joint, pelvic region and thigh Acute right ankle pain documented in this encounter Additional Health Concerns Assessment Noted Time PHQ-9 Depression Total Score: 19 025 9:32 AM EDT documented as of this encounter Care Teams Health Communications Specialist Relationship Specialty Start Date End Date Sarah Kwok PA 175 [facility] [address] [place] [address] PCP - General Primary Care 01/30/24 documented as of this encounter
--- OUTSIDE RECORDS SUMMARY | 2024-10-29 10:15 | XMS_ITS | Encounter Summary ---
Author Organization [employer] Address [address] [place] [address] Care Team Providers Care Scientist Propagator Name Role Phone Sarah Kwok Primary Care Provider + Reason for Visit * Consultation (Routine) - Authorized Specialty Diagnoses / Procedures Referred By Xander munguia Referred To Contact Physical Therapy Diagnoses Acute pain of right knee Acute right ankle pain Right hip pain Chris Mccallum PA [address] [place] [address] Phone: tel: fax: Referral ID Status Reason Start Date Expiration Date Visits Requested Visits Authorized [id number] Authorized Consult and Treat 08/03/2024 08/03/2025 21 21 Encounter Details Date Type Department Care Team (Late st Contact Info) Description 10/29/2024 10:15 AM EDT Treatment [facility] [address] [phone] Анна Ricardo PT Right hip pain (Primary Dx); Acute right ankle pain; Acute pain of right knee Social History Tobacco Use Types Packs/Day Years [...] for your loved ones. For example, child nurse or elderly care for an older adult? [...] Progress Notes * Анна Ricardo PT - 10/29/2024 10:15 AM EDT [facility] PHYSICAL THERAPY DISCHARGE/PROGRESS NOTE Date: 10/29/2024 Visit Number: 4 Patient Name: Miguel Angel Blevins : 1995 Age: 29 y.o. Gender: female Diagnosis: ICD-10-CM ICD-9-CM 1. Right hip pain M25.551 719.45 2. Acute right ankle pain M25.571 719.47 338.19 3. Acute pain of right knee M25.561 719.46 Date of Onset: 03/22/2024 Date of Surgery: Referring Provider: Chris Mccallum PA Insurance: Payor: [employer] PLAN / Plan: WELLSENSE MEDICAID / Product Type: *No Product type* / Patient Identified by: Анна Ricardo PT Language: Speaks and understands Croatian as preferred language with no certified court interpreter required Medications: Current Outpatient Medications on File [...] other connective tissue disorder?)- seen by a paralegal legal secretary and she is trying a medication for this Fall Risk: No SUBJECTIVE Subjective Report: Patient reports continued R hip/low back pain that is causing difficulty with walking distances and she is unable to drive. She also still feels pain in her R ankle and knee. She has been able to do the R ankle exercises okay if she keeps it gentle. She is unable to do the R hip/low back exercises because of the pain. She did feel continued pain after last session. She thought she have had a hip x-ray. Functional Limitations: Reported by Patient Initial Evaluation: with sit to stand, driving, walking Current: with sit to stand, driving, walking Chart Reviewed: Yes Pain: Initial Evaluation: Current level of pain 8/10 hip/knee/ankle; Pain at worst over the past week 10/10 and at best is a 5/10 Current: Current level of pain 9/10; Pain at worst over the past week 10/10 and at best is a 7/10 OBJECTIVE Vitals: There were no vitals filed for this visit.; *P=Pain, NT=Not tested Palpation: moderate tenderness to R lumbar paraspinals, R QL, R glutes/piriformis, R lateral ankle lig, R inferior patella; maximal tenderness R PSIS Lumbar Spine ROM Initial Re-eval Lumbar flexion (0-60) Flexion to mid shins (pulling in R low back/buttock) Knees P Lumbar extension (0-35) 75% limited P R posterior hip 75% limited P Lumbar side bending R (0-25) 25% limited P 25% P Lumbar side bending L (0-25) 50% limited P 25% P Lumbar Rotation R (0-20) 50% limited P 50% limited P Lumbar Rotation L (0-20) 25% limited P 25% limited P HIP RANGE OF MOTION Right PROM Left PROM Flexion (120 deg) 95 P WNL External Rotation (45 deg) 25 deg min P 40 deg Internal Rotation (45 deg) 10 deg moderate P 30 deg Knee AROM WNL (pain with active extension) Ankle AROM DF 8 deg P, Eversion 15 deg P, PF WNL, inversion WNL P Hip Strength RIGHT LEFT Flexion 4-/5 P 4+/5 Extension Mini bridge/5 P /5 Internal Rotation 3+/5 P 4+/5 External Rotation 4-/5 4/5 Knee Strength RIGHT LEFT Extension 4/5 P buttock 5/5 Flexion 4/5 P buttock 5/5 Ankle Strength RIGHT LEFT Dorsiflexion 4/5 P ankle 5/5 Plantarflexion >2+/5 >2+/5 Inversion 4/5 5/5 Eversion 4/5 P ankle 5/5 TREATMENT INTERVENTIONS: (This Date of Service) Procedures: See above objective measures Heat applied to R low back/posterior hip in long sitting x 10 min (no charge) ASSESSMENT/PROGRESS SUMMARY Reporting Period Start Date: 09/19/2024; End Date: 10/29/2024 Summary of Program/Progress to Date: Patient has completed 4 sessions over the course of 5.5 weeks of PT. She had to miss some visits due to transportation issues or dental appt. Unfortunately, her pain levels have not improved at all and even slightly worsened (more so in the R hip/low back region). Her obejctive measures are about the same as well. The exercises/interventions to target stretching/strengthening her hip/low back have not made any difference and are painful to do. She is able todo the ankle exercises within tolerance level, so I told her to continue these. Because of lack of progress and high pain levels, I would like her to return to the referring provider for further assessment. She will be discharged from PT at this time. Response to Therapy Session: fair Patient Education: Education provided: continue ankle exercises, check back with ortho, hip/low back imaging Education Provided To: Patient utilizing Explanation mode(s) of education Response to Education: Verbal Understanding GOALS Short Term Goals (will be achieved in 4 weeks) 1. Initiate home exercise program.- MET 2. Pain will be improved by 2-3 points on VAS.- NOT MET 3. Patient will improve hip/knee/ankle strength by 1/3 grade on manual muscle testing.- NOT MET 4. Patient will improve ankle ROM 5 deg.- PARTIALLY MET 5. Patient will improve lumbar ROM by 25%.- NOT MET Skilled Nursing Goals (will be achieved in 8-12 weeks) 1. Patient will be independent with home exercise program to maintain therapeutic gains.- PARTIALLYMET 2. Patient will be able to walk with min to no pain or limitation- NOT MET 3. Patient will sit to stand with min to no pain or limitation- NOT MET PLAN POC Development/Review: General Description as Follows: discharge back to ortho ; Participants: Patient Skilled Therapy Plan Required: NO- Reasons Why Continued Therapy Is Not Recommended: No Skilled Therapy Required Total Treatment Time: 27 Modalities: heat 10 min (no charge) Therapeutic procedures: Therapeutic Exercise Time Entry: 17 Documentation completed by Анна Ricardo PT [facility] [place] [address] [address] Dept: [phone] Dept PATIENT NAME: Miguel Angel Blevins : 1995 Certification: This is to certify that the above named patient, who is under my care, requires skilled Therapy services as described in the above treatment plan. I further certify that the services outlined in this plan are skilled and medically necessary. I have reviewed this plan for rehabilitation services, and I recommend that these services continue to meet the above stated goals and plan. SIGNATURE: DATE Chris Mccallum PA documented in this encounter Plan of Treatment Upcoming Encounters Date Type Department Care Team (Late st Contact Info) Description 11/21/2024 9:30 AM EDT Office Visit Internal Medicine [facility] [address] [phone] Kemal London NP [address] [address] 11/29/2024 1:20 PM EDT Office Visit Gastroenterology - [place] [address] [phone] Minnie Raman PA 175 [facility] 200 [place] [address] 12/13/2024 11:00 AM EDT Office Visit Internal Medicine [facility] 175 [facility] [address] [place] [phone] Sarah Kwok PA 175 [facility] [address] [place] [address] 04/04/2025 9:30 AM EST Office Visit Bariatric Surgery - [place] 175 [facility] [address] [place] [phone] Cheryl Holland PA [address] [place] [phone] documented as of this encounter Visit Diagnoses Diagnosis Right hip pain- Primary Pain in joint, pelvic region and thigh Acute right ankle pain Acute pain of right knee documented in this encounter Additional Health Concerns Assessment Noted Time PHQ-9 Depression Total Score: 19 025 9:32 AM EDT documented as of this encounter Care Teams Scientist Propagator Relationship Specialty Start Date End Date Sarah Kwok PA 175 [facility] 200 [place] [address] PCP - General Primary Care 01/30/24 documented as of this encounter
--- OUTSIDE RECORDS SUMMARY | 2024-10-29 11:00 | XMS_ITS | Encounter Summary ---
Author Organization [facility] Address [address] [place] [address] Care Team Providers Care Drawer Liner Name Role Phone Sarah Kwok Primary Care Provider + Encounter Details Date Type Department Care Team (Latest Contact Info) Description 10/29/2024 11:00 AM EDT - 10/29/2024 11:59 PM EDT Hospital Encounter [facility] Xray [address] [place] [phone] Arrived Discharge Disposition: Home or Self Care Social History Tobacco Use Types Packs/Day Years [...] care for your loved ones. For example, childcare center administrator or elderly care for an older adult? [...] on file documented as of this encounter Medications at Time of Discharge acetaminophen (TYLENOL) 500 mg tablet Take 2 tablets (1,000 mg total) by mouth every 6 (six) hours if needed for moderate pain or mild pain. 01/12/2023 acetaZOLAMIDE (DIAMOX) 500 mg 12 hr capsule Take 1 capsule (500 mg total) by mouth 2 (two) times a day. 05/20/2024 albuterol 2.5 mg /3 mL (0.083 %) nebulizer solution TAKE 1 VIAL BY NEBULIZATION EVERY 4 HOURS NEEDED FOR WHEEZING. 375 mL 02/26/2024 albuterol HFA (Ventolin HFA) 90 mcg/actuation inhaler INHALE 2 PUFFS INTO THE LUNGS EVERY 4 HOURS NEEDED FOR COUGH,WHEEZING OR SHORTNESS OF BREATH. 03/25/2022 ascorbic acid (VITAMIN C) 500 mg tablet Take 1 tablet (500 mg total) by mouth 1 (one) time each day. 06/13/2023 atogepant (Qulipta) 30 mg tablet Take 1 tablet by mouth 1 (one) time each day. 03/03/2023 baclofen (LIORESAL) 20 mg tablet Take 1 tablet (20 mg total) by mouth 2 (two) times a day if needed for muscle spasms. 90 tablet 3 02/17/2024 cetirizine (ZyrTEC) 10 mg tablet Take 1 tablet (10 mg total) by mouth 1 (one) time each day. 06/05/2024 cholecalciferol (VITAMIN D-3) 50 mcg (2,000 unit) capsule Take 1 capsule (2,000 Units total) by mouth 1 (one) time each day. 07/02/2023 eletriptan (RELPAX) 40 mg tablet PLEASE SEE ATTACHED FOR DETAILED DIRECTIONS gabapentin (NEURONTIN) 300 mg capsule Take 2 capsules (600 mg total) by mouth 2 (two) times a day. 01/05/2024 hydroxychloroquin e (PLAQUENIL) 200 mg tablet Take 1 tablet (200 mg total) by mouth 2 (two) times a day. levothyroxine (SYNTHROID, LEVOTHROID) 100 mcg tablet TAKE 1 TABLET BY MOUTH EVERY DAY 90 tablet 1 09/17/2024 magnesium oxide (MAG-OX) 400 mg (241.3 elemental magnesium) tablet TAKE 1 TABLET BY MOUTH EVERY DAY AT BEDTIME HOLD FOR LOOSE STOOL 09/06/2022 metoprolol succinate (TOPROL-XL) 25 mg 24 hr tabletIndications :Palpitations,PVC 's (premature ventricular contractions) Take 1 tablet (25 mg total) by mouth 1 (one) time each day. Do not crush or chew. 90 tablet 3 06/05/2024 Nurtec 75 mg dispersible tablet TAKE 1 TAB ORALLY ONCE NEEDED FOR MIGRAINE HEADACHE FOR 30 DAYS MAX DAILY DOSE 1 TAB PER DAY 05/13/2023 omeprazole (PriLOSEC) [address] capsule TAKE 1 CAPSULE BY MOUTH DAILY 90 capsule 1 05/24/2024 ondansetron (ZOFRAN) 8 mg tablet Take 1 tablet (8 mg total) by mouth 3 (three) times a day if needed for nausea or vomiting. 20 tablet 1 08/29/2024 polyethylene glycol (MIRALAX) 17 gram packet Take 17 g by mouth 1 (one) time each day. 01/12/2023 sucralfate (CARAFATE) 100 mg/mL suspension TAKE 10 MLS BY MOUTH TWICE DAILY BEFORE MEALS, 1 HOUR BEFORE MEALS AND AT BEDTIME 2520 mL 1 06/05/2024 documented as of this encounter Discharge Disposition Disposition Code Departure Means Destination Home or Self Care documented in this encounter Plan of Treatment Upcoming Encounters Date Type Department Care Team (Late st Contact Info) Description 11/21/2024 9:30 AM EDT Office Visit Internal Medicine [facility] [address] [phone] Kemal London NP [address] [address] 11/29/2024 1:20 PM EDT Office Visit Gastroenterology - [place] [address] [phone] Minnie Raman PA [address] [address] 12/13/2024 11:00 AM EDT Office Visit Internal Medicine - [place] [address] [phone] Sarah Kwok PA [address] [address] 04/04/2025 9:30 AM EST Office Visit Bariatric Surgery - [place] 175 [facility] [address] [place] [phone] Cheryl Holland PA [address] [place] [phone] documented as of this encounter Procedures Procedure Name Priority Date/Time Associated Diagnosis Comments XR HIP 2-3 VIEWS RIGHT Routine 10/29/2024 11:09 AM EDT Right hip pain documented in this encounter Results * XR Hip 2-3 Views Right (10/29/2024 11:09 AM EDT) Anatomical Region Laterality Modality Lower Extremities, Hip Right Radiograp hic Imaging 10/29/2024 12:2 2 PM EDT Impressions 10/29/2024 12:23 PM EDT Normal examination. Code 10903 -------- FINAL REPORT -------- Dictated By: Rene Vasquez Dictated Date: 10/29/2024 12:22 ET Assigned Physician: Rene Vasquez Reviewed and Electronically Signed By: Rene Vasquez Signed Date: 10/29/2024 12:23 ET Workstation ID: [id number] Transcribed By: Self Edit Transcribed Date: 10/29/2024 12:22 ET Narrative 10/29/2024 12:23 PM EDT HISTORY: The patient is a 29-year-old female with right hip pain following a fall one year previously. FINDINGS: AP radiograph of the pelvis, along with coned-down AP and external rotation-abduction views of the right hip, are obtained. The study demonstrates no fracture, dislocation, arthritic change, osteolytic or osteoblastic lesion, or other bony abnormality. No soft tissue abnormality is seen. Procedure Note Rene Vasquez MD - 10/29/2024 HISTORY: The patient is a 29-year-old female with right hip pain followinga fall one year previously. FINDINGS: AP radiograph of the pelvis, along with coned-down AP andexternal rotation-abduction views of the right hip, are obtained. Thestudy demonstrates no fracture, dislocation, arthritic change, osteolyticor osteoblastic lesion, or other bony abnormality. No soft tissueabnormality is seen. IMPRESSION: Normal examination. Code 17323 -------- FINAL REPORT -------- Dictated By: Rene Vasquez Dictated Date: 10/29/2024 12:22 ET Assigned Physician: Rene Vasquez Reviewed and Electronically Signed By: Rene Vasquez Signed Date: 10/29/2024 12:23 ET Workstation ID: [id number] Transcribed By: Self Edit Transcribed Date: 10/29/2024 12:22 ET Chris SALGADO IMG XR PROCEDURES Final Result documented in this encounter Visit Diagnoses Not on filedocumented in this encounter Additional Health Concerns Assessment Noted Time PHQ-9 Depression Total Score: 19 025 9:32 AM EDT documented as of this encounter Care Teams Drawer Liner Relationship Specialty Start Date End Date Sarah Kwok PA 175 [facility] [address] [place] [address] PCP - General Primary Care 01/30/24 documented as of this encounter
--- NOTE | 2024-10-30 13:41 | MHC.OFFVIS ---
Vital Signs 10/30/24 13:42 Height 5 ft 6 in Weight 191 lb 6 oz BMI 30.9 BP 128/66 Blood Pressure Location Rt brachial Position Sitting Pulse 87 Pulse Source Pulse Oximeter Pulse Oximetry (%) 98 Oxygen Delivery Method Room Air Intake Visit Reasons: Botox Intake Note: Botox Linoleum Tile Layer Required: No Accompanied by: Self / Same As Patient Allergies [id number] (From Emgality Pen) Allergy (Severe, Verified 10/30/24 13:41) Anaphylaxis gluten (GLUTEN) Allergy (Unknown, Verified 10/30/24 13:41) DIARRHEA lactose Allergy (Unknown, Verified 10/30/24 13:41) Unknown metoclopramide (From REGLAN) Adverse Reaction (Unknown, Verified 10/30/24 13:41) Anxiety ibuprofen Adverse Reaction (Verified 10/30/24 13:41) Stomach Upset Medication List - Last Reconciled 10/30/24 by Mckenna Garcia MD acetazolamide ER 500 mg PO TID 30 days atogepant (Qulipta) 30 mg PO DAILY 30 days baclofen 20 mg PO BID PRN celecoxib (Celebrex) 200 mg (2 x 100 mg) PO Q12H 30 days eletriptan take 1 tab at onset of headache; if no relief, may repeat 1 tab after at least 2 hrs; max = 2 tabs/24 hrs orally PRN; 30 days gabapentin 600 mg PO BID hydroxychloroquine 200 mg PO BID levothyroxine 100 mcg PO DAILY magnesium oxide 400 mg PO BEDTIME 30 days metoprolol succinate ER 25 mg PO DAILY riboflavin (vitamin B2) 400 mg PO DAILY 30 days rimegepant (Nurtec ODT) 75 mg PO ONCE PRN 30 days sumatriptan 20 mg/actuation 20 mg intranasal Q2H PRN 30 days MDD 40mg HPI Comments Details: ? 29y/o female comes for treatment of migraines with botox. ??? Most frequent reported adverse reactions following injection of botox for chronic migraine include neck pain (9%), headache(5%), eyelid ptosis(4%), migraine(4%), muscular weakness(4%), musculuskeletal stiffness(4%), bronchitis(3%), injection site pain (3%), musculoskeletal pain(3%), myalgia(3%), facial paresis(2%), HTN(2%) and muscle spasms(2%) were discussed in detail. ??? Botulinum toxin typeA 200units Lot no [id number] expiration nov 2026 was diluted with 4 cc of normal saline . ??? Muscles injected- ??? Frontalis 4 sites ??? Procerus 1 site xxx ??? Quality Head- 2 sites ??? Temporalis- 8 sites ??? Occipitalis- 6 sites ??? Cervical paraspinals- 4 sites ??? Trapezius- 6 sites- 10 units each ??? 5 units each in 31 site ??? Total use- 185units ??? Discarded-15units [facility] Medical History Connective tissue disorder Obesity Pseudotumor cerebri Enlarged tonsils HLD (hyperlipidemia) Hypothyroidism History of depression KARISSA (iron deficiency anemia) Asthma Heart murmur GERD (gastroesophageal reflux disease) Celiac disease Surgical History Hx of colonoscopy Hx of bladder endoscopy H/O eye surgery Family History Maternal Grandmother Diabetes Hypertension Paternal Grandfather Hypertension Father Rheumatoid arthritis Diabetes Fibromyalgia Migraines Anxiety Lupus Mother Fibromyalgia Migraines Hypertension Hypercholesteremia Son Thyroid condition Asthma Son Autism Daughter Arthritis Social History Alcohol intake: never Patient Tobacco Use Status: Never used Tobacco Physical Exam Vital Signs: Last Vital Signs Pulse 87 10/30/24 13:42 BP 128/66 10/30/24 13:42 Pulse Ox 98 10/30/24 13:42 Oxygen Delivery Method Room Air 10/30/24 13:42 BMI result Body Mass Index 30.9 Office Procedures Botulinum toxin Injection 36965 - Migraine Procedure code (CPT) selection complete Office Meds onabotulinumtoxinA 200 unit solution for injection Performing Provider: Mckenna Garcia MD Performing Location: [facility] Administered by: Mckenna Garcia MD on 10/30/24 14:14 Dose Route Admin Location Dispensed Lot Number Expiration Date [facility] Casting Operator 185 unit subcut 200 units [id number] ALLERGAN/BOTOX Total Dispensed Waste 200 units 7.5 % Comments: see HPI Assessment & Plan Assessment & Plan (1) Chronic migraine without aura: Code(s): G43.709 - Chronic migraine without aura, not intractable, without status migrainosus Category: Medical Qualifiers: Status migrainosus presence: without status migrainosus Intractability: intractable Qualified Code(s): G43.719 - Chronic migraine without aura, intractable, without status migrainosus (2) Bruxism: Code(s): F45.8 - Other somatoform disorders Category: Medical (3) TMJ (temporomandibular joint disorder): Code(s): M26.609 - Unspecified temporomandibular joint disorder, unspecified side Category: Medical Plan Patient tolerated the procedure well she will call with any side effects Orders: Orders AMB Botulinum toxin Injection Today G43.719 - Chronic migraine without aura, intractable, without status migrainosus Coding Level of Care Code Est Pt Level 1 (89890) Diagnoses Intractable chronic migraine without aura and without status migrainosus G43.719 Status migrainosus presence: without status migrainosus Intractability: intractable Bruxism F45.8 TMJ (temporomandibular joint disorder) M26.609 CPT Codes Botox Injection - Botox 3: 64144 - Migraine ([id number])
[2024-10-30 13:42] VITALS: BP 128/66; PULSE 87; O2SAT 98; BMI 30.9
--- OUTSIDE RECORDS SUMMARY | 2024-10-30 16:06 | XMS_ITS | Clinical Summary ---
Author Organization [facility] Address [address] [id number] Care Team Providers Care Research Executive Name Role Phone Sarai Solares MD Primary Care Provider [phone] Allergies Active Allergy Reactions Criticality Noted Date [...] age to complete this topic Care Teams Research Executive Relationship Specialty Start Date End Date Chaganti, Sarai, MD [address] [phone] PCP - General Internal Medicine 06/22/22
--- OUTSIDE RECORDS SUMMARY | 2024-10-30 16:07 | XMS_ITS | Clinical Summary ---
Author Organization Patient Business Ser [facility] Address [address] [place] [address] Care Team Providers Care Geography Professor Name Role Phone Sarah Kwok Primary Care Provider + Allergies Active Allergy Reactions Criticality Noted Date Comments Duloxetine Hcl 09/29/2022 Fatigue Galcanezumab-Gnlm Other 01/12/2023 Gluten Unknown Low 04/13/2013 Lactose 04/13/2013 Metoclopramide Hcl 04/13/2013 Medications albuterol HFA (Ventolin HFA) 90 mcg/actuation inhaler INHALE 2 PUFFS INTO THE LUNGS EVERY 4 HOURS NEEDED FOR COUGH,WHEEZING OR SHORTNESS OF BREATH. 3 Active cholecalciferol (VITAMIN D-3) 50 mcg (2,000 unit) capsule Take 1 capsule (2,000 Units total) by mouth 1 (one) time each day. 4 Active ascorbic acid (VITAMIN C) 500 mg tablet Take 1 tablet (500 mg total) by mouth 1 (one) time each day. 4 Active acetaminophen (TYLENOL) 500 mg tablet Take 2 tablets (1,000 mg total) by mouth every 6 (six) hours if needed for moderate pain or mild pain. 3 Active atogepant (Qulipta) 30 mg tablet Take 1 tablet by mouth 1 (one) time each day. 4 Active polyethylene glycol (MIRALAX) 17 gram packet Take 17 g by mouth 1 (one) time each day. 3 Active magnesium oxide (MAG-OX) 400 mg (241.3 elemental magnesium) tablet TAKE 1 TABLET BY MOUTH EVERY DAY AT BEDTIME HOLD FOR LOOSE STOOL 3 Active gabapentin (NEURONTIN) 300 mg capsule Take 2 capsules (600 mg total) by mouth 2 (two) times a day. 4 Active baclofen (LIORESAL) 20 mg tablet Take 1 tablet (20 mg total) by mouth 2 (two) times a day if needed for muscle spasms. 90 tablet 3 4 Active albuterol 2.5 mg /3 mL (0.083 %) nebulizer solution TAKE 1 VIAL BY NEBULIZATION EVERY 4 HOURS NEEDED FOR WHEEZING. 375 mL 5 Active omeprazole (PriLOSEC) [address] capsule TAKE 1 CAPSULE BY MOUTH DAILY 90 capsule 1 5 Active sucralfate (CARAFATE) 100 mg/mL suspension TAKE 10 MLS BY MOUTH TWICE DAILY BEFORE MEALS, 1 HOUR BEFORE MEALS AND AT BEDTIME 2520 mL 1 5 Active acetaZOLAMIDE (DIAMOX) 500 mg 12 hr capsule Take 1 capsule (500 mg total) by mouth 2 (two) times a day. 5 Active metoprolol succinate (TOPROL-XL) 25 mg 24 hr tabletIndicatio ns:Palpitations ,PVC's (premature ventricular contractions) Take 1 tablet (25 mg total) by mouth 1 (one) time each day. Do not crush or chew. 90 tablet 3 5 Active cetirizine (ZyrTEC) 10 mg tablet Take 1 tablet (10 mg total) by mouth 1 (one) time each day. 5 Active eletriptan (RELPAX) 40 mg tablet PLEASE SEE ATTACHED FOR DETAILED DIRECTIONS Active Nurtec 75 mg dispersible tablet TAKE 1 TAB ORALLY ONCE NEEDED FOR MIGRAINE HEADACHE FOR 30 DAYS MAX DAILY DOSE 1 TAB PER DAY 4 Active ondansetron (ZOFRAN) 8 mg tablet Take 1 tablet (8 mg total) by mouth 3 (three) times a day if needed for nausea or vomiting. 20 tablet 1 5 Active hydroxychloroqu ine (PLAQUENIL) 200 mg tablet Take 1 tablet (200 mg total) by mouth 2 (two) times a day. Active levothyroxine (SYNTHROID, LEVOTHROID) 100 mcg tablet TAKE 1 TABLET BY MOUTH EVERY DAY 90 tablet 1 Active Active Problems Problem Noted Date Diagnosed Date Supervision of normal first 11/24/2023 Overview (11/24/2023): office: [place] Delivery site: [facility] Blood Type: O+ Quad screen: negative [...] Encounters Date Type Department Care Team Description 10/29/2024 11:00 AM EDT - 10/29/2024 11:59 PM EDT Hospital Encounter [facility] [address] [place] [phone] Arrived Discharge Disposition: Home or Self Care 10/29/2024 10:15 AM EDT Treatment [facility] [address] [phone] Анна Ricardo, PT Right hip pain (Primary Dx); Acute right ankle pain; Acute pain of right knee 10/26/2024 10:00 AM EDT Treatment [address] [phone] Анна Ricadro, PT Right hip pain (Primary Dx); Acute right ankle pain 10/15/2024 2:00 PM EDT Treatment [address] [phone] Анна Ricardo, PT Right hip pain (Primary Dx); Acute right ankle pain 09/19/2024 2:00 PM EDT Evaluation [address] [phone] Анна Ricardo, PT Right hip pain (Primary Dx); Acute right ankle pain; Acute pain of right knee 09/07/2024 10:45 AM EDT Office Visit Internal Medicine - [address] [place] [phone] Sarah Kwok PA Hypothyroidism, unspecified type (Primary Dx); PVC's (premature ventricular contractions); Palpitations; Frequent headaches; Cervico-occipital neuralgia of right side; Pseudotumor cerebri 09/07/2024 10:25 AM EDT Lab Draw Station - [address] [place] [address] [address] [place] [phone] Diarrhea, unspecified type; Hypothyroidism, unspecified type 08/29/2024 9:10 AM EDT Office Visit Gastroenterology - [address] [place] [phone] Minnie Raman PA Diarrhea, unspecified type (Primary Dx); Celiac disease; Chronic superficial gastritis without bleeding 08/03/2024 9:00 AM EDT Consult Orthopedics - [address] [phone] Chris Mccallum PA Right hip pain (Primary Dx); Acute pain of right knee; Acute right ankle pain from Last 3 Months Immunizations Name Administration [...] care for your loved ones. For example, early childhood education coordinator or elderly care for an older adult? [...] Sign Reading Time Taken Comments Blood Pressure 112/70 09/07/2024 10:38 AM EDT Pulse 91 09/07/2024 10:38 AM EDT Temperature 36.2 C (97.1 F) 09/07/2024 10:38 AM EDT Respiratory Rate - - Oxygen Saturation 98% 09/07/2024 10:38 AM EDT Inhaled Oxygen Concentration - - Weight 86.2 kg (190 lb) 09/07/2024 10:38 AM EDT Height 167.6 cm (5' 6 ) 09/07/2024 10:38 AM EDT Body Mass Index 30.67 09/07/2024 10:38 AM EDT Plan of Treatment Upcoming Encounters Date Type Department Care Team (Late st Contact Info) Description 11/21/2024 9:30 AM EDT Office Visit Internal Medicine - [place] 175 [facility] [address] [place] [phone] Kemal London NP 175 [facility] [address] [place] [address] 11/29/2024 1:20 PM EDT Office Visit Gastroenterology - [place] 175 [facility] 175 [facility] [address] [place] [phone] Minnie Raman PA 175 [facility] [address] [place] [address] 12/13/2024 11:00 AM EDT Office Visit Internal Medicine - [place] 175 [facility] [address] [place] [phone] Sarah Kwok PA 175 [facility] [address] [place] [address] 04/04/2025 9:30 AM EST Office Visit Bariatric Surgery - [place] 175 [facility] [address] [place] [phone] Cheryl Holland PA [address] [place] [phone] Health Maintenance Due Date Last Done Comments COVID-19 Vaccine (#1) 1999 Pneumococcal Vaccine: Pediatrics (0 to 5 Years) and At-Risk Patients (6 to 49 Years) (1 of 2 - PCV) 2013 Cervical Cancer Screening: Pap Smear 2015 Hepatitis C Screening 05/19/2021 Influenza Vaccine (#1) 2024 8, 11/12/2014, 11/29/2013, Additional history exists Social Influencers of Health Screening 07/05/2025 07/05/2024, 09/27/2023 Cholesterol Screening (Lipid Panel) 10/23/2027 10/22/2022 DTaP,Tdap,and Td Vaccines (9 - Td or Tdap) 09/12/2029 09/13/2019, 08/29/2013, 11/23/2005, Additional history exists Hepatitis B Vaccines Completed 01/04/1995, 1994, 1994 HIB Vaccines Completed 10/11/1995, 04/1994, 1994, Additional history exists IPV Vaccines Completed 06/06/1998, 08/0 04/1994, 1994, Additional history exists MMR Vaccines Completed 06/06/1998, 07/12/1995 HPV Vaccines Completed 04/17/2007, 12/23, 11/01/2006, Additional history exists Varicella Vaccines Completed 02/29/2008, 11/01/2006 Meningococcal ACWY Vaccine Completed 10/04/2011, HIV Screening Completed 04/13/2013 Depression Screening Completed 07/05/2024, 03/15/19 24 Hepatitis A Vaccines Aged Out No long [...] Comments XR HIP 2-3 VIEWS RIGHT Routine 11:09 AM EDT Right hip pain EXTERNAL CLINICAL LAB 09/27/2024 THYROID STIMULATING HORMONE Routine 09/07/2024 10:58 AM EDT Hypothyroidism, unspecified type GASTROINTESTINAL PATHOGENS BY PCR Routine 09/07/2024 10:33 AM EDT Diarrhea, unspecified type HELICOBACTER PYLORI BREATH TEST Routine 09/05/2024 11:13 AM EDT Abdominal bloating DEPRESSION SCREENING Routine 03/15/2023 LIPID PANEL Routine 10/22/2022 HIV SCREENING Routine 04/13/2013 from Last 3 Months or Most Recently Relevant to Health Maintenance Results * XR Hip 2-3 Views Right (10/29/2024 11:09 AM EDT) Anatomical Region Laterality Modality Lower Extremities, Hip Right Radiograp hic Imaging 10/29/2024 12:2 2 PM EDT Impressions 10/29/2024 12:23 PM EDT Normal examination. Code 67875 -------- FINAL REPORT -------- Dictated By: Rene Vasquez Dictated Date: 10/29/2024 12:22 ET Assigned Physician: Rene Vasquez Reviewed and Electronically Signed By: Rene Vasquez Signed Date: 10/29/2024 12:23 ET Workstation ID: [id number] Transcribed By: Self Edit Transcribed Date: 10/29/2024 [...] tissueabnormality is seen. IMPRESSION: Normal examination. Code 81646 -------- FINAL REPORT -------- Dictated By: Rene Vasquez Dictated Date: 10/29/2024 12:22 ET Assigned Physician: Rene Vasquez Reviewed and Electronically Signed By: Rene Vasquez Signed Date: 10/29/2024 12:23 ET Workstation ID: [id number] Transcribed By: Self Edit Transcribed Date: 10/29/2024 12:22 ET Chris SALGADO IMG XR PROCEDURES Final Result * External clinical lab (09/27/2024) us Provider [facility] LAB BLOOD ORDERABLES Fin al Result * Thyroid stimulating hormone (09/07/2024 10:58 AM EDT) [facility] TSH 2.38 0.40 - 4.00 mcIU/mL LAB CHEMISTRY METHOD 09/07/2024 3:56 PM EDT [facility] Blood Venous blood specimen / Unknown Venipuncture / Unknown 09/07/2024 10:58 AM EDT 09/07/2024 10:58 AM EDT Sarah SALGADO LAB BLOOD ORDERABLES Fin al Result [facility] [address] [place] [address], * Gastrointestinal pathogens molecular study (09/07/2024 10:33 AM EDT) [facility] Campylobacter Detection by PCR Not Detected Not Detected LAB MICROBIOLOGY METHOD 5 3:29 PM EDT [facility] Plesiomonas shigelloides Detection by PCR Not Detected Not Detected LAB MICROBIOLOGY METHOD 5 3:29 PM EDT [facility] Salmonella Detection by PCR Not Detected Not Detected LAB MICROBIOLOGY METHOD 5 3:29 PM EDT [facility] Vibrio Detection by PCR Not Detected Not Detected LAB MICROBIOLOGY METHOD 5 3:29 PM EDT [facility] Vibrio cholerae Detection by PCR Not Detected Not Detected LAB MICROBIOLOGY METHOD 5 3:29 PM EDT [facility] Yersinia enterocolitica Detection by PCR Not Detected Not Detected LAB MICROBIOLOGY METHOD 5 3:29 PM EDT [facility] Enteroaggregative E coli EAEC Detection by PCR Not Detected Not Detected LAB MICROBIOLOGY METHOD 5 3:29 PM EDT [facility] Enteropathogenic E coli EPEC Detection Not Detected Not Detected LAB MICROBIOLOGY METHOD 5 3:29 PM EDT [facility] Enterotoxigenic E coli ETEC LTST Detection Not Detected Not Detected LAB MICROBIOLOGY METHOD 5 3:29 PM EDT [facility] Shiga-like toxin producing E coli STEC STX1 STX2 Det Not Detected Not Detected LAB MICROBIOLOGY METHOD 5 3:29 PM EDT [facility] Shigella Enteroinvasive E coli EIEC Detection Not Detected Not Detected LAB MICROBIOLOGY METHOD 5 3:29 PM EDT [facility] Cryptosporidium Detection by PCR Not Detected Not Detected LAB MICROBIOLOGY METHOD 5 3:29 PM EDT [facility] Cyclospora cayetanensis Detection by PCR Not Detected Not Detected LAB MICROBIOLOGY METHOD 5 3:29 PM EDT [facility] Entamoeba histolytica Detection by PCR Not Detected Not Detected LAB MICROBIOLOGY METHOD 5 3:29 PM EDT [facility] Giardia lamblia Detection by PCR Not Detected Not Detected LAB MICROBIOLOGY METHOD 5 3:29 PM EDT [facility] Adenovirus F 40 41 Detection by PCR Not Detected Not Detected LAB MICROBIOLOGY METHOD 5 3:29 PM EDT [facility] Astrovirus Detection by PCR Not Detected Not Detected LAB MICROBIOLOGY METHOD 5 3:29 PM T [facility] Norovirus GI GII Detection by PCR Detected LAB MICROBIOLOGY METHOD 5 3:29 PM EDT [facility] Sapovirus Detection by PCR Not Detected Not Detected LAB MICROBIOLOGY METHOD 5 3:29 PM EDT [facility] Rotavirus A Detection by PCR Not Detected Not Detected LAB MICROBIOLOGY METHOD 5 3:29 PM T [facility] Stool Rectum structure / Unknown Non-blood Collection / Unknown 09/07/2024 10:33 AM EDT 09/07/2024 10:33 AM EDT Narrative [facility] - 09/07/2024 3:29 PM EDT PCR testing is much more sensitive than traditional techniques and allows for the detection of low numbers of stool pathogens. The clinical correlation of PCR results with the need for treatment and clinical outcomes has not been established. Therefore the results of PCR testing for stool pathogens must be taken into clinical context when making treatment decisions. This is a diagnostic test only, repeat testing for cure is not advised. You may consider infectious disease consult for additional guidance. Testing Performed by [facility] Minnie SALGADO LAB MICROBIOLOGY - GENERAL OR DERABLES Final Result [facility] [address] [place] [address], [place] [phone] * Helicobacter pylori breath test (09/05/2024 11:13 AM EDT) [facility] H Pylori Breath Test Negative Negative LAB CHEMISTRY METHOD 09/05/2024 2:29 PM EDT [facility] Breath Oral cavity structure / Unknown Non-blood Collection / Unknown 09/05/2024 11:13 AM EDT 09/05/2024 11:13 AM EDT Sofie Monsalve NP LAB BODY FLUIDS AND STOOLS ORDE RABBILLY Final Result [facility] [address] [place] [address], [place] [phone] * Depression Screening (03/15/2023) Pathologist [facility] Depression Screening Abstracted Historical Provider HEALTH MAINTENANCE Final Result * Lipid panel (10/22/2022) [facility] LDL/HDL Ratio 3 0 - 4 Triglycerides 77 0 - 150 mg/dL Cholesterol 183 0 - 200 mg/dL HDL 72 >=40 mg/dL LDL Cholesterol 96 0 - 100 mg/dL Blood Venous blood specimen / Unknown Historical Provider LAB BLOOD ORDERABLES Ambreen l Result * HIV Screening (04/13/2013) Pathologist [facility] HIV Screening Abstracted Historical Provider HEALTH MAINTENANCE Final Result from Last 3 Months or Most Recently Relevant to Health Maintenance Insurance [facility] Care Teams Geography Professor Relationship Specialty Start Date End Date Sarah Kwok PA [address] [address] PCP - General Primary Care 01/30/24
== END 2024-10-30 14:24 | disposition home or self-care (01) ==
LOC: HO.HSMS 13:37
PROVIDERS: PCP Internal Medicine; Visit Provider Psychiatry & Neurology Neurology
DX: G43.719 Chronic migraine without aura, intractable, without status migrainosus (principal)
CPT/HCPCS: 64615

== ENCOUNTER → 2024-10-30 13:37 | Outpatient (BNVA) | payer OTHER, SELFPAY | PROVIDERS: PCP Internal Medicine; Visit Provider Psychiatry & Neurology Neurology | DX: G43.709 Chronic migraine without aura, not intractable, without status migrainosus (principal); F45.8 Other somatoform disorders; M26.609 Unspecified temporomandibular joint disorder, unspecified side | CPT/HCPCS: 64615; 99211; J0585 ==

== ENCOUNTER 2024-12-27 09:23 | Outpatient (AMB) | payer OTHER, SELFPAY ==
[2024-12-27 09:38] VITALS: BP 100/72; PULSE 82; BMI 29.3
--- NOTE | 2024-12-27 09:38 | MHC.OFFVIS ---
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 r/s 10-29-24 Allergies galcanezumab-gnlm (From Emgality Pen) Allergy (Severe, Verified 12/27/24 09:43) Anaphylaxis gluten (GLUTEN) Allergy (Unknown, Verified 12/27/24 09:43) DIARRHEA lactose Allergy (Unknown, Verified 12/27/24 09:43) Unknown metoclopramide (From REGLAN) Adverse Reaction (Unknown, Verified 12/27/24 09:43) Anxiety ibuprofen Adverse Reaction (Verified 12/27/24:43) Stomach Upset Medication List - Last Reconciled 12/27/24 by Rachael Latham, GLYNN-C acetazolamide ER 500 mg PO TID 30 days atogepant (Qulipta) 30 mg PO DAILY 30 days baclofen 20 mg PO BID PRN celecoxib (Celebrex) 200 mg (2 x 100 mg) PO Q12H 30 days eletriptan take 1 tab at onset of headache; if no relief, may repeat 1 tab after at least 2 hrs; max = 2 tabs/24 hrs orally PRN; 30 days gabapentin 600 mg PO BID hydroxychloroquine 200 mg PO BID levothyroxine 100 mcg PO DAILY magnesium oxide 400 mg PO BEDTIME 30 days metoprolol succinate ER 25 mg PO DAILY riboflavin (vitamin B2) 400 mg PO DAILY 30 days rimegepant (Nurtec ODT) 75 mg PO ONCE PRN 30 days sumatriptan 20 mg/actuation 20 mg intranasal Q2H PRN 30 days MDD 40mg HPI HPI 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 Today she presents for cardiology consultation ( [facility] pt). She reports that she does get episodes of chest tightness with shortness of breath that can occur randomly. She says the episodes occur suddenly and can last several minutes before gradually resolving. At times she will notice heart palpitations with these episodes other times palpitations occur separately. She feels these symptoms are newer for her in the last few months. She has had palpitations in the past and was on metoprolol. [place] [facility] [place] had shown occasional PVCs and sinus tachycardia. She has been off metoprolol for several months. When she was on it she says she had more lightheadedness. Nonsmoker, no alcohol use. Mother has history of hole in her heart, paternal aunt of ID in her 30s. 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 She is not working currently. She has a history of asthma but states it is stable. [facility] Medical History Connective tissue disorder Obesity Pseudotumor cerebri Enlarged tonsils HLD (hyperlipidemia) Hypothyroidism History of depression KARISSA (iron deficiency anemia) Asthma Heart murmur GERD (gastroesophageal reflux disease) Celiac disease Surgical History Hx of colonoscopy Hx of bladder endoscopy H/O eye surgery Family History Maternal Grandmother Diabetes Hypertension Paternal Grandfather Hypertension Father Rheumatoid arthritis Diabetes Fibromyalgia Migraines Anxiety Lupus Mother Fibromyalgia Migraines Hypertension Hypercholesteremia Son Thyroid condition Asthma Son Autism Daughter Arthritis Social History Alcohol intake: never Patient Tobacco Use Status: Never used Tobacco Review of Systems Const All systems reviewed & are unremarkable except as noted in HPI and below ENT Denies dizziness Card Reports chest pain, Denies chest pain at rest, Denies chest pain with activity, Denies rapid heart rate, Denies pedal edema, Denies edema, Denies leg edema, Denies lightheadedness, Reports palpitations, Reports dyspnea, Denies dyspnea on exertion and Denies orthopnea Resp Denies cough, Reports dyspnea and Denies dyspnea on exertion GI Denies hematochezia and Denies change in stool character Musc Denies abnormal gait, Denies limited range of motion, Denies muscle cramps, Denies muscle weakness, Denies numbness, Denies radiating pain into limb, Denies stiffness and Denies tingling Neuro Denies abnormal gait, Denies dizziness, Denies numbness and Denies tingling Endo Reports palpitations Physical Exam Vital Signs: Last Vital Signs Pulse 82 12/27/24 09:38 BP 100/72 12/27/24 09:38 BMI result Body Mass Index 29.3 Const General: cooperative, healthy appearing, comfortable and no acute distress Orientation/consciousness: patient oriented x3 Neck Neck: Yes normal visual inspection Resp Effort & Inspection: normal respiratory effort Auscultation: clear to auscultation bilaterally, no rales, no rhonchi and no wheezes Cardio Rate: regular rate Rhythm: regular rhythm Heart sounds: S1 normal heart sound present, S2 normal heart sound present, no gallops, no murmurs and no rubs Neuro General: patient oriented x3 Extrem General: Yes normal to inspection and No no pedal edema Psych Appearance: grossly normal Mental Status: mental status grossly normal Speech and movement: Normal speech and movement present Office Procedures EKG Details: Today, read by me, normal sinus rhythm, rate 82, Qtc 394ms [id number], Complete Results Reviewed Results Reviewed: - Echocardiogram 06/03/2023: EF 59%, mild septal asymmetric hypertrophy, no valve abnormalities, no pulmonary hypertension Assessment & Plan Assessment & Plan (1) Chest discomfort: Code(s): R07.89 - Other chest pain Category: Medical Plan: Episodes of chest tightness and shortness of breath occurring randomly. EKG today showing normal sinus rhythm with no acute ST or T-wave abnormalities, rate 82. Cardiac risk factors of early CAD in paternal aunt. Echocardiogram from 05/2023 showed normal EF and no regional wall motion abnormalities. Will check an exercise stress test to assess for any ischemia. Signs and symptoms of true angina reviewed with her. Her current symptoms seems atypical. Cardiology follow-up 6-8 weeks, sooner if needed. (2) Shortness of breath: Code(s): R06.02 - Shortness of breath Category: Medical Plan: As above. She does have asthma but states this feels different then asthma attacks. (3) Heart palpitations: Code(s): R00.2 - Palpitations Category: Medical Plan: Reports of heart palpitations and skipped beats. Previously diagnosed with PVCs through [facility] cardiology. EKG today showing sinus rhythm. Will check Holter monitor to assess for arrhythmia. She was previously on metoprolol and reported some lightheadedness. Blood pressure 100/72 today. Will hold off on beta-landon at this time. Reviewed reduction in caffeinated beverages, maintain good hydration. Plan I discussed with the patient the plan to conduct a Holter monitor test and a stress test to evaluate her cardiac function and symptoms. We reviewed the risks and benefits of the stress test. The patient was advised to maintain hydration and manage joint pain to facilitate the stress test. Orders: Orders CA stress test Today R00.2 - Palpitations, R07.89 - Other chest pain ECG 3 day holter monitor Today R00.2 - Palpitations, R07.89 - Other chest pain Patient Instructions: - Maintain good hydration and avoid caffiene - Attempt the stress test, using pain relief measures as needed prior to exercise. - Follow up with the manager transportation planning after the tests for further evaluation. Patient was informed and verbally consented to the use of an ambient scribe for clinic note documentation during this visit. Visit time spent on chart review, interview, assessment, orders, documentation. Coding Level of Care Code New Pt Level 4 (13966) Complex EM visit Add On G2211 Diagnoses Chest discomfort R07.89 Shortness of breath R06.02 Heart palpitations R00.2 CPT Codes EKG - CPT: 62114-[id number], Complete ([id number]) Time Spent (min) 30
--- OUTSIDE RECORDS SUMMARY | 2024-12-27 10:25 | XMS_ITS | Data Portability ---
Author Organization [place] - [facility], Allergy Address [address] [address] Care Team Providers Care Oral And Maxillofacial Surgery Resident Name Role Phone MYRIAM KEY Primary Care [...] to read at home, which gives a [id number] discussion on what causes migraine and how [...] answered. Case was discussed with Dr. 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 Procedures Surgical History Date Name Laterality Status Provider Name and Address Organization Details Recorded Time 05/30/2024 Comp Audio with Tymps - 76157 & 87846 completed ALEX LEBLANC, [facility] 100 [facility], [place], [address], [place] - [facility] 05/30/2024 10:57:28 Imaging Results None recorded. Procedure Notes None recorded. Medical Equipment None Reported. Allergies Allergen ID Allergen Name Allergen Category Reaction Reaction Severity Criticality Documentation Date Start Date Code Code System Note Provider Name and Address Organization Details Recorded Time 217305 wheat gluten extract food other Not available Not available 09/23/2023 92757 81 RxNorm React ion: Unkno wn; Not Available [facility] 4 00:26:55 261311 Reglan medicatio n other Not available Not available 09/23/2023 9230 RxNorm React ion: Unkno wn; Not Available [facility] 4 00:26:58 Medications Name Sig Start Date [...] Not Available No t Available amoxicillin 875 mg-potassiu m clavulanate 125 mg tablet TAKE 1 [...] Updated DateTime 05/30/2024 167.64 cm 31.3 kg/m2 90338.92 g Zahra Toussaint [place] - [facility] 05/30/2024 10:30:49 Social History None recorded. Functional Status None recorded. Mental Status None recorded. Family History Nothing Reported. Medical History No medical history recorded. Gynecological HistoryNo gynecological history recorded. Obstetrics History GPAL:G 0 P 0 0 0 0 Past Encounters Encounter ID Performer Location Encounter Start Date Encounter Closed Date Diagnosis/Indication Diagnosis SNOMED-CT Code Diagnosis ICD10 Code Diagnosis IMO Codes Diagnosis Note [id number] JOSEE LOWERY PA-C [facility] [address] [address] 05/30/2024 10:24:57 05/30/2024 11:14:02 Tinnitus of right ear 2433398453 108 H93.11 Audiologic al evaluation results: Right ear: Normal hearing with excellent word recognitio n. Left ear: Normal hearing with excellent word recognitio n. Tympanomet ry: Right Ear:Type A Left Ear:Type A Atypical facial pain 713 99964 G50.1 Migraine 77277750 G43.90 9 Peripheral vertigo 95991 001 H81.399 Health Concerns Section Related Observation LastModified by Organization Detai ls LastModified Time None Recorded Concern Status LastModified by Organization Details LastModified Time None Recorded Advance Directives Directive None Recorded Payers Insurance Date Sequence Insurance Name Policy Number Policy Hess Covered Member ID Hess Member ID Guarantor Name 04/04/2024 1 [facility] PLAN (MEDICAID HMO) [place] Franshesca Blevins [id number] Franshesca Blevins 04/04/2024 1 [place] [facility] Franshesca Blevins [id number] Franshesca Blevins 05/30/2024 2 [place] [facility] Franshesca Blevins [id number] Franshesca Blevins 06/01/2024 1 [facility] PLAN - [facility] (MEDICAID REPLACEMENT - HMO) [facility] Franshesca Blevins [id number] Franshesca Blevins 04/04/2024 2 [place] Franshesca Blevins [id number] Franshesca Blevins Notes Date Note Type Note Provider Name and Address Organization Details Recorded Time 05/30/2024 text/html ROS as noted in the HPI 29 year old female presents for evaluation of the ears and [...] lifetime and do not have thunderclap onset. Josee castaneda [place] - [facility] 05/31/2024 15:33:28 OBGyn Episode No OBEpisode recorded.
--- OUTSIDE RECORDS SUMMARY | 2024-12-27 10:25 | XMS_ITS | Data Portability ---
Author Organization [facility], [address] Address [address] [place] [address] Care Team Providers Care Helmet Coverer Name Role Phone [facility] Primary Care Pr ovider Assessment No assessment recorded. Plan of Treatment Reminders Order Date Submit Date Provider Last Modified By Organization Details Last Modified Time Details Appointments None recorded. Lab urinalysis , dipstick 2022 023 [facility] [address], [address] [place], [address], 13:16:55 test, urine 2022 023 [facility] [address] [place] [address], [address] [place], [address], 13:16:55 culture, urine 2022 023 [place] [facility], [address] [place] [address], [place], [address], 18:06:14 Referral None recorded. Procedures None recorded. Surgeries None recorded. Imaging None recorded. Medication Orders Macrobid 100 mg capsule 2022 023 [place] [id number], [address] [place], [address], 13:17:00 Patient TargetsNo targets recorded. Patient Instructions Encounter Date Encounter Id Patient Instructions Last Modified By Organization Details Last Modified Time 04/25/2022 [id number] We recommend you get a repeat urinalysis [...] routine FINAL REPORT abnormal Not Available [facility] ([facility]) [address] [place], [address], 04/28/2022 16:06:54 04/26/19 23 04/28/2022 URINE CULTU RE, ROUTI NE result 1 ESCHER ICHIA COLI abnormal 50,00 0-100 ,000 colon y formi ng units per mL Not Available [facility] ([facility]) [address] [place], [address], 04/28/2022 16:06:54 04/26/19 23 04/28/2022 URINE CULTU [...] thopr im/Dunn lfa S Not Available [facility] ([facility]) [address] [facility], [place], [address], 04/28/2022 16:06:54 04/26/19 23 04/25/2022 urina lysis , dipst ick Unknown Analyte Normal = light yellow Not Available [facility] [address] [place], [address], 04/25/2022 12:26:46 04/26/19 23 04/25/2022 urina lysis , dipst ick Unknown Analyte Yellow Not Available [address] [facility] [address] [place], [address], 04/25/2022 12:26:46 04/26/19 23 04/25/2022 urina lysis , dipst ick Unknown Analyte Normal = clear Not Available [facility] [place], [address], 04/25/2022 12:26:46 04/26/19 23 04/25/2022 urina lysis , dipst ick Unknown Analyte Turbid Not Available [address] [facility] [address] [place], [address], 04/25/2022 12:26:46 04/26/19 23 04/25/2022 urina lysis , dipst ick Unknown Analyte Normal = negati ve Not Available [facility] [address] [place], [address], 04/25/2022 12:26:46 04/26/19 23 04/25/2022 urina lysis , dipst ick Unknown Analyte Negati ve Not Available [address] [place], [address], 04/25/2022 12:26:46 04/26/1904/25/2022 urina lysis , dipst ick Unknown Analyte Normal = Negati ve Not Available [facility] [address] [place], [address], 04/25/2022 12:26:46 04/26/19 23 04/25/2022 urina lysis , dipst ick Unknown Analyte Negati ve Not Available [address] [place], [address], 04/25/2022 12:26:46 04/26/1904/25/2022 urina lysis , dipst ick Unknown Analyte Normal = Negati ve Not Available [facility] [address] [place], [address], 04/25/2022 12:26:46 04/26/19 23 04/25/2022 urina lysis , dipst ick Unknown Analyte Negati ve Not Available [facility] [address] [place], [address], 04/25/2022 12:26:46 04/26/1904/25/2022 urina lysis , dipst ick Unknown Analyte Normal = 1.010, 1.015, 1.020 Not Available [address] [place], [address], 04/25/2022 12:26:46 04/26/19 23 04/25/2022 urina lysis , dipst ick Unknown Analyte 1.030 Not Available [facility] [address] [place], [address], 04/25/2022 12:26:46 04/26/19 23 04/25/2022 urina lysis , dipst ick Unknown Analyte Normal = Negati ve Not Available [facility] [place], [address], 04/25/2022 12:26:46 04/26/19 23 04/25/2022 urina lysis , dipst ick Unknown Analyte Large Not Available [address] [place] [address] [address] [place], [address], 04/25/2022 12:26:46 04/26/19 23 04/25/2022 urina lysis , dipst ick Unknown Analyte Normal = 6.5, 7.0, 7.5, 8.0 Not Available [facility] [place], [address], 04/25/2022 12:26:46 04/26/19 23 04/25/2022 urina lysis , dipst ick Unknown Analyte 5.5 Not Available [facility] [address] [place], [address], 04/25/2022 12:26:46 04/26/19 23 04/25/2022 urina lysis , dipst ick Unknown Analyte Normal = Negati ve Not Available [facility] [place], [address], 04/25/2022 12:26:46 04/26/19 23 04/25/2022 urina lysis , dipst ick Unknown Analyte 30 mg/dL Not Available [facility] [address] [address] [place], [address], 04/25/2022 12:26:46 04/26/19 23 04/25/2022 urina lysis , dipst ick Unknown Analyte Normal = 0.2, 1.0 Not Available [facility] [place], [address], 04/25/2022 12:26:46 04/26/19 23 04/25/2022 urina lysis , dipst ick Unknown Analyte 0.2 E.U./d L Not Available [address] [place], [address], 04/25/2022 12:26:46 04/26/19 23 04/25/2022 urina lysis , dipst ick Unknown Analyte Normal = Negati ve Not Available [address] [place], [address], 04/25/2022 12:26:46 04/26/19 23 04/25/2022 urina lysis , dipst ick Unknown Analyte Positi ve Not Available [facility] [address] [place], [address], 04/25/2022 12:26:46 04/26/19 23 04/25/2022 urina lysis , dipst ick Unknown Analyte Normal = Negati ve Not Available [facility] [address] [place], [address], 04/25/2022 12:26:46 04/26/19 23 04/25/2022 urina lysis , dipst ick Unknown Analyte Small Not Available [address] [place] [address] [address] [place], [address], 04/25/2022 12:26:46 04/26/19 23 04/25/2022 pregn tori test, urine Unknown Analyte Normal = Negati ve Not Available [facility] [place], [address], 04/25/2022 12:26:47 04/26/19 23 04/25/2022 pregn tori test, urine Unknown Analyte negati ve Not Available [facility] [place], [address], 04/25/2022 12:26:47 Result Notes None recorded. Problems Name Problem SNOMED Code Status Onset Date Resolution Date Notes Provider Name and Address Organization Details Recorded Time Disorder of thyroid gland 14198208 Active [facility] EMERYSUZANNE Jelani null, [place] - [facility] 3 12:30:35 Asthma 344372009 Active [facility] GARNERSANCHEZ Jelani null, [place] - [facility] 3 12:30:42 Celiac disease 571735233 Active [facility]AB LUISA Jelani null, [place] - [facility] 12:30:52 Problem Notes None recorded. Medical Equipment None Reported. Allergies Allergen ID Allergen Name Allergen Category Reaction Reaction Severity Criticality Documentation Date Start Date Code Code System Note Provider Name and Address Organization Details Recorded Time 630744 Reglan medicatio n rash Not available Not [...] Pulse oximetry Heart rate Body temperature Systolic And Diastolic Provider Name and Address Organization Details Last Updated DateTime 3 167.64 cm 27 kg/m2 69136.9 3 g 17 /min 10 97 % 97 % 72 /min 97.2 [degF] 100/62 mm[Hg] [facility]AB NIEVES RA [facility] - [facility] [...] ICD10 Code Diagnosis IMO Codes Diagnosis [place] [id number] [place] [address] [facility] [address] 04/25/2022 10:55:44 04/25/2022 13:18:52 Acute urinary tract infection 012937258 N39.0 Health Concerns Section Related Observation LastModified by Organization Detai ls LastModified Time None Recorded Concern Status LastModified by Organization Details LastModified Time None Recorded Advance Directives Directive None Recorded Payers Insurance Date Sequence Insurance Name Policy Number Policy Hess Covered Member ID Hess Member ID Guarantor Name 06/24/2022 1 [facility] ([facility] LEON Blevins [id number] Miguel Angel Blevins Notes Date Note Type Note Provider Name and Address Organization Details Recorded Time 04/25/2022 text/html Urinary Complain t FemaleReported by PatientUrinary problemsFor source of patient information, patient reportsinformation obtained from patientandpatient arrived at urgent care ambulatory. For uti symptoms, patient reportsno blood in the urine,no pain during urination,no vaginal discharge,no urgency,no pain in the flank,no fever/chills,no incontinence,no recurrent uti, andno known exposure to std.frequency and urgency x 1 day. denies any fever or fever with chills, denies any History of renal stone or bladder issues. frequency and urgency x 1 day. denies any fever or fever with chills, denies any History of renal stone or bladder issues. Randal Miranda NP [address] [place], [address], [place] - [facility] 04/25/2022 13:17:27 OBGyn Episode No OBEpisode recorded.
--- OUTSIDE RECORDS SUMMARY | 2024-12-27 10:25 | XMS_ITS | Clinical Summary ---
Author Organization [facility] Address [address] [id number] Care Team Providers Care President Sales And Marketing Name Role Phone Sarai Solares MD Primary Care Provider [phone] Allergies Active Allergy Reactions Criticality Noted Date [...] age to complete this topic Care Teams President Sales And Marketing Relationship Specialty Start Date End Date Chaganti, Sarai, MD [address] [address] PCP - General Internal Medicine 06/22/22
--- OUTSIDE RECORDS SUMMARY | 2024-12-27 10:26 | XMS_ITS | Clinical Summary ---
Author Organization Patient Business Ser [facility] Address [address] [place] [address] Care Team Providers Care Payable Manager Name Role Phone Sarah Kwok Primary Care Provider + Allergies Active Allergy Reactions Criticality Noted Date Comments Duloxetine Hcl 09/29/2022 Fatigue Galcanezumab-Gnlm Other 01/12/2023 Gluten Unknown Low 04/13/2013 Lactose 04/13/2013 Metoclopramide Hcl 04/13/2013 Medications albuterol HFA (Ventolin HFA) 90 mcg/actuation inhaler INHALE 2 PUFFS INTO THE LUNGS EVERY 4 HOURS NEEDED FOR COUGH,WHEEZING OR SHORTNESS OF BREATH. 023 Active cholecalciferol (VITAMIN D-3) 50 mcg (2,000 unit) capsule Take 1 capsule (2,000 Units total) by mouth 1 (one) time each day. 024 Active ascorbic acid (VITAMIN C) 500 mg tablet Take 1 tablet (500 mg total) by mouth 1 (one) time each day. 024 Active acetaminophen (TYLENOL) 500 mg tablet Take 2 tablets (1,000 mg total) by mouth every 6 (six) hours if needed for moderate pain or mild pain. 023 Active atogepant (Qulipta) 30 mg tablet Take 1 tablet by mouth 1 (one) time each day. 024 Active polyethylene glycol (MIRALAX) 17 gram packet Take 17 g by mouth 1 (one) time each day. 023 Active magnesium oxide (MAG-OX) 400 mg (241.3 elemental magnesium) tablet TAKE 1 TABLET BY MOUTH EVERY DAY AT BEDTIME HOLD FOR LOOSE STOOL 023 Active gabapentin (NEURONTIN) 300 mg capsule Take 2 capsules (600 mg total) by mouth 2 (two) times a day. 024 Active albuterol 2.5 mg /3 mL (0.083 %) nebulizer solution TAKE 1 VIAL BY NEBULIZATION EVERY 4 HOURS NEEDED FOR WHEEZING. 375 mL 025 Active acetaZOLAMIDE (DIAMOX) 500 mg 12 hr capsule Take 1 capsule (500 mg total) by mouth 2 (two) times a day. 025 Active metoprolol succinate (TOPROL-XL) 25 mg 24 hr tabletIndications :Palpitations,PVC 's (premature ventricular contractions) Take 1 tablet (25 mg total) by mouth 1 (one) time each day. Do not crush or chew. 90 tablet 3 025 Active cetirizine (ZyrTEC) 10 mg tablet Take 1 tablet (10 mg total) by mouth 1 (one) time each day. 025 Active eletriptan (RELPAX) 40 mg tablet PLEASE SEE ATTACHED FOR DETAILED DIRECTIONS Active Nurtec 75 mg dispersible tablet TAKE 1 TAB ORALLY ONCE NEEDED FOR MIGRAINE HEADACHE FOR 30 DAYS MAX DAILY DOSE 1 TAB PER DAY 024 Active ondansetron (ZOFRAN) 8 mg tablet Take 1 tablet (8 mg total) by mouth 3 (three) times a day if needed for nausea or vomiting. 20 tablet 1 025 Active hydroxychloroquin e (PLAQUENIL) 200 mg tablet Take 1 tablet (200 mg total) by mouth 2 (two) times a day. Active levothyroxine (SYNTHROID, LEVOTHROID) 100 mcg tablet TAKE 1 TABLET BY MOUTH EVERY DAY 90 tablet 1 025 Active sucralfate (CARAFATE) 100 mg/mL suspension TAKE 10 MLS BY MOUTH TWICE DAILY BEFORE MEALS, 1 HOUR BEFORE MEALS AND AT BEDTIME 2520 mL 1 025 Active ALPRAZolam (XANAX) 0.25 mg tablet TAKE 1 TABLET 30 MINS PRIOR TO MRI, MAY REPEAT ONCE Active amitriptyline (ELAVIL) 25 mg tablet Take by mouth. Activ e amoxicillin (AMOXIL) 500 mg tablet TAKE 1 TABLET EVERY 6 HOURS UNTIL FINISHED Active butalbital-acetam inophen-caffeine (FIORICET, ESGIC) 50-325-40 mg per tablet 1-2 TABLETS BY MOUTH EVERY 4 HOURS NEEDED FOR HEADACHE,X7 DAYS, MAX 6 TABS A DAY/28 TABS PER WEEK Active celecoxib (CeleBREX) 100 mg capsule TAKE 2 CAPSULES BY MOUTH EVERY 12 HOURS FOR 30 DAYS 025 Active clarithromycin (BIAXIN) 500 mg tablet Take 1 tablet (500 mg total) by mouth. Active dexAMETHasone (DECADRON) 4 mg tablet Take 1 tablet (4 mg total) by mouth. 023 Active fluconazole (DIFLUCAN) 150 mg tablet TAKE 1 TABLET FOR 1 DAY, TAKE THE 2ND TABLET 72 HOURS LATER IF NEEDED Active famotidine (PEPCID) 20 mg tablet Take 1 tablet (20 mg total) by mouth. 022 Active Phexxi 1.8-1-0.4 % gel INSERT 1 APPLICATORFUL UP TO 1 HOUR BEFORE INTERCOURSE Active lactulose (CHRONULAC) solution TAKE 30 ML ORALLY DAILY NEEDED FOR CONSTIPATION FOR 90 DAYS Active Linzess 72 mcg capsule Take 1 capsule (72 mcg total) by mouth 1 (one) time each day. Active Lotemax 0.5 % ointment APPLY A SMALL AMOUNT ON EYELID 4 TIMES DAILY FOR 3 WEEKS THEN STOP Active methylPREDNISolon e (MEDROL DOSPAK) 4 mg tablet TAKE 6 TABLETS ON DAY 1 DIRECTED ON PACKAGE AND DECREASE BY 1 TAB EACH DAY FOR A TOTAL OF 6 DAYS 025 Active neomycin-polymyxi n-dexamethasone (MAXITROL) 3.5mg/mL-10,000 unit/mL-0.1 % ophthalmic suspension instill 1 drop into right eye 4 times a day 025 Active nitrofurantoin, macrocrystal-mono hydrate, (MACROBID) 100 mg capsule Take 1 capsule (100 mg total) by mouth 2 (two) times a day. 7 days Active nortriptyline (PAMELOR) 10 mg capsule TAKE 1 TO 3 CAPSULE BY MOUTH AT BEDTIME Active ondansetron ODT (ZOFRAN-ODT) 4 mg disintegrating tablet TAKE 1 TABLET BY MOUTH EVERY 8 HOURS NEEDED FOR NAUSEA AND VOMITING FOR 3 DAYS Active phenazopyridine (PYRIDIUM) 100 mg tablet TAKE 1 TABLET BY MOUTH 3 TIMES A DAY X 3 DAYS Active phentermine 37.5 mg capsule 37.5 MG ORALLY DAILY MUST ADMINISTER 30 MINUTES BEFORE OR 1-2 HOURS AFTER BREAKFAST Active predniSONE (DELTASONE) 10 mg tablet PLEASE SEE ATTACHED FOR DETAILED DIRECTIONS Active riboflavin (VITAMIN B2) 400 mg tablet take 1 tablet orally daily for 30 days Active rizatriptan (MAXALT) 10 mg tablet PLEASE SEE ATTACHED FOR DETAILED DIRECTIONS Active SUMAtriptan (IMITREX) 20 mg/actuation nasal spray PLEASE SEE ATTACHED FOR DETAILED DIRECTIONS Active Tobradex ophthalmic ointment APPLY TO RIGHT EYE EVERY 8 HOURS FOR 7 DAYS Active Meghan 30 mg tablet Take 1 tablet (30 mg total) by mouth. Active ZOLMitriptan (ZOMIG) 5 mg tablet PLEASE SEE ATTACHED FOR DETAILED DIRECTIONS Active baclofen (LIORESAL) 20 mg tablet Take 1 tablet (20 mg total) by mouth 2 (two) times a day. 180 tablet 1 Active omeprazole (PriLOSEC) [address] capsule TAKE 1 CAPSULE BY MOUTH DAILY 90 capsule 1 Active baclofen (LIORESAL) 20 mg tablet Take 1 tablet (20 mg total) by mouth 2 (two) times a day if needed for muscle spasms. 90 tablet 3 024 2024 Discontinued omeprazole (PriLOSEC) [address] capsule TAKE 1 CAPSULE BY MOUTH DAILY 90 capsule 1 025 2024 Discontinued Active Problems Problem Noted Date Diagnosed Date Anemia 11/26/2024 Asthma 11/26/2024 Chronic pain syndrome 11/26/2024 Class 1 obesity 11/26/2024 HSIL (high grade squamous in traepithelial lesion) on Pap smear of cervix 11/26/2024 Somatization disorder 11/26/2024 Atypical facial pain 05/30/2024 Migraine 05/30/2024 Peripheral vertigo 05/30/2024 Supervision of normal first 11/24/2023 Overview (11/24/2023): office: [place] Delivery site: [facility] Blood Type: O+ Quad screen: negative GBS: Date: TDap: Childbirth plans: Desires epidural Natural childbirth. Labor support identified: Planning bottlefeeding because she's going back to school shortly after baby's PP BCM: Male; Circ: no Baby's Name: Beck ARRIAGA's name: Debbie Erickson Tinnitus of right ear 05/09/2023 Overview (11/26/2024): Tinnitus, right ear; Note: Date Diagnosed: 05/09/2023 4:00 PM (H93.11) ASHLEY positive 07/05/2022 Bacterial infection due to [...] - 10/29/2024 11:59 PM EDT Hospital Encounter [facility] Xray [address] [place] [phone] Discharge Disposition: Home or Self Care 10/29/2024 10:15 AM EDT Treatment [facility] [address] [phone] Анна Ricardo, PT Right hip pain (Primary Dx); Acute right ankle pain; Acute pain of right knee 10/26/2024 10:00 AM EDT Treatment [facility] 175 [facility] [address] [place] [phone] HaleighАнна, PT Right hip pain (Primary Dx); Acute right ankle pain 10/15/2024 2:00 PM EDT Treatment [facility] 175 [facility] [address] [place] [phone] HaleighАнна, PT Right hip pain (Primary Dx); Acute right ankle pain from Last 3 Months Immunizations Immunization Administration Dates Next Due Influenza Quadrivalent, 0.5m [...] Record ed Within the last 3 months, alee monroy many times did you visit the emergency [...] care for your loved ones. For example, summer child caregiver or elderly care for an older adult? [...] Date Recorded What is your living situation? Unrecognized valu e 07/05/2024 Comments No Sex and Gender Information [...] Care Team (Late st Contact Info) Description 12/28/2024 9:45 AM EST Office Visit Internal Medicine - [place] 175 [facility] [address] [place] [phone] Sarah Kwok PA [address] [place] [address] 04/04/2025 9:30 AM EST Consult Bariatric Surgery - [place] 175 [facility] [address] [place] [phone] Cheryl Holland PA [address] [place] [address] 05/30/2025 9:50 AM EDT Office Visit Gastroenterology - [address] [facility] 299 [facility] [address] [place] [phone] Minnie Raman PA 299 [facility] [address] [place] [address] Health Maintenance Due Date Last Done Comments Pneumococcal Vaccine: Pediatrics (0 to 5 Years) and At-Risk Patients (6 to 49 Years) (1 of 2 - PCV) 2013 Cervical Cancer Screening: Pap Smear 2015 Hepatitis C Screening 05/19/2021 COVID-19 Vaccine ( season) 2024 Influenza Vaccine (#1) 2024 8, 11/12/2014, 11/29/2013, Additional history exists Social Influencers of Health Screening 07/05/2025 07/05/2024, 09/27/2023 Cholesterol Screening (Lipid Panel) 10/23/2027 10/22/2022 DTaP,Tdap,and Td Vaccines (9 - Td or Tdap) 09/12/2029 09/13/2019, 08/29/2013, 11/23/2005, Additional history exists RSV Immunization Adult Patients (1 - 1-dose 75+ series) 2069 Hepatitis B Vaccines Completed 01/04/1995, 1994, 1994 [...] 10/29/2024 11:09 AM EDT Right hip pain EXTERNAL CLINICAL LAB 09/27/2024 DEPRESSION SCREENING Routine 03/15/2023 LIPID PANEL Routine 10/22/2022 HIV SCREENING Routine 04/13/2013 from Last 3 Months or Most Recently Relevant to Health Maintenance Results * XR Hip 2-3 Views Right (10/29/2024 11:09 AM EDT) Anatomical Region Laterality Modality Lower Extremities, Hip Right Radiograp hic Imaging 10/29/2024 12:2 2 PM EDT Impressions 10/29/2024 12:23 PM EDT Normal examination. Code 73272 -------- FINAL REPORT -------- Dictated By: Rene Vasquez Dictated Date: 10/29/2024 12:22 ET Assigned Physician: Rene Vasquez Reviewed and Electronically Signed By: Rene Vasquez Signed Date: 10/29/2024 12:23 ET Workstation ID: [id number] Transcribed By: Self Edit Transcribed Date: 10/29/2024 [...] tissueabnormality is seen. IMPRESSION: Normal examination. Code 61497 -------- FINAL REPORT -------- Dictated By: Rene Vasquez Dictated Date: 10/29/2024 12:22 ET Assigned Physician: Rene Vasquez Reviewed and Electronically Signed By: Rene Vasquez Signed Date: 10/29/2024 12:23 ET Workstation ID: [id number] Transcribed By: Self Edit Transcribed Date: 10/29/2024 12:22 ET Chrsi SALGADO IMG XR PROCEDURES Final Result * External clinical lab (09/27/2024) Provider Shivam Onbase LAB BLOOD ORDERABLES Fin al Result * Depression Screening (03/15/2023) Depression Screening Abstracted Historical Provider HEALTH MAINTENANCE [...] Hm HIV Screening (04/13/2013) HIV Screening Abstracted Historical Provider HEALTH MAINTENANCE Final Result from Last 3 Months or Most Recently Relevant to Health Maintenance Insurance [facility] Care Teams Payable Manager Relationship Specialty Start Date End Date Sarah Kwok PA [address] [address] PCP - General Primary Care 01/30/24
== END 2024-12-27 10:15 | disposition home or self-care (01) ==
LOC: HO.HCS 09:24
PROVIDERS: PCP Internal Medicine; Visit Provider Nurse Practitioner Family
DX: R07.89 Other chest pain (principal); R06.02 Shortness of breath; R00.2 Palpitations
CPT/HCPCS: 93010; 99204

== ENCOUNTER → 2024-12-27 09:23 | Outpatient (BNVA) | payer OTHER, SELFPAY | PROVIDERS: PCP Internal Medicine; Visit Provider Nurse Practitioner Family | DX: R00.2 Palpitations (principal); R06.02 Shortness of breath; R07.89 Other chest pain | CPT/HCPCS: 93005; 99202 ==

== ENCOUNTER 2025-01-29 13:42 | Outpatient (AMB) | payer OTHER, SELFPAY ==
--- NOTE | 2025-01-29 13:43 | MHC.OFFVIS ---
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: No Accompanied by: Self / Same As Patient Allergies galcanezumab-gnlm (From Emgality Pen) Allergy (Severe, Verified 12/27/24 09:43) Anaphylaxis gluten (GLUTEN) Allergy (Unknown, Verified 12/27/24 09:43) DIARRHEA lactose Allergy (Unknown, Verified 12/27/24 09:43) Unknown metoclopramide (From REGLAN) Adverse Reaction (Unknown, Verified 12/27/24 09:43) Anxiety ibuprofen Adverse Reaction (Verified 12/27/24 09:43) Stomach Upset Medication List - Last Reconciled 01/29/25 by Mckenna Garcia MD acetazolamide ER 500 mg PO TID 90 days atogepant (Qulipta) 30 mg PO DAILY 30 days baclofen 20 mg PO BID PRN celecoxib (Celebrex) 200 mg (2 x 100 mg) PO Q12H 30 days eletriptan take 1 tab at onset of headache; if no relief, may repeat 1 tab after at least 2 hrs; max = 2 tabs/24 hrs orally PRN; 30 days gabapentin 600 mg PO BID hydroxychloroquine 200 mg PO BID levothyroxine 100 mcg PO DAILY magnesium oxide 400 mg PO BEDTIME 30 days metoprolol succinate ER 25 mg PO DAILY riboflavin (vitamin B2) 400 mg PO DAILY 30 days rimegepant (Nurtec ODT) 75 mg PO ONCE PRN 30 days sumatriptan 20 mg/actuation 20 mg intranasal Q2H PRN 30 days MDD 40mg HPI Comments Details: ? 29y/o female comes for treatment of migraines with botox. ??? Most frequent reported adverse reactions following injection of botox for chronic migraine include neck pain (9%), headache(5%), eyelid ptosis(4%), migraine(4%), muscular weakness(4%), musculuskeletal stiffness(4%), bronchitis(3%), injection site pain (3%), musculoskeletal pain(3%), myalgia(3%), facial paresis(2%), HTN(2%) and muscle spasms(2%) were discussed in detail. ??? Botulinum toxin typeA 200units Lot no [id number] expiration April 2027 was diluted with 4 cc of normal saline . ??? Muscles injected- ??? Frontalis 4 sites ??? Procerus 1 site xxx ??? Molder Fitting- 2 sites ??? Temporalis- 8 sites ??? Occipitalis- 6 sites ??? Cervical paraspinals- 4 sites ??? Trapezius- 6 sites- 10 units each ??? 5 units each in 31 site ??? Total use- 185units ??? Discarded-15units [facility] Medical History Connective tissue disorder Obesity Pseudotumor cerebri Enlarged tonsils HLD (hyperlipidemia) Hypothyroidism History of depression KARISSA (iron deficiency anemia) Asthma Heart murmur GERD (gastroesophageal reflux disease) Celiac disease Surgical History Hx of colonoscopy Hx of bladder endoscopy H/O eye surgery Family History Maternal Grandmother Diabetes Hypertension Paternal Grandfather Hypertension Father Rheumatoid arthritis Diabetes Fibromyalgia Migraines Anxiety Lupus Mother Fibromyalgia Migraines Hypertension Hypercholesteremia Son Thyroid condition Asthma Son Autism Daughter Arthritis Social History Alcohol intake: never Patient Tobacco Use Status: Never used Tobacco Physical Exam Vital Signs: Last Vital Signs Pulse 96 01/29/25 13:44 BP 120/72 01/29/25 13:44 Pulse Ox 98 01/29/25 13:44 Oxygen Delivery Method Room Air 01/29/25 13:44 BMI result Body Mass Index 29.8 Const General: cooperative and no acute distress Orientation/consciousness: patient oriented x3 Resp Effort & Inspection: normal respiratory effort and able to speak in complete sentences Neuro Other: Bilateral jaw tightness, more so on right bilateral posterior cervical tightness. General: patient oriented x3 Cranial nerves: Yes CN's II-XII intact bilaterally Cognition (Neuro): normal cognition Psych Appearance: grossly normal Mental Status: mental status grossly normal Speech and movement: Normal speech and movement present Affect: normal affect Attitude: cooperative Office Procedures Botulinum toxin Injection 65392 - Migraine Procedure code (CPT) selection complete Office Meds onabotulinumtoxinA 200 unit solution for injection Performing Provider: Mckenna Garcia MD Performing Location: [facility] Administered by: Mckenna Garcia MD on 01/29/25 14:03 Dose Route Admin Location Dispensed Lot Number Expiration Date [facility] 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 Finisher 185 unit subcut 200 units [id number] ALLERGAN/BOTOX Total Dispensed Waste 200 units 7.5 % Assessment & Plan Assessment & Plan (1) Chronic migraine without aura: Code(s): G43.709 - Chronic migraine without aura, not intractable, without status migrainosus Category: Medical Qualifiers: Status migrainosus presence: without status migrainosus Intractability: intractable Qualified Code(s): G43.719 - Chronic migraine without aura, intractable, without status migrainosus (2) Bruxism: Code(s): F45.8 - Other somatoform disorders Category: Medical (3) TMJ (temporomandibular joint disorder): Code(s): M26.609 - Unspecified temporomandibular joint disorder, unspecified side Category: Medical Plan Patient tolerated the procedure well she will call with any side effects Orders: Orders AMB Botulinum toxin Injection Today G43.719 - Chronic migraine without aura, intractable, without status migrainosus Coding Level of Care Code Est Pt Level 1 (12804) Diagnoses Intractable chronic migraine without aura and without status migrainosus G43.719 Status migrainosus presence: without status migrainosus Intractability: intractable Bruxism F45.8 TMJ (temporomandibular joint disorder) M26.609 CPT Codes Botox Injection - Botox 3: 63742 - Migraine ([id number])
[2025-01-29 13:44] VITALS: BP 120/72; PULSE 96; O2SAT 98; BMI 29.8
--- OUTSIDE RECORDS SUMMARY | 2025-01-29 19:43 | XMS_ITS | Data Portability ---
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 Name Role Phone MYRIAM KEY Primary Care [...] to read at home, which gives a [id number] discussion on what causes migraine and how [...] Details Recorded Time Tinnitus of right ear 4873046636506 Active 2023 Tinnit us, right ear; Note: Date Diagno sed: 024 4:00 PM (H93.1 1) Not Available [facility] 4 02:30:45 Atypical facial pain 60904307 Active 2024 Josee castaneda [place] - [facility] 5 11:44:01 Migraine 21524651 Active 2024 Joseeviky castaneda, [place] - [facility] 5 11:44:09 Peripheral vertigo 17956338 Active 2024 Joseeviky castaneda, [place] - [facility] 5 11:44:31 Problem Notes None recorded. Procedures Surgical History Date Name Laterality Status Provider Name and Address Organization Details Recorded Time 05/30/2024 Comp Audio with Tymps - 63305 & 76136 completed ALEX LEBLANC, [facility] [address] [facility], [place], [address], [place] - [facility] 05/30/2024 10:57:28 Imaging Results None recorded. Procedure Notes None recorded. Medical Equipment None Reported. Allergies Allergen ID Allergen Name Allergen Category Reaction Reaction Severity Criticality Documentation Date Start Date Code Code System Note Provider Name and Address Organization Details Recorded Time 654721 wheat gluten extract food other Not available Not available 09/23/2023 98626 81 RxNorm React ion: Unkno wn; Not Available [facility] 4 00:26:55 153023 Reglan medicatio n other Not available Not available 09/23/2023 9230 RxNorm React ion: Unkno wn; Not Available [facility] 4 00:26:58 Medications Name Sig Start Date [...] Updated DateTime 05/30/2024 167.64 cm 31.3 kg/m2 94857.92 g Zahra Toussaint [place] - [facility] 05/30/2024 10:30:49 Social History None recorded. Functional Status None recorded. Mental Status None recorded. Family History Nothing Reported. Medical History No medical history recorded. Gynecological HistoryNo gynecological history recorded. Obstetrics History GPAL:G 0 P 0 0 0 0 Past Encounters Encounter ID Performer Location Encounter Start Date Encounter Closed Date Diagnosis/Indication Diagnosis SNOMED-CT Code Diagnosis ICD10 Code Diagnosis IMO Codes Diagnosis Note [id number] JOSEE LOWERY PA-C [facility] [address] [address] 05/30/2024 10:24:57 05/30/2024 11:14:02 Tinnitus of right ear 4650657296 108 H93.11 Audiologic al evaluation results: Right ear: Normal hearing with excellent word recognitio n. Left ear: Normal hearing with excellent word recognitio n. Tympanomet ry: Right Ear:Type A Left Ear:Type A Atypical facial pain 713 57252 G50.1 Migraine 53028112 G43.90 9 Peripheral vertigo 67439 001 H81.399 Health Concerns Section Related Observation LastModified by Organization Detai ls LastModified Time None Recorded Concern Status LastModified by Organization Details LastModified Time None Recorded Advance Directives Directive None Recorded Payers Insurance Date Sequence Insurance Name Policy Number Policy Hess Covered Member ID Hess Member ID Guarantor Name 04/04/2024 1 [facility] (MEDICAID HMO) [employer] Franshesca Blevins [id number] Franshesca Blevins 04/04/2024 1 [place] [facility] Franshesca Blevins [id number] Franshesca Blevins 05/30/2024 2 [place] [facility] Franshesca Blevins [id number] Franshesca Blevins 06/01/2024 1 [facility] - [facility] (MEDICAID REPLACEMENT - HMO) [facility] Franshesca Blevins [id number] Franshesca Blevins 04/04/2024 2 [place] Franshesca Blevins [id number] Franshesca Blevins Notes Date Note Type [...] castaneda [place] - [facility] 05/31/2024 15:33:28 OBGyn Episode No OBEpisode recorded.
--- OUTSIDE RECORDS SUMMARY | 2025-01-29 19:43 | XMS_ITS | Clinical Summary ---
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 03/25/19 23 Active cholecalciferol (VITAMIN D-3) 50 mcg (2,000 [...] HOLD FOR LOOSE STOOL 09/07/19 23 Active gabapentin (NEURONTIN) 300 mg capsule Take 2 capsules (600 mg total) by mouth 2 (two) times a day. 01/05/20 24 Active albuterol 2.5 mg /3 mL (0.083 %) nebulizer solution TAKE 1 VIAL BY NEBULIZATION EVERY 4 HOURS NEEDED FOR WHEEZING. 375 mL 02/25/19 25 Active acetaZOLAMIDE (DIAMOX) 500 mg 12 hr capsule Take 1 capsule (500 mg total) by mouth 2 (two) times a day. 05/21/19 25 Active metoprolol succinate (TOPROL-XL) 25 mg 24 hr tabletIndications: Palpitations,PVC's (premature ventricular contractions) Take 1 tablet (25 [...] DAILY DOSE 1 TAB PER DAY 05/13/19 24 Active ondansetron (ZOFRAN) 8 mg tablet Take 1 tablet (8 mg total) by mouth 3 (three) times a day if needed for nausea or vomiting. 20 tablet 1 08/30/19 25 Active hydroxychloroquine (PLAQUENIL) 200 mg tablet Take 1 tablet (200 mg total) by mouth 2 (two) times a day. Active levothyroxine (SYNTHROID, LEVOTHROID) 100 mcg tablet TAKE 1 TABLET BY MOUTH EVERY DAY 90 tablet 1 09/18/19 25 Active sucralfate (CARAFATE) 100 mg/mL suspension TAKE 10 MLS BY MOUTH TWICE DAILY BEFORE MEALS, 1 HOUR BEFORE MEALS AND AT BEDTIME 2520 mL 1 11/27/19 25 Active ALPRAZolam (XANAX) 0.25 mg tablet TAKE 1 TABLET 30 MINS PRIOR TO MRI, MAY REPEAT ONCE Active amitriptyline (ELAVIL) 25 mg tablet Take by mouth. Activ e amoxicillin (AMOXIL) 500 mg tablet TAKE 1 TABLET EVERY 6 HOURS UNTIL FINISHED 10/10/19 25 Active butalbital-acetami nophen-caffeine (FIORICET, ESGIC) 50-325-40 mg per tablet 1-2 TABLETS BY MOUTH EVERY 4 HOURS NEEDED FOR HEADACHE,X7 DAYS, MAX 6 TABS A DAY/28 TABS PER WEEK Active celecoxib (CeleBREX) 100 mg capsule TAKE 2 CAPSULES BY MOUTH EVERY 12 HOURS FOR 30 DAYS 10/27/19 25 Active clarithromycin (BIAXIN) 500 mg tablet Take 1 tablet (500 mg total) by mouth. Active dexAMETHasone (DECADRON) 4 mg tablet Take 1 tablet (4 mg total) by mouth. 09/21/19 23 Active fluconazole (DIFLUCAN) 150 mg tablet TAKE 1 TABLET FOR 1 DAY, TAKE THE 2ND TABLET 72 HOURS LATER IF NEEDED Active famotidine (PEPCID) 20 mg tablet Take 1 tablet (20 mg total) by mouth. 04/20/19 22 Active Phexxi 1.8-1-0.4 % gel INSERT 1 APPLICATORFUL UP TO 1 HOUR BEFORE INTERCOURSE 11/04/19 25 Active lactulose (CHRONULAC) solution TAKE 30 ML ORALLY DAILY NEEDED FOR CONSTIPATION FOR 90 DAYS Active Linzess 72 mcg capsule Take 1 capsule (72 mcg total) by mouth 1 (one) time each day. 11/04/19 25 Active Lotemax 0.5 % ointment APPLY A SMALL AMOUNT ON EYELID 4 TIMES DAILY FOR 3 WEEKS THEN STOP 11/06/19 25 Active methylPREDNISolone (MEDROL DOSPAK) 4 mg tablet TAKE 6 TABLETS ON DAY 1 DIRECTED ON PACKAGE AND DECREASE BY 1 TAB EACH DAY FOR A TOTAL OF 6 DAYS 10/09/19 25 Active neomycin-polymyxin -dexamethasone (MAXITROL) 3.5mg/mL-10,000 unit/mL-0.1 % ophthalmic suspension instill 1 drop into right eye 4 times a day 05/18/19 25 Active nitrofurantoin, macrocrystal-monoh ydrate, (MACROBID) 100 mg capsule Take 1 capsule (100 mg total) by mouth 2 (two) times a day. 7 days Active nortriptyline (PAMELOR) 10 mg capsule TAKE 1 TO 3 CAPSULE BY MOUTH AT BEDTIME Active ondansetron ODT (ZOFRAN-ODT) 4 mg disintegrating tablet TAKE 1 TABLET BY MOUTH EVERY 8 HOURS NEEDED FOR NAUSEA AND VOMITING FOR 3 DAYS 04/20/19 22 Active phenazopyridine (PYRIDIUM) 100 mg tablet TAKE 1 TABLET BY MOUTH 3 TIMES A DAY X 3 DAYS Active phentermine 37.5 mg capsule 37.5 MG ORALLY DAILY MUST ADMINISTER 30 MINUTES BEFORE OR 1-2 HOURS AFTER BREAKFAST 06/02/19 25 Active predniSONE (DELTASONE) 10 mg tablet PLEASE SEE ATTACHED FOR DETAILED DIRECTIONS 12/27/19 24 Active riboflavin (VITAMIN B2) 400 mg tablet take 1 tablet orally daily for 30 days Active rizatriptan (MAXALT) 10 mg tablet PLEASE SEE ATTACHED FOR DETAILED DIRECTIONS Active SUMAtriptan (IMITREX) 20 mg/actuation nasal spray PLEASE SEE ATTACHED FOR DETAILED DIRECTIONS 05/21/19 25 Active Tobradex ophthalmic ointment APPLY TO RIGHT EYE EVERY 8 HOURS FOR 7 DAYS 07/11/19 25 Active Meghan 30 mg tablet Take 1 tablet (30 mg total) by mouth. Active ZOLMitriptan (ZOMIG) 5 mg tablet PLEASE SEE ATTACHED FOR DETAILED DIRECTIONS 03/29/19 25 Active baclofen (LIORESAL) 20 mg tablet Take 1 tablet (20 mg total) by mouth 2 (two) times a day. 180 tablet 1 12/04/19 25 Active omeprazole (PriLOSEC) [address] capsule TAKE 1 CAPSULE BY MOUTH DAILY 90 capsule 1 12/04/19 25 Active Active Problems Problem Noted Date Diagnosed Date Anemia 11/26/2024 Asthma 11/26/2024 Chronic pain syndrome 11/26/2024 Class 1 obesity 11/26/2024 HSIL (high grade squamous in traepithelial lesion) on Pap smear of cervix 11/26/2024 Somatization disorder 11/26/2024 Atypical facial pain 05/30/2024 Migraine 05/30/2024 Peripheral vertigo 05/30/2024 Supervision of normal first 11/24/2023 Overview (11/24/2023): office: [facility] site[facility] Blood Type: O+ Quad screen: [...] neuralgia of right side Frequent headaches Immunizations Immunization Administration Dates Next Due Influenza [...] for your loved ones. For example, child advocate or elderly care for an older adult? [...] Care Team (Late st Contact Info) Description 04/04/2025 9:30 AM EST Consult Bariatric Surgery - [place] [address] [facility] [address] [place] [phone] Cheryl Holland PA [address] [place] [phone] 05/30/2025 9:50 AM EDT Office Visit Gastroenterology - [address] [facility] [address] [facility] [address] [place] [phone] Minnie Raman PA [address] [facility] [address] [place] [address] Health Maintenance Due Date Last Done Comments Pneumococcal Vaccine: Pediatrics (0 to 5 Years) and At-Risk Patients (6 to 49 Years) (1 of 2 - PCV) 2013 Cervical Cancer Screening: Pap Smear 2015 Hepatitis C Screening 05/19/2021 COVID-19 Vaccine ( - season) 2024 Influenza Vaccine (#1) 2024 8, [...] * Depression Screening (03/15/2023) Depression Screening Abstracted us Historical Provider MD HEALTH MAINTENANCE Final Result * Lipid panel (10/22/2022) LDL/HDL Ratio 3 0 - 4 Triglycerides 77 0 - 150 mg/dL Cholesterol 183 0 - 200 mg/dL HDL 72 >=40 mg/dL LDL Cholesterol 96 0 - 100 mg/dL Blood Venous blood specimen / Unknown Historical Provider LAB BLOOD ORDERABLES Ambreen l Result * HIV Screening (04/13/2013) Pathologist [facility] HIV Screening Abstracted Historical Provider HEALTH MAINTENANCE Final Result from Last 3 Months or Most Recently Relevant to Health Maintenance Insurance [facility] Care Teams Ac[employer] Supervisor Relationship Specialty Start Date End Date Sarah Kwok PA [address] [address] PCP - General Primary Care 01/30/24
--- OUTSIDE RECORDS SUMMARY | 2025-01-29 19:43 | XMS_ITS | Clinical Summary ---
Author Organization [facility] Prior to 07/21/24 Address [address] [place] [address] Care Team Providers Care Story Teller Name Role Phone Sarai Solares MD Primary Care Provider Allergies Active Allergy Reactions Criticality Noted Date [...] age to complete this topic Care Teams Story Teller Relationship Specialty Start Date End Date Sarai Solares MD [address] [facility] [address] [place] [address] PCP - General Internal Medicine 06/22/22
== END 2025-01-29 14:00 | disposition home or self-care (01) ==
LOC: HO.HSMS 13:43
PROVIDERS: PCP Physician Assistant; Visit Provider Psychiatry & Neurology Neurology
DX: G43.719 Chronic migraine without aura, intractable, without status migrainosus (principal)
CPT/HCPCS: 64615

== ENCOUNTER → 2025-01-29 13:42 | Outpatient (BNVA) | payer OTHER, SELFPAY | PROVIDERS: PCP Physician Assistant; Visit Provider Psychiatry & Neurology Neurology | DX: G43.709 Chronic migraine without aura, not intractable, without status migrainosus (principal); F45.8 Other somatoform disorders; M26.609 Unspecified temporomandibular joint disorder, unspecified side | CPT/HCPCS: 64615; 99211; J0585 ==